=== PATIENT | female | born 1965 | race Two or more races ===

== ENCOUNTER 2024-07-21 19:49 | Inpatient (IN) | payer OTHER, SELFPAY ==
--- NOTE | ~2024-07-21 | CT_ITS ---
CLINICAL HISTORY: persistent headache CT head without contrast Comparison: None Findings: No intra-axial mass, midline shift, hydrocephalus, or acute hemorrhage. No significant atrophy-like change or white matter disease. There is no sinus or mastoid fluid. The orbits are unremarkable. No skull fracture. IMPRESSION: 1. No acute intracranial findings. This document has been electronically signed by: Ruddy Park MD on 07/23/2024 12:24:24
--- NOTE | ~2024-07-21 | US_ITS ---
CLINICAL HISTORY: TANIA Exam: Ultrasound of the kidneys. Comparison: None. Findings: Right kidney measures 13.2 x 6.2 x 5.5 cm in size. Left kidney measures 13.9 x 7.1 x 5.6 cm in size. Diffuse increased echotexture of both kidneys with indistinctness of the corticomedullary junction. No mass or hydronephrosis identified. No renal calculi. Impression: Increased cortical echotexture both kidneys most characteristic of medical renal disease. This document has been electronically signed by: Juan Baptiste MD on 07/25/2024 07:34:08
[2024-07-21 19:53] VITALS: BP 155/79; PULSE 81; RESP 18; TEMP 37; O2SAT 98; BMI 31.6
--- NOTE | 2024-07-21 19:53 | ED.GENADULT ---
HPI - General Adult General Chief complaint: Recheck/Abnormal Lab/Rx Stated complaint: abnormal labs Time Seen by Provider: 07/21/24 23:11 Source: patient Mode of arrival: ambulatory Limitations: no limitations History of Present Illness ED Provider: HPI narrative: Patient's history of diabetes, hypertension, gastric bypass surgery comes here as PCP checked his blood yesterday and creatinine was 1.77. Patient creatinine was 0.75 on 05/30 for last few days patient has not been drinking enough fluids in last few days also noticed joints swelling especially hands pain in MCP joints Related Data Allergies Allergy/AdvReac Type Severity Reaction Status Date / Time latex Allergy Unknown Verified 07/21/24 19:55 Review of Systems Review of Systems: Yes all other systems are reviewed and are negative ON LICENSE OF [facility] Past Medical History Medical History (Updated 07/22/24 @ 07:15 by Jaden Wing MD) Post hysterectomy menopause Endometrial cancer Anxiety HTN (hypertension) Surgical History H/O inguinal hernia repair H/O abdominoplasty H/O gastric sleeve Social History Social History Smoked in Last 30 Days: No Use of substances other than those prescribed or required for medical reasons: No Advance Directives: No Advance Directives Information Provided: No Do you have a plan to hurt others: No Plan Patient : No Physical Exam ED Vital Signs: Vital Signs - 24 hr 07/21/24 19:53 07/21/24 22:48 07/22/24 02:25 Temperature 98.6 F 97.4 F 97.8 F Pulse Rate 81 71 76 Respiratory Rate 18 20 16 Blood Pressure 155/79 H 152/86 H 144/79 H Pulse Oximetry 98 99 97 Oxygen Delivery Method Room Air Room Air Room Air 07/22/24 05:17 Temperature Pulse Rate 78 Respiratory Rate 18 Blood Pressure 147/76 H Pulse Oximetry 97 Oxygen Delivery Method Room Air BMI result Body Mass Index 31.6 Appearance: Alert. Oriented X3. No acute distress. Eyes: PERRLA, No Nystagmus ENT: Pharynx normal. Oral Mucosa moist facial puffiness++ Neck: Normal inspection. Neck supple. CVS: Normal heart rate and rhythm. Pulses normal. Respiratory: No respiratory distress. Equal air entry bilateral, no wheezing/rales/rhonchi Abdomen: Soft and nontender. Bowel sounds are present, no mass palpable, no CVA tenderness Skin: Skin warm and dry. Normal skin color. Normal skin turgor. Extremities: No lower extremity edema. No calf tenderness swelling of the interphalangeal joint both hands Neuro: Oriented X 3. No motor deficit. No sensory deficit.No cerebellar signs , cranial nerves II-XII intact Course Course Course Narrative: This is a Rapid Medical Exam performed in triage by Alyssa Velazquez PA-C. Full HPI, ROS and PE to be performed by primary ED provider. 58 yo F presenting to the ED c/o diffuse body swelling x Wednesday. Admits to recent viral infection. Saw PCP & was told to come to the ED due to abnormal liver and kidney labs. (outpatient labs done yesterday). denies SOB PE: +diffuse joint swelling, LE swelling, talking in complete sentences Plan: EKG, labs, UA Medications Administered Discontinued Medications Generic Name Dose Route Start Last Admin Trade Name Tyrone PRN Reason Stop Dose Admin Acetaminophen 650 mg 07/22/24 03:57 07/22/24 04:00 Acetaminophen 325 Mg Tablet PO 07/22/24 03:58 650 mg ONCE ONE Administration Sodium Chloride 1,000 mls @ 999 mls/hr 07/21/24 23:39 07/22/24 02:15 Ns IV 07/22/24 00:39 Infused .Q1H1M ONE Infusion Sodium Chloride 1,000 mls @ 999 mls/hr 07/22/24 03:25 07/22/24 04:41 Ns IV 07/22/24 04:25 Infused .Q1H1M ONE Infusion Medical Decision Making Medical Decision Making [facility] Narrative: Patient with decreased oral intake status post gastric bypass surgery for last few days noticed to have elevated creatinine from her baseline of 0.75 in 05/30 now it is 1.99 patient received 1 L of IV fluids will repeat another L of IV fluid and recheck kidney function Repeat labs still showing creatinine of 1.62 after 2 L of IV fluids patient's urinated once will admit patient for continued IV hydration and follow up for the acute renal failure Differential Diagnosis Differential Diagnoses: The differential diagnosis associated with the presentation includes Lab Data [facility] Lab Attestation statement: I reviewed the patient's lab results. 07/21/24 20:10 07/22/24 05:15 Labs: Lab Results 07/21/24 07/22/24 07/22/24 Range/Units 20:10 00:13 01:53 WBC 6.4 (4.8-10.8) X10*3/uL RBC 3.96 L (4.20-5.50) X10*6/uL Hgb 11.1 L (12.0-16.0) g/dl Hct 33.8 L (37.0-47.0) % MCV 85.4 (80.0-98.0) fL MCH 28.0 (27.0-33.0) pg MCHC 32.8 (31.0-35.0) g/dl RDW 14.8 (11.0-16.0) % Plt Count 293 (160-400) X10*3/uL MPV 9.9 (9.4-12.3) fL Immature Gran % (Auto) 0.6 H (0.0-0.4) % Neut % (Auto) 68.4 (45-73) % Lymph % (Auto) 20.2 (20-40) % [place] % (Auto) 5.9 (2-11) % Eos % (Auto) 4.3 H (0-4) % Baso % (Auto) 0.6 (0-2) % Lymph # (Auto) 1.3 (1.2-4.9) X10*3/uL [place] # (Auto) 0.4 (0.1-1.2) X10*3/uL Eos # (Auto) 0.3 (0.0-0.4) X10*3/uL Baso # (Auto) 0.0 (0.0-0.2) X10*3/uL Abs Immat Gran (auto) 0.04 H (0.00-0.03) X10*3/uL Absolute Neuts (auto) 4.4 (2.0-8.3) x10*3/uL Absolute Nucleated RBC 0.000 (0.0-0.012) X10*3/uL Nucleated RBC % (auto) 0.0 (0.0-0.2) /100WBC ESR 23 H (0-20) MM/HR PT 9.8 L (10.9-12.4) SEC INR 0.9 (0.9-1.1) Sodium 138 (135-145) mmol/L Potassium 4.9 (3.3-5.1) mmol/L Chloride 106 (96-108) mmol/L Carbon Dioxide 23 (22-29) mmol/L Anion Gap 14 (12-20) BUN 33 H (9-16) mg/dL Creatinine 1.99 H (0.5-1.4) mg/dL Estim Creat Clear Calc 37.0 Estimated GFR 26 Random Glucose 163 H (60-115) mg/dL Calcium 8.5 (8.4-10.2) mg/dL Magnesium 3.1 H (1.6-2.6) mg/dL Total Bilirubin 0.3 (0.0-1.0) mg/dL Direct Bilirubin 0.1 (0.0-0.5) mg/dL AST 40 H (5-31) U/L ALT 43 H (0-31) U/L Alkaline Phosphatase 89 (39-117) U/L Total Creatine Kinase 121 (26-140) U/L C-Reactive Protein 0.54 H (< or = 0.50) mg/dL B-Natriuretic Peptide 66 (<100) pg/mL Total Protein 6.1 L (6.5-8.0) g/dL Albumin 3.3 L (3.5-5.0) g/dL Lipase 22 (8-78) U/L Urine Color Yellow Urine Appearance Clear Urine pH 7.5 (5.0-9.0) Ur Specific [place] 1.010 (1.005-1.025) Urine Protein 300 (3+) H (Neg-Trace) mg/dL Urine Glucose (UA) Negative (Negative) mg/dL Urine Ketones Negative (Negative) mg/dL Urine Blood Negative (Negative) Urine Nitrite Negative (Negative) Ur Leukocyte Esterase Negative (Negative) Urine RBC 0-2 (0-2) /HPF Urine WBC 0-5 (0-5) /HPF Ur Squamous Epith Cells 0-2 (0-2) /HPF Urine Bacteria None Seen (None Seen) Hyaline Casts 0-2 (0-2) /LPF Rheumatoid Factor < 13.0 (<15.0) IU/mL Influenza Type A (PCR) NEGATIVE (Negative) Influenza Type B (PCR) NEGATIVE (Negative) RSV RNA Qual (PCR) NEGATIVE (Negative) SARS-CoV-2 RNA (RT-PCR) NEGATIVE (Negative) 07/22/24 Range/Units 05:15 WBC (4.8-10.8) X10*3/uL RBC (4.20-5.50) X10*6/uL Hgb (12.0-16.0) g/dl Hct (37.0-47.0) % MCV (80.0-98.0) fL MCH (27.0-33.0) pg MCHC (31.0-35.0) g/dl RDW (11.0-16.0) % Plt Count (160-400) X10*3/uL MPV (9.4-12.3) fL Immature Gran % (Auto) (0.0-0.4) % Neut % (Auto) (45-73) % Lymph % (Auto) (20-40) % [place] % (Auto) (2-11) % Eos % (Auto) (0-4) % Baso % (Auto) (0-2) % Lymph # (Auto) (1.2-4.9) X10*3/uL [place] # (Auto) (0.1-1.2) X10*3/uL Eos # (Auto) (0.0-0.4) X10*3/uL Baso # (Auto) (0.0-0.2) X10*3/uL Abs Immat Gran (auto) (0.00-0.03) X10*3/uL Absolute Neuts (auto) (2.0-8.3) x10*3/uL Absolute Nucleated RBC (0.0-0.012) X10*3/uL Nucleated RBC % (auto) (0.0-0.2) /100WBC ESR (0-20) MM/HR PT (10.9-12.4) SEC INR (0.9-1.1) Sodium 141 (135-145) mmol/L Potassium 4.6 (3.3-5.1) mmol/L Chloride 112 H (96-108) mmol/L Carbon Dioxide 24 (22-29) mmol/L Anion Gap 10 L (12-20) BUN 28 H (9-16) mg/dL Creatinine 1.62 H (0.5-1.4) mg/dL Estim Creat Clear Calc 45.4 Estimated GFR 33 Random Glucose 103 (60-115) mg/dL Calcium 8.1 L (8.4-10.2) mg/dL Magnesium (1.6-2.6) mg/dL Total Bilirubin (0.0-1.0) mg/dL Direct Bilirubin (0.0-0.5) mg/dL AST (5-31) U/L ALT (0-31) U/L Alkaline Phosphatase (39-117) U/L Total Creatine Kinase (26-140) U/L C-Reactive Protein (< or = 0.50) mg/dL B-Natriuretic Peptide (<100) pg/mL Total Protein (6.5-8.0) g/dL Albumin (3.5-5.0) g/dL Lipase (8-78) U/L Urine Color Urine Appearance Urine pH (5.0-9.0) Ur Specific [place] (1.005-1.025) Urine Protein (Neg-Trace) mg/dL Urine Glucose (UA) (Negative) mg/dL Urine Ketones (Negative) mg/dL Urine Blood (Negative) Urine Nitrite (Negative) Ur Leukocyte Esterase (Negative) Urine RBC (0-2) /HPF Urine WBC (0-5) /HPF Ur Squamous Epith Cells (0-2) /HPF Urine Bacteria (None Seen) Hyaline Casts (0-2) /LPF Rheumatoid Factor (<15.0) IU/mL Influenza Type A (PCR) (Negative) Influenza Type B (PCR) (Negative) RSV RNA Qual (PCR) (Negative) SARS-CoV-2 RNA (RT-PCR) (Negative) Discharge Plan Discharge Clinical Impression: TANIA (acute kidney injury), S/P gastric sleeve procedure, HTN (hypertension) Patient Disposition: Admitted As Inpatient
[2024-07-21 20:16] LABS: MANUAL DIFF FLAG NO
[2024-07-21 20:17] LABS: Basophils Percent Auto 0.6 % (0-2); Eosinophils Absolute Auto 0.3 X10*3/uL (0.0-0.4); Eosinophils Percent Auto 4.3 % (0-4); Hematocrit 33.8 % (37.0-47.0); Hemoglobin 11.1 g/dl (12.0-16.0); Imm Gran Abs Auto 0.04 X10*3/uL (0.00-0.03); Imm Gran Pct Auto 0.6 % (0.0-0.4); Lymphocytes Absolute Auto 1.3 X10*3/uL (1.2-4.9); Lymphocytes Percent Auto 20.2 % (20-40); Mean Corpuscular HGB Conc 32.8 g/dl (31.0-35.0); Mean Corpuscular Volume 85.4 fL (80.0-98.0); Mean Platelet Volume 9.9 fL (9.4-12.3); Monocytes Absolute Auto 0.4 X10*3/uL (0.1-1.2); Monocytes Percent Auto 5.9 % (2-11); Neutrophils Absolute Auto 4.4 x10*3/uL (2.0-8.3); Neutrophils Percent Auto 68.4 % (45-73); Platelet Count 293 X10*3/uL (160-400); Red Blood Count 3.96 X10*6/uL (4.20-5.50); Red Cell Distribution Width 14.8 % (11.0-16.0); White Blood Count 6.4 X10*3/uL (4.8-10.8)
[2024-07-21 20:25] LABS: INTERNATIONAL NORM RATIO 0.9 (0.9-1.1); Prothrombin Time 9.8 SEC (10.9-12.4)
[2024-07-21 20:31] LABS: Alanine Aminotransferase 43 U/L (0-31); Albumin Level 3.3 g/dL (3.5-5.0); Alkaline Phosphatase 89 U/L (39-117); Anion Gap 14 (12-20); Aspartate Amino Transferase 40 U/L (5-31); Bilirubin Direct 0.1 mg/dL (0.0-0.5); Bilirubin Total 0.3 mg/dL (0.0-1.0); Blood Urea Nitrogen 33 mg/dL (9-16); Calcium 8.5 mg/dL (8.4-10.2); Carbon Dioxide 23 mmol/L (22-29); Chloride 106 mmol/L (96-108); Estimated Glomerular Filt Rate 26; Glucose Random 163 mg/dL (60-115); Lipase 22 U/L (8-78); Magnesium 3.1 mg/dL (1.6-2.6); Potassium 4.9 mmol/L (3.3-5.1); Sodium 138 mmol/L (135-145); Total Protein 6.1 g/dL (6.5-8.0)
[2024-07-21 20:36] LABS: B Type Natriuretic Peptide 66 pg/mL (<100)
[2024-07-21 20:53] LABS: Influenza A PCR NEGATIVE (Negative); Influenza B PCR NEGATIVE (Negative); Resp Syncy Virus RNA Qual PCR NEGATIVE (Negative); SARS COV2 PCR INHOUSE NEGATIVE (Negative)
--- OUTSIDE RECORDS SUMMARY | 2024-07-21 22:04 | XMS_ITS | Encounter Summary ---
Author Organization [facility] Address [address] [place] [address] Care Team Providers Care Central Station Operator Name Role Phone Lilian Lanier Primary Care Provider [phone] Reason for Visit * Reason Comments Generalized Body Aches General body body pain swelling hand and feet x 4 days Encounter Details Date Type Department Care Team (Late st Contact Info) Description 07/20/2024 2:00 PM EDT Office Visit Internal Medicine - [address] [phone] Darrel Santiago, PADMINI [address] [place] [id number] Diarrhea, unspecified type (Primary Dx); Abnormal urine; Arthralgia, unspecified joint Social History Tobacco Use Types Packs/Day Years Used Date Smoking Tobacco: Former Cigarettes Smokeless Tobacco: Never Alcohol Use Standard Drinks/Week Comments Never 0 (1 standard drink = 0.6 oz pur e alcohol) Comments No Sex and Gender Information Value Date Recorded Sex Assigned at Not on file Legal Sex Female 12:36 PM EST Gender Identity Not on file Sexual Orientation Not on file documented as of this encounter Last Filed Vital Signs Vital Sign Reading Time Taken Comments Blood Pressure 121/76 07/20/2024 1:55 PM EDT aut o Pulse 76 07/20/2024 1:55 PM EDT Temperature - - Respiratory Rate - - Oxygen Saturation - - Inhaled Oxygen Concentration - - Weight 94.5 kg (208 lb 4.8 oz) 07/20/2024 1:55 P M EDT Height 172.7 cm (5' 8 ) 07/20/2024 1:55 PM EDT Body Mass Index 31.67 07/20/2024 1:55 PM EDT documented in this encounter Ordered Prescriptions Prescription Sig Dispense Quantity Refills Last Filled Start Date End Date diclofenac (VOLTAREN) 75 mg EC tabletIndications:A rthralgia, unspecified joint Take 1 tablet (75 mg total) by mouth 2 (two) times a day if needed (pain). Do not crush, chew, or split. Short term 30 tablet 07/20/2024 documented in this encounter Progress Notes * Darrel Santiago NP - 07/20/2024 2:00 PM EDT CHIEF COMPLAINT: Generalized Body Aches (General body body pain swelling hand and feet x 4 days ) had concerns including Generalized Body Aches (General body body pain swelling hand and feet x 4 days ). IDENTIFIER: Tres Ta is a 58 y.o. old female HPI: Tres Ta is a 58 y.o. old female presents to the office for evaluation of Generalized BodyAches (General body body pain swelling hand and feet x 4 days ) had concerns including Generalized Body Aches (General body body pain swelling hand and feet x 4 days ). Complains of nonbloody diarrhea which started Wednesday and then resolved but patient experienced several joint pain and swelling initially on posterior neck and then on bilateral hands more severe on the right side and knee and ankle, has noticed some foamy like material in urine otherwise no urinary symptoms, never had similar symptoms before, she presented to an urgent care and advised to take Motrin and other pain reliever which she has not. She is told that she had a viral infection ROS: See HPI PAST MEDICAL HISTORY: Patient Active Problem List Diagnosis Date Noted DM (diabetes mellitus) ([facility] V24, [facility] V28) 02/26/2023 Obesity (BMI 30.0-34.9) 02/24/2023 Anxiety 08/19/2021 Depression 08/19/2021 HTN (hypertension) 08/19/2021 Iron deficiency anemia 08/19/2021 Lung nodule 08/19/2021 ACTIVE MEDICATIONS: Outpatient Medications Marked as Taking for the 07/20/24 encounter (Office Visit) with Darrel Santiago NP Medication Sig Dispense Refill albuterol sulfate (ProAir RespiClick) 90 mcg/actuation aerosol powdr breath activated Inhale into the lungs. blood sugar diagnostic (FreeStyle Lite Strips) test strip E 11.9 . use to check blood sugar daily 100 each 12 blood-glucose meter kit 1 each if needed (use to check blood sugar daily). E 11.9 . use to check blood sugar daily 1 each 0 BUPROPION HCL ORAL Take by mouth. cholecalciferol (VITAMIN D-3) 50 mcg (2,000 unit) capsule Take 1 capsule (2,000 Units total) by mouth 1 (one) time each day. ferrous sulfate 325 mg (65 mg elemental iron) tablet Take 1 Tablet by mouth daily. Take by mouth daily. freestyle (FreeStyle Lancets) 28 gauge lancets E 11.9 . use to check blood sugar daily 100 each 12 gabapentin (NEURONTIN) 100 mg capsule Take 1 capsule (100 mg total) by mouth at bedtime. 90 each 1 losartan (COZAAR) 100 mg tablet Take 1 tablet (100 mg total) by mouth 1 (one) time each day. 90 each 1 metFORMIN (GLUCOPHAGE) 500 mg tablet Take 1 tablet (500 mg total) by mouth 2 (two) times a day withmeals. 180 each 1 tirzepatide (Mounjaro) 7.5 mg/0.5 mL injection Inject 0.5 mL (7.5 mg total) under the skin every 7 (seven) days. 2 mL 2 ALLERGIES: @ALL@ PHYSICAL EXAM: Visit Vitals BP 121/76 Comment: auto Pulse 76 Ht 1.727 m (68 ) Wt 94.5 kg (208 lb 4.8 oz) BMI 31.67 kg/m?? OB Status Hysterectomy Smoking Status Former BSA 2.08 m?? APPEARANCE: Alert and in no acute distress HEART: RRR with normal S1 and S2, no murmurs, no gallops, no JVD appreciated LUNG: clear to auscultation EXTREMITIES: Extremities warm and well perfused without clubbing, cyanosis, or edema LABS: @LASTDATALABS@ IMPRESSION: 1. Diarrhea, unspecified type 2. Abnormal urine 3. Arthralgia, unspecified joint PLAN: I evaluated this patient today for her complaint of arthralgia which started at around the same time that she had nonbloody diarrhea 2 days ago, diarrhea has completely improved but she still has joint pain, on physical exam there is slight puffiness generally on right hand also some pain and tenderness on both ankle and knees, there is possibility of reactive arthritis secondary to gastroenteritis possibly a viral although bacterial is more common, given improving GI symptoms no further workupfor this, I reviewed several treatment options, she is interested in trying diclofenac among other NSAIDs because she tried before and this was more effective on her pain, sent prescription to be taken continuous for 5 days then as needed for another 5 days then stop, Side effects and benefits and interactions of prescribed drugs and signs and symptoms warranting immediate discontinuation and seeking medical attention discussed; Patient expressed understanding. Labs as follows. Continue to follow with her PCP Orders Placed This Encounter Procedures Comprehensive metabolic panel Urinalysis with reflex microscopic and culture ADDITIONAL ORDERS: None Today's documentation was made using voice recognition software.This note may contain grammatical errors secondary to this software. Darrel Santiago NP on 07/20/2024 at 2:31 PM EDT documented in this encounter Plan of Treatment Upcoming Encounters Date Type Department Care Team (Late st Contact Info) Description 08/18/2024 4:00 PM EDT Office Visit Internal Medicine - [address] [phone] Jennifer Pittman NP [address] [place] [address] 11/28/2024 4:15 PM EDT Office Visit Bariatric Surgery - [place] [address] [phone] Sherron Holden MD [address] [address] documented as of this encounter Results * (ABNORMAL) Comprehensive metabolic panel (07/20/2024 2:44 PM EDT) [facility] Sodium 138 133 - 145 mmol/L LAB CHEMISTRY METHOD 07/21/2024 10:14 AM EDT [facility] Potassium 5.5 3.5 - 5.5 mmol/L LAB CHEMISTRY METHOD 07/21/2024 10:14 AM [facility] Chloride 106 96 - 110 mmol/L LAB CHEMISTRY METHOD 07/21/2024 10:14 AM [facility] CO2 27 21 - 32 mmol/L LAB CHEMISTRY METHOD 07/21/2024 10:14 AM [facility] Anion Gap 5 3 - 11 LAB CHEMISTRY METHOD 07/21/2024 10:14 AM [facility] Glucose 98 70 - 100 mg/dL LAB CHEMISTRY METHOD 07/21/2024 10:14 AM [facility] BUN 27(H) 5 - 25 mg/dL LAB CHEMISTRY METHOD 07/21/2024 10:14 AM [facility] Creatinine 1.77(H) 0.50 - 1.10 mg/dL LAB CHEMISTRY METHOD 07/21/2024 10:14 AM [facility] Comment:Results verified by repeat testing eGFR 33(L) >=60 mL/min/1. 73m2 LAB CHEMISTRY METHOD 07/21/2024 10:14 AM [facility] Comment:Calculation based on the Chronic Kidney Disease Epidemiology Collaboration (CKD-EPI) equation refit without adjustment for race. BUN/Creatinine Ratio 15.3 LAB CHEMISTRY METHOD 07/21/2024 10:14 AM [facility] Calcium 8.6 8.5 - 10.5 mg/dL LAB CHEMISTRY METHOD 07/21/2024 10:14 AM [facility] AST (SGOT) 43(H) 10 - 42 unit/L LAB CHEMISTRY METHOD 07/21/2024 10:14 AM [facility] Comment:Results verified by repeat testing ALT (SGPT) 62(H) 10 - 60 unit/L LAB CHEMISTRY METHOD 07/21/2024 10:14 AM [facility] Comment:Results verified by repeat testing Alkaline Phosphatase 96 42 - 121 unit/L LAB CHEMISTRY METHOD 07/21/2024 10:14 AM EDT [facility] Total Protein 6.5 6.0 - 8.0 g/dL LAB CHEMISTRY METHOD 07/21/2024 10:14 AM EDT [facility] Albumin 3.5 3.2 - 5.0 g/dL LAB CHEMISTRY METHOD 07/21/2024 10:14 AM EDT [facility] Total Bilirubin 0.5 0.0 - 1.4 mg/dL LAB CHEMISTRY METHOD 07/21/2024 10:14 AM EDT [facility] Blood Venous blood specimen / Unknown Venipuncture / Unknown 07/20/2024 2:44 PM EDT 07/20/2024 2:44 PM EDT us Darrel Santiago [employer]ARY [employer] OPERATOR LAB BLOOD ORDERABLES Final Res ult [facility] [address] [place] [address], documented in this encounter Visit Diagnoses Diagnosis Diarrhea, unspecified type- Primary Abnormal urine Other nonspecific finding on examination of urine Arthralgia, unspecified joint documented in this encounter Care Teams Central Station Operator Relationship Specialty Start Date End Date Lilian Lanier DO [address] [place] [address] PCP - General Internal Medicine 03/17/24 documented as of this encounter
--- OUTSIDE RECORDS SUMMARY | 2024-07-21 22:04 | XMS_ITS | Encounter Summary ---
Author Organization [facility] Address [address] [place] [address] Care Team Providers Care Mannequin Refinisher Name Role Phone Lilian Lanier DO Primary Care Provider [phone] Reason for Visit * Reason Onset Date Comments Foot Swelling 07/20/2024 Body Swelling 07/20/2024 Encounter Details Date Type Department Care Team (Late st Contact Info) Description 07/20/2024 Telephone Internal Medicine - [facility] [address] [place] [address] Lilian Lanier DO [address] [place] [address] Foot Swelling; Body Swelling Social History Tobacco Use Types Packs/Day Years [...] on file documented as of this encounter Progress Notes * Dona Paige RN - 07/20/2024 10:28 AM EDT Spoke to pt-reports of going to an external u.c. yest for multiple concerns (tiredness/loose stools and muscle aches) ;no testing was done;was advised she has a viral condn and prescribed pain reliever. She states she also has bilat hand(right is worse) and left ankle pain with swelling x few days. 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 Advised to try warm or cool compress applcn . Appt made-will wear a mask ( will bring d/c paper fr u.c. visit) ?bld test or xray * Kiana Felipe - 07/20/2024 9:43 AM EDT Patient call requires triage: Symptoms patient is presenting: Patient called stating she is experincing pain in her shoulders, right hand and knee. Also stated she can not close her arm. She is having a hard time walking. Patientdid go to urgent care yesterday to [facility] ([place]) gave her medication but has not been working for her. How long has patient had these symptoms?: Wednesday07/17/24 For ALL patients calling to schedule any appointment (routine, sick visit, follow up, consult, etc.) in the outpatient setting please ask the following questions: ?Do you have fever of higher than 101, sore throat with difficulty swallowing or severe shortness of breath? no If YES to any of these above symptoms, send a message to triage and do not book. Red dot. If no, an audio or video visit should be booked. ?Have you had close contact with someone with Coronavirus in the last 14 days? no ?Have you traveled abroad? no ?Have you traveled recently to another state outside of [place], [place], [place], [place], [place], [place], [place]? no o If yes, did you quarantine for 14 days or have a negative covid test? no If yes to any of the above, patient is not to be scheduled in office until after 14 day quarantine or negative covid test. If pain or injury related was it due to an accident at work or from a motor vehicle accident? If yes, date of accident/Injury: No If yes, gather 3rd [employer] insurance information [employer] Party Information: not applicable documented in this encounter Plan of Treatment Upcoming Encounters Date Type Department Care Team (Late st Contact Info) Description 08/18/2024 4:00 PM EDT [facility] [address] [place] [phone] Jennifer Pittman, PADMINI [address] [place] [address] 11/28/2024 4:15 PM EDT Office Visit Bariatric Surgery - [place] [address] [phone] Sherron Holden MD [address] [address] documented as of this encounter Visit Diagnoses Not on filedocumented in this encounter Care Teams Mannequin Refinisher Relationship Specialty Start Date End Date Lilian Lanier DO [address] [place] [address] PCP - General Internal Medicine 03/17/24 documented as of this encounter
--- OUTSIDE RECORDS SUMMARY | 2024-07-21 22:04 | XMS_ITS | Clinical Summary ---
Author Organization [facility] Address [address] [place] [address] Phone Care Team Providers Care Front End Loader Driver Name Role Phone Yannick Lilian Primary Care Provider [phone] Allergies Active Allergy Reactions Criticality Noted Date Comments Adhesive Rash 01/20/2022 Latex Rash 01/20/2022 Medications BUPROPION HCL ORAL Take by mouth. Active albuterol sulfate (ProAir RespiClick) 90 mcg/actuation aerosol powdr breath activated Inhale into the lungs. Active ferrous sulfate 325 mg (65 mg elemental iron) tablet Take 1 Tablet by mouth daily. Take by mouth daily. 3 Active cholecalciferol (VITAMIN D-3) 50 mcg (2,000 unit) capsule Take 1 capsule (2,000 Units total) by mouth 1 (one) time each day. 3 Active losartan (COZAAR) 100 mg tabletIndications :Primary hypertension Take 1 tablet (100 mg total) by mouth 1 (one) time each day. 90 each 5 11/22/19 25 Active metFORMIN (GLUCOPHAGE) 500 mg tabletIndications :Type 2 diabetes mellitus without complication, without long-term current use of insulin (CMS/HCC V24, CMS/HCC V28) Take 1 tablet (500 mg total) by mouth 2 (two) times a day with meals. 180 each 5 11/22/19 25 Active gabapentin (NEURONTIN) 100 mg capsuleIndication s:Other diabetic neurological complication associated with type 2 diabetes mellitus (CMS/HCC V24, CMS/HCC V28) Take 1 capsule (100 mg total) by mouth at bedtime. 90 each 1 5 11/22/19 25 Active freestyle (FreeStyle Lancets) 28 gauge lancetsIndication s:Iron deficiency anemia, unspecified iron deficiency anemia type E 11.9 . use to check blood sugar daily 100 each 12 5 Active blood-glucose meter kitIndications:Ir on deficiency anemia, unspecified iron deficiency anemia type 1 each if needed (use to check blood sugar daily). E 11.9 . use to check blood sugar daily 1 each 5 05/26/19 26 Active blood sugar diagnostic (FreeStyle Lite Strips) test strip E 11.9 . use to check blood sugar daily 100 each 12 5 Active tirzepatide (Mounjaro) 7.5 mg/0.5 mL injectionIndicati ons:Class 1 obesity due to excess calories with serious comorbidity and body mass index (BMI) of 30.0 to 30.9 in adult Inject 0.5 mL (7.5 mg total) under the skin every 7 (seven) days. 2 mL 2 5 08/29/19 25 Active diclofenac (VOLTAREN) 75 mg EC tabletIndications :Arthralgia, unspecified joint Take 1 tablet (75 mg total) by mouth 2 (two) times a day if needed (pain). Do not crush, chew, or split. Short term 30 tablet 5 Active Active Problems Problem Noted Date Diagnosed Date DM (diabetes mellitus) ([facility] V24, [facility] V28 ) 02/26/2023 Obesity (BMI 30.0-34.9) 02/24/2023 Anxiety 08/19/2021 Depression 08/19/2021 HTN (hypertension) 08/19/2021 Iron deficiency anemia 08/19/2021 Lung nodule 08/19/2021 Encounters Date Type Department Care Team Description 07/20/2024 2:00 PM EDT Office Visit Internal Medicine - [address] [phone] Darrel Santiago NP Diarrhea, unspecified type (Primary Dx); Abnormal urine; Arthralgia, unspecified joint 07/20/2024 Telephone Internal Medicine - [address] [phone] Lilian Lanier, Foot Swelling; Body Swelling 05/30/2024 3:45 PM EDT Office Visit Bariatric Surgery - [place] [address] [place] [address] Sherron Holden MD Class 1 obesity due to excess calories with serious comorbidity and body mass index (BMI) of 30.0 to 30.9 in adult (Primary Dx) 05/25/2024 8:30 AM EDT [facility] [address] [phone] Jennifer Pittman, PADMINI Primary hypertension (Primary Dx); Type 2 diabetes mellitus without complication, without long-term current use of insulin ([facility] V24, [facility] V28); Iron deficiency anemia, unspecified iron deficiency anemia type; Class 1 obesity with serious comorbidity and body mass index (BMI) of 31.0 to 31.9 in adult, unspecified obesity type; Screening for endocrine, nutritional, metabolic and immunity disorder; Encounter for screening for HIV; Screening for cholesterol level; Other diabetic neurological complication associated with type 2 diabetes mellitus ([facility] V24, [facility] V28) from Last 3 Months Immunizations Name Administration Dates Next Due Moderna SARS-CoV-2 COVID-19, mRNA, LNP-S, preservative free 12/28/2020,05/23/2020,04/22/2020 Pneumococcal conjugate 20 va lent (Prevnar 20, PCV 20) 2mo and older 10/27/2023 Tdap Tetanus diptheria acell ular pertussis (Boostrix; Adacel) 7yo and older 10/27/2023 Surgical History Surgery Date Site/Laterality Comments GASTRIC BYPASS 2010 PROCEDURE: TX GASTRIC RSTCV W/BYP W/SM INT RCNSTJ LIMIT ABSRPJ; COMMENT: in [place] PARTIAL HYSTERECTOMY PROCEDURE: TX SUPRACERVICAL ABDL HYSTER W/WO RMVL TUBE OVARY KNEE ARTHROSCOPY W/ DEBRIDEMENT Right PROCEDURE: TX ARTHRS KNEE DEBRIDEMENT/SHAVING ARTCLR CRTLG HERNIA REPAIR PROCEDURE: TX REPAIR FIRST ABDOMINAL WALL HERNIA; COMMENT: supraumbilical mesh hernia repair OTHER SURGICAL HISTORY PROCEDURE: TX RPR RECRT INCAL/VNT HERNIA REDUCIBLE BLADDER SURGERY 03/02/2022 PROCEDURE: HISTORICAL BLADDER SURGERY; COMMENT: Placement of retropubic mid-urethral sling, Cystourethroscopy. BOWEL RESECTION 02/06/2022 PROCEDURE: HISTORICAL BOWEL RESECTION Medical History Medical History Date Comments Anxiety disorder DX:Anxiety diso rder Depression DX:Depression Urinary incontinence DX:Urinary incontinence Iron deficiency anemia DX:Iron d eficiency anemia Family History Medical History Relation Name Comments Breast cancer Aunt Dementia Father Diabetes Father Hypertension Father Lung cancer Father Stroke Father Alzheimer's disease Mother Diabetes Mother Hypertension Mother Breast cancer Sister 1 1/2 paternal Breast cancer Sister 2 1/2 paternal Relation Name Status Comments Aunt Father Maternal Grandfather Maternal Grandmother Mother Paternal Grandfather Paternal Grandmother Sister 1 1/2 paternal Sister 2 1 paternal Alive Sister 3 1/2 paternal Alive Social History Tobacco Use Types Packs/Day Years Used Date Smoking Tobacco: Former Cigarettes Smokeless Tobacco: Never Tobacco Cessation:Counseling Given: Not Answered Alcohol Use Standard Drinks/Week Comments Never 0 (1 standard drink = 0.6 oz pur e alcohol) Comments No Sex and Gender Information Value Date Recorded Sex Assigned at Not on file Legal Sex Female 12:36 PM EST Gender Identity Not on file Sexual Orientation Not on file Obstetrics History Last Filed Vital Signs Vital Sign Reading Time Taken Comments Blood Pressure 121/76 07/20/2024 1:55 PM EDT aut o Pulse 76 07/20/2024 1:55 PM EDT Temperature 36.6 ??C (97.8 ??F) 05/30/2024 3:55 PM ED T Respiratory Rate - - Oxygen Saturation - - Inhaled Oxygen Concentration - - Weight 94.5 kg (208 lb 4.8 oz) 07/20/2024 1:55 P M EDT Height 172.7 cm (5' 8 ) 07/20/2024 1:55 PM EDT Body Mass Index 31.67 07/20/2024 1:55 PM EDT Plan of Treatment Upcoming Encounters Date Type Department Care Team (Late st Contact Info) Description 08/18/2024 4:00 PM EDT Office Visit Internal Medicine - [address] [phone] Jennifer Pittman NP [address] [place] [address], [place] [address] 11/28/2024 4:15 PM EDT Office Visit Bariatric Surgery - [place] [address] [place] [phone] Sherron Holden MD [address] [facility] [address] [place] [address] Health Maintenance Due Date Last Done Comments Breast Cancer Screening 1965 Diabetes: Annual Retina Eye Exam 12/10/1975 Hepatitis B Vaccines (1 of 3 - 19+ 3-dose series) 1984 Cervical Cancer Screening: P ap Smear 1986 Hepatitis C Screening 02/15/2022 Social Influencers of Health Screening 02/15/2022 COVID-19 Vaccine ( - 2023-2 5 season) 2023 12/28/2020, 05/23/2020, 04/22/2020 Diabetes: Blood Sugar Contro l Test (HGBA1C) 04/01/2024 07/20/2024, 09/30/2023, 09/30/2023 Zoster Vaccines (2 of 2) 04/04/2024 02/08/2024 Depression Screening 06/30/2024 07/01/2023 Diabetes: Annual Urine Albumin-Creatinine Ratio (uACR) 09/29/2024 09/30/2023 Diabetes: Annual Foot Exam 10/26/2024 10/27/2023 Diabetes: Annual GFR (Glomerular Filtration Rate) 07/20/2025 07/20/2024, 05/25/2024, 02/25/2023 Hypertension/CHF/CAD Annual BMP Blood Test 07/20/2025 07/20/2024, 05/25/2024, 02/25/2023 Cholesterol Screening (Lipid Panel) 05/25/2029 05/25/2024, 10/23/2022 DTaP,Tdap,and Td Vaccines (2 - Td or Tdap) 10/26/2033 10/27/2023 Colorectal Cancer Screening: Colonoscopy 11/15/2033 11/16/2023 Pneumococcal Vaccine: 50+ Years Completed 10/27/2023 Pneumococcal Vaccine: Pediatrics (0 to 5 Years) and At-Risk Patients (6 to 64 Years) Completed 10/27/2023 Influenza Vaccine Completed 02/08/2024 HIV Screening Completed 05/25/2024, 10/23/2022 HIB Vaccines Aged Out No longer eligi ble based on patient's age to complete this topic HPV Vaccines Aged Out No longer eligi ble based on patient's age to complete this topic Hepatitis A Vaccines Aged Out No long er eligible based on patient's age to complete this topic IPV Vaccines Aged Out No longer eligi ble based on patient's age to complete this topic MMR Vaccines Aged Out No longer eligi ble based on patient's age to complete this topic Meningococcal ACWY Vaccine Aged Out N o longer eligible based on patient's age to complete this topic Meningococcal B Vaccine Aged Out No l onger eligible based on patient's age to complete this topic RSV Immunization Patients Under 20 months Aged Out No longer eligible b ased on patient's age to complete this topic Varicella Vaccines Aged Out No longer eligible based on patient's age to complete this topic Procedures Procedure Name Priority Date/Time Associated Diagnosis Comments URINALYSIS WITH REFLEX MICROSCOPIC AND CULTURE Routine 07/20/2024 2:44 PM EDT Abnormal urine COMPREHENSIVE METABOLIC PANEL Routine 07/20/2024 2:44 PM EDT Diarrhea, unspecified type HEMOGLOBIN A1C Routine 07/20/2024 2:44 PM EDT Type 2 diabetes mellitus without complication, without long-term current use of insulin ([facility] V24, [facility] V28) [place]T URINE CULTURE TUBE Routine 07/21/19 2:37 PM EDT Abnormal urine URINALYSIS WITH REFLEX MICROSCOPIC AND CULTURE Routine 07/20/2024 2:37 PM EDT Abnormal urine INTERFERON GAMMA INTERPRETATION Routine 05/25/2024 9:42 AM EDT Screening for endocrine, nutritional, metabolic and immunity disorder INTERFERON GAMMA ANTIGEN 2 Routine 05/25/2024 9:42 AM EDT Screening for endocrine, nutritional, metabolic and immunity disorder INTERFERON GAMMA ANTIGEN 1 Routine 05/25/2024 9:42 AM EDT Screening for endocrine, nutritional, metabolic and immunity disorder INTERFERON GAMMA MITOGEN Routine 05/25/2024 9:42 AM EDT Screening for endocrine, nutritional, metabolic and immunity disorder INTERFERON GAMMA NIL Routine 05/25/2024 9:42 AM EDT Screening for endocrine, nutritional, metabolic and immunity disorder CBC WITH AUTO DIFFERENTIAL Routine 05/25/2024 9:42 AM EDT Iron deficiency anemia, unspecified iron deficiency anemia type COMPREHENSIVE METABOLIC PANEL Routine 05/25/2024 9:42 AM EDT Type 2 diabetes mellitus without complication, without long-term current use of insulin ([facility] V24, [facility] V28) LIPID PANEL WITH REFLEX TO DIRECT LDL Routine 05/25/2024 9:42 AM EDT Screening for cholesterol level INTERFERON GAMMA FOR TB, QUALITATIVE Routine 05/25/2024 9:42 AM EDT Screening for endocrine, nutritional, metabolic and immunity disorder HIV 1, 2 ANTIBODY, P24 ANTIGEN WITH REFLEX TO DIFFERENTIATION Routine 05/25/2024 9:42 AM EDT Encounter for screening for HIV CBC AND DIFFERENTIAL Routine 05/25/2024 9:42 AM EDT Iron deficiency anemia, unspecified iron deficiency anemia type IRON AND TIBC Routine 05/25/2024 9:42 AM EDT Iron deficiency anemia, unspecified iron deficiency anemia type FERRITIN Routine 05/25/2024 9:42 AM EDT Iron deficiency anemia, unspecified iron deficiency anemia type HM COLONOSCOPY Routine 11/16/2023 DIABETES FOOT EXAM Routine 10/27/2023 URINE ALBUMIN CREATININE RATIO Routine 09/30/2023 HM DEPRESSION SCREENING Routine 07/01/2023 from Last 3 Months or Most Recently Relevant to Health Maintenance Results * (ABNORMAL) Urinalysis with reflex microscopic and culture (07/20/2024 2:44 PM EDT) Specific [place] Urine 1.023 1.003 - 1.030 LAB URINALYSIS - AUTOMATED METHOD 07/21/2024 12:53 PM [facility] pH, Urine 5.5 5.0 - 8.0 pH LAB URINALYSIS - AUTOMATED METHOD 07/21/2024 12:53 PM [facility] Leukocytes, Urine Trace(A) Negative LAB URINALYSIS - AUTOMATED METHOD 07/21/2024 12:53 PM [facility] Nitrite, Urine Negative Negative LAB URINALYSIS - AUTOMATED METHOD 07/21/2024 12:53 PM [facility] Protein, Urine 300(A) <=Trace mg/dL LAB URINALYSIS - AUTOMATED METHOD 07/21/2024 12:53 PM [facility] Glucose, Urine Negative Negative mg/dL LAB URINALYSIS - AUTOMATED METHOD 07/21/2024 12:53 PM [facility] Ketones, Urine Trace(A) Negative mg/dL LAB URINALYSIS - AUTOMATED METHOD 07/21/2024 12:53 PM [facility] Urobilinogen , Urine 1.0 0.2 - 1.0 mg/dL LAB URINALYSIS - AUTOMATED METHOD 07/21/2024 12:53 PM [facility] Bilirubin, Urine Negative Negative LAB URINALYSIS - AUTOMATED METHOD 07/21/2024 12:53 PM [facility] Blood, Urine Negative Negative LAB URINALYSIS - AUTOMATED METHOD 07/21/2024 12:53 PM [facility] RBC, Urine 2.0 0 - 4 /HPF LAB URINALYSIS - AUTOMATED METHOD 07/21/2024 12:53 PM EDT [facility] WBC, Urine 7.2(H) 0 - 4 /HPF LAB URINALYSIS - AUTOMATED METHOD 07/21/2024 12:53 PM EDT [facility] Squamous Epithelial, Urine >100(H) 0 - 60 /LPF LAB URINALYSIS - AUTOMATED METHOD 07/21/2024 12:53 PM EDT [facility] Bacteria, Urine Negative Negative /HPF LAB URINALYSIS - AUTOMATED METHOD 07/21/2024 12:53 PM EDT [facility] Hyaline Casts, Urine 25.0(H) 0 - 3 /LPF LAB URINALYSIS - AUTOMATED METHOD 07/21/2024 12:53 PM EDT [facility] Other Casts, Urine Rare fine granular casts /LPF LAB URINALYSIS - AUTOMATED METHOD 07/21/2024 12:53 PM EDT [facility] Yeast, Urine Present(A) None /HPF LAB URINALYSIS - AUTOMATED METHOD 07/21/2024 12:53 PM EDT [facility] Urine Urine specimen obtained by clean catch procedure / Unknown Non-blood Collection / Unknown 07/20/2024 2:44 PM EDT 07/20/2024 2:44 PM EDT us Darrel Santiago UNIVERSITY TEACHER LAB URINE ORDERABLES Final Res ult [facility] [address] [place] [address], * (ABNORMAL) Hemoglobin A1c (07/20/2024 2:44 PM EDT) Hemoglobin A1C 6.8(H) <6.5 % LAB CHEMISTRY METHOD 07/21/2024 12:20 PM EDT [facility] Mean Bld Glu Estim. 148 mg/dL LAB CHEMISTRY METHOD 07/21/2024 12:20 PM [facility] Blood Venous blood specimen / Unknown Venipuncture / Unknown 07/20/2024 2:44 PM EDT 07/20/2024 2:44 PM EDT us Jennifer Pittman NP LAB BLOOD ORDERABLES Final Resul t [facility] [address] [place] [address], * (ABNORMAL) Comprehensive metabolic panel (07/20/2024 2:44 PM EDT) Only the most recent of2 resultswithin the time period is included. Sodium 138 133 - 145 mmol/L LAB CHEMISTRY METHOD 07/21/2024 10:14 AM [facility] Potassium 5.5 3.5 - 5.5 mmol/L LAB CHEMISTRY METHOD 07/21/2024 10:14 AM [facility] Chloride 106 96 - 110 mmol/L LAB CHEMISTRY METHOD 07/21/2024 10:14 AM [facility] CO2 27 21 - 32 mmol/L LAB CHEMISTRY METHOD 07/21/2024 10:14 AM [facility] Anion Gap 5 3 - 11 LAB CHEMISTRY METHOD 07/21/2024 10:14 AM [facility] Glucose 98 70 - 100 mg/dL LAB CHEMISTRY METHOD 07/21/2024 10:14 AM [facility] BUN 27(H) 5 - 25 mg/dL LAB CHEMISTRY METHOD 07/21/2024 10:14 AM [facility] Creatinine 1.77(H) 0.50 - 1.10 mg/dL LAB CHEMISTRY METHOD 07/21/2024 10:14 AM [facility] Comment:Results verified by repeat testing eGFR 33(L) >=60 mL/min/1. 73m2 LAB CHEMISTRY METHOD 07/21/2024 10:14 AM [facility] Comment:Calculation based on the Chronic Kidney Disease Epidemiology Collaboration (CKD-EPI) equation refit without adjustment for race. BUN/Creatinine Ratio 15.3 LAB CHEMISTRY METHOD 07/21/2024 10:14 AM [facility] Calcium 8.6 8.5 - 10.5 mg/dL LAB CHEMISTRY METHOD 07/21/2024 10:14 AM [facility] AST (SGOT) 43(H) 10 - 42 unit/L LAB CHEMISTRY METHOD 07/21/2024 10:14 AM [facility] Comment:Results verified by repeat testing ALT (SGPT) 62(H) 10 - 60 unit/L LAB CHEMISTRY METHOD 07/21/2024 10:14 AM [facility] Comment:Results verified by repeat testing Alkaline Phosphatase 96 42 - 121 unit/L LAB CHEMISTRY METHOD 07/21/2024 10:14 AM [facility] Total Protein 6.5 6.0 - 8.0 g/dL LAB CHEMISTRY METHOD 07/21/2024 10:14 AM [facility] Albumin 3.5 3.2 - 5.0 g/dL LAB CHEMISTRY METHOD 07/21/2024 10:14 AM [facility] Total Bilirubin 0.5 0.0 - 1.4 mg/dL LAB CHEMISTRY METHOD 07/21/2024 10:14 AM [facility] Blood Venous blood specimen / Unknown Venipuncture / Unknown 07/20/2024 2:44 PM EDT 07/20/2024 2:44 PM EDT us Darrel Santiago NP LAB BLOOD ORDERABLES Final Res ult [facility] [address] [place] [address], * Lovett urine culture tube (07/20/2024 2:37 PM EDT) [facility] Extra Tube Hold for add-ons. 07/21/2024 8:01 AM EDT [facility] Comment:Auto resulted. Urine Urine specimen obtained by clean catch procedure / Unknown Non-blood Collection / Unknown 07/20/2024 2:37 PM EDT 07/20/2024 2:37 PM EDT Darrel Santiago UNIVERSITY TEACHER LAB URINE ORDERABLES Final Res ult [facility] [address] [place] [address], * HIV 1,2 antibody, p24 antigen with reflex to differentiation (05/25/2024 9:42 AM EDT) [facility] HIV Combo AB/AG Negative Negative LAB CHEMISTRY METHOD 05/25/2024 3:54 PM EDT [facility] Blood Venous blood specimen / Unknown Venipuncture / Unknown 05/25/2024 9:42 AM EDT 05/25/2024 9:42 AM EDT Narrative [facility] - 05/25/2024 3:54 PM EDT This assay is a 4th generation assay allowing for earlier detection of HIV infection by detecting the presence of the HIV-1 p24 antigen as well as the traditional antibodies to HIV type 1 (including group O) and type 2. ??Use of a 4th generation assay is the current CDC recommendation for HIV screening. Jennifer Pitmtan UNIVERSITY TEACHER LAB BLOOD ORDERABLES Final Resul t Performing Organization Address City/[facility]/ZIP Co de Phone Number [facility] [address] [place] [address], [place] [phone] * Interferon gamma interpretation (05/25/2024 9:42 AM EDT) [facility] Quantiferon Plus Interpretation Negative Negative LAB CHEMISTRY METHOD 05/26/2024 9:10 AM EDT [facility] Blood Venous blood specimen / Unknown Venipuncture / Unknown 05/25/2024 9:42 AM EDT 05/25/2024 9:42 AM EDT us Jennifer Pittman NP LAB BLOOD ORDERABLES Final Resul t Performing Organization Address City/[facility] Co de Phone Number [facility] [address] [place] [address], [place] [phone] * Interferon gamma antigen 2 (05/25/2024 9:42 AM EDT) Blood Venous blood specimen / Unknown Venipuncture / Unknown 05/25/2024 9:42 AM EDT 05/25/2024 9:42 AM EDT us Jennifer Pittman NP LAB BLOOD ORDERABLES Final Resul t Performing Organization Address [facility] Co de Phone Number [facility] [address] [place] [address], [place] [phone] * Inteferon gamma antigen 1 (05/25/2024 9:42 AM EDT) Blood Venous blood specimen / Unknown Venipuncture / Unknown 05/25/2024 9:42 AM EDT 05/25/2024 9:42 AM EDT us Jennifer Pittman NP LAB BLOOD ORDERABLES Final Resul t Performing Organization Address City/[facility] Co de Phone Number [facility] [address] [place] [address], [place] [phone] * Interferon gamma mitogen (05/25/2024 9:42 AM EDT) Blood Venous blood specimen / Unknown Venipuncture / Unknown 05/25/2024 9:42 AM EDT 05/25/2024 9:42 AM EDT us Jennifer Pittman NP LAB BLOOD ORDERABLES Final Resul t Performing Organization Address City/[facility] Co de Phone Number [facility] [address] [place] [address], [place] [phone] * Interferon gamma NIL (05/25/2024 9:42 AM EDT) Blood Venous blood specimen / Unknown Venipuncture / Unknown 05/25/2024 9:42 AM EDT 05/25/2024 9:42 AM EDT Jennifer Pittman NP LAB BLOOD ORDERABLES Final Resul t [facility] [address] [place] [address], [place] [phone] * (ABNORMAL) Lipid panel with reflex to direct LDL (05/25/2024 9:42 AM EDT) Cholesterol 174 0 - 200 mg/dL LAB CHEMISTRY METHOD 05/25/2024 3:08 PM EDT [facility] Triglycerides 195(H) 0 - 150 mg/dL LAB CHEMISTRY METHOD 05/25/2024 3:08 PM EDT [facility] HDL 50 >=40 mg/dL LAB CHEMISTRY METHOD 05/25/2024 3:08 PM EDT [facility] LDL Calculated 85 0 - 100 mg/dL LAB CHEMISTRY METHOD 05/25/2024 3:08 PM EDT [facility] VLDL Cholesterol Dilshad 39 mg/dL LAB CHEMISTRY METHOD 05/25/2024 3:08 PM EDT [facility] Non HDL Chol. (LDL+VLDL) 124 <145 mg/dL LAB CHEMISTRY METHOD 05/25/2024 3:08 PM EDT [facility] Chol/HDL Ratio 3.5 0.0 - 4.4 LAB CHEMISTRY METHOD 05/25/2024 3:08 PM T [facility] Blood Venous blood specimen / Unknown Venipuncture / Unknown 05/25/2024 9:42 AM EDT 05/25/2024 9:42 AM EDT us Jennifer Pittman NP LAB BLOOD ORDERABLES Final Resul t [facility] [address] [place] [address], * (ABNORMAL) CBC auto differential (05/25/2024 9:42 AM EDT) WBC 7.7 4.8 - 10.8 K/mcL LAB HEMETOLOGY METHOD 05/25/2024 1:16 PM EDT [facility] RBC 4.50 3.80 - 4.80 M/mcL LAB HEMETOLOGY METHOD 05/25/2024 1:16 PM EDT [facility] Hemoglobin 12.8 11.5 - 16.0 g/dL LAB HEMETOLOGY METHOD 05/25/2024 1:16 PM EDT [facility] Hematocrit 40.4 35.0 - 47.0 % LAB HEMETOLOGY METHOD 05/25/2024 1:16 PM EDT [facility] MCV 89.2 79.0 - 98.0 FL LAB HEMETOLOGY METHOD 05/25/2024 1:16 PM EDT [facility] MCH 28.3 27.0 - 32.0 pcg LAB HEMETOLOGY METHOD 05/25/2024 1:16 PM EDT [facility] MCHC 31.7(L) 32.0 - 37.0 g/dL LAB HEMETOLOGY METHOD 05/25/2024 1:16 PM EDT [facility] RDW 14.5 11.0 - 15.0 % LAB HEMETOLOGY METHOD 05/25/2024 1:16 PM EDT [facility] Platelets 299 130 - 400 K/mcL LAB HEMETOLOGY METHOD 05/25/2024 1:16 PM EDT [facility] MPV 10.9 7.0 - 11.0 FL LAB HEMETOLOGY METHOD 05/25/2024 1:16 PM EDT [facility] NRBC 0.0 <1.0 % LAB HEMETOLOGY METHOD 05/25/2024 1:16 PM EDT [facility] NRBC Absolute 0.00 <0.10 K/mcL LAB HEMETOLOGY METHOD 05/25/2024 1:16 PM EDT [facility] Neutrophils Relative 69.0 % LAB HEMETOLOGY METHOD 05/25/2024 1:16 PM EDT [facility] Lymphocytes Relative 20.9 % LAB HEMETOLOGY METHOD 05/25/2024 1:16 PM EDT [facility] Monocytes Relative 5.3 % LAB HEMETOLOGY [facility]24 [facility] Eosin[facility] Relative 3.6 % LAB HEMETOLOGY METHOD 05/25/2024 1:[facility] Basophils Relative 0.8 % LAB HEMETOLOGY METHOD 05/25/2024 1:16 PM [facility] Immature Granulocytes Relative 0.4 % LAB HEMETOLOGY METHOD 05/25/2024 1:[facility] Neutrophils Absolute 5.31 1.50 - 7.00 K/mcL LAB HEMETOLOGY METHOD 05/25/2024 1:[facility] Lymphocytes Absolute 1.61 1.00 - 5.00 K/mcL LAB HEMETOLOGY METHOD 05/25/2024 1:16 PM EDT [facility] Monocytes Absolute 0.41 0.20 - 1.00 K/mcL LAB HEMETOLOGY METHOD 05/25/2024 1:16 PM EDT [facility] Eosinophils Absolute 0.28 0.00 - 0.50 K/mcL LAB HEMETOLOGY METHOD 05/25/2024 1:16 PM EDT [facility] Basophils Absolute 0.06 0.00 - 0.20 K/mcL LAB HEMETOLOGY METHOD 05/25/2024 1:16 PM EDT [facility] Immature Granulocytes Absolute 0.03 0.00 - 0.03 K/mcL LAB HEMETOLOGY METHOD 05/25/2024 1:16 PM EDT [facility] Blood Venous blood specimen / Unknown Venipuncture / Unknown 05/25/2024 9:42 AM EDT 05/25/2024 9:42 AM EDT Jennifer Pittman UNIVERSITY TEACHER LAB BLOOD ORDERABLES Final Resul t Performing Organization Address City/[facility]/ZIP Co de Phone Number [facility] [address] [place] [address], [place] [phone] * Iron and TIBC (05/25/2024 9:42 AM EDT) Iron 65 40 - 150 mcg/dL LAB CHEMISTRY METHOD 05/25/2024 3:07 PM EDT [facility] TIBC 440 250 - 450 mcg/dL LAB CHEMISTRY METHOD 05/25/2024 3:07 PM EDT [facility] Iron Saturation 15 15 - 50 % LAB CHEMISTRY METHOD 05/25/2024 3:07 PM EDT [facility] Blood Venous blood specimen / Unknown Venipuncture / Unknown 05/25/2024 9:42 AM EDT 05/25/2024 9:42 AM EDT us Jennifer Pittman NP LAB BLOOD ORDERABLES Final Resul t [facility] [address] [place] [address], [place] [phone] * Ferritin (05/25/2024 9:42 AM EDT) Ferritin 8 8 - 252 ng/mL LAB CHEMISTRY METHOD 05/25/2024 3:11 PM EDT [facility] Blood Venous blood specimen / Unknown Venipuncture / Unknown 05/25/2024 9:42 AM EDT 05/25/2024 9:42 AM EDT Jennifer Pittman UNIVERSITY TEACHER LAB BLOOD ORDERABLES Final Resul t [facility] [address] [place] [address], [place] [phone] * Colonoscopy (11/16/2023) Pathologist [facility]ly [facility], [facility]1983 Colonoscopy no interpretation , abstracted Anatomical Region Laterality Modality Other Historical Provider MD HEALTH MAINTENANCE Final Result * Diabetes Foot Exam (10/27/2023) [facility] Diabetes: Annual Foot Exam abstracted Historical Provider MD HEALTH MAINTENANCE Final Result * Urine Albumin Creatinine Ratio (09/30/2023) Pathologist [facility], [facility]1983 Urine Albumin Creatinine Ratio abstracted Historical Provider MD HEALTH MAINTENANCE Final Result * Depression Screening (07/01/2023) Pathologist [facility], [facility] Depression Screening abstracted Historical Provider MD HEALTH MAINTENANCE Final Result from Last 3 Months or Most Recently Relevant to Health Maintenance Insurance [facility] [place] [id number] Care Teams 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
[2024-07-21 22:48] VITALS: BP 152/86; PULSE 71; RESP 20; TEMP 36.3; O2SAT 99
[2024-07-22] MEDS: 0.9 % Sodium Chloride 1,000 ML 999 ML IV ×2 (00:15→03:27)
[2024-07-22 00:19] LABS: C Reactive Protein 0.54 mg/dL (< or = 0.50)
[2024-07-22 00:36] LABS: Rheumatoid Factor < 13.0 IU/mL (<15.0)
[2024-07-22 00:56] LABS: Erythrocyte Sedimentation Rate 23 MM/HR (0-20)
[2024-07-22 02:00] LABS: Appearance Urine Clear; Color Urine Yellow; Glucose Urine UA Negative (Negative); Leukocyte Esterase Urine Negative (Negative); Nitrite Urine Negative (Negative); PH 7.5 (5.0-9.0); UMIC TRIGGER UACC YES; Urine Blood Negative (Negative); Urine Ketones Negative (Negative); Urine Protein 300 (3+) mg/dL (Neg-Trace)
[2024-07-22 02:05] LABS: Bacteria Urine None Seen (None Seen); Hyaline Casts Urine 0-2 /LPF (0-2); RBC Urine 0-2 /HPF (0-2); Squamous Epithelial Cell Urine 0-2 /HPF (0-2); WBC Urine 0-5 /HPF (0-5)
[2024-07-22 02:25] VITALS: BP 144/79; PULSE 76; RESP 16; TEMP 36.6; O2SAT 97
--- NOTE | 2024-07-22 02:29 | MHC.EDTECH ---
This pct assumed care of Patient at 0125 ,vitals taken ,Patient resting quietly in bed .
[2024-07-22] MEDS: Acetaminophen 325 MG TABLET 650 MG PO ×2 (04:00→11:47)
[2024-07-22 05:17] VITALS: BP 147/76; PULSE 78; RESP 18; O2SAT 97
[2024-07-22 05:33] LABS: Anion Gap 10 (12-20); Blood Urea Nitrogen 28 mg/dL (9-16); Calcium 8.1 mg/dL (8.4-10.2); Carbon Dioxide 24 mmol/L (22-29); Chloride 112 mmol/L (96-108); Creatinine Clr Calc Pharmacy 45.4; Estimated Glomerular Filt Rate 33; Glucose Random 103 mg/dL (60-115); Potassium 4.6 mmol/L (3.3-5.1); Sodium 141 mmol/L (135-145)
--- NOTE | 2024-07-22 05:57 | PM.IMHP ---
History of Present Illness Date of Service: 07/22/24 Attending physician on admission: Sumanth Rankin Chief Complaint: TANIA Patient is a 58-year-old female with PMH obesity, HTN, anxiety, hysterectomy, cholecytectomy. gastric sleeve bypass 13 years ago and recent abdominal revision 3 years ago, endometrial cancer resolved with hysterectomy, was seen by her PCP due to swelling in her hands and feet and labs were drawn. Patient returned home, labs resulted with abnormal renal function noting baseline creatinine is 0.9. Patient was told to go to local ED. Oral intake of fluids has been low since procedure. Pt reports diarrhea that started this past Wednesday. Pt was feeling nauseous but no vomiting. Pt thought she had an illness but went to Urgent Care on Wednesday, as she was not feeling any better and not eating or drinking anything substantial. Pt was given an antiemetic and sent home. Pt then saw her PCP for increased swelling in Hands and feet. The swelling in her hands was to the point that she could not close her hands. Pt had labs drawn and as above, once resulted, came to [facility] ED. UA noted for +3 protein only. Pt has responded to IVF with creatinine trending down. Holding losartan for HX of HTN. CECILIA is pending. Nephrology consulted. Pt received 2 L of fluids and now renal function is improving but still abnormal. Pt will continue with hourly hydration. Clear diet also ordered. Review of Systems Review of Systems: Patient denies any chest pain, headache, visual changes, shortness of breath at rest or with exertion. Patient is reporting increased swelling in her hands but the swelling of the feet have imrpoved. Patient is producing urine. Pt reports mild HOOPER relieved with nausea. Pt states N/V and diarrhea are all resolved. pt denies abdominal pain. Yes all other systems are reviewed and are negative [facility] Medical History (Updated 07/22/24 @ 06:32 by LOUIE Melton) Post hysterectomy menopause Endometrial cancer Anxiety HTN (hypertension) Cognitive capacity: Alert and orientated X3 Functional capacity: independent ambulation Patient : No Surgical History H/O inguinal hernia repair H/O abdominoplasty H/O gastric sleeve Social History Smoked in Last 30 Days: No Use of substances other than those prescribed or required for medical reasons: No Advance Directives: No Advance Directives Information Provided: No Do you have a plan to hurt others: No Plan Patient : No Ebola Risk: Travel/Contact With Anyone From Affected Area/s: No Has Patient Experienced Ebola Symptoms: No Meds Allergies Allergy/AdvReac Type Severity Reaction Status Date / Time latex Allergy Unknown Verified 07/21/24 19:55 Physical Exam Vital Signs and Narrative: Vital Signs: Last Vital Signs Temp 97.8 F 07/22/24 02:25 Pulse 78 07/22/24 05:17 Resp 18 07/22/24 05:17 BP 147/76 H 07/22/24 05:17 Pulse Ox 97 07/22/24 05:17 O2 Del Method Room Air 07/22/24 05:17 BMI result Body Mass Index 31.6 Alert and orientated X3, able to give good history. Neuro: CN II-X11 intact, no deficits, visual acuity intact EYES: PERRLA, EOM intact ENT: hearing intact, no issues with swallowing, uvula midline, lips moist, nares patent no epistaxis Cardiac: S1 S2 RRR, no murmur, no JVD, mild edema in Lower ext Pulmonary: lungs clear to auscultation B Abdominal: BS active in all 4 quadrants, no guarding, tenderness, rebounding, no distension MSK: strength 5/5 upper and lower extremities : no CVA tenderness no bladder distension Extremities: mild edema in lower extremities, PT and DP pulses palpable +2, B hands are swollen pulses palpable Psych: mood stable, judgement and insight good Skin: intact Results Labs 07/21/24 20:10 07/22/24 05:15 Labs: Laboratory Results - last 24 hr 07/21/24 07/22/24 07/22/24 20:10 00:13 01:53 MCV 85.4 MCH 28.0 MCHC 32.8 RDW 14.8 Plt Count 293 MPV 9.9 Immature Gran % (Auto) 0.6 H Neut % (Auto) 68.4 Lymph % (Auto) 20.2 [place] % (Auto) 5.9 Eos % (Auto) 4.3 H Baso % (Auto) 0.6 Lymph # (Auto) 1.3 [place] # (Auto) 0.4 Eos # (Auto) 0.3 Baso # (Auto) 0.0 Abs Immat Gran (auto) 0.04 H Absolute Neuts (auto) 4.4 Absolute Nucleated RBC 0.000 Nucleated RBC % (auto) 0.0 ESR 23 H PT 9.8 L INR 0.9 Anion Gap 14 Estim Creat Clear Calc 37.0 Estimated GFR 26 Random Glucose 163 H Calcium 8.5 Magnesium 3.1 H Total Bilirubin 0.3 Direct Bilirubin 0.1 AST 40 H ALT 43 H Alkaline Phosphatase 89 Total Creatine Kinase 121 C-Reactive Protein 0.54 H B-Natriuretic Peptide 66 Total Protein 6.1 L Albumin 3.3 L Lipase 22 Urine Color Yellow Urine Appearance Clear Urine pH 7.5 Ur Specific [place] 1.010 Urine Protein 300 (3+) H Urine Glucose (UA) Negative Urine Ketones Negative Urine Blood Negative Urine Nitrite Negative Ur Leukocyte Esterase Negative Urine RBC 0-2 Urine WBC 0-5 Ur Squamous Epith Cells 0-2 Urine Bacteria None Seen Hyaline Casts 0-2 Rheumatoid Factor < 13.0 Influenza Type A (PCR) NEGATIVE Influenza Type B (PCR) NEGATIVE RSV RNA Qual (PCR) NEGATIVE SARS-CoV-2 RNA (RT-PCR) NEGATIVE 07/22/24 05:15 MCV MCH MCHC RDW Plt Count MPV Immature Gran % (Auto) Neut % (Auto) Lymph % (Auto) [place] % (Auto) Eos % (Auto) Baso % (Auto) Lymph # (Auto) [place] # (Auto) Eos # (Auto) Baso # (Auto) Abs Immat Gran (auto) Absolute Neuts (auto) Absolute Nucleated RBC Nucleated RBC % (auto) ESR PT INR Anion Gap 10 L Estim Creat Clear Calc 45.4 Estimated GFR 33 Random Glucose 103 Calcium 8.1 L Magnesium Total Bilirubin Direct Bilirubin AST ALT Alkaline Phosphatase Total Creatine Kinase C-Reactive Protein B-Natriuretic Peptide Total Protein Albumin Lipase Urine Color Urine Appearance Urine pH Ur Specific [place] Urine Protein Urine Glucose (UA) Urine Ketones Urine Blood Urine Nitrite Ur Leukocyte Esterase Urine RBC Urine WBC Ur Squamous Epith Cells Urine Bacteria Hyaline Casts Rheumatoid Factor Influenza Type A (PCR) Influenza Type B (PCR) RSV RNA Qual (PCR) SARS-CoV-2 RNA (RT-PCR) ECG Prior ECG tracings: not available for review Assessment and Plan (1) TANIA (acute kidney injury): Status: Acute Plan Patient is a 58-year-old female with PMH obesity, HTN, anxiety, presents to the emergency room after being told by her PCP that her labs were abnormal. Patient diagnosed with TANIA secodnary to recent GI viral illness (suspected). CECILIA kimbrough in ED with elevated CRP borderling. LFT's slightly elevated as well. TANIA -suspeced secondary to recent GI viral illness (suspected) -Nephrology consulted -IVF 2L, hourly rate now on board, renal fx is improving -UA +3 protein -further work up per renal to include urine and lab studies, Renal US -Holding losartan for known HTN -Avoid nephrotoxic medications -Avoid Hypotension -electrolytes are stable, no metabolic acidosis Suspected GI viral illness -N/V, diarhea resolved -Pt responding well to IVF -Clear diet ordered , advance as tolerated B hand swelling -likely inflammatory response -CECILIA ordered by ED provider, results pending -avoiding NSAIDs due to TANIA -holding off on steroids at this time -may need specialty follow up with theater manager as an outpatient -Pt denies hx of auto-immune disorders Status post gastric sleeve/ abdominalplasty (13 years and 3 years prior) -No indication for imaging, abdominal exam negative for acute findings Hypertension -holding losartan -monitor closely DVT prophylaxis; heparin SC MED REC pending Full Code Status Quality Stroke Does the patient have a stroke diagnosis?: No Reason for No Anti-thrombotic by Day Two: N/A - Med Ordered VTE Prior VTE?: No VTE Risk Level:: Surgical - high VTE Device Contraindication: N/A - Device Ordered VTE Drug Contraindication: N/A - Med Ordered
[2024-07-22] MEDS: 0.9 % Sodium Chloride Flush 3 ML SYRINGE IVFLUSH (07:20)
[2024-07-22] MEDS: Heparin Sodium,Porcine 5,000 UNIT/ML VIAL 5000 UNIT SUBCUT ×3 (07:20→22:06)
[2024-07-22] MEDS: 0.9 % Sodium Chloride 1,000 ML 100 ML IVCONT (07:22)
--- NOTE | 2024-07-22 09:01 | PHA.MEDREC ---
Addendum entered by Esequiel Allen RP 07/22/24 16:24: Reviewed by [facility] Original Note: Pharmacy Consult ? Medication Reconciliation Pharmacy has completed the medication reconciliation. Spoke to pt to confirm meds. Pt reports no longer taking Zofran and does not take atomoxetine (~last taken a month ago) because it causes them to become drowsy.
[2024-07-22 10:46] VITALS: BP 149/77; PULSE 77; RESP 16; O2SAT 98
[2024-07-22] MEDS: Butalb/Acetamin/Caff 50/325/40 TABLET 1 TAB PO ×2 (11:47→18:30)
--- NOTE | 2024-07-22 15:05 | PM.EVENT ---
Event Note Date of Service: 07/22/24 Event Note: Seen and examined this morning Follow-up for TANIA Diarrhea improving, tolerating p.o. Reporting headache, hand swelling This is a 58-year-old female with PMH obesity, HTN, anxiety, who presents to the emergency room after being told by her PCP that her labs were abnormal found to have TANIA TANIA Continue IV fluid Hold losartan Nephrology consult Follow BMP Suspected GI viral illness Improving, advance diet Bilateral hand swelling -CECILIA ordered by ED provider, results pending -avoiding NSAIDs due to TANIA -holding off on steroids at this time -may need specialty follow up with sports administrator as an outpatient Hypertension -holding losartan -monitor closely Mood Continue Wellbutrin DVT prophylaxis; heparin SC Full Code Status Time Spent With Patient Time: Total time managing care of this patient today ____ minutes.
[2024-07-22] MEDS: Lactated Ringers 1,000 ML 100 ML IVCONT (15:23)
[2024-07-22 17:42] VITALS: BMI 31.6
[2024-07-22 17:53] VITALS: BP 166/88; PULSE 74; RESP 16; TEMP 36.2; O2SAT 100
[2024-07-22 19:36] VITALS: BP 152/80; PULSE 70; RESP 18; TEMP 36.7; O2SAT 98
[2024-07-22] MEDS: Gabapentin 100 MG CAPSULE PO (20:26)
[2024-07-22 23:38] VITALS: BP 141/81; PULSE 68; RESP 16; TEMP 36; O2SAT 95
[2024-07-23] MEDS: Lactated Ringers 1,000 ML 100 ML IVCONT ×2 (00:53→11:54)
[2024-07-23 03:16] VITALS: BP 129/81; PULSE 77; RESP 16; TEMP 36; O2SAT 96
[2024-07-23] MEDS: Heparin Sodium,Porcine 5,000 UNIT/ML VIAL 5000 UNIT SUBCUT ×3 (06:08→23:13)
[2024-07-23 07:34] VITALS: BP 171/89; PULSE 76; RESP 16; TEMP 36.3; O2SAT 97
[2024-07-23 07:43] LABS: Alanine Aminotransferase 32 U/L (0-31); Albumin Level 2.8 g/dL (3.5-5.0); Alkaline Phosphatase 81 U/L (39-117); Anion Gap 11 (12-20); Aspartate Amino Transferase 39 U/L (5-31); Bilirubin Total 0.3 mg/dL (0.0-1.0); Blood Urea Nitrogen 28 mg/dL (9-16); Calcium 8.2 mg/dL (8.4-10.2); Carbon Dioxide 24 mmol/L (22-29); Chloride 109 mmol/L (96-108); Creatinine Clr Calc Pharmacy 48.7; Estimated Glomerular Filt Rate 35; Glucose Random 105 mg/dL (60-115); Potassium 4.5 mmol/L (3.3-5.1); Sodium 139 mmol/L (135-145); Total Protein 5.4 g/dL (6.5-8.0)
[2024-07-23] MEDS: Butalb/Acetamin/Caff 50/325/40 TABLET 1 TAB PO ×2 (07:52→19:43)
[2024-07-23] MEDS: buPROPion HCl XL 150 MG TAB.ER.24H PO (07:52)
[2024-07-23 12:00] VITALS: BP 160/84; PULSE 67; RESP 18; TEMP 37; O2SAT 99
--- NOTE | 2024-07-23 14:48 | P.PNIM_ITS ---
Subjective Subjective Date of Service: 07/23/24 Interval History: seen and examined this morning follow up for TANIA persistent headache and hand swelling Review of Systems Review of Systems: Yes all other systems are reviewed and are negative Constitutional Constitutional: Denies chills and Denies fever(s) Cardiovascular Cardiovascular: Denies chest pain and Denies palpitations Endocrine Endocrine: Denies palpitations Physical Exam 2 Vital Signs: Vital Signs: Last Vital Signs Temp 98.6 F 07/23/24 12:00 Pulse 67 07/23/24 12:00 Resp 18 07/23/24 12:00 BP 160/84 H 07/23/24 12:00 Pulse Ox 99 07/23/24 12:00 O2 Del Method Room Air 07/23/24 12:00 BMI result Body Mass Index 31.6 Const: General: cooperative, comfortable, no acute distress, alert and awake Nutritional Appearance: overweight Orientation/consciousness: patient oriented x3 Resp: Effort & Inspection: normal respiratory effort, able to speak in complete sentences, no respiratory distress and no use of accessory muscles Cardio: Rate: regular rate GI: Inspection: No distended Palpation (GI): Soft to palpation Neuro: General: patient oriented x3, moves all extremities and CN's II-XI intact bilaterally Extrem: Other: b/l hand swelling, no erythema, non-tender Objective Data Active Medications Acetaminophen (Acetaminophen 325 Mg Tablet) 650 mg PO Q6H PRN PRN Reason: Pain, Mild 1-3,fever,headache Last Admin: 07/22/24 11:47 Dose: 650 mg Documented By: JOE Acetaminophen/Butalbital/Caffeine (Butalb/Acetamin/Caff 50/325/40 Tablet) 1 tab PO Q4H PRN PRN Reason: Headache Last Admin: 07/23/24 07:52 Dose: 1 tab Documented By: JANNIE Bupropion HCl (Bupropion Hcl Xl 150 Mg Tab.Er.24h) 150 mg PO DAILY [facility] Last Admin: 07/23/24 07:52 Dose: 150 mg Documented By: JANNIE Calcium Carbonate (Calcium Carbonate 750 Mg Tab.Chew) 750 mg PO Q4H PRN PRN Reason: Heartburn Gabapentin (Gabapentin 100 Mg Capsule) 100 mg PO BEDTIME [facility] Last Admin: 07/22/24 20:26 Dose: 100 mg Documented By: JOSE ENRIQUE Heparin Sodium (Porcine) (Heparin Sodium,Porcine 5,000 Unit/Ml Vial) 5,000 unit SUBCUT Q8H [facility] Last Admin: 07/23/24 06:08 Dose: 5,000 unit Documented By: JOSE ENRIQUE Lactated Ringer's (Lr) 1,000 mls @ 100 mls/hr IVCONT .Q10H [facility] Last Admin: 07/23/24 11:54 Dose: 100 mls/hr Documented By: JANNIE Magnesium Hydroxide (Milk Of Magnesia 30 Ml Oral.Susp) 30 ml PO DAILY PRN PRN Reason: Constipation Melatonin (Melatonin 3 Mg Tablet) 6 mg PO BEDTIME PRN PRN Reason: Insomnia Ondansetron HCl (Ondansetron Hcl 4 Mg/2 Ml Vial) 4 mg IVPUSH Q8H PRN PRN Reason: Nausea and Vomiting Sodium Chloride (0.9 % Sodium Chloride Flush 3 Ml Syringe) 3 ml IVFLUSH QSHIFT [facility] Last Admin: 07/23/24 09:29 Dose: Not Given Documented By: JANNIE Non-Admin Reason: IV Running Labs 07/21/24 20:10 07/23/24 06:24 Labs: Laboratory Results - last 24 hr 07/23/24 06:24 Hold Purple Top SEE NOTE Anion Gap 11 L Estim Creat Clear Calc 48.7 Estimated GFR 35 Random Glucose 105 Calcium 8.2 L Total Bilirubin 0.3 AST 39 H ALT 32 H Alkaline Phosphatase 81 Total Protein 5.4 L Albumin 2.8 L Assessment and Plan (1) TANIA (acute kidney injury): Status: Acute Plan This is a 58-year-old female with PMH obesity, HTN, anxiety, who presents to the emergency room after being told by her PCP that her labs were abnormal found to have TANIA TANIA creatinine starting to trend down Hold losartan Nephrology consult Follow BMP Suspected GI viral illness Improving, advance diet Bilateral hand swelling CECILIA ordered by ED provider, results pending mild elevation in CRP, ESR nonspecific avoid NSAIDs due to TANIA no specific inducation for steroids at this time stop IVF, keep extremities elevated when able may need follow up with certified dialysis technician as an outpatient Hypertension losartan on hold for TANIA start norvasc Mood Continue Wellbutrin headache brain ct negative prn fioricet, tylenol mild transaminitis ?fatty liver dz outpatient follow up DVT prophylaxis; heparin SC Full Code Status Quality Stroke Does the patient have a stroke diagnosis?: No Reason for No Anti-thrombotic by Day Two: N/A - Med Ordered VTE Prior VTE?: No VTE Risk Level:: Surgical - high VTE Device Contraindication: N/A - Device Ordered VTE Drug Contraindication: N/A - Med Ordered
[2024-07-23 15:33] VITALS: BP 160/82
[2024-07-23] MEDS: amLODIPine Besylate 5 MG TABLET PO (15:33)
[2024-07-23] MEDS: 0.9 % Sodium Chloride Flush 3 ML SYRINGE IVFLUSH ×2 (15:34→20:50)
[2024-07-23 15:44] VITALS: BP 160/82; PULSE 79; RESP 16; TEMP 37.3; O2SAT 99
--- NOTE | 2024-07-23 16:38 | MHC.CM.PN ---
PT REPORTS SHE LIVES WITH HER ADULT DAUGHTER AND IS INDEPENDENT WITH CARE SHE USES NO DME AND HAS NO SERVICES SHE DECLINES TO COMPLETE A HCP PCP AT [facility], SHE DOES NOT KNOW THE NAME DCP: HOME NO SERVICES VIA PRIVATE TRANSPORT
[2024-07-23 19:42] VITALS: BP 140/80; PULSE 78; RESP 18; TEMP 36.7; O2SAT 98
[2024-07-23] MEDS: Gabapentin 100 MG CAPSULE PO (20:45)
[2024-07-23] MEDS: Melatonin 3 MG TABLET 6 MG PO (20:48)
[2024-07-24] VITALS (7 sets, daily range): BP systolic 135–167; BP diastolic 75–87; PULSE 70–77; RESP 14–16; TEMP 36.1–36.7; O2SAT 95–100
[2024-07-24] MEDS: Heparin Sodium,Porcine 5,000 UNIT/ML VIAL 5000 UNIT SUBCUT ×3 (06:11→22:13)
[2024-07-24] MEDS: 0.9 % Sodium Chloride Flush 3 ML SYRINGE IVFLUSH ×3 (08:38→20:37)
[2024-07-24] MEDS: amLODIPine Besylate 5 MG TABLET PO (08:39)
[2024-07-24] MEDS: buPROPion HCl XL 150 MG TAB.ER.24H PO (08:39)
[2024-07-24] MEDS: Butalb/Acetamin/Caff 50/325/40 TABLET 1 TAB PO (08:39)
--- NOTE | 2024-07-24 08:56 | PM.DS ---
DS: Providers Provider Date of Service: 07/25/24 Date of admission: 07/22/24 05:54 Date of discharge: 07/25/24 Primary care physician: Unknown Physician Consults: 07/22/24 05:57 Consult to Nephrology Routine Consulting Provider: [facility] Reason for consultation: TANIA secondary to gastric sleeve Has provider been notified: No DS: Diagnosis Discharge Diagnosis (1) TANIA (acute kidney injury): Status: Acute DS: Summary Hospital Course Hospital Course: Chief Complaint: TANIA Patient is a 58-year-old female with PMH obesity, HTN, anxiety, hysterectomy, cholecytectomy. gastric sleeve bypass 13 years ago and recent abdominal revision 3 years ago, endometrial cancer resolved with hysterectomy, was seen by her PCP due to swelling in her hands and feet and labs were drawn. Patient returned home, labs resulted with abnormal renal function noting baseline creatinine is 0.9. Patient was told to go to local ED. Oral intake of fluids has been low since procedure. Pt reports diarrhea that started this past Wednesday. Pt was feeling nauseous but no vomiting. Pt thought she had an illness but went to Urgent Care on Wednesday, as she was not feeling any better and not eating or drinking anything substantial. Pt was given an antiemetic and sent home. Pt then saw her PCP for increased swelling in Hands and feet. The swelling in her hands was to the point that she could not close her hands. Pt had labs drawn and as above, once resulted, came to [facility]. UA noted for +3 protein only. Pt has responded to IVF with creatinine trending down. Holding losartan for HX of HTN. CECILIA is pending. Nephrology consulted. Pt received 2 L of fluids and now renal function is improving but still abnormal. Pt will continue with hourly hydration. Clear diet also ordered. hospital course: This is a 58-year-old female with PMH obesity, HTN, anxiety, who presents to the emergency room after being told by her PCP that her labs were abnormal found to have TANIA , She had seen her PCP for swelling hand and outpatient labs showed elevated Creatinine above her baseline of reported < 1 but no report. Initial creatine was 1.99 and has been trending down to 1.62 and 1.51 with No oligouria. She's beem follow by Nephrology with further testing pending. She has been treated with IVF and holding Losartan and added Norvasc for blood pressure, also stopping metformin for diabetes and adding low dose glipizide GI viral illness, reoslved Bilateral hand swelling CECILIA ordered by ED provider, results pending mild elevation in CRP, ESR nonspecific avoid NSAIDs due to TANIA no specific inducation for steroids at this time stop IVF, keep extremities elevated when able may need follow up with hydroelectric plant electrical engineer as an outpatient Hypertension losartan on hold d/t TANIA and started Norvasc Mood Continue Wellbutrin headache brain ct negative prn fioricet, tylenol mild transaminitis ?fatty liver dz outpatient follow up Time Attestation Discharge Coordination Time (in mins): 40 Quality: Safe Use of Opioids Does Pt have an Active Cancer Diagnosis on the Problem List?: No Quality: Stroke Does the patient have a stroke diagnosis?: No Physical Exam Vital Signs: Vital Signs: Last Vital Signs Temp 97.7 F 07/24/24 07:49 Pulse 73 07/24/24 07:49 Resp 16 07/24/24 07:49 BP 142/83 H 07/24/24 08:39 Pulse Ox 95 07/24/24 07:49 O2 Del Method Room Air 07/24/24 07:49 BMI result Body Mass Index 31.6 Discharge Plan Discharge Anticipated Discharge Date/Time: 07/25/24 10:18 Patient Disposition: Home, Self-Care Discharge Diagnosis: TANIA Referrals: Physician,Unknown J [Primary Care Provider] - 1 Week Discharge Medications: No Action metformin 500 mg tablet 500 mg PO BIDWM diclofenac sodium 75 mg tablet,delayed release (DR/EC) 75 mg PO BID gabapentin [Neurontin] 100 mg capsule 100 mg PO BEDTIME losartan 100 mg tablet 100 mg PO DAILY bupropion HCl 150 mg tablet extended release 24 hr 150 mg PO DAILY Mounjaro 7.5 mg/0.5 mL pen injector 7.5 mg subcut WE@0900 cholecalciferol (vitamin D3) [Vitamin D3] 50 mcg (2,000 unit) Tablet 50 mcg PO DAILY Diet: Advance to usual diet Activity on Discharge: As tolerated Stand Alone Forms: Patient Portal Discharge page Print Language: Tamazight Care Plan Goals: recovery from renal failure Health Concerns: renal failure Plan of Treatment: follow up with your doctor in a week Assessment: see above
--- NOTE | 2024-07-24 09:20 | PM.CNNEP ---
History of Present Illness Reason for Consult Consult date: 07/24/24 Chief Complaint Chief complaint: abnormal labs History of Present Illness Narrative: 58 y/o female with a medical history of HTN, anxiety, obseity presented 07/21 from PCP office for abnormal routine labs- creatinine of 1.99 Nephrology consulted for TANIA patient reports normal renal function (no previous labs available) creatinine 1.99 on presentation, has been tremding down to 1.51 on 07/23; 07/24 1.73 UA +protein, no blood losartan has been held, was taking 100mg daily she states she is not good about hydrating, does not enjoy water then had diarrhea has been on amlodipine 5mg daily in hospital reports she takes aleve on occasion at home she reports she is feeling well, no specific complaints/concerns. Review of Systems Constitutional: Reports no additional constitutional complaints Cardiovascular: Denies chest pain, Denies leg edema and Denies dyspnea Respiratory: Reports cough and Denies dyspnea Gastrointestinal: Denies abdominal pain, Reports diarrhea, Denies nausea and Denies vomiting Genitourinary: Denies hematuria, Denies difficulty voiding, Denies dysuria and Denies flank pain Musculoskeletal: Reports arthralgias (arthritis in hand) Skin/Breast: Denies rash Denies tremor(s) [facility] Past Medical History Medical History (Updated 07/24/24 @ 12:26 by Jewell Frey DNP, [facility]-) Post hysterectomy menopause Endometrial cancer Anxiety HTN (hypertension) Surgical History Surgical History H/O inguinal hernia repair H/O abdominoplasty H/O gastric sleeve Social History Social History Household Members: Children Housing: Other Housing Other:: [facility] Do you presently have visiting nurse or other home services: No Patient Tobacco Use Status: Never used Tobacco service: No Travel History Ebola Risk: Travel/Contact With Anyone From Affected Area/s: No Has Patient Experienced Ebola Symptoms: No Meds Allergies Allergy/AdvReac Type Severity Reaction Status Date / Time latex Allergy Unknown Verified 07/21/24 19:55 Active Medications: Current Medications Acetaminophen (Acetaminophen 325 Mg Tablet) 650 mg PO Q6H PRN PRN Reason: Pain, Mild 1-3,fever,headache Last Admin: 07/22/24 11:47 Dose: 650 mg Acetaminophen/Butalbital/Caffeine (Butalb/Acetamin/Caff 50/325/40 Tablet) 1 tab PO Q4H PRN PRN Reason: Headache Last Admin: 07/24/24 08:39 Dose: 1 tab Amlodipine Besylate (Amlodipine Besylate 5 Mg Tablet) 5 mg PO DAILY [facility]; Protocol Last Admin: 07/24/24 08:39 Dose: 5 mg Bupropion HCl (Bupropion Hcl Xl 150 Mg Tab.Er.24h) 150 mg PO DAILY [facility] Last Admin: 07/24/24 08:39 Dose: 150 mg Calcium Carbonate (Calcium Carbonate 750 Mg Tab.Chew) 750 mg PO Q4H PRN PRN Reason: Heartburn Gabapentin (Gabapentin 100 Mg Capsule) 100 mg PO BEDTIME [facility] Last Admin: 07/23/24 20:45 Dose: 100 mg Heparin Sodium (Porcine) (Heparin Sodium,Porcine 5,000 Unit/Ml Vial) 5,000 unit SUBCUT Q8H [facility] Last Admin: 07/24/24 06:11 Dose: 5,000 unit Magnesium Hydroxide (Milk Of Magnesia 30 Ml Oral.Susp) 30 ml PO DAILY PRN PRN Reason: Constipation Melatonin (Melatonin 3 Mg Tablet) 6 mg PO BEDTIME PRN PRN Reason: Insomnia Last Admin: 07/23/24 20:48 Dose: 6 mg Ondansetron HCl (Ondansetron Hcl 4 Mg/2 Ml Vial) 4 mg IVPUSH Q8H PRN PRN Reason: Nausea and Vomiting Sodium Chloride (0.9 % Sodium Chloride Flush 3 Ml Syringe) 3 ml IVFLUSH QSHIFT [facility] Last Admin: 07/24/24 08:38 Dose: 3 ml Home Medications ?Medication ?Instructions ?Recorded ?Confirmed ?Last Taken ?Type bupropion HCl 150 mg 24 hr tablet, 150 mg PO DAILY 07/22/24 07/22/24 07/21/24 09:00 History extended release cholecalciferol (vitamin D3) 50 50 mcg PO DAILY 07/22/24 07/22/24 07/21/24 09:00 History mcg (2,000 unit) tablet (Vitamin D3) diclofenac sodium 75 mg 75 mg PO BID 07/22/24 07/22/24 07/21/24 09:00 History tablet,delayed release gabapentin 100 mg capsule 100 mg PO BEDTIME 07/22/24 07/22/24 Unknown History (Neurontin) losartan 100 mg tablet 100 mg PO DAILY 07/22/24 07/22/24 07/21/24 09:00 History metformin 500 mg tablet 500 mg PO BIDWM 07/22/24 07/22/24 07/21/24 09:00 History tirzepatide 7.5 mg/0.5 mL 7.5 mg subcut WE@0900 07/22/24 07/22/24 07/19/24 History subcutaneous pen injector (Mounjaro) Physical Exam Vital Signs: Last Vital Signs Temp 97.8 F 07/24/24 11:42 Pulse 70 07/24/24 11:42 Resp 16 07/24/24 11:42 BP 135/81 07/24/24 11:42 Pulse Ox 97 07/24/24 11:42 O2 Del Method Room Air 07/24/24 11:42 BMI result Body Mass Index 31.6 Const General: no acute distress, alert and awake Resp Effort & Inspection: normal respiratory effort and able to speak in complete sentences Auscultation: clear to auscultation bilaterally Cardio Rate: regular rate Rhythm: regular rhythm Heart sounds: S1 normal heart sound present and S2 normal heart sound present GI Palpation (GI): Soft to palpation and nontender General: Yes no CVA tenderness Back/Spine/Pelvis Back: no CVA tenderness Skin Rashes: no rashes Extrem General: Yes edema (bilateral hand edema; no LE edema) Results Lab Results 07/21/24 20:10 07/24/24 09:05 Lab results: Chemistry 07/21/24 07/22/24 07/23/24 20:10 05:15 06:24 Sodium 138 141 139 Potassium 4.9 4.6 4.5 Carbon Dioxide 23 24 24 BUN 33 H 28 H 28 H Creatinine 1.99 H 1.62 H 1.51 H Calcium 8.5 8.1 L 8.2 L 07/24/24 09:05 Sodium 138 Potassium 4.7 Carbon Dioxide 25 BUN 27 H Creatinine 1.73 H Calcium 8.3 L Hematology 07/21/24 20:10 WBC 6.4 Hgb 11.1 L Plt Count 293 Urinalysis 07/22/24 01:53 Urine Color Yellow Urine Appearance Clear Urine pH 7.5 Ur Specific [place] 1.010 Urine Protein 300 (3+) H Urine Glucose (UA) Negative Urine Ketones Negative Urine Blood Negative Urine Nitrite Negative Ur Leukocyte Esterase Negative Urine RBC 0-2 Urine WBC 0-5 Ur Squamous Epith Cells 0-2 Hyaline Casts 0-2 Assessment and Plan (1) HTN (hypertension): Qualifiers: Hypertension type: primary hypertension Qualified Code(s): I10 - Essential (primary) hypertension Status: Acute (2) TANIA (acute kidney injury): Status: Acute Plan TANIA likely secondary to tubular injury from hypovolemia in setting of ARB use improving will check get urine protein/creatinine ratio given proteinuria on UA cannot rule out GN given proteinuria, will check SPEP, UPEP and free light chains given presences of anemia and proteinuria will check renal ultrasound to rule out obstruction- should confirm this before discharge recommend continuing to hold losartan until creatinine normalizes- will follow up as outpatient avoid nephrotoxins, discussed with patient to avoid NSAIDs, especially while taking losartan encouraged oral hydration and low salt diet, weight loss Will arrange for outpatient nephrology follow up Discussed with Dr Ott. Procedures Date of Service Date of Service: 07/24/24
[2024-07-24 09:24] LABS: Anion Gap 10 (12-20); Blood Urea Nitrogen 27 mg/dL (9-16); Calcium 8.3 mg/dL (8.4-10.2); Carbon Dioxide 25 mmol/L (22-29); Chloride 108 mmol/L (96-108); Creatinine Clr Calc Pharmacy 42.5; Estimated Glomerular Filt Rate 30; Glucose Random 114 mg/dL (60-115); Potassium 4.7 mmol/L (3.3-5.1); Sodium 138 mmol/L (135-145)
[2024-07-24] MEDS: Acetaminophen 325 MG TABLET 650 MG PO (15:54)
--- NOTE | 2024-07-24 16:16 | MHC.CM.PN ---
per rounds pt could be ready for dc today dc plan is for home
[2024-07-24 16:32] LABS: Creatinine Urine 86.03 mg/dL; Protein/Creatinine Ratio, Ur 1.64 (<0.2); Total Protein Urine Random 141 mg/dL (<12)
--- NOTE | 2024-07-24 18:51 | HO.PM.IMPN ---
Subjective Subjective Date of Service: 07/24/24 Interval History: renal function is stable, has HOOPER but better than yest Physical Exam Vital Signs: Vital Signs: Last Vital Signs Temp 97.0 F 07/24/24 16:08 Pulse 74 07/24/24 16:08 Resp 16 07/24/24 16:08 BP 140/87 H 07/24/24 16:08 Pulse Ox 100 07/24/24 16:08 O2 Del Method Room Air 07/24/24 16:08 BMI result Body Mass Index 31.6 Const: Other: General: AO X 3, no acute distress Resp: CTA bilateral CVS: S1,S2,RRR GI: +BS, NT, no distention Skin: No rash Neuro: motor grossly intact Psych: appropriate affect Objective Data Active Medications Acetaminophen (Acetaminophen 325 Mg Tablet) 650 mg PO Q6H PRN PRN Reason: Pain, Mild 1-3,fever,headache Last Admin: 07/24/24 15:54 Dose: 650 mg Documented By: CABRERA Acetaminophen/Butalbital/Caffeine (Butalb/Acetamin/Caff 50/325/40 Tablet) 1 tab PO Q4H PRN PRN Reason: Headache Last Admin: 07/24/24 08:39 Dose: 1 tab Documented By: CABRERA Amlodipine Besylate (Amlodipine Besylate 5 Mg Tablet) 5 mg PO DAILY [facility]; Protocol Last Admin: 07/24/24 08:39 Dose: 5 mg Documented By: CABRERA Bupropion HCl (Bupropion Hcl Xl 150 Mg Tab.Er.24h) 150 mg PO DAILY [facility] Last Admin: 07/24/24 08:39 Dose: 150 mg Documented By: CABRERA Calcium Carbonate (Calcium Carbonate 750 Mg Tab.Chew) 750 mg PO Q4H PRN PRN Reason: Heartburn Gabapentin (Gabapentin 100 Mg Capsule) 100 mg PO BEDTIME [facility] Last Admin: 07/23/24 20:45 Dose: 100 mg Documented By: JEAN CARLOS Heparin Sodium (Porcine) (Heparin Sodium,Porcine 5,000 Unit/Ml Vial) 5,000 unit SUBCUT Q8H [facility] Last Admin: 07/24/24 15:54 Dose: 5,000 unit Documented By: CABRERA Magnesium Hydroxide (Milk Of Magnesia 30 Ml Oral.Susp) 30 ml PO DAILY PRN PRN Reason: Constipation Melatonin (Melatonin 3 Mg Tablet) 6 mg PO BEDTIME PRN PRN Reason: Insomnia Last Admin: 07/23/24 20:48 Dose: 6 mg Documented By: JEAN CARLOS Ondansetron HCl (Ondansetron Hcl 4 Mg/2 Ml Vial) 4 mg IVPUSH Q8H PRN PRN Reason: Nausea and Vomiting Sodium Chloride (0.9 % Sodium Chloride Flush 3 Ml Syringe) 3 ml IVFLUSH QSHIFT [facility] Last Admin: 07/24/24 15:55 Dose: 3 ml Documented By: CABRERA Labs 07/21/24 20:10 07/24/24 09:05 Labs: Laboratory Results - last 24 hr 07/24/24 07/24/24 07/24/24 09:05 12:28 14:36 Anion Gap 10 L Estim Creat Clear Calc 42.5 Estimated GFR 30 Random Glucose 114 Calcium 8.3 L Total Protein (PEP) Cancelled Albumin (PEP) Cancelled Sysqk-5-Quajffvnf Cancelled Foyhu-6-Jxqijxpwa Cancelled Zlpf-9-Vblgrcii Cancelled Zwuc-2-Pvmxlpgv Cancelled Gamma Globulins Cancelled Abnorm Protein Band 1 Cancelled Abnorm Protein Band 2 Cancelled Abnorm Protein Band 3 Cancelled PEP Interpretation Cancelled U Random Total Protein 141 H Urine Creatinine 86.03 Protein/Creatinin Ratio 1.64 H [place]/Lambda Ratio Cancelled [place] Light Chain Anal Cancelled Lambda Light Chain Anal Cancelled Assessment and Plan (1) TANIA (acute kidney injury): Status: Acute Plan This is a 58-year-old female with PMH obesity, HTN, anxiety, who presents to the emergency room after being told by her PCP that her labs were abnormal found to have TANIA TANIA, etiology not clear creatinine trending phillip Hold losartan Nephrology consult Follow BMP US of kidneyes today Suspected GI viral illness Improving, advance diet Bilateral hand swelling CECILIA ordered by ED provider, results pending mild elevation in CRP, ESR nonspecific avoid NSAIDs due to TANIA no specific inducation for steroids at this time stop IVF, keep extremities elevated when able may need follow up with 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
[2024-07-24] MEDS: Gabapentin 100 MG CAPSULE PO (20:37)
[2024-07-24] MEDS: Melatonin 3 MG TABLET 6 MG PO (20:39)
[2024-07-25] VITALS: BP 155/83; PULSE 72; RESP 18; TEMP 36.8; O2SAT 98
[2024-07-25 03:45] VITALS: BP 171/82; PULSE 76; RESP 18; TEMP 36.9; O2SAT 97
[2024-07-25] MEDS: Heparin Sodium,Porcine 5,000 UNIT/ML VIAL 5000 UNIT SUBCUT (05:53)
[2024-07-25 06:03] LABS: Anion Gap 11 (12-20); Blood Urea Nitrogen 28 mg/dL (9-16); Calcium 8.4 mg/dL (8.4-10.2); Carbon Dioxide 25 mmol/L (22-29); Chloride 108 mmol/L (96-108); Creatinine Clr Calc Pharmacy 47.8; Estimated Glomerular Filt Rate 35; Glucose Random 110 mg/dL (60-115); Potassium 4.6 mmol/L (3.3-5.1); Sodium 139 mmol/L (135-145)
[2024-07-25] MEDS: amLODIPine Besylate 5 MG TABLET PO (07:07)
[2024-07-25] MEDS: Butalb/Acetamin/Caff 50/325/40 TABLET 1 TAB PO (07:07)
[2024-07-25] MEDS: buPROPion HCl XL 150 MG TAB.ER.24H PO (07:07)
[2024-07-25] MEDS: 0.9 % Sodium Chloride Flush 3 ML SYRINGE IVFLUSH (07:08)
[2024-07-25 08:00] VITALS: BP 149/73; PULSE 68; RESP 16; TEMP 36.8; O2SAT 97
--- NOTE | 2024-07-25 10:15 | PM.PNNEP ---
Subjective Subjective Date of Service: 07/25/24 Interval history: Here for TANIA patient reports normal renal function (no previous labs available) creatinine 1.99 on presentation, has been trending down to 1.51 on 07/23; 07/24 1.73, 07/25 1.54 UA +protein, no blood losartan has been held, was taking 100mg daily she states she is not good about hydrating, does not enjoy water then had diarrhea reports she takes aleve on occasion at home she reports she is feeling well, no specific complaints/concerns. Physical Exam Vital Signs: Vital Signs: Last Vital Signs Temp 98.3 F 07/25/24 08:00 Pulse 68 07/25/24 08:00 Resp 16 07/25/24 08:00 BP 149/73 H 07/25/24 08:00 Pulse Ox 97 07/25/24 08:00 O2 Del Method Room Air 07/25/24 08:00 BMI result Body Mass Index 31.6 Objective Data Labs 07/21/24 20:10 07/25/24 05:15 Labs: Laboratory Results - last 24 hr 07/24/24 07/24/24 07/25/24 12:28 14:36 05:15 Hold Purple Top SEE NOTE Sodium 139 Potassium 4.6 Chloride 108 Carbon Dioxide 25 Anion Gap 11 L BUN 28 H Creatinine 1.54 H Estim Creat Clear Calc 47.8 Estimated GFR 35 Random Glucose 110 Estimat Average Glucose Hemoglobin A1c % Calcium 8.4 Total Protein (PEP) Cancelled Albumin (PEP) Cancelled Kkotw-8-Xdrlputhb Cancelled Qumfp-3-Dafdsufvl Cancelled Bmgw-7-Wynfrboq Cancelled Mrab-3-Buallplp Cancelled Gamma Globulins Cancelled Abnorm Protein Band 1 Cancelled Abnorm Protein Band 2 Cancelled Abnorm Protein Band 3 Cancelled PEP Interpretation Cancelled U Random Total Protein 141 H Urine Creatinine 86.03 Protein/Creatinin Ratio 1.64 H [place]/Lambda Ratio Cancelled [place] Light Chain Anal Cancelled Lambda Light Chain Anal Cancelled 07/25/24 09:55 Hold Purple Top Sodium Potassium Chloride Carbon Dioxide Anion Gap BUN Creatinine Estim Creat Clear Calc Estimated GFR Random Glucose Estimat Average Glucose 134 Hemoglobin A1c % 6.3 H Calcium Total Protein (PEP) Albumin (PEP) Zftmc-2-Epdlpikwv Xofpu-6-Kclxgvbah Jbnf-8-Zkiltwqn Pmra-6-Krbsuaic Gamma Globulins Abnorm Protein Band 1 Abnorm Protein Band 2 Abnorm Protein Band 3 PEP Interpretation U Random Total Protein Urine Creatinine Protein/Creatinin Ratio [place]/Lambda Ratio [place] Light Chain Anal Lambda Light Chain Anal Procedures Date of Service Date of Service: 07/25/24 Assessment & Plan Assessment and plan (1) HTN (hypertension): Status: Acute (2) TANIA (acute kidney injury): Status: Acute Plan TANIA likely secondary to tubular injury from hypovolemia in setting of ARB use some improvement, though seems to have stabilized. No obstruction on renal ultrasound. renal ultrasound as well as elevated urine protein/creatinine suggest may have some underlying chronic renal disease cannot rule out GN given proteinuria and anemia- CECILIA, SPEP, UPEP and free light chains pending recommend continuing to hold losartan until creatinine normalizes- will follow up as outpatient avoid nephrotoxins, discussed with patient to avoid NSAIDs, especially while taking losartan encouraged oral hydration and low salt diet, weight loss Will arrange for outpatient nephrology follow up Discussed with Dr Ott. Time Spent With Patient Time: Total time managing care of this patient today ____ minutes. Progress Note: Quality Stroke Does the patient have a stroke diagnosis?: No Reason for No Anti-thrombotic by Day Two: N/A - Med Ordered
[2024-07-25 10:28] LABS: Estimated Average Glucose 134 mg/dL; Hemoglobin A1C 137.9227 umol/L; Hemoglobin A1c % 6.3 % (<6.0); Total Hemoglobin (HGBA1C) 3052.9801 umol/L
--- NOTE | 2024-07-25 11:43 | MHC.CM.PN ---
pt dcd home self care
[2024-07-25 11:51] VITALS: BP 142/70; PULSE 70; RESP 18; TEMP 36.9; O2SAT 97
[2024-07-25 11:59] LABS: Appearance Urine Clear; Color Urine Yellow; Glucose Urine UA Negative (Negative); Leukocyte Esterase Urine Negative (Negative); Nitrite Urine Negative (Negative); Specific Gravity - Urine 1.015 (1.005-1.025); UMIC TRIGGER UACC YES; Urine Blood Negative (Negative); Urine Ketones Negative (Negative); Urine Protein 100 (2+) mg/dL (Neg-Trace)
[2024-07-25 12:02] LABS: Bacteria Urine None Seen (None Seen); Hyaline Casts Urine 0-2 /LPF (0-2); RBC Urine 0-2 /HPF (0-2); Squamous Epithelial Cell Urine 0-2 /HPF (0-2); WBC Urine 0-5 /HPF (0-5)
[2024-07-26 13:13] LABS: Anti Nuclear Antibody Pattern Nuclear, Nucleolar; Anti Nuclear Antibody Screen POSITIVE (NEGATIVE)
[2024-07-26 21:48] LABS: Prot Elec - Albumin 2.7 g/dL (3.8-4.8); Prot Elec - Alpha1 0.3 g/dL (0.2-0.3); Prot Elec - Alpha2 0.7 g/dL (0.5-0.9); Prot Elec - Beta 1 0.4 g/dL (0.4-0.6); Prot Elec - Beta 2 0.3 g/dL (0.2-0.5); Prot Elec - Gamma 0.9 g/dL (0.8-1.7); Prot Elec - Total Protein 5.2 g/dL (6.1-8.1)
[2024-07-31 16:24] LABS: Kappa, Serum 252 mg/dL (176-443); Lambda, Serum 140 mg/dL (91-240)
== END 2024-07-25 11:56 | disposition home or self-care (01) | DRG 469 ==
LOC: HO.ED 23:11 → HO.EDOVER 07-22 06:39 → HO.S3 07-22 16:24
PROVIDERS: Nurse Practitioner Family; Physician Assistant; Admitting Provider Student in an Organized Health Care Education/Training Program; Emergency Provider Internal Medicine; Visit Provider Internal Medicine
DX: N17.9 Acute kidney failure, unspecified (principal); K76.0 Fatty (change of) liver, not elsewhere classified; A08.4 Viral intestinal infection, unspecified; E86.1 Hypovolemia; F41.9 Anxiety disorder, unspecified; M79.89 Other specified soft tissue disorders; I10 Essential (primary) hypertension; R51.9 Headache, unspecified; Z20.822 Contact with and (suspected) exposure to COVID-19; Z98.84 Bariatric surgery status; Z79.899 Other long term (current) drug therapy
CPT/HCPCS: 0241U; 36415; 70450; 76775; 80048; 80053; 80076; 81001; 81003; 82550; 82570; 83036; 83690; 83735; 83880; 83883; 84156; 84165; 84166; 85025; 85610; 85652; 86038; 86039; 86140; 86431; 99221; 99285; J1644; J7120

== ENCOUNTER 2024-07-22 05:54 | Outpatient (BNV) | payer OTHER, SELFPAY | END 2024-07-24 13:13 | PROVIDERS: Admitting Provider Student in an Organized Health Care Education/Training Program; Emergency Provider Internal Medicine; Visit Provider Radiology Diagnostic Radiology | DX: N17.9 Acute kidney failure, unspecified (principal) | CPT/HCPCS: 76775 ==

== ENCOUNTER 2024-07-22 05:54 | Outpatient (BNV) | payer OTHER, SELFPAY | END 2024-07-23 11:14 | PROVIDERS: Admitting Provider Student in an Organized Health Care Education/Training Program; Emergency Provider Internal Medicine; Visit Provider Radiology Vascular & Interventional Radiology | DX: G44.52 New daily persistent headache (NDPH) (principal) | CPT/HCPCS: 70450 ==

== ENCOUNTER → 2024-07-22 05:54 | Outpatient (BNV) | payer OTHER, SELFPAY | PROVIDERS: Admitting Provider Student in an Organized Health Care Education/Training Program; Emergency Provider Internal Medicine; Visit Provider Nurse Practitioner Family | DX: I10 Essential (primary) hypertension (principal); N17.9 Acute kidney failure, unspecified | CPT/HCPCS: 99222; 99232 ==

== ENCOUNTER → 2024-07-22 05:54 | Outpatient (BNV) | payer OTHER, SELFPAY | PROVIDERS: Admitting Provider Student in an Organized Health Care Education/Training Program; Emergency Provider Internal Medicine; Visit Provider Nurse Practitioner Family | DX: N17.9 Acute kidney failure, unspecified (principal) | CPT/HCPCS: 99223; 99232; 99239; 99499 ==

== ENCOUNTER 2024-08-04 09:26 | Outpatient (AMB) | payer OTHER, SELFPAY ==
--- NOTE | 2024-08-04 09:07 | HO.NEPHOV ---
Vital Signs 08/04/24 09:34 Height 5 ft 8 in Weight 207 lb 6 oz BMI 31.5 BP 144/90 H Blood Pressure Location Rt brachial Position Sitting Intake Visit Reasons: HFU Pipeman Required: No Accompanied by: Self / Same As Patient Allergies latex Allergy (Verified 08/04/24 09:33) Unknown Medication List - Last Reconciled 08/04/24 by Jewell Frey, DNP, [employer] amlodipine 5 mg See Protocol PO DAILY bupropion HCl XL 150 mg PO DAILY cholecalciferol (vitamin D3) (Vitamin D3) 50 mcg PO DAILY gabapentin (Neurontin) 100 mg PO BEDTIME glipizide 2.5 mg PO BID tirzepatide (Mounjaro) 7.5 mg subcut WE@0900 HPI Comments Details: Tres is a 58 y/o female with a medical history of HTN (diagnosed 6 months ago), diabetes (controlled, diagnosed 1 year ago), obesity, anxiety, s/p gastric sleeve. she is here for a hospital follow up visit 07/24-07/25. she presented to [facility] on 07/24 from PCP's office for abnormal labs showing TANIA, creatinine was 1.99 on presentation (pervious baseline unknown). she was on losartan but reports was not taking this for about a month before her hospitalization. She reported diarrhea and poor PO intake days leading up to admission. Most recent creatinine 1.54 on 07/25. urine protein/creatinine ratio is 1.64. UPEP was collected but unfortunately not run, serum protein electrophoresis revealed isolated decreased albumin. She also had a positive CECILIA screen with elevated titer, Nucleolar A patter. smoking: former, reports was not heavy- quit 4 years ago alcohol: none marjiuana or other drugs: none family hx: pt reports no family history of renal disease, autoimmune disease. *of note, patient reports her was HIV positive and from this a few years ago. She states she has had HIV testing in the past and been negative, though is not sure she has had Hepatitis testing. medications: NSAIDs - occasional for neck pain Providers: PCP: Zoe Sen- clinic Specialists: None [facility] Imagin07/25/24 renal US: Impression: Increased cortical echotexture both kidneys most characteristic of medical renal disease. diet, salt: avoid sugars: Works to avoid sugar, A1c is 6.3 NSIADs/OTC medications: aleve- she will stop. She also takes turmeric shortness of breath: dyspnea with exertion, no orthopnea Edema: swelling urinary sx: none rash: none gabapentin helps with cramping in her feet joint pain: right upper and lower back pain, left ankle pain, wrists and some fingers. [facility] Medical History (Updated 08/04/24 @ 12:28 by Jewell Frey, DNP, [employer]) Post hysterectomy menopause Endometrial cancer Anxiety HTN (hypertension) Surgical History S/P gastric sleeve procedure H/O inguinal hernia repair H/O abdominoplasty H/O gastric sleeve Social History Household Members: Children Housing: Other [facility] Do you presently have visiting nurse or other home services: No Patient Tobacco Use Status: Never used Tobacco service: No Review of Systems Const Reports fatigue and Reports lethargy ENT Denies dizziness, Reports neck pain, Denies sinus pain and Denies sore throat Card Denies chest pain, Denies pedal edema, Denies claudication, Reports leg edema, Denies dyspnea, Reports dyspnea on exertion and Denies orthopnea Resp Denies cough, Denies dyspnea and Reports dyspnea on exertion GI Denies abdominal pain, Denies constipation, Denies diarrhea, Denies nausea and Denies vomiting Denies hematuria, Denies difficulty voiding, Denies dysuria and Denies flank pain Musc Reports back pain, Reports arthralgias, Reports joint swelling, Reports muscle cramps (in feet- reports gabapentin relieves cramping), Reports neck pain, Denies numbness and Denies tingling Skin/Breast Denies rash Neuro Denies dizziness, Denies numbness and Denies tingling Endo Reports fatigue Physical Exam Vital Signs: Last Vital Signs BP 144/90 H 08/04/24 09:34 BMI result Body Mass Index 31.5 Const General: no acute distress, alert and awake Orientation/consciousness: patient oriented x3 Neck Neck: Yes no JVD Thyroid: Thyroid normal Resp Effort & Inspection: normal respiratory effort and able to speak in complete sentences Auscultation: clear to auscultation bilaterally Cardio Jugular venous distension: no JVD Rate: regular rate Rhythm: regular rhythm Heart sounds: S1 normal heart sound present and S2 normal heart sound present GI Palpation (GI): Soft to palpation and nontender General: Yes no CVA tenderness Back/Spine/Pelvis Back: no CVA tenderness Skin Lesions: no lesions Rashes: no rashes Neuro General: patient oriented x3 Gait exam (Neuro): Normal gait present Extrem General: Yes edema (upper (bilateral, trace) and lower extremity edema bilateral, +1, pitting ) Results Reviewed Nephrology Results: Hgb 11.1 g/dl (12.0-16.0) L 07/21/24 WBC 6.4 X10*3/uL (4.8-10.8) 07/21/24 Plt Count 293 X10*3/uL (160-400) 07/21/24 Sodium 139 mmol/L (135-145) 07/25/24 Potassium 4.6 mmol/L (3.3-5.1) 07/25/24 Chloride 108 mmol/L (96-108) 07/25/24 Carbon Dioxide 25 mmol/L (22-29) 07/25/24 BUN 28 mg/dL (9-16) H 07/25/24 Creatinine 1.54 mg/dL (0.5-1.4) H 07/25/24 Calcium 8.4 mg/dL (8.4-10.2) 07/25/24 Urine Protein 100 (2+) mg/dL (Neg-Trace) H 07/25/24 Urine Creatinine 86.03 mg/dL 07/24/24 Protein/Creatinin Ratio TNP 07/24/24 Renal US 07/25/24 Assessment & Plan Assessment & Plan (1) CKD (chronic kidney disease) stage 3, GFR 30-59 ml/min: Code(s): N18.30 - Chronic kidney disease, stage 3 unspecified Category: Medical Qualifiers: Chronic kidney disease stage 3 subtype: unspecified whether 3a or 3b Qualified Code(s): N18.30 - Chronic kidney disease, stage 3 unspecified (2) Positive CECILIA (antinuclear antibody): Code(s): R76.8 - Other specified abnormal immunological findings in serum Category: Medical (3) Swelling of lower extremity: Code(s): M79.89 - Other specified soft tissue disorders Category: Medical (4) Positive CECILIA (antinuclear antibody): Code(s): R76.8 - Other specified abnormal immunological findings in serum Category: Medical (5) Proteinuria: Code(s): R80.9 - Proteinuria, unspecified Category: Medical Qualifiers: Proteinuria type: unspecified Qualified Code(s): R80.9 - Proteinuria, unspecified Plan TANIA vs progression of underlying renal disease cannot rule out GN - patient has over 1.5gm protein in her urine- will re-check urine prot/creat ratio to assess if significant proteinuria is persisting secondary FSGS is on differential as she a history of significant obesity and significant proteinuria, evidence of chronic renal disease on US [place] and lambda light chains unremarkable- plasma cell disorder less likely SLE also on differential given positive CECILIA, will get anti-DS ab will also check HIV, Hepatitis given patient reports her was HIV positive patient will likely need a renal biospy, will check INR blood pressure is poorly controlled, will increase amlodipine to 10mg daily; will consider re-starting her losartan if renal function remains stable or improved. f/u in 2 weeks- labs next week Orders: Orders Complement C3 1 Week M79.89 - Other specified soft tissue disorders, N18.30 - Chronic kidney disease, stage 3 unspecified, R76.8 - Other specified abnormal immunological findings in serum Complete Blood Count Auto Diff 1 Week D64.9 - Anemia, unspecified, M79.89 - Other specified soft tissue disorders, N17.9 - Acute kidney failure, unspecified, N18.30 - Chronic kidney disease, stage 3 unspecified, R76.8 - Other specified abnormal immunological findings in serum Ferritin 1 Week D64.9 - Anemia, unspecified, N18.30 - Chronic kidney disease, stage 3 unspecified Transferrin 1 Week D64.9 - Anemia, unspecified, N17.9 - Acute kidney failure, unspecified, N18.30 - Chronic kidney disease, stage 3 unspecified, R76.8 - Other specified abnormal immunological findings in serum Hepatitis B Surface Antibody 1 Week N17.9 - Acute kidney failure, unspecified, N18.30 - Chronic kidney disease, stage 3 unspecified, R76.8 - Other specified abnormal immunological findings in serum Hepatitis B Surface Antigen 1 Week N17.9 - Acute kidney failure, unspecified, N18.30 - Chronic kidney disease, stage 3 unspecified, R76.8 - Other specified abnormal immunological findings in serum Hepatitis B Core Antibody 1 Week N17.9 - Acute kidney failure, unspecified, N18.30 - Chronic kidney disease, stage 3 unspecified, R76.8 - Other specified abnormal immunological findings in serum Protein Creatinine Ratio, Ur 1 Week N18.30 - Chronic kidney disease, stage 3 unspecified, R80.9 - Proteinuria, unspecified Prothrombin Time INR 1 Week M79.89 - Other specified soft tissue disorders, N18.30 - Chronic kidney disease, stage 3 unspecified, R76.8 - Other specified abnormal immunological findings in serum, R80.9 - Proteinuria, unspecified Partial Thromboplastin Time 1 Week M79.89 - Other specified soft tissue disorders, N18.30 - Chronic kidney disease, stage 3 unspecified, R76.8 - Other specified abnormal immunological findings in serum, R80.9 - Proteinuria, unspecified Complement C4 1 Week M79.89 - Other specified soft tissue disorders, N17.9 - Acute kidney failure, unspecified, N18.30 - Chronic kidney disease, stage 3 unspecified, R76.8 - Other specified abnormal immunological findings in serum Basic Metabolic Panel 1 Week N18.30 - Chronic kidney disease, stage 3 unspecified UA CC w/rflx Micro + Cult 1 Week N17.9 - Acute kidney failure, unspecified, N18.30 - Chronic kidney disease, stage 3 unspecified, R76.8 - Other specified abnormal immunological findings in serum ANCA Vasculitides 1 Week N18.30 - Chronic kidney disease, stage 3 unspecified, R76.8 - Other specified abnormal immunological findings in serum Anti DNA DS Antibody 1 Week M79.89 - Other specified soft tissue disorders, N18.30 - Chronic kidney disease, stage 3 unspecified, R76.8 - Other specified abnormal immunological findings in serum TSH reflex Free T4 1 Week M79.89 - Other specified soft tissue disorders IRON PROFILE 1 Week D64.9 - Anemia, unspecified, N17.9 - Acute kidney failure, unspecified, N18.30 - Chronic kidney disease, stage 3 unspecified Hepatitis C Antibody Reflex 1 Week N17.9 - Acute kidney failure, unspecified, N18.30 - Chronic kidney disease, stage 3 unspecified, R76.8 - Other specified abnormal immunological findings in serum HIV-1 Gen Rflx RNA Qn PCR 1 Week N17.9 - Acute kidney failure, unspecified, N18.30 - Chronic kidney disease, stage 3 unspecified, Z20.6 - Contact with and (suspected) exposure to human immunodeficiency virus [HIV] Medications: Changed From amlodipine 5 mg See Protocol PO DAILY 90 tabs 0RF To amlodipine 10 mg See Protocol PO DAILY 90 tabs 0RF Coding Level of Care Code Est Pt Level 4 (34838) Diagnoses Stage 3 chronic kidney disease, unspecified whether stage 3a or 3b CKD N18.30 Chronic kidney disease stage 3 subtype: unspecified whether 3a or 3b Positive CECILIA (antinuclear antibody) R76.8 Swelling of lower extremity M79.89 Proteinuria, unspecified type R80.9 Proteinuria type: unspecified Time Spent (min) 35
[2024-08-04 09:34] VITALS: BP 144/90; BMI 31.5
--- OUTSIDE RECORDS SUMMARY | 2024-08-04 09:45 | XMS_ITS | Clinical Summary ---
Author Organization [facility] Address [address] [place] [address] Phone Care Team Providers Care Mechanic Assistant Name Role Phone Yannick Lilian Primary Care Provider [phone] Allergies Active Allergy Reactions Criticality Noted Date [...] Noted Date Diagnosed Date DM (diabetes mellitus) ([facility] V24, [facility] V28 ) 02/26/2023 Obesity (BMI 30.0-34.9) 02/24/2023 Anxiety 08/19/2021 Depression 08/19/2021 HTN (hypertension) 08/19/2021 Iron deficiency anemia 08/19/2021 Lung nodule 08/19/2021 Encounters Date Type Department Care Team Description 07/20/2024 2:00 PM EDT Office Visit Internal Medicine - [address] [phone] Darrel Santiago NP Diarrhea, unspecified type (Primary Dx); Abnormal urine; Arthralgia, unspecified joint 07/20/2024 Telephone Internal Medicine - [address] [phone] Lilian Lanier, Foot Swelling; Body Swelling 05/30/2024 3:45 PM EDT Office Visit Bariatric Surgery - [place] [address] [place] [address] Sherron Holden MD Class 1 obesity due to excess calories with serious comorbidity and body mass index (BMI) of 30.0 to 30.9 in adult (Primary Dx) 05/25/2024 8:30 AM EDT [facility] Visit [facility] [address] [place] [phone] Jennifer Pittman, PADMINI Primary hypertension (Primary Dx); Type 2 diabetes mellitus without complication, without long-term current use of insulin ([facility] V24, [facility] V28); Iron deficiency anemia, unspecified iron deficiency anemia type; Class 1 obesity with serious comorbidity and body mass index (BMI) of 31.0 to 31.9 in adult, unspecified obesity type; Screening for endocrine, nutritional, metabolic and immunity disorder; Encounter for screening for HIV; Screening for cholesterol level; Other diabetic neurological complication associated with type 2 diabetes mellitus ([facility] V24, [facility] V28) from Last 3 Months Immunizations Name Administration Dates Next Due Moderna SARS-CoV-2 COVID-19, mRNA, LNP-S, preservative free 12/28/2020,05/23/2020,04/22/2020 Pneumococcal conjugate 20 va lent (Prevnar 20, PCV 20) 2mo and older 10/27/2023 Tdap Tetanus diptheria acell ular pertussis (Boostrix; Adacel) 7yo and older 10/27/2023 Surgical History Surgery Date Site/Laterality Comments GASTRIC BYPASS 2010 PROCEDURE: [place] GASTRIC RSTCV W/BYP W/SM INT RCNSTJ LIMIT ABSRPJ; COMMENT: in [place] PARTIAL HYSTERECTOMY PROCEDURE: [place] SUPRACERVICAL ABDL HYSTER W/WO RMVL TUBE OVARY KNEE ARTHROSCOPY W/ DEBRIDEMENT Right PROCEDURE: [place] ARTHRS KNEE DEBRIDEMENT/SHAVING ARTCLR CRTLG HERNIA REPAIR PROCEDURE: [place] REPAIR FIRST ABDOMINAL WALL HERNIA; COMMENT: supraumbilical mesh hernia repair OTHER SURGICAL HISTORY PROCEDURE: [place] RPR RECRT INCAL/VNT HERNIA REDUCIBLE BLADDER SURGERY [...] PM EDT Office Visit Internal Medicine - [address] [phone] Jennifer Pittamn NP [address] [place] [address], [place] [address] 11/28/2024 4:15 PM EDT Office Visit Bariatric Surgery - [place] [address] [place] [phone] Sherron Holden MD [address] [place] [address] Health Maintenance Due Date Last Done Comments Breast Cancer Screening 1965 Diabetes: Annual Retina Eye Exam 12/10/1975 Hepatitis B Vaccines (1 of 3 - 19+ 3-dose series) 1984 Cervical Cancer Screening: P ap Smear 1986 Hepatitis C Screening 02/15/2022 Social Influencers of Health Screening 02/15/2022 COVID-19 Vaccine ( - 2023-2 5 season) 2023 12/28/2020, 05/23/2020, 04/22/2020 Zoster Vaccines (2 of 2) 04/04/2024 02/08/2024 Depression Screening 06/30/2024 07/01/2023 Diabetes: Annual Urine Albumin-Creatinine Ratio (uACR) 09/29/2024 09/30/2023 Diabetes: Annual Foot Exam 10/26/2024 10/27/2023 Diabetes: Blood Sugar Contro l Test (HGBA1C) 01/20/2025 07/20/2024, 09/30/2023, 09/30/2023 Diabetes: Annual GFR (Glomerular Filtration Rate) 07/20/2025 [...] complication, without long-term current use of insulin ([facility] V24, [facility] V28) CULTURE URINE Routine 07/20/2024 2:44 PM EDT Abnormal urine LOVETT URINE CULTURE TUBE Routine 07/21/19 2:37 [...] complication, without long-term current use of insulin ([facility] V24, [facility] V28) LIPID PANEL WITH REFLEX TO DIRECT [...] 10/27/2023 URINE ALBUMIN CREATININE RATIO Routine 09/30/2023 DEPRESSION SCREENING Routine 07/01/2023 from Last 3 Months or Most Recently Relevant to Health Maintenance Results * (ABNORMAL) Urinalysis with reflex microscopic and culture (07/20/2024 2:44 PM EDT) Pathologist [facility] Specific [place] Urine 1.023 1.003 - 1.030 LAB URINALYSIS - AUTOMATED METHOD 07/21/2024 12:53 PM [facility] pH, Urine 5.5 5.0 - 8.0 pH LAB URINALYSIS - AUTOMATED METHOD 07/21/2024 12:53 PM [facility] Leukocytes, Urine Trace(A) Negative LAB URINALYSIS - AUTOMATED METHOD 07/21/2024 12:53 PM [facility] Nitrite, Urine Negative Negative LAB URINALYSIS - AUTOMATED METHOD 07/21/2024 12:53 PM [facility] Protein, Urine 300(A) <=Trace mg/dL LAB URINALYSIS - AUTOMATED METHOD 07/21/2024 12:53 PM [facility] Glucose, Urine Negative Negative mg/dL LAB URINALYSIS - AUTOMATED METHOD 07/21/2024 12:53 PM [facility] Ketones, Urine Trace(A) Negative mg/dL LAB URINALYSIS - AUTOMATED METHOD 07/21/2024 12:53 PM [facility] Urobilinogen , Urine 1.0 0.2 - 1.0 mg/dL LAB URINALYSIS - AUTOMATED METHOD 07/21/2024 12:53 PM [facility] Bilirubin, Urine Negative Negative LAB URINALYSIS - AUTOMATED METHOD 07/21/2024 12:53 PM [facility] Blood, Urine Negative Negative LAB URINALYSIS - AUTOMATED METHOD [facility] RBC, Urine 2.0 0 - 4 /HPF LAB URINALYSIS - AUTOMATED METHOD 07/21/2024 12:53 [facility] WBC, Urine 7.2(H) 0 - 4 /HPF LAB URINALYSIS - AUTOMATED METHOD 07/21/2024 12:53 PM [facility] Squamous Epithelial, Urine >100(H) 0 - 60 /LPF LAB URINALYSIS - AUTOMATED METHOD 07/21/2024 12:53 PM [facility] Bacteria, Urine Negative Negative /HPF LAB URINALYSIS - AUTOMATED METHOD 07/21/2024 12:53 PM [facility] Hyaline Casts, Urine 25.0(H) 0 - 3 /LPF LAB URINALYSIS - AUTOMATED METHOD 07/21/2024 12:53 PM [facility] Other Casts, Urine Rare fine granular casts /LPF LAB URINALYSIS - AUTOMATED METHOD 07/21/2024 12:53 PM [facility] Yeast, Urine Present(A) None /HPF LAB URINALYSIS - AUTOMATED METHOD 07/21/2024 12:53 PM [facility] Urine Urine specimen obtained by clean catch procedure / Unknown Non-blood Collection / Unknown 07/20/2024 2:44 PM EDT 07/20/2024 2:44 PM EDT us Darrel Santiago [employer] LAB URINE ORDERABLES Final Res ult [facility] [address] [place] [address], * Culture urine (07/20/2024 2:44 PM EDT) Culture, Urine No growth 07/22/2024 12:19 PM EDT [facility] Urine Urine specimen obtained by clean catch procedure / Unknown Non-blood Collection / Unknown 07/20/2024 2:44 PM EDT 07/21/2024 12:53 PM EDT Darrel Santiago NP LAB MICROBIOLOGY - GENERAL ORD ERABLES Final Result Performing Organization Address [facility]/ZIP Co de Phone Number [facility] [address] [place] [address], [place] [phone] * (ABNORMAL) Hemoglobin A1c (07/20/2024 2:44 PM EDT) Hemoglobin A1C 6.8(H) <6.5 % LAB CHEMISTRY METHOD 07/21/2024 12:20 PM EDT [facility] Mean Bld Glu Estim. 148 mg/dL LAB CHEMISTRY METHOD 07/21/2024 12:20 PM EDT [facility] Blood Venous blood specimen / Unknown Venipuncture / Unknown 07/20/2024 2:44 PM EDT 07/20/2024 2:44 PM EDT Jennifer Pittman NP LAB BLOOD ORDERABLES Final Resul t Performing Organization Address [facility] Co de Phone Number [facility] [address] [place] [address], [place] [phone] * (ABNORMAL) Comprehensive metabolic panel (07/20/2024 2:44 PM EDT) Only the most recent of2 resultswithin the time period is included. Sodium 138 133 - 145 mmol/L LAB CHEMISTRY METHOD 07/21/2024 10:14 AM EDT [facility] Potassium 5.5 3.5 - 5.5 mmol/L LAB CHEMISTRY METHOD 07/21/2024 10:14 AM EDT [facility] Chloride 106 96 - 110 mmol/L LAB CHEMISTRY METHOD 07/21/2024 10:14 AM EDT [facility] CO2 27 21 - 32 mmol/L LAB CHEMISTRY METHOD 07/21/2024 10:14 AM [facility] Anion Gap 5 3 - 11 LAB CHEMISTRY METHOD 07/21/2024 10:14 AM [facility] Glucose 98 70 - 100 mg/dL LAB CHEMISTRY METHOD 07/21/2024 10:14 AM [facility] BUN 27(H) 5 - 25 mg/dL LAB CHEMISTRY METHOD 07/21/2024 10:14 AM [facility] Creatinine 1.77(H) 0.50 - 1.10 mg/dL LAB CHEMISTRY METHOD 07/21/2024 10:14 AM [facility] Comment:Results verified by repeat testing eGFR 33(L) >=60 mL/min/1. 73m2 LAB CHEMISTRY METHOD 07/21/2024 10:14 AM [facility] Comment:Calculation based on the Chronic Kidney Disease Epidemiology Collaboration (CKD-EPI) equation refit without adjustment for race. BUN/Creatinine Ratio 15.3 LAB CHEMISTRY METHOD 07/21/2024 10:14 AM [facility] Calcium 8.6 8.5 - 10.5 mg/dL LAB CHEMISTRY METHOD 07/21/2024 10:14 AM [facility] AST (SGOT) 43(H) 10 - 42 unit/L LAB CHEMISTRY METHOD 07/21/2024 10:14 AM [facility] Comment:Results verified by repeat testing ALT (SGPT) 62(H) 10 - 60 unit/L LAB CHEMISTRY METHOD 07/21/2024 10:14 AM [facility] Comment:Results verified by repeat testing Alkaline Phosphatase 96 42 - 121 unit/L LAB CHEMISTRY METHOD 07/21/2024 10:14 AM [facility] Total Protein 6.5 6.0 - 8.0 g/dL LAB CHEMISTRY METHOD 07/21/2024 10:14 AM [facility] Albumin 3.5 3.2 - 5.0 g/dL LAB CHEMISTRY METHOD 07/21/2024 10:14 AM EDT [facility] Total Bilirubin 0.5 0.0 - 1.4 mg/dL LAB CHEMISTRY METHOD 07/21/2024 10:14 AM EDT [facility] Blood Venous blood specimen / Unknown Venipuncture / Unknown 07/20/2024 2:44 PM EDT 07/20/2024 2:44 PM EDT Darrel Santiago LAB BLOOD ORDERABLES Final Res ult Performing Organization Address City/[facility]/ZIP Co de Phone Number [facility] [address] [place] [address], [place] [phone] * Lovett urine culture tube (07/20/2024 2:37 PM EDT) Pathologist [facility] Extra Tube Hold for add-ons. 07/21/2024 8:01 AM EDT [facility] Comment:Auto resulted. Urine Urine specimen obtained by clean catch procedure / Unknown Non-blood Collection / Unknown 07/20/2024 2:37 PM EDT 07/20/2024 2:37 PM EDT Darrel Santiago [employer] LAB URINE ORDERABLES Final Res ult Performing Organization Address City/[facility]/ZIP Co de Phone Number [facility] [address] [place] [address], [place] [phone] * HIV 1,2 antibody, p24 antigen with reflex to differentiation (05/25/2024 9:42 AM EDT) HIV Combo AB/AG Negative Negative LAB CHEMISTRY METHOD 05/25/2024 3:54 PM EDT [facility] Blood Venous blood specimen / Unknown Venipuncture / Unknown 05/25/2024 9:42 AM EDT 05/25/2024 9:42 AM EDT Narrative [facility] - 05/25/2024 3:54 PM EDT This assay is a 4th generation assay allowing for earlier detection of HIV infection by detecting the presence of the HIV-1 p24 antigen as well as the traditional antibodies to HIV type 1 (including group O) and type 2. ??Use of a 4th generation assay is the current CDC recommendation for HIV screening. us Jennifer Pittman NP LAB BLOOD ORDERABLES Final Resul t Performing Organization Address City/[facility] Co de Phone Number [facility] [address] [place] [address], [place] [phone] * Interferon gamma interpretation (05/25/2024 9:42 AM EDT) [facility] Signature Quantiferon Plus Interpretation Negative Negative LAB CHEMISTRY METHOD 05/26/2024 9:10 AM EDT [facility] Blood Venous blood specimen / Unknown Venipuncture / Unknown 05/25/2024 9:42 AM EDT 05/25/2024 9:42 AM EDT us Jennifer Pittman NP LAB BLOOD ORDERABLES Final Resul t Performing Organization Address [facility] Co de Phone Number [facility] [address] [place] [address], [place] [phone] * Interferon gamma antigen 2 (05/25/2024 9:42 AM EDT) Blood Venous blood specimen / Unknown Venipuncture / Unknown 05/25/2024 9:42 AM EDT 05/25/2024 9:42 AM EDT us Jennifer Pittman NP LAB BLOOD ORDERABLES Final Resul t Performing Organization Address [facility] Co de Phone Number [facility] [address] [place] [address], [place] [phone] * Inteferon gamma antigen 1 (05/25/2024 9:42 AM EDT) Blood Venous blood specimen / Unknown Venipuncture / Unknown 05/25/2024 9:42 AM EDT 05/25/2024 9:42 AM EDT us eJnnifer Pittman NP LAB BLOOD ORDERABLES Final Resul t Performing Organization Address City/[facility] Co de Phone Number [facility] [address] [place] [address], [place] [phone] * Interferon gamma mitogen (05/25/2024 9:42 AM EDT) Blood Venous blood specimen / Unknown Venipuncture / Unknown 05/25/2024 9:42 AM EDT 05/25/2024 9:42 AM EDT us Jennifer Pittman [employer] LAB BLOOD ORDERABLES Final Resul t Performing Organization Address [facility] Co de Phone Number [facility] [address] [place] [address], [place] [phone] * Interferon gamma NIL (05/25/2024 9:42 AM EDT) Blood Venous blood specimen / Unknown Venipuncture / Unknown 05/25/2024 9:42 AM EDT 05/25/2024 9:42 AM EDT us Jennifer Pittman NP LAB BLOOD ORDERABLES Final Resul t Performing Organization Address [facility] de Phone Number [facility] [address] [place] [address], [place] [phone] * (ABNORMAL) Lipid panel with reflex to direct LDL (05/25/2024 9:42 AM EDT) [facility] Signature Cholesterol 174 0 - 200 mg/dL LAB CHEMISTRY METHOD 05/25/2024 3:08 PM EDT [facility] Triglycerides 195(H) 0 - 150 mg/dL LAB CHEMISTRY METHOD 05/25/2024 3:08 PM EDT [facility] HDL 50 >=40 mg/dL LAB CHEMISTRY METHOD 05/25/2024 3:08 PM EDT [facility] LDL Calculated 85 0 - 100 mg/dL LAB CHEMISTRY METHOD 05/25/2024 3:08 PM EDT [facility] VLDL Cholesterol Dilshad 39 mg/dL LAB CHEMISTRY METHOD 05/25/2024 3:08 PM EDT [facility] Non HDL Chol. (LDL+VLDL) 124 <145 mg/dL LAB CHEMISTRY METHOD 05/25/2024 3:08 PM EDT [facility] Chol/HDL Ratio 3.5 0.0 - 4.4 LAB CHEMISTRY METHOD 05/25/2024 3:08 PM EDT [facility] Blood Venous blood specimen / Unknown Venipuncture / Unknown 05/25/2024 9:42 AM EDT 05/25/2024 9:42 AM EDT us Jennifer Pittman NP LAB BLOOD ORDERABLES Final Resul t [facility] [address] [place] [address], [place] [phone] * (ABNORMAL) CBC auto differential (05/25/2024 9:42 AM EDT) WBC 7.7 4.8 - 10.8 K/mcL LAB HEMETOLOGY METHOD 05/25/2024 1:16 PM EDT [facility] RBC 4.50 3.80 - 4.80 M/mcL LAB HEMETOLOGY METHOD 05/25/2024 1:16 PM EDT [facility] Hemoglobin 12.8 11.5 - 16.0 g/dL LAB HEMETOLOGY METHOD 05/25/2024 1:16 PM EDT [facility] Hematocrit 40.4 35.0 - 47.0 % LAB HEMETOLOGY METHOD 05/25/2024 1:16 PM EDT [facility] MCV 89.2 79.0 - 98.0 FL LAB HEMETOLOGY METHOD 05/25/2024 1:16 PM EDT [facility] MCH 28.3 27.0 - 32.0 pcg LAB HEMETOLOGY METHOD 05/25/2024 1:16 PM EDT [facility] MCHC 31.7(L) 32.0 - 37.0 g/dL LAB HEMETOLOGY METHOD 05/25/2024 1:16 PM EDT [facility] RDW 14.5 11.0 - 15.0 % LAB HEMETOLOGY METHOD 05/25/2024 1:16 PM EDT [facility] Platelets 299 130 - 400 K/mcL LAB HEMETOLOGY METHOD 05/25/2024 1:16 PM EDT [facility] MPV 10.9 7.0 - 11.0 FL LAB HEMETOLOGY METHOD 05/25/2024 1:16 PM EDT [facility] NRBC 0.0 <1.0 % LAB HEMETOLOGY METHOD 05/25/2024 1:16 PM EDT [facility] NRBC Absolute 0.00 <0.10 K/mcL LAB [facility]EMETOLOGY [facility] Neutrophils Relative 69.0 % LAB HEMETOLOGY METHOD 05/25/2024 1:16 PM [facility] Lymphocytes Relative 20.9 % LAB HEMETOLOGY METHOD 05/25/2024 1:16 PM EDT [facility] Monocytes Relative 5.3 % LAB HEMETOLOGY METHOD 05/25/2024 1:16 PM EDT [facility] Eosinophils Relative 3.6 % LAB HEMETOLOGY METHOD 05/25/2024 1:16 PM EDT [facility] Basophils Relative 0.8 % LAB HEMETOLOGY METHOD 05/25/2024 1:16 PM EDT [facility] Immature Granulocytes Relative 0.4 % LAB HEMETOLOGY METHOD 05/25/2024 1:16 PM EDT [facility] Neutrophils Absolute 5.31 1.50 - 7.00 K/mcL LAB HEMETOLOGY METHOD 05/25/2024 1:16 PM EDT [facility] Lymphocytes Absolute 1.61 1.00 - 5.00 K/mcL LAB HEMETOLOGY METHOD 05/25/2024 1:16 PM EDT [facility] Monocytes Absolute 0.41 0.20 - 1.00 K/mcL LAB HEMETOLOGY METHOD 05/25/2024 1:16 PM EDT [facility] Eosinophils Absolute 0.28 0.00 - 0.50 K/mcL LAB HEMETOLOGY METHOD 05/25/2024 1:16 PM EDT [facility] Basophils Absolute 0.06 0.00 - 0.20 K/mcL LAB HEMETOLOGY METHOD 05/25/2024 1:16 PM EDT [facility] Immature Granulocytes Absolute 0.03 0.00 - 0.03 K/mcL LAB HEMETOLOGY METHOD 05/25/2024 1:16 PM EDT [facility] Blood Venous blood specimen / Unknown Venipuncture / Unknown 05/25/2024 9:42 AM EDT 05/25/2024 9:42 AM EDT us Jennifer Pittman NP LAB BLOOD ORDERABLES Final Resul t [facility] [address] [place] [address], * Iron and TIBC (05/25/2024 9:42 AM EDT) Iron 65 40 - 150 mcg/dL LAB CHEMISTRY METHOD 05/25/2024 3:07 PM EDT [facility] TIBC 440 250 - 450 mcg/dL LAB CHEMISTRY METHOD 05/25/2024 3:07 PM EDT [facility] Iron Saturation 15 15 - 50 % LAB CHEMISTRY METHOD 05/25/2024 3:07 PM EDT [facility] Blood Venous blood specimen / Unknown Venipuncture / Unknown 05/25/2024 9:42 AM EDT 05/25/2024 9:42 AM EDT Jennifer Pittman NP LAB BLOOD ORDERABLES Final Resul t Performing Organization Address City/[facility]/ZIP Co de Phone Number [facility] [address] [place] [address], [place] [phone] * Ferritin (05/25/2024 9:42 AM EDT) [facility] Ferritin 8 8 - 252 ng/mL LAB CHEMISTRY METHOD 05/25/2024 3:11 PM EDT [facility] Blood Venous blood specimen / Unknown Venipuncture / Unknown 05/25/2024 9:42 AM EDT 05/25/2024 9:42 AM EDT Jennifer Pittman NP LAB BLOOD ORDERABLES Final Resul t Performing Organization Address City/[facility]/ZIP Co de Phone Number [facility] [address] [place] [address], [place] [phone] * Colonoscopy (11/16/2023) [facility] Colonoscopy no interpretation , abstracted Anatomical Region Laterality Modality Other Historical Provider HEALTH MAINTENANCE Final Result * Diabetes Foot Exam (10/27/2023) [facility] Diabetes: Annual Foot Exam abstracted Historical Provider HEALTH MAINTENANCE Final Result * Urine Albumin Creatinine Ratio (09/30/2023) [facility] Urine Albumin Creatinine Ratio abstracted Historical Provider HEALTH MAINTENANCE Final Result * Depression Screening (07/01/2023) [facility] Depression Screening abstracted Historical Provider HEALTH MAINTENANCE Final Result from Last 3 Months or Most Recently Relevant to Health Maintenance Insurance [id number] Care Teams Mechanic Assistant Relationship Specialty Start Date End Date Lilian Lanier DO [address] [facility] [place] [address] PCP - General Internal Medicine 03/17/24
== END 2024-08-04 10:01 | disposition home or self-care (01) ==
LOC: HO.HKA 09:27
PROVIDERS: PCP Nurse Practitioner; Visit Provider Nurse Practitioner Family
DX: N18.30 Chronic kidney disease, stage 3 unspecified (principal); R76.8 Other specified abnormal immunological findings in serum; M79.89 Other specified soft tissue disorders; R80.9 Proteinuria, unspecified
CPT/HCPCS: 99214

== ENCOUNTER → 2024-08-04 09:26 | Outpatient (BNVA) | payer OTHER, SELFPAY | PROVIDERS: PCP Nurse Practitioner; Visit Provider Nurse Practitioner Family | DX: N18.30 Chronic kidney disease, stage 3 unspecified (principal); R76.8 Other specified abnormal immunological findings in serum; M79.89 Other specified soft tissue disorders; R80.9 Proteinuria, unspecified; N17.9 Acute kidney failure, unspecified; Z20.6 Contact with and (suspected) exposure to human immunodeficiency virus [HIV] | CPT/HCPCS: 99212 ==

== ENCOUNTER 2024-08-11 07:15 | Outpatient (REF) | payer OTHER, SELFPAY ==
[2024-08-11 10:59] LABS: MANUAL DIFF FLAG NO
[2024-08-11 11:59] LABS: Appearance Urine Clear; Color Urine Yellow; Glucose Urine UA Negative (Negative); Leukocyte Esterase Urine Negative (Negative); Nitrite Urine Negative (Negative); PH 7.5 (5.0-9.0); Specific Gravity - Urine 1.015 (1.005-1.025); UMIC TRIGGER UACC YES; Urine Blood Negative (Negative); Urine Ketones Negative (Negative); Urine Protein 30 (1+) mg/dL (Neg-Trace)
[2024-08-11 12:01] LABS: Bacteria Urine None Seen (None Seen); RBC Urine 0-2 /HPF (0-2); Squamous Epithelial Cell Urine 0-2 /HPF (0-2); WBC Urine 0-5 /HPF (0-5)
[2024-08-11 12:06] LABS: Basophils Absolute Auto 0.1 X10*3/uL (0.0-0.2); Basophils Percent Auto 1.1 % (0-2); Eosinophils Absolute Auto 0.3 X10*3/uL (0.0-0.4); Hematocrit 36.6 % (37.0-47.0); Hemoglobin 11.6 g/dl (12.0-16.0); INTERNATIONAL NORM RATIO 0.9 (0.9-1.1); Imm Gran Abs Auto 0.02 X10*3/uL (0.00-0.03); Imm Gran Pct Auto 0.3 % (0.0-0.4); Lymphocytes Absolute Auto 1.6 X10*3/uL (1.2-4.9); Lymphocytes Percent Auto 21.2 % (20-40); Mean Corpuscular HGB Conc 31.7 g/dl (31.0-35.0); Mean Corpuscular Hemoglobin 27.8 pg (27.0-33.0); Mean Corpuscular Volume 87.6 fL (80.0-98.0); Mean Platelet Volume 10.1 fL (9.4-12.3); Monocytes Absolute Auto 0.5 X10*3/uL (0.1-1.2); Monocytes Percent Auto 7.1 % (2-11); Neutrophils Percent Auto 66.3 % (45-73); Platelet Count 290 X10*3/uL (160-400); Prothrombin Time 9.9 SEC (10.9-12.4); Red Blood Count 4.18 X10*6/uL (4.20-5.50); Red Cell Distribution Width 14.7 % (11.0-16.0); White Blood Count 7.5 X10*3/uL (4.8-10.8)
[2024-08-11 12:17] LABS: Creatinine Urine 84.57 mg/dL; Protein/Creatinine Ratio, Ur 0.44 (<0.2); Total Protein Urine Random 37 mg/dL (<12)
[2024-08-11 12:22] LABS: Anion Gap 11 (12-20); Blood Urea Nitrogen 25 mg/dL (9-16); Calcium 9.1 mg/dL (8.4-10.2); Carbon Dioxide 28 mmol/L (22-29); Chloride 105 mmol/L (96-108); Estimated Glomerular Filt Rate 39; Glucose Random 116 mg/dL (60-115); Iron 85 mcg/dL (30-160); Percent Iron Saturation 25 % (15-50); Potassium 4.3 mmol/L (3.3-5.1); Sodium 140 mmol/L (135-145); Total Iron Binding Capacity 343 mcg/dL (228-428); Unsaturated Iron Binding 258 ug/dL
[2024-08-11 12:30] LABS: HBS Num1 0.04 mIU/mL (0-7.99); HBc Num1 0.14 S/CO (0.00-0.79); HBsAGNum1 0.36 S/CO (0.00-0.99); Hepatitis B Core Antibody Nonreactive (Nonreactive); Hepatitis B Surface Antigen Negative (Negative); ~Hepatitis B Surface Antibody NONREACTIVE (Nonreactive); ~Hepatitis C Antibody Nonreactive (Nonreactive)
[2024-08-11 12:51] LABS: Ferritin 23 ng/mL (10-250); TSH reflex Free T4 2.59 uIU/mL (0.32-4.0)
[2024-08-14 12:08] LABS: Complement C3 131 mg/dL (83-193)
[2024-08-14 20:24] LABS: Transferrin 312 mg/dL (188-341)
[2024-08-16 08:14] LABS: HIV RNA PCR Qn Copies Not Detected Copies/mL; HIV RNA PCR Qn Log Copies Not Detected Log cps/mL
[2024-08-17 08:43] LABS: Anti DNA DS Antibody 2 IU/mL; Myeloperoxidase Antibody <1.0 AI; Proteinase 3 PR3 Antibodies <1.0 AI
== END 2024-08-11 07:16 | disposition home or self-care (01) ==
LOC: HO.10HDL 07:15
PROVIDERS: Visit Provider Nurse Practitioner Family
DX: D64.9 Anemia, unspecified (principal); N18.30 Chronic kidney disease, stage 3 unspecified; N17.9 Acute kidney failure, unspecified; R76.8 Other specified abnormal immunological findings in serum; M79.89 Other specified soft tissue disorders; Z20.6 Contact with and (suspected) exposure to human immunodeficiency virus [HIV]; R80.9 Proteinuria, unspecified; N18.31 Chronic kidney disease, stage 3a
CPT/HCPCS: 36415; 80048; 81001; 81003; 82570; 82728; 83540; 84156; 84443; 84466; 85025; 85610; 85730; 86021; 86160; 86225; 86704; 86706; 86803; 87340; 87536; 87900

== ENCOUNTER 2024-08-18 09:18 | Outpatient (AMB) | payer OTHER, SELFPAY ==
--- NOTE | 2024-08-18 09:21 | HO.NEPHOV ---
Vital Signs 08/18/24 09:35 Height 5 ft 8 in Weight 208 lb 4 oz BMI 31.7 BP 150/90 H Blood Pressure Location Rt brachial Position Sitting Intake Visit Reasons: 2 weeks fu Complaint Evaluation Supervisor Required: No Accompanied by: Self / Same As Patient Allergies latex Allergy (Verified 08/18/24 09:35) Unknown HPI Comments Details: Tres is a 58 y/o female with a medical history of HTN (diagnosed 6 months ago), diabetes (controlled, diagnosed 1 year ago), obesity, anxiety, s/p gastric sleeve. Here for 2 week follow up. Patient did not have any known renal disease until hospitalization in July 2024, was initially thought to be TANIA from diarrhea/vomiting from GLP1, though patient had not had any labs done in some time. former smoker, no alcohol, no other drugs. Reports no family history of renal disease. Creatinine 1.99 07/21/24 1.62 07/22/24 1.51 07/23/24 1.73 07/24/24 1.54 07/25/24 1.40 08/11/24 urine protein/creatinine was 1.64 on 07/24, 08/11 was 0.44. No blood or other cells in UA. she had a positive CECILIA screen and elvated titer, Nucleolar A pattern. DS DNA was negative on 08/11 ANCA testing unremarkable complements within normal limits SPEP without monoclonal proteins serum light chains unremarkable HIV, Hep B, C testing negative. medications: NSAIDs - occasional for neck pain Providers: PCP: Zoe Sen- clinic Specialists: Dr Holden GI Imagin07/25/24 renal US: Impression: Increased cortical echotexture both kidneys most characteristic of medical renal disease. diet, salt: avoid sugars: Works to avoid sugar, A1c is 6.3 NSIADs/OTC medications: aleve- she will stop. She also takes turmeric shortness of breath: dyspnea with exertion, no orthopnea Edema: no current swelling, states by end of the day on her feet she gets ankle swelling urinary sx: no new symptoms- reports chronic frequency for many years. rash: none joint pain: reports right shoulder pain, left ankle pain, and bilateral knee pain- back pain has resolved from last visit. Reports takes gabapentin for cramping in her feet and helps. Denies numbness/tingling. [facility] Medical History (Updated 08/18/24 @ 14:39 by Jewell Frey, DNP, [employer]) HTN (hypertension) Post hysterectomy menopause Endometrial cancer Anxiety Surgical History S/P gastric sleeve procedure H/O inguinal hernia repair H/O abdominoplasty H/O gastric sleeve Social History Household Members: Children Housing: Other Housing Other:: [facility] Do you presently have visiting nurse or other home services: No Patient Tobacco Use Status: Never used Tobacco service: No Review of Systems Const Reports no additional complaints, Denies fatigue and Denies headache(s) ENT Denies dizziness, Denies headache(s), Denies sinus pain and Denies sore throat Card Denies chest pain, Denies lightheadedness and Denies dyspnea Resp Denies dyspnea GI Denies abdominal pain, Denies constipation, Denies diarrhea, Denies nausea and Denies vomiting Details: reports chronic urinary frequency Denies hematuria, Denies difficulty voiding, Denies dysuria and Denies flank pain Musc Reports as per HPI, Reports arthralgias and Denies joint swelling Skin/Breast Denies rash Neuro Denies dizziness and Denies headache(s) Endo Denies fatigue Physical Exam Vital Signs: Last Vital Signs BP 150/90 H 08/18/24 09:35 BMI result Body Mass Index 31.7 Const General: no acute distress, alert and awake Neck Neck: Yes no JVD Resp Effort & Inspection: able to speak in complete sentences Auscultation: clear to auscultation bilaterally Cardio Jugular venous distension: no JVD Rate: regular rate Rhythm: regular rhythm Heart sounds: S1 normal heart sound present and S2 normal heart sound present GI Palpation (GI): Soft to palpation and nontender General: Yes no CVA tenderness Back/Spine/Pelvis Back: no CVA tenderness Skin Rashes: no rashes Extrem General: Yes normal to inspection, No edema and No pedal edema Results Reviewed Nephrology Results: Hgb 11.6 g/dl (12.0-16.0) L 08/11/24 WBC 7.5 X10*3/uL (4.8-10.8) 08/11/24 Plt Count 290 X10*3/uL (160-400) 08/11/24 Sodium 140 mmol/L (135-145) 08/11/24 Potassium 4.3 mmol/L (3.3-5.1) 08/11/24 Chloride 105 mmol/L (96-108) 08/11/24 Carbon Dioxide 28 mmol/L (22-29) 08/11/24 BUN 25 mg/dL (9-16) H 08/11/24 Creatinine 1.40 mg/dL (0.5-1.4) 08/11/24 Calcium 9.1 mg/dL (8.4-10.2) 08/11/24 Urine Protein 30 (1+) mg/dL (Neg-Trace) H 08/11/24 Urine Creatinine 84.57 mg/dL 08/11/24 Protein/Creatinin Ratio 0.44 (<0.2) H 08/11/24 Renal US 07/25/24 Assessment & Plan Assessment & Plan (1) CKD (chronic kidney disease) stage 3, GFR 30-59 ml/min: Code(s): N18.30 - Chronic kidney disease, stage 3 unspecified Category: Medical Qualifiers: Chronic kidney disease stage 3 subtype: unspecified whether 3a or 3b Qualified Code(s): N18.30 - Chronic kidney disease, stage 3 unspecified (2) Positive CECILIA (antinuclear antibody): Code(s): R76.8 - Other specified abnormal immunological findings in serum Category: Medical (3) Swelling of lower extremity: Code(s): M79.89 - Other specified soft tissue disorders Category: Medical (4) Positive CECILIA (antinuclear antibody): Code(s): R76.8 - Other specified abnormal immunological findings in serum Category: Medical (5) Proteinuria: Code(s): R80.9 - Proteinuria, unspecified Category: Medical Qualifiers: Proteinuria type: unspecified Qualified Code(s): R80.9 - Proteinuria, unspecified (6) HTN (hypertension): Code(s): I10 - Essential (primary) hypertension Category: Medical Qualifiers: Hypertension type: primary hypertension Qualified Code(s): I10 - Essential (primary) hypertension Plan TANIA on CKD creatinine improving, patient had over 1.5gm protein in her urine and re-check 2 weeks later urine prot/creatinine is 0.44. May have proteinuria from obesity. secondary FSGS is on differential as she a history of significant obesity and significant proteinuria and evidence of chronic renal disease on US, though less likely given significant reduction in urine protein levels over 2 week prior [place] and lambda light chains unremarkable- plasma cell disorder less likely SLE also on differential given positive CECILIA, anti-DS ab negative so does not have active flare was HIV positive (passed few years ago)- HIV and Hepatitis C negative given improvement in creatinine and proteinuria, will hold off on renal biopsy for now advised patient she should see a senior talent management consultant given her joint pain and abnormal labs- she states she is getting this set up through her PCP. if her renal function stabilizes and has established baseline creatinine with continued proteinuria, will consider starting ACEi/ARB for proteinuria blood pressure is poorly controlled,- pt reports she did not take her blood pressure medication today and asks that we hold off on additional medication additions given this. Advised she needs to check her blood pressures at home, and if SBP>130/80, she should call office. Patient agrees. She will follow up in 4 weeks, labs prior. Orders: Orders Basic Metabolic Panel 1 Month N17.9 - Acute kidney failure, unspecified, N18.30 - Chronic kidney disease, stage 3 unspecified, R80.9 - Proteinuria, unspecified Protein Creatinine Ratio, Ur 1 Month N18.30 - Chronic kidney disease, stage 3 unspecified, R80.9 - Proteinuria, unspecified Coding Level of Care Code Est Pt Level 4 (66816) Diagnoses Stage 3 chronic kidney disease, unspecified whether stage 3a or 3b CKD N18.30 Chronic kidney disease stage 3 subtype: unspecified whether 3a or 3b Positive CECILIA (antinuclear antibody) R76.8 Swelling of lower extremity M79.89 Proteinuria, unspecified type R80.9 Proteinuria type: unspecified Primary hypertension I10 Hypertension type: primary hypertension
[2024-08-18 09:35] VITALS: BP 150/90; BMI 31.7
--- OUTSIDE RECORDS SUMMARY | 2024-08-18 09:40 | XMS_ITS | Clinical Summary ---
Author Organization 175 [facility] Address [address] [place] [address] Phone Care Team Providers Care Preschool Teacher'S Assistant Name Role Phone Yannick Lilian Primary Care Provider [phone] Allergies Active Allergy Reactions Criticality Noted Date [...] Noted Date Diagnosed Date DM (diabetes mellitus) ([facility] V24, [facility] V28 ) 02/26/2023 Obesity (BMI 30.0-34.9) 02/24/2023 Anxiety 08/19/2021 Depression 08/19/2021 HTN (hypertension) 08/19/2021 Iron deficiency anemia 08/19/2021 Lung nodule 08/19/2021 Encounters Date Type Department Care Team Description 07/20/2024 2:00 PM EDT Office Visit Internal Medicine - [address] [phone] Darrel Santiago NP Diarrhea, unspecified type (Primary Dx); Abnormal urine; Arthralgia, unspecified joint 07/20/2024 Telephone Internal Medicine - [address] [phone] Lilian Lanier, Foot Swelling; Body Swelling 05/30/2024 3:45 PM EDT Office Visit Bariatric Surgery - [place] [address] [place] [address] Sherron Holden MD Class 1 obesity due to excess calories with serious comorbidity and body mass index (BMI) of 30.0 to 30.9 in adult (Primary Dx) 05/25/2024 8:30 AM EDT Office Visit [facility] [address] [place] [phone] Jennifer Pittman, PADMINI Primary hypertension (Primary Dx); Type 2 diabetes mellitus without complication, without long-term current use of insulin ([facility] V24, [facility] V28); Iron deficiency anemia, unspecified iron deficiency anemia type; Class 1 obesity with serious comorbidity and body mass index (BMI) of 31.0 to 31.9 in adult, unspecified obesity type; Screening for endocrine, nutritional, metabolic and immunity disorder; Encounter for screening for HIV; Screening for cholesterol level; Other diabetic neurological complication associated with type 2 diabetes mellitus ([facility] V24, [facility] V28) from Last 3 Months Immunizations Name Administration Dates Next Due Moderna SARS-CoV-2 COVID-19, mRNA, LNP-S, preservative free 12/28/2020,05/23/2020,04/22/2020 Pneumococcal conjugate 20 va lent (Prevnar 20, PCV 20) 2mo and older 10/27/2023 Tdap Tetanus diptheria acell ular pertussis (Boostrix; Adacel) 7yo and older 10/27/2023 Surgical History Surgery Date Site/Laterality Comments GASTRIC BYPASS 2010 PROCEDURE: RI GASTRIC RSTCV W/BYP W/SM INT RCNSTJ LIMIT ABSRPJ; COMMENT: in [place] PARTIAL HYSTERECTOMY PROCEDURE: RI SUPRACERVICAL ABDL HYSTER W/WO RMVL TUBE OVARY KNEE ARTHROSCOPY W/ DEBRIDEMENT Right PROCEDURE: RI ARTHRS KNEE DEBRIDEMENT/SHAVING ARTCLR CRTLG HERNIA REPAIR PROCEDURE: RI REPAIR FIRST ABDOMINAL WALL HERNIA; COMMENT: supraumbilical mesh hernia repair OTHER SURGICAL HISTORY PROCEDURE: RI RPR RECRT INCAL/VNT HERNIA REDUCIBLE BLADDER SURGERY [...] PM EDT Office Visit Internal Medicine - [address] [phone] Jennifer Pittman NP [address] [place] [address], [place] [address] 11/28/2024 4:15 PM EDT Office Visit Bariatric Surgery - [place] [address] [place] [phone] Sherron Holden MD [address] [place] [address] Health Maintenance Due Date Last Done Comments [...] complication, without long-term current use of insulin ([facility] V24, [facility] V28) CULTURE URINE Routine 07/20/2024 2:44 PM [...] complication, without long-term current use of insulin ([facility] V24, [facility] V28) LIPID PANEL WITH REFLEX TO DIRECT [...] and culture (07/20/2024 2:44 PM EDT) Pathologist [facility] [place] Urine 1.023 1.003 - 1.030 LAB URINALYSIS - AUTOMATED METHOD 07/21/2024 12:53 PM [facility] pH, Urine 5.5 5.0 - 8.0 pH LAB URINALYSIS - AUTOMATED METHOD 07/21/2024 12:53 PM [facility] Leukocytes, Urine Trace(A) Negative LAB URINALYSIS - AUTOMATED METHOD 07/21/2024 12:53 PM [facility] Nitrite, Urine Negative Negative LAB URINALYSIS - AUTOMATED METHOD 07/21/2024 12:53 PM [facility] Protein, Urine 300(A) <=Trace mg/dL LAB URINALYSIS - AUTOMATED METHOD 07/21/2024 12:53 PM [facility] Glucose, Urine Negative Negative mg/dL LAB URINALYSIS - AUTOMATED METHOD 07/21/2024 12:53 PM [facility] Ketones, Urine Trace(A) Negative mg/dL LAB URINALYSIS - AUTOMATED METHOD 07/21/2024 12:53 PM [facility] Urobilinogen , Urine 1.0 0.2 - 1.0 mg/dL LAB URINALYSIS - AUTOMATED METHOD 07/21/2024 12:53 PM [facility] Bilirubin, Urine Negative Negative LAB URINALYSIS - AUTOMATED METHOD 07/21/2024 12:53 PM [facility] Blood, Urine Negative Negative LAB URINALYSIS - AUTOMATED METHOD [facility]24 [facility] RBC, Urine 2.0 0 - 4 /HPF LAB URINALYSIS - AUTOMATED METHOD 07/21/2024 12:[facility] WBC, Urine 7.2(H) 0 - 4 /HPF LAB URINALYSIS - AUTOMATED METHOD 07/21/2024 12:53 PM [facility] Squamous Epithelial, Urine >100(H) 0 - 60 /LPF LAB URINALYSIS - AUTOMATED METHOD 07/21/2024 12:53 PM [facility] Bacteria, Urine Negative Negative /HPF LAB URINALYSIS - AUTOMATED METHOD 07/21/2024 12:53 PM [facility] Hyaline Casts, Urine 25.0(H) 0 - 3 /LPF LAB URINALYSIS - AUTOMATED METHOD 07/21/2024 12:53 PM [facility] Other Casts, Urine Rare fine granular casts /LPF LAB URINALYSIS - AUTOMATED METHOD 07/21/2024 12:53 PM [facility] Yeast, Urine Present(A) None /HPF LAB URINALYSIS - AUTOMATED METHOD 07/21/2024 12:53 PM [facility] Urine Urine specimen obtained by clean catch procedure / Unknown Non-blood Collection / Unknown 07/20/2024 2:44 PM EDT 07/20/2024 2:44 PM EDT us Darrel Santiago [employer] LAB URINE ORDERABLES Final Res ult [facility] [address] [place] [address], * Culture urine (07/20/2024 2:44 PM EDT) Culture, Urine No growth 07/22/2024 12:19 PM EDT [facility] Urine Urine specimen obtained by clean catch procedure / Unknown Non-blood Collection / Unknown 07/20/2024 2:44 PM EDT 07/21/2024 12:53 PM EDT Darrel Santiago NP LAB MICROBIOLOGY - GENERAL ORD ERABLES Final Result Performing Organization Address [facility]/ZIP Co de Phone Number [facility] [address] [place] [address], [place] [phone] * (ABNORMAL) Hemoglobin A1c (07/20/2024 2:44 PM EDT) Hemoglobin A1C 6.8(H) <6.5 % LAB CHEMISTRY METHOD 07/21/2024 12:20 PM EDT [facility] Mean Bld Glu Estim. 148 mg/dL LAB CHEMISTRY METHOD 07/21/2024 12:20 PM EDT [facility] Blood Venous blood specimen / Unknown Venipuncture / Unknown 07/20/2024 2:44 PM EDT 07/20/2024 2:44 PM EDT Jennifer Pittman NP LAB BLOOD ORDERABLES Final Resul t Performing Organization Address [facility] Co de Phone Number [facility] [address] [place] [address], [place] [phone] * (ABNORMAL) Comprehensive metabolic panel (07/20/2024 2:44 PM EDT) Only the most recent of2 resultswithin the time period is included. Sodium 138 133 - 145 mmol/L LAB CHEMISTRY METHOD 07/21/2024 10:14 AM EDT [facility] Potassium 5.5 3.5 - 5.5 mmol/L LAB CHEMISTRY METHOD 07/21/2024 10:14 AM EDT [facility] Chloride 106 96 - 110 mmol/L LAB CHEMISTRY METHOD 07/21/2024 10:14 AM EDT [facility] CO2 27 21 - 32 mmol/L LAB CHEMISTRY METHOD 07/21/2024 10:14 AM [facility] Anion Gap 5 3 - 11 LAB CHEMISTRY METHOD 07/21/2024 10:14 AM [facility] Glucose 98 70 - 100 mg/dL LAB CHEMISTRY METHOD 07/21/2024 10:14 AM [facility] BUN 27(H) 5 - 25 mg/dL LAB CHEMISTRY METHOD 07/21/2024 10:14 AM [facility] Creatinine 1.77(H) 0.50 - 1.10 mg/dL LAB CHEMISTRY METHOD 07/21/2024 10:14 AM [facility] Comment:Results verified by repeat testing eGFR 33(L) >=60 mL/min/1. 73m2 LAB CHEMISTRY METHOD 07/21/2024 10:14 AM [facility] Comment:Calculation based on the Chronic Kidney Disease Epidemiology Collaboration (CKD-EPI) equation refit without adjustment for race. BUN/Creatinine Ratio 15.3 LAB CHEMISTRY METHOD 07/21/2024 10:14 AM [facility] Calcium 8.6 8.5 - 10.5 mg/dL LAB CHEMISTRY METHOD 07/21/2024 10:14 AM [facility] AST (SGOT) 43(H) 10 - 42 unit/L LAB CHEMISTRY METHOD 07/21/2024 10:14 AM [facility] Comment:Results verified by repeat testing ALT (SGPT) 62(H) 10 - 60 unit/L LAB CHEMISTRY METHOD 07/21/2024 10:14 AM [facility] Comment:Results verified by repeat testing Alkaline Phosphatase 96 42 - 121 unit/L LAB CHEMISTRY METHOD 07/21/2024 10:14 AM [facility] Total Protein 6.5 6.0 - 8.0 g/dL LAB CHEMISTRY METHOD 07/21/2024 10:14 AM [facility] Albumin 3.5 3.2 - 5.0 g/dL LAB CHEMISTRY METHOD 07/21/2024 10:14 AM EDT [facility] Total Bilirubin 0.5 0.0 - 1.4 mg/dL LAB CHEMISTRY METHOD 07/21/2024 10:14 AM EDT [facility] Blood Venous blood specimen / Unknown Venipuncture / Unknown 07/20/2024 2:44 PM EDT 07/20/2024 2:44 PM EDT Darrel Santiago LAB BLOOD ORDERABLES Final Res ult Performing Organization Address City/[facility]/ZIP Co de Phone Number [facility] [address] [place] [address], [place] [phone] * Lovett urine culture tube (07/20/2024 2:37 PM EDT) Pathologist [facility] Extra Tube Hold for add-ons. 07/21/2024 8:01 AM EDT [facility] Comment:Auto resulted. Urine Urine specimen obtained by clean catch procedure / Unknown Non-blood Collection / Unknown 07/20/2024 2:37 PM EDT 07/20/2024 2:37 PM EDT Darrel Santiago [employer] LAB URINE ORDERABLES Final Res ult Performing Organization Address City/[facility]/ZIP Co de Phone Number [facility] [address] [place] [address], [place] [phone] * HIV 1,2 antibody, p24 antigen with reflex to differentiation (05/25/2024 9:42 AM EDT) HIV Combo AB/AG Negative Negative LAB CHEMISTRY METHOD 05/25/2024 3:54 PM EDT [facility] Blood Venous blood specimen / Unknown Venipuncture / Unknown 05/25/2024 9:42 AM EDT 05/25/2024 9:42 AM EDT Narrative [facility] - 05/25/2024 3:54 PM [...] ORDERABLES Final Resul t Performing Organization Address City/[facility] Co de Phone Number [facility] [address] [place] [address], [place] [phone] * Interferon gamma interpretation (05/25/2024 9:42 AM EDT) [facility] Signature Quantiferon Plus Interpretation Negative Negative LAB CHEMISTRY METHOD 05/26/2024 9:10 AM EDT [facility] Blood Venous blood specimen / Unknown Venipuncture / Unknown 05/25/2024 9:42 AM EDT 05/25/2024 9:42 AM EDT us Jennifer Pittman NP LAB BLOOD ORDERABLES Final Resul t Performing Organization Address [facility] Co de Phone Number [facility] [address] [place] [address], [place] [phone] * Interferon gamma antigen 2 (05/25/2024 9:42 AM EDT) Blood Venous blood specimen / Unknown Venipuncture / Unknown 05/25/2024 9:42 AM EDT 05/25/2024 9:42 AM EDT us Jennifer Pittman NP LAB BLOOD ORDERABLES Final Resul t Performing Organization Address [facility] Co de Phone Number [facility] [address] [place] [address], [place] [phone] * Inteferon gamma antigen 1 (05/25/2024 9:42 AM EDT) Blood Venous blood specimen / Unknown Venipuncture / Unknown 05/25/2024 9:42 AM EDT 05/25/2024 9:42 AM EDT us Jennifer Pittman NP LAB BLOOD ORDERABLES Final Resul t Performing Organization Address City/[facility] Co de Phone Number [facility] [address] [place] [address], [place] [phone] * Interferon gamma mitogen (05/25/2024 9:42 AM EDT) Blood Venous blood specimen / Unknown Venipuncture / Unknown 05/25/2024 9:42 AM EDT 05/25/2024 9:42 AM EDT us Jennifer Pittman [employer] LAB BLOOD ORDERABLES Final Resul t Performing Organization Address [facility] Co de Phone Number [facility] [address] [place] [address], [place] [phone] * Interferon gamma NIL (05/25/2024 9:42 AM EDT) Blood Venous blood specimen / Unknown Venipuncture / Unknown 05/25/2024 9:42 AM EDT 05/25/2024 9:42 AM EDT us Jennifer Pittman NP LAB BLOOD ORDERABLES Final Resul t Performing Organization Address [facility] de Phone Number [facility] [address] [place] [address], [place] [phone] * (ABNORMAL) Lipid panel with reflex to direct LDL (05/25/2024 9:42 AM EDT) [facility] Signature Cholesterol 174 0 - 200 mg/dL LAB CHEMISTRY METHOD 05/25/2024 3:08 PM EDT [facility] Triglycerides 195(H) 0 - 150 mg/dL LAB CHEMISTRY METHOD 05/25/2024 3:08 PM EDT [facility] HDL 50 >=40 mg/dL LAB CHEMISTRY METHOD 05/25/2024 3:08 PM EDT [facility] LDL Calculated 85 0 - 100 mg/dL LAB CHEMISTRY METHOD 05/25/2024 3:08 PM EDT [facility] VLDL Cholesterol Dilshad 39 mg/dL LAB CHEMISTRY METHOD 05/25/2024 3:08 PM EDT [facility] Non HDL Chol. (LDL+VLDL) 124 <145 mg/dL LAB CHEMISTRY METHOD 05/25/2024 3:08 PM EDT [facility] Chol/HDL Ratio 3.5 0.0 - 4.4 LAB CHEMISTRY METHOD 05/25/2024 3:08 PM EDT [facility] Blood Venous blood specimen / Unknown Venipuncture / Unknown 05/25/2024 9:42 AM EDT 05/25/2024 9:42 AM EDT us Jennifer Pittman NP LAB BLOOD ORDERABLES Final Resul t [facility] [address] [place] [address], [place] [phone] * (ABNORMAL) CBC auto differential (05/25/2024 9:42 AM EDT) WBC 7.7 4.8 - 10.8 K/mcL LAB HEMETOLOGY METHOD 05/25/2024 1:16 PM EDT [facility] RBC 4.50 3.80 - 4.80 M/mcL LAB HEMETOLOGY METHOD 05/25/2024 1:16 PM EDT [facility] Hemoglobin 12.8 11.5 - 16.0 g/dL LAB HEMETOLOGY METHOD 05/25/2024 1:16 PM EDT [facility] Hematocrit 40.4 35.0 - 47.0 % LAB HEMETOLOGY METHOD 05/25/2024 1:16 PM EDT [facility] MCV 89.2 79.0 - 98.0 FL LAB HEMETOLOGY METHOD 05/25/2024 1:16 PM EDT [facility] MCH 28.3 27.0 - 32.0 pcg LAB HEMETOLOGY METHOD 05/25/2024 1:16 PM EDT [facility] MCHC 31.7(L) 32.0 - 37.0 g/dL LAB HEMETOLOGY METHOD 05/25/2024 1:16 PM EDT [facility] RDW 14.5 11.0 - 15.0 % LAB HEMETOLOGY METHOD 05/25/2024 1:16 PM EDT [facility] Platelets 299 130 - 400 K/mcL LAB HEMETOLOGY METHOD 05/25/2024 1:16 PM EDT [facility] MPV 10.9 7.0 - 11.0 FL LAB HEMETOLOGY METHOD 05/25/2024 1:16 PM EDT [facility] NRBC 0.0 <1.0 % LAB HEMETOLOGY METHOD 05/25/2024 1:16 PM EDT [facility] NRBC Absolute 0.00 <0.10 K/mcL LAB HEMETOLOGY METHOD 05/25/2024 1:[facility] Neutrophils Relative 69.0 % LAB HEMETOLOGY METHOD 05/25/2024 1:16 PM [facility] Lymphocytes Relative 20.9 % LAB HEMETOLOGY METHOD 05/25/2024 1:16 PM EDT [facility] Monocytes Relative 5.3 % LAB HEMETOLOGY METHOD 05/25/2024 1:16 PM EDT [facility] Eosinophils Relative 3.6 % LAB HEMETOLOGY METHOD 05/25/2024 1:16 PM EDT [facility] Basophils Relative 0.8 % LAB HEMETOLOGY METHOD 05/25/2024 1:16 PM EDT [facility] Immature Granulocytes Relative 0.4 % LAB HEMETOLOGY METHOD 05/25/2024 1:16 PM EDT [facility] Neutrophils Absolute 5.31 1.50 - 7.00 K/mcL LAB HEMETOLOGY METHOD 05/25/2024 1:16 PM EDT [facility] Lymphocytes Absolute 1.61 1.00 - 5.00 K/mcL LAB HEMETOLOGY METHOD 05/25/2024 1:16 PM EDT [facility] Monocytes Absolute 0.41 0.20 - 1.00 K/mcL LAB HEMETOLOGY METHOD 05/25/2024 1:16 PM EDT [facility] Eosinophils Absolute 0.28 0.00 - 0.50 K/mcL LAB HEMETOLOGY METHOD 05/25/2024 1:16 PM EDT [facility] Basophils Absolute 0.06 0.00 - 0.20 K/mcL LAB HEMETOLOGY METHOD 05/25/2024 1:16 PM EDT [facility] Immature Granulocytes Absolute 0.03 0.00 - 0.03 K/mcL LAB HEMETOLOGY METHOD 05/25/2024 1:16 PM EDT [facility] Blood Venous blood specimen / Unknown Venipuncture / Unknown 05/25/2024 9:42 AM EDT 05/25/2024 9:42 AM EDT us Jennifer Pittman NP LAB BLOOD ORDERABLES Final Resul t [facility] [address] [place] [address], * Iron and TIBC (05/25/2024 9:42 AM EDT) Iron 65 40 - 150 mcg/dL LAB CHEMISTRY METHOD 05/25/2024 3:07 PM EDT [facility] TIBC 440 250 - 450 mcg/dL LAB CHEMISTRY METHOD 05/25/2024 3:07 PM EDT [facility] Iron Saturation 15 15 - 50 % LAB CHEMISTRY METHOD 05/25/2024 3:07 PM EDT [facility] Blood Venous blood specimen / Unknown Venipuncture / Unknown 05/25/2024 9:42 AM EDT 05/25/2024 9:42 AM EDT Jennifer Pittman NP LAB BLOOD ORDERABLES Final Resul t Performing Organization Address City/[facility]/ZIP Co de Phone Number [facility] [address] [place] [address], [place] [phone] * Ferritin (05/25/2024 9:42 AM EDT) [facility] Ferritin 8 8 - 252 ng/mL LAB CHEMISTRY METHOD 05/25/2024 3:11 PM EDT [facility] Blood Venous blood specimen / Unknown Venipuncture / Unknown 05/25/2024 9:42 AM EDT 05/25/2024 9:42 AM EDT Jennifer Pittman NP LAB BLOOD ORDERABLES Final Resul t Performing Organization Address City/[facility]/ZIP Co de Phone Number [facility] [address] [place] [address], [place] [phone] * Colonoscopy (11/16/2023) [facility] Colonoscopy no interpretation , abstracted Anatomical Region Laterality Modality Other Historical Provider HEALTH MAINTENANCE Final Result * Diabetes Foot Exam (10/27/2023) [facility] Diabetes: Annual Foot Exam abstracted Historical Provider HEALTH MAINTENANCE Final Result * Urine Albumin Creatinine Ratio (09/30/2023) [facility] Urine Albumin Creatinine Ratio abstracted Historical Provider HEALTH MAINTENANCE Final Result * Depression Screening (07/01/2023) [facility] Depression Screening abstracted Historical Provider HEALTH MAINTENANCE Final Result from Last 3 Months or Most Recently Relevant to Health Maintenance Insurance [facility] [employer] Care Teams Preschool Teacher'S Assistant Relationship Specialty Start Date End Date Lilian Lanier DO [address] [facility] [place] [address] PCP - General Internal Medicine 03/17/24
== END 2024-08-18 09:53 | disposition home or self-care (01) ==
LOC: HO.HKA 09:18
PROVIDERS: PCP Nurse Practitioner; Visit Provider Nurse Practitioner Family
DX: N18.30 Chronic kidney disease, stage 3 unspecified (principal); R76.8 Other specified abnormal immunological findings in serum; M79.89 Other specified soft tissue disorders; R80.9 Proteinuria, unspecified; I10 Essential (primary) hypertension
CPT/HCPCS: 99214

== ENCOUNTER → 2024-08-18 09:18 | Outpatient (BNVA) | payer OTHER, SELFPAY | PROVIDERS: PCP Nurse Practitioner; Visit Provider Nurse Practitioner Family | DX: I10 Essential (primary) hypertension (principal); N18.30 Chronic kidney disease, stage 3 unspecified; M79.89 Other specified soft tissue disorders; R80.9 Proteinuria, unspecified; E11.9 Type 2 diabetes mellitus without complications; E66.09 Other obesity due to excess calories; R06.09 Other forms of dyspnea | CPT/HCPCS: 99212 ==

== ENCOUNTER 2024-09-18 07:28 | Outpatient (REF) | payer OTHER, SELFPAY ==
[2024-09-18 09:43] LABS: Appearance Urine Clear; Glucose Urine UA Negative (Negative); PH 6.0 (5.0-9.0); Specific Gravity - Urine 1.020 (1.005-1.025); UMIC TRIGGER UACC YES
[2024-09-18 09:51] LABS: Epith (RTE) Cast Present; UACC Culture Trigger YES
[2024-09-18 09:54] LABS: Anion Gap 10 (12-20); Blood Urea Nitrogen 21 mg/dL (9-16); Calcium 8.8 mg/dL (8.4-10.2); Carbon Dioxide 29 mmol/L (22-29); Chloride 107 mmol/L (96-108); Estimated Glomerular Filt Rate 29; Potassium 4.9 mmol/L (3.3-5.1); Sodium 141 mmol/L (135-145)
[2024-09-18 11:42] LABS: Protein/Creatinine Ratio, Ur 5.83 (<0.2); Total Protein Urine Random 790 mg/dL (<12)
== END 2024-09-18 07:29 | disposition home or self-care (01) ==
LOC: HO.10HDL 07:28
PROVIDERS: Visit Provider Nurse Practitioner Family
DX: N17.9 Acute kidney failure, unspecified (principal); N18.30 Chronic kidney disease, stage 3 unspecified; R80.9 Proteinuria, unspecified
CPT/HCPCS: 36415; 80048; 81001; 82570; 84156; 87086

== ENCOUNTER 2024-09-22 13:59 | Outpatient (AMB) | payer OTHER, SELFPAY ==
--- NOTE | 2024-09-22 12:37 | HO.NEPHOV ---
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 Here for 2 week follow up. Patient did not have any known renal disease until hospitalization in July 2024, was initially thought to be TANIA from diarrhea/vomiting from GLP1, though patient had not had any labs done in some time. former smoker, no alcohol, no other drugs. Reports no family history of renal disease. Creatinine 1.99 07/21/24 1.62 07/22/24 1.51 07/23/24 1.73 07/24/24 1.54 07/25/24 1.40 08/11/24 1.79 09/18/24 urine protein/creatinine was 1.64 on 07/24, 08/11 was 0.44. No blood or other cells in UA. *urine protein/creatinine ratio 5.83 on 09/18/24. she had a positive CECILIA screen and elvated titer, Nucleolar A pattern. DS DNA was negative on 08/11 ANCA testing unremarkable complements within normal limits SPEP without monoclonal proteins serum light chains unremarkable HIV, Hep B, C testing negative. medications: NSAIDs - occasional for neck pain Providers: PCP: Zoe Canofield- clinic Specialists: Dr Holden GI Imagin07/25/24 renal US: Impression: Increased cortical echotexture both kidneys most characteristic of medical renal disease. diet, salt: avoid sugars: Works to avoid sugar, A1c is 6.3 NSIADs/OTC medications: aleve- she has stopped. She also takes turmeric. shortness of breath: dyspnea with exertion (chronic), no orthopnea Edema: intermittent. today has BLE swelling, reports started two days ago- recently started amlodipine. urinary sx: no new symptoms- reports chronic frequency for many years. rash: none joint pain: Has struggled with polyarthralgia in the recent passed, denies any current joint/back pain. [facility] Medical History (Updated 09/22/24 @ 13:01 by Jewell Frey, DNP, ELIGIBILITY TECHNICIAN-) HTN (hypertension) Post hysterectomy menopause Endometrial cancer Anxiety Surgical History S/P gastric sleeve procedure H/O inguinal hernia repair H/O abdominoplasty H/O gastric sleeve Social History Household Members: Children Housing: Other [facility] Do you presently have visiting nurse or other home services: No Patient Tobacco Use Status: Never used Tobacco service: No Review of Systems Const Reports no additional complaints, Denies fatigue and Denies headache(s) ENT Denies dizziness, Denies headache(s), Denies sinus pain and Denies sore throat Card Denies chest pain, Denies lightheadedness and Denies dyspnea Resp Denies dyspnea GI Denies abdominal pain, Denies constipation, Denies diarrhea, Denies nausea and Denies vomiting Details: reports chronic urinary frequency Denies hematuria, Denies difficulty voiding, Denies dysuria and Denies flank pain Musc Reports as per HPI, Reports arthralgias and Denies joint swelling Skin/Breast Denies rash Neuro Denies dizziness and Denies headache(s) Endo Denies fatigue Physical Exam Const General: no acute distress, alert and awake Neck Neck: Yes no JVD Resp Effort & Inspection: able to speak in complete sentences Auscultation: clear to auscultation bilaterally Cardio Jugular venous distension: no JVD Rate: regular rate Rhythm: regular rhythm Heart sounds: S1 normal heart sound present and S2 normal heart sound present GI Palpation (GI): Soft to palpation and nontender General: Yes no CVA tenderness Back/Spine/Pelvis Back: no CVA tenderness Skin Rashes: no rashes Extrem General: Yes edema (lower extremity edema +1) Results Reviewed Nephrology Results: Hgb, (12.0-16.0) 11.6 g/dl L 08/11/24 WBC, (4.8-10.8) 7.5 X10*3/uL 08/11/24 Plt Count, (160-400) 290 X10*3/uL 08/11/24 Sodium, (135-145) 141 mmol/L 09/18/24 Potassium, (3.3-5.1) 4.9 mmol/L 09/18/24 Chloride, (96-108) 107 mmol/L 09/18/24 Carbon Dioxide, (22-29) 29 mmol/L 09/18/24 BUN, (9-16) 21 mg/dL H 09/18/24 Creatinine, (0.5-1.4) 1.79 mg/dL H 09/18/24 Calcium, (8.4-10.2) 8.8 mg/dL 09/18/24 Urine Protein, (Neg-Trace) >=1000 (4+) mg/dL H 09/18/24 Urine Creatinine 135.55 mg/dL 09/18/24 Protein/Creatinin Ratio, (<0.2) 5.83 H 09/18/24 Renal US 07/25/24 Assessment & Plan Assessment & Plan (1) CKD (chronic kidney disease) stage 3, GFR 30-59 ml/min: Code(s): N18.30 - Chronic kidney disease, stage 3 unspecified Category: Medical Qualifiers: Chronic kidney disease stage 3 subtype: unspecified whether 3a or 3b Qualified Code(s): N18.30 - Chronic kidney disease, stage 3 unspecified (2) Positive CECILIA (antinuclear antibody): Code(s): R76.8 - Other specified abnormal immunological findings in serum Category: Medical (3) Swelling of lower extremity: Code(s): M79.89 - Other specified soft tissue disorders Category: Medical (4) Positive CECILIA (antinuclear antibody): Code(s): R76.8 - Other specified abnormal immunological findings in serum Category: Medical (5) Proteinuria: Code(s): R80.9 - Proteinuria, unspecified Category: Medical Qualifiers: Proteinuria type: unspecified Qualified Code(s): R80.9 - Proteinuria, unspecified (6) HTN (hypertension): Code(s): I10 - Essential (primary) hypertension Category: Medical Qualifiers: Hypertension type: primary hypertension Qualified Code(s): I10 - Essential (primary) hypertension Plan TANIA on CKD creatinine has worsened, patient now has over 5 grams of protein in her urine. Given acute change, will get urgent renal biopsy- PT/INR and CBC today. Will hold off on starting ACEi/ARB due to TANIA, will consider once creatinine stabilizes. SLE also on differential given positive CECILIA, anti-DS ab negative so does not have active flare secondary FSGS is on differential as she a history of significant obesity and significant proteinuria and evidence of chronic renal disease on US [place] and lambda light chains unremarkable- plasma cell disorder less likely was HIV positive (passed few years ago)- HIV and Hepatitis C negative advised patient she should see a dowel setting machine operator given her joint pain and abnormal labs- she states she has an appointment toward the end of October. if her renal function stabilizes and has established baseline creatinine with continued proteinuria, will consider starting ACEi/ARB for proteinuria blood pressure is poorly controlled,- pt reports she took her amlodipine today, only taking intermittently. She will stop amlodipine given LE swelling, start carvedilol 6.25mg BID- advised needs to take consistently, not skip pills, she agrees. She will follow up in 1 week for BP. Orders: Orders Prothrombin Time INR Today N17.9 - Acute kidney failure, unspecified, R80.9 - Proteinuria, unspecified Partial Thromboplastin Time Today N17.9 - Acute kidney failure, unspecified, R80.9 - Proteinuria, unspecified Complete Blood Count Auto Diff Today N17.9 - Acute kidney failure, unspecified, R80.9 - Proteinuria, unspecified CT biopsy renal RT Today N17.9 - Acute kidney failure, unspecified, R80.9 - Proteinuria, unspecified Medications: New carvedilol must administer with a meal/food 6.25 mg PO BID 60 tabs 2RF Discontinued amlodipine Discontinued Reason: Duplicate 10 mg See Protocol PO DAILY 90 tabs 0RF Coding Level of Care Code Est Pt Level 3 (50002) Diagnoses Stage 3 chronic kidney disease, unspecified whether stage 3a or 3b CKD N18.30 Chronic kidney disease stage 3 subtype: unspecified whether 3a or 3b Positive CECILIA (antinuclear antibody) R76.8 Swelling of lower extremity M79.89 Proteinuria, unspecified type R80.9 Proteinuria type: unspecified Primary hypertension I10 Hypertension type: primary hypertension
[2024-09-22 14:06] VITALS: BP 158/90; PULSE 78; O2SAT 99; BMI 32.7
== END 2024-09-22 14:24 | disposition home or self-care (01) ==
LOC: HO.HKA 14:00
PROVIDERS: PCP Nurse Practitioner; Visit Provider Nurse Practitioner Family
DX: N18.30 Chronic kidney disease, stage 3 unspecified (principal); R76.8 Other specified abnormal immunological findings in serum; M79.89 Other specified soft tissue disorders; R80.9 Proteinuria, unspecified; I10 Essential (primary) hypertension
CPT/HCPCS: 99213

== ENCOUNTER 2024-09-22 13:59 | Outpatient (REF) | payer OTHER, SELFPAY ==
--- OUTSIDE RECORDS SUMMARY | 2024-09-22 14:31 | XMS_ITS | Patient Health Record ---
Author Organization [facility] Address [address] [place] [address] Care Team Providers Care District Branch Manager Name Role Phone Arnaldo LorenzoTrent Unavailable Unavailabl e Reason For Referral No Information Medications Medication SIG (Take, Route, Frequency, Duration) Notes Start Date End Date Status Iron 325 (65 Fe) MG Iron (ferrous sulfate) Dispense: 60 TAB - take 1 tablet (325 mg) by oral route 2 times per day Refill: 3 Oral Use as directed 02/15/2019 Active PX Acid Mohs Surgeon/General Dermatologist Max St 150 MG raNITIdine HCl Dispense: 30 TABs - take 1 tablet (150 mg) by oral route once daily at bedtime Refill: 2 Oral Use as directed *Reorder from [facility]cler for eRx and Interaction Alerts* 10/27/2018 Active Naproxen 500 MG naproxen Dispense: 2 tab(s) - 1 tablet by Oral route 2 times per day with food x 1 dose Refill: 0 Oral Use as directed 11/24/2018 Active Omeprazole 20 MG omeprazole Dispense: 30 cap(s) - 1 capsule by Oral route 1 time per day Refill: 2 Oral Use as directed 10/27/2018 Active Cyanocobalamin 1000 MCG/ML cyanocobalamin (vitamin B-12) Dispense: 6 vial(s) - 1 Milliliter by Intramuscular route 1 weekly Refill: 2 Injection Use as directed 01/07/2018 Active metFORMIN HCl 500 MG metFORMIN Dispense: 30 tablet(s) - take 1 tablet by Oral route 1 time per day with meal Refill: 2 Oral Use as directed 01/07/2018 Active Vitamin D3 1.25 MG (99831 UT) cholecalciferol (vitamin D3) Dispense: 5 TABs - 1 Tablet by Orally route every week Refill: 3 Oral Use as directed 02/15/2019 Active Problems Problem Type SNOMED Code ICD Code Onset Dates Problem Status W/U Status Risk Notes Problem Morbid obesity (094109614) Morbid obesity (278.01) 2013 Active confirmed Type: Diagnosis; Confidentiality Level: 1; Problem Viral infection (95525698) Viral infection, unspecified (B34.9) 2015 Active confirmed Type: Diagnosis; Confidentiality Level: 1; Problem Iron deficiency anemia (32530953) Iron deficiency anemia, unspecified (D50.9) 2017 Active confirmed Type: Diagnosis; Confidentiality Level: 1; Problem Vitamin B12 deficiency anemia due to dietary causes (504823580) Other dietary vitamin B12 deficiency anemia (D51.3) 2017 Active confirmed Type: Diagnosis; Confidentiality Level: 1; Problem Dietary folate deficiency anemia (63618541) Dietary folate deficiency anemia (D52.0) 2018 Active confirmed Type: Diagnosis; Confidentiality Level: 1; Problem Hyperglycemia due to type 2 diabetes mellitus (942891497828952) Type 2 diabetes mellitus with hyperglycemia (E11.65) 2017 Active confirmed Type: Diagnosis; Confidentiality Level: 1; Problem Vitamin D deficiency (54657733) Vitamin D deficiency, unspecified (E55.9) 2017 Active confirmed Type: Diagnosis; Confidentiality Level: 1; Problem Partial loss of teeth due to caries, class II (K08.432) 2018 Active confirmed Type: Diagnosis; Confidentiality Level: 1; Problem Gastro-esophageal reflux disease without esophagitis (746382669) Gastro-esophag eal reflux disease without esophagitis (K21.9) 2018 Active confirmed Type: Diagnosis; Confidentiality Level: 1; Problem Post-surgical malabsorption (disorder) (871827225) Postsurgical malabsorption, not elsewhere classified (K91.2) 2017 Active confirmed Type: Diagnosis; Confidentiality Level: 1; Problem Pain of right shoulder region (finding) (8726772393) Pain in right shoulder (M25.511) 2018 Active confirmed Type: Diagnosis; Confidentiality Level: 1; Problem Impaired fasting glucose (273537866) Impaired fasting glucose (R73.01) 2017 Active confirmed Type: Diagnosis; Confidentiality Level: 1; Problem Abnormal findings on microbiological examination of urine (145189068) Unspecified abnormal findings in urine (R82.90) 2017 Active confirmed Type: Diagnosis; Confidentiality Level: 1; Problem Endocrine finding (953540283) Abnormal results of other endocrine function studies (R94.7) 2018 Active confirmed Type: Diagnosis; Confidentiality Level: 1; Problem Adult health examination (104357692) Encounter for general adult medical examination without abnormal findings (Z00.00) 2017 Active confirmed Type: Diagnosis; Confidentiality Level: 1; Problem Annual wellness visit (639812076198539) Encounter for other general examination (Z00.8) 2016 Active confirmed Type: Diagnosis; Confidentiality Level: 1; Problem Screening for malignant neoplasm of colon (990437867) Encounter for screening for malignant neoplasm of colon (Z12.11) 2017 Active confirmed Type: Diagnosis; Confidentiality Level: 1; Problem Screening for malignant neoplasm of breast (140537152) Encounter for screening mammogram for malignant neoplasm of breast (Z12.31) 2017 Active confirmed Type: Diagnosis; Confidentiality Level: 1; Problem Screening for malignant neoplasm of cervix (748829735) Encounter for screening for malignant neoplasm of cervix (Z12.4) 2017 Active confirmed Type: Diagnosis; Confidentiality Level: 1; Problem Diabetes mellitus screening (298369818) Encounter for screening for diabetes mellitus (Z13.1) 2017 Active confirmed Type: Diagnosis; Confidentiality Level: 1; Problem Lipid screening (308734536) Encounter for screening for lipoid disorders (Z13.220) 2017 Active confirmed Type: Diagnosis; Confidentiality Level: 1; Problem Endocrine/metabol ic screening (236067976) Encounter for screening for other suspected endocrine disorder (Z13.29) 2017 Active confirmed Type: Diagnosis; Confidentiality Level: 1; Problem History of bariatric surgical procedure (451588987) Bariatric surgery status (Z98.84) 2017 Active confirmed Type: Diagnosis; Confidentiality Level: 1; Plan Of Treatment No Information Insurance Providers Payer Name Payer Address Payer Phone Subscriber Number Group Number Insured Name Patient Relationship to Insured Coverage Start Date Coverage End Date [employer] Card [address] [place] [address] [id number] Tres Wu Self - patient is the insured 7
--- OUTSIDE RECORDS SUMMARY | 2024-09-22 14:32 | XMS_ITS | Clinical Summary ---
Author Organization [facility] Address [address] [place] [address] Phone Care Team Providers Care Bagman/Woman Name Role Phone Yannick Lilian Primary Care Provider [phone] Allergies Active Allergy Reactions Criticality Noted Date Comments Adhesive Rash 01/20/2022 Latex Rash 01/20/2022 Medications BUPROPION HCL ORAL Take by mouth. Active albuterol sulfate (ProAir RespiClick) 90 mcg/actuation aerosol powdr breath activated Inhale into the lungs. Active cholecalciferol (VITAMIN D-3) 50 mcg (2,000 unit) capsule Take 1 capsule (2,000 Units total) by mouth 1 (one) time each day. 10/24/19 23 Active gabapentin (NEURONTIN) 100 mg capsuleIndicatio ns:Other diabetic neurological complication associated with type 2 diabetes mellitus ([facility] V24, CMS/HCC V28) Take 1 capsule (100 mg total) by mouth at bedtime. 90 each 1 05/26/19 25 025 Active freestyle (FreeStyle Lancets) 28 gauge lancetsIndicatio ns:Iron deficiency anemia, unspecified iron deficiency anemia type E 11.9 . use to check blood sugar daily 100 each 12 05/26/19 25 Active blood-glucose meter kitIndications:I vangie deficiency anemia, unspecified iron deficiency anemia type 1 each if needed (use to check blood sugar daily). E 11.9 . use to check blood sugar daily 1 each 05/26/19 25 026 Active blood sugar diagnostic (FreeStyle Lite Strips) test strip E 11.9 . use to check blood sugar daily 100 each 12 05/26/19 25 Active glipiZIDE 2.5 mg tablet Take 2.5 mg by mouth 2 (two) times a day. 07/27/19 25 Active amLODIPine (NORVASC) 5 mg tablet Take 1 tablet (5 mg total) by mouth 1 (one) time each day. 07/26/19 25 Active atomoxetine (STRATTERA) 18 mg capsule Take 1 capsule (18 mg total) by mouth 1 (one) time each day. 08/01/19 25 Active tirzepatide (Mounjaro) 10 mg/0.5 mL injectionIndicat ions:Class 1 obesity due to excess calories with serious comorbidity and body mass index (BMI) of 30.0 to 30.9 in adult Inject 0.5 mL (10 mg total) under the skin every 7 (seven) days. 2 mL 09/13/19 25 025 Active tirzepatide (Mounjaro) 7.5 mg/0.5 mL injectionIndicat ions:Class 1 obesity due to excess calories with serious comorbidity and body mass index (BMI) of 30.0 to 30.9 in adult Inject 0.5 mL (7.5 mg total) under the skin every 7 (seven) days. 2 mL 2 05/31/19 25 025 Discontinued Active Problems Problem Noted Date Diagnosed Date DM (diabetes mellitus) ([facility] V24, CMS/[facility] V28 ) 02/26/2023 Obesity (BMI 30.0-34.9) 02/24/2023 Anxiety 08/19/2021 Depression 08/19/2021 HTN (hypertension) 08/19/2021 Iron deficiency anemia 08/19/2021 Lung nodule 08/19/2021 Encounters Date Type Department Care Team Description 09/10/2024 Telephone Bariatric Surgery - [place] [facility] [address] [place] [address] Sherron Holden MD Med Refill 08/18/2024 4:00 PM EDT Office Visit Internal Medicine - [address] [phone] Jennifer Pittman NP Adult general medical examination (Primary Dx); Acute renal failure, unspecified acute renal failure type ([facility] V24); Primary hypertension; Type 2 diabetes mellitus without complication, without long-term current use of insulin ([facility] V24, [facility] V28); Iron deficiency anemia, unspecified iron deficiency anemia type; Class 1 obesity with serious comorbidity and body mass index (BMI) of 31.0 to 31.9 in adult, unspecified obesity type; Myalgia; Encounter for screening mammogram for malignant neoplasm of breast; Encounter for hepatitis C screening test for low risk patient 07/20/2024 2:00 PM EDT Office Visit Internal Medicine - [address] [phone] Darrel Santiago NP Diarrhea, unspecified type (Primary Dx); Abnormal urine; Arthralgia, unspecified joint 07/20/2024 Telephone Internal Medicine - [address] [phone] Lilian Lanier DO Foot Swelling; Body Swelling from Last 3 Months Immunizations Name Administration Dates Next Due Moderna SARS-CoV-2 COVID-19, mRNA, LNP-S, preservative free 12/28/2020,05/23/2020,04/22/2020 Pneumococcal conjugate 20 va lent (Prevnar 20, PCV 20) 2mo and older 10/27/2023 Tdap Tetanus diptheria acell ular pertussis (Boostrix; Adacel) 7yo and older 10/27/2023 Surgical History Surgery Date Site/Laterality Comments GASTRIC BYPASS 2010 PROCEDURE: ND GASTRIC RSTCV W/BYP W/SM INT RCNSTJ LIMIT ABSRPJ; COMMENT: in [place] PARTIAL HYSTERECTOMY PROCEDURE: ND SUPRACERVICAL ABDL HYSTER W/WO RMVL TUBE OVARY KNEE ARTHROSCOPY W/ DEBRIDEMENT Right PROCEDURE: ND ARTHRS KNEE DEBRIDEMENT/SHAVING ARTCLR CRTLG HERNIA REPAIR PROCEDURE: ND REPAIR FIRST ABDOMINAL WALL HERNIA; COMMENT: supraumbilical mesh hernia repair OTHER SURGICAL HISTORY PROCEDURE: ND RPR RECRT INCAL/VNT HERNIA REDUCIBLE BLADDER SURGERY [...] Grandmother Sister 1 1/2 paternal Sister 2 1/2 paternal Alive Sister 3 1/2 paternal Alive [...] Sign Reading Time Taken Comments Blood Pressure 146/88 08/18/2024 3:55 PM EDT Pulse 85 08/18/2024 3:55 PM EDT Temperature 36.6 C (97.8 F) 05/30/2024 3:55 PM EDT Respiratory Rate - - Oxygen Saturation - - Inhaled Oxygen Concentration - - Weight 95.2 kg (209 lb 12.8 oz) 08/18/2024 3:55 PM EDT Height 172.7 cm (5' 8 ) 08/18/2024 3:55 PM EDT Body Mass Index 31.9 08/18/2024 3:55 PM EDT Plan of Treatment Upcoming Encounters Date Type Department Care Team (Late st Contact Info) Description 11/28/2024 4:15 PM EDT Office Visit Bariatric Surgery - [place] [address] [phone] Sherron Holden MD 175 [facility] [address] [place] [address] Health Maintenance Due Date Last Done Comments Breast Cancer Screening 1965 Hepatitis B Vaccines (1 of 3 - 19+ 3-dose series) 1984 Cervical Cancer Screening: Pap Smear 1986 COVID-19 Vaccine (4 - 2023-2 5 season) 2023 12/28/2020, 05/23/2020, 04/22/2020 Zoster Vaccines (2 of 2) 04/04/2024 02/08/2024 Diabetes: Annual Urine Albumin-Creatinine Ratio (uACR) 09/29/2024 09/30/2023 Influenza Vaccine (#1) 2024 02/08/2024 Diabetes: Blood Sugar Contro l Test (HGBA1C) 01/20/2025 07/20/2024, 09/30/2023, 09/30/2023 Diabetes: Annual GFR (Glomerular Filtration Rate) 07/20/2025 07/20/2024, 05/25/2024, 02/25/2023 Hypertension/CHF/CAD Annual BMP Blood Test 07/20/2025 07/20/2024, 05/25/2024, 02/25/2023 Depression Screening 08/18/2025 08/18/2024, 07/01/2023 Diabetes: Annual Foot Exam 08/18/202508/18, 10/27/2023 Diabetes: Annual Retina Eye Exam 08/18/2025 08/18/2024 Social Influencers of Health Screening 08/20/2025 08/20/2024 Cholesterol Screening (Lipid Panel) 05/25/2029 05/25/2024, 10/23/2022 DTaP,Tdap,and Td Vaccines (2 - Td or Tdap) 10/26/2033 10/27/2023 Colorectal Cancer Screening: Colonoscopy 11/15/2033 11/16/2023 Pneumococcal Vaccine: 50+ Years Completed 10/27/2023 HIV Screening Completed 05/25/2024, 10/23/2022 HIB Vaccines Aged Out No longer eligi ble based on patient's age to complete this topic HPV Vaccines Aged Out No longer eligi ble based on patient's age to complete this topic Hepatitis A Vaccines Aged Out No long er eligible based on patient's age to complete this topic Hepatitis C Screening Discontinued IPV Vaccines Aged Out No longer eligi [...] 20 months Aged Out No longer eligible based on patient's age to complete this topic Varicella Vaccines Aged Out No longer eligible based on patient's age to complete this topic Procedures Procedure Name Priority Date/Time Associated Diagnosis Comments POC GLUCOSE Routine 08/18/2024 4:19 PM EDT Type 2 diabetes mellitus without complication, without long-term current use of insulin ([facility] V24, [facility] V28) URINALYSIS WITH REFLEX MICROSCOPIC AND CULTURE Routine 07/20/2024 2:44 PM EDT Abnormal urine COMPREHENSIVE METABOLIC PANEL Routine 07/20/2024 2:44 PM EDT Diarrhea, unspecified type HEMOGLOBIN A1C Routine 07/20/2024 2:44 PM EDT Type 2 diabetes mellitus without complication, without long-term current use of insulin ([facility] V24, [facility] V28) CULTURE URINE Routine 07/20/2024 2:44 PM EDT Abnormal urine LOVETT URINE CULTURE TUBE Routine 07/21/19 2:37 PM EDT Abnormal urine URINALYSIS WITH REFLEX MICROSCOPIC AND CULTURE Routine 07/20/2024 2:37 PM EDT Abnormal urine HIV 1, 2 ANTIBODY, P24 ANTIGEN WITH REFLEX TO DIFFERENTIATION Routine 05/25/2024 9:42 AM EDT Encounter for screening for HIV LIPID PANEL WITH REFLEX TO DIRECT LDL Routine 05/25/2024 9:42 AM EDT Screening for cholesterol level HM COLONOSCOPY Routine 11/16/2023 DIABETES FOOT EXAM Routine 10/27/2023 URINE ALBUMIN CREATININE RATIO Routine 09/30/2023 DEPRESSION SCREENING Routine 07/01/2023 from Last 3 Months or Most Recently Relevant to Health Maintenance Results * (ABNORMAL) POC glucose manually resulted (08/18/2024 4:19 PM EDT) [facility] Glucose POC 59(A) 70 - 100 mg/dL Blood Capillary blood specimen / Unknown 08/18/2024 4:19 PM EDT Jennifer Pittman NP POINT OF CARE TEST ENTER/EDIT OR DERABLES Final Result * (ABNORMAL) Urinalysis with reflex microscopic and culture (07/20/2024 2:44 PM EDT) [facility] Specific [place] Urine 1.023 1.003 - 1.030 LAB URINALYSIS - AUTOMATED METHOD 07/21/2024 12:53 PM [facility] pH, Urine 5.5 5.0 - 8.0 pH LAB URINALYSIS - AUTOMATED METHOD 07/21/2024 12:53 PM [facility] Leukocytes, Urine Trace(A) Negative LAB URINALYSIS - AUTOMATED METHOD 07/21/2024 12:53 PM [facility] Nitrite, Urine Negative Negative LAB URINALYSIS - AUTOMATED METHOD 07/21/2024 12:53 PM [facility] Protein, Urine 300(A) <=Trace mg/dL LAB URINALYSIS - AUTOMATED METHOD 07/21/2024 12:53 PM [facility] Glucose, Urine Negative Negative mg/dL LAB URINALYSIS - AUTOMATED METHOD 07/21/2024 12:53 PM [facility] Ketones, Urine Trace(A) Negative mg/dL LAB URINALYSIS - AUTOMATED METHOD 07/21/2024 12:53 PM [facility] Urobilinogen , Urine 1.0 0.2 - 1.0 mg/dL LAB URINALYSIS - AUTOMATED METHOD 07/21/2024 12:53 PM [facility] Bilirubin, Urine Negative Negative LAB URINALYSIS - AUTOMATED METHOD 07/21/2024 12:53 PM EDT [facility] Blood, Urine Negative Negative LAB URINALYSIS - AUTOMATED METHOD 07/21/2024 12:53 PM [facility] RBC, Urine 2.0 0 - 4 /HPF LAB URINALYSIS - AUTOMATED METHOD 07[facility]21[facility]24 12:[facility] WBC, Urine 7.2(H) 0 - 4 /HPF LAB URINALYSIS - AUTOMATED METHOD 07/21/2024 12:53 PM [facility] Squamous Epithelial, Urine >100(H) 0 - 60 /LPF LAB URINALYSIS - AUTOMATED METHOD 07/21/2024 12:53 PM [facility] Bacteria, Urine Negative Negative /HPF LAB URINALYSIS - AUTOMATED METHOD 07/21/2024 12:53 PM [facility] Hyaline Casts, Urine 25.0(H) 0 - 3 /LPF LAB URINALYSIS - AUTOMATED METHOD 07/21/2024 12:53 PM [facility] Other Casts, Urine Rare fine granular casts /LPF LAB URINALYSIS - AUTOMATED METHOD 07/21/2024 12:53 PM [facility] Yeast, Urine Present(A) None /HPF LAB URINALYSIS - AUTOMATED METHOD 07/21/2024 12:53 PM T [facility] Urine Urine specimen obtained by clean catch procedure / Unknown Non-blood Collection / Unknown 07/20/2024 2:44 PM EDT 07/20/2024 2:44 PM EDT us Darrel Santiago NP LAB URINE ORDERABLES Final Res ult [facility] [address] [place] [address], [place] [phone] * Culture urine (07/20/2024 2:44 PM EDT) Pathologist [facility] Culture, Urine No growth 07/22/2024 12:19 PM EDT [facility] Urine Urine specimen obtained by clean catch procedure / Unknown Non-blood Collection / Unknown 07/20/2024 2:44 PM EDT 07/21/2024 12:53 PM EDT Darrel Santiago HYDROGEOLOGY PROFESSOR LAB MICROBIOLOGY - GENERAL ORD ERABLES Final Result Performing Organization Address City/[facility]/ZIP Co de Phone Number [facility] [address] [place] [address], * (ABNORMAL) Hemoglobin A1c (07/20/2024 2:44 PM EDT) [facility] Hemoglobin A1C 6.8(H) <6.5 % LAB CHEMISTRY METHOD 07/21/2024 12:20 PM EDT [facility] Mean Bld Glu Estim. 148 mg/dL LAB CHEMISTRY METHOD 07/21/2024 12:20 PM EDT [facility] Blood Venous blood specimen / Unknown Venipuncture / Unknown 07/20/2024 2:44 PM EDT 07/20/2024 2:44 PM EDT Jennifer Pittman HYDROGEOLOGY PROFESSOR LAB BLOOD ORDERABLES Final Resul t [facility] [address] [place] [address], [place] [phone] * (ABNORMAL) Comprehensive metabolic panel (07/20/2024 2:44 PM EDT) [facility] Sodium 138 133 - 145 mmol/L LAB CHEMISTRY METHOD 07/21/2024 10:14 AM EDT [facility] Potassium 5.5 3.5 - 5.5 mmol/L LAB CHEMISTRY METHOD 07/21/2024 10:14 AM [facility] Chloride 106 96 - 110 mmol/L LAB CHEMISTRY METHOD 07/21/2024 10:14 AM [facility] CO2 27 21 - 32 mmol/L LAB CHEMISTRY METHOD 07/21/2024 10:14 AM [facility] Anion Gap 5 3 - 11 LAB CHEMISTRY METHOD 07/21/2024 10:14 AM [facility] Glucose 98 70 - 100 mg/dL LAB CHEMISTRY METHOD 07/21/2024 10:14 AM [facility] BUN 27(H) 5 - 25 mg/dL LAB CHEMISTRY METHOD 07/21/2024 10:14 AM [facility] Creatinine 1.77(H) 0.50 - 1.10 mg/dL LAB CHEMISTRY METHOD 07/21/2024 10:14 AM [facility] Comment:Results verified by repeat testing eGFR 33(L) >=60 mL/min/1. 73m2 LAB CHEMISTRY METHOD 07/21/2024 10:14 AM [facility] Comment:Calculation based on the Chronic Kidney Disease Epidemiology Collaboration (CKD-EPI) equation refit without adjustment for race. BUN/Creatinine Ratio 15.3 LAB CHEMISTRY METHOD 07/21/2024 10:14 AM [facility] Calcium 8.6 8.5 - 10.5 mg/dL LAB CHEMISTRY METHOD 07/21/2024 10:14 AM [facility] AST (SGOT) 43(H) 10 - 42 unit/L LAB CHEMISTRY METHOD 07/21/2024 10:14 AM [facility] Comment:Results verified by repeat testing ALT (SGPT) 62(H) 10 - 60 unit/L LAB CHEMISTRY METHOD 07/21/2024 10:14 AM [facility] Comment:Results verified by repeat testing Alkaline Phosphatase 96 42 - 121 unit/L LAB CHEMISTRY METHOD 07/21/2024 10:14 AM EDT [facility] Total Protein 6.5 6.0 - 8.0 g/dL LAB CHEMISTRY METHOD 07/21/2024 10:14 AM EDT [facility] Albumin 3.5 3.2 - 5.0 g/dL LAB CHEMISTRY METHOD 07/21/2024 10:14 AM EDT [facility] Total Bilirubin 0.5 0.0 - 1.4 mg/dL LAB CHEMISTRY METHOD 07/21/2024 10:14 AM EDT [facility] Blood Venous blood specimen / Unknown Venipuncture / Unknown 07/20/2024 2:44 PM EDT 07/20/2024 2:44 PM EDT Darrel Santiago NP LAB BLOOD ORDERABLES Final Res ult Performing Organization Address City/[facility]/ZIP Co de Phone Number [facility] [address] [place] [address], [place] [phone] * [place] urine culture tube (07/20/2024 2:37 PM EDT) Extra Tube Hold for add-ons. 07/21/2024 8:01 AM EDT [facility] Comment:Auto resulted. Urine Urine specimen obtained by clean catch procedure / Unknown Non-blood Collection / Unknown 07/20/2024 2:37 PM EDT 07/20/2024 2:37 PM EDT us Darrel Santiago HYDROGEOLOGY PROFESSOR LAB URINE ORDERABLES Final Res ult [facility] [address] [place] [address], [place] [phone] * HIV 1,2 antibody, p24 antigen with reflex to differentiation (05/25/2024 9:42 AM EDT) HIV Combo AB/AG Negative Negative LAB CHEMISTRY METHOD 05/25/2024 3:54 PM EDT [facility] Blood Venous blood specimen / Unknown Venipuncture / Unknown 05/25/2024 9:42 AM EDT 05/25/2024 9:42 AM EDT Narrative [facility] - 05/25/2024 3:54 PM EDT This assay is a 4th generation assay allowing for earlier detection of HIV infection by detecting the presence of the HIV-1 p24 antigen as well as the traditional antibodies to HIV type 1 (including group O) and type 2. Use of a 4th generation assay is the current CDC recommendation for HIV screening. us Jennifer Pittman NP LAB BLOOD ORDERABLES Final Resul t [facility] [address] [place] [address], [place] [phone] * (ABNORMAL) Lipid panel with reflex to direct LDL (05/25/2024 9:42 AM EDT) Cholesterol 174 0 - 200 mg/dL LAB CHEMISTRY METHOD 05/25/2024 3:08 PM [facility] Triglycerides 195(H) 0 - 150 mg/dL LAB CHEMISTRY METHOD 05/25/2024 3:08 PM [facility] HDL 50 >=40 mg/dL LAB CHEMISTRY METHOD 05/25/2024 3:08 PM [facility] LDL Calculated 85 0 - 100 mg/dL LAB CHEMISTRY METHOD 05/25/2024 3:08 PM T [facility] VLDL Cholesterol Dilshad 39 mg/dL LAB CHEMISTRY METHOD 05/25/2024 3:08 PM EDT [facility] Non HDL Chol. (LDL+VLDL) 124 <145 mg/dL LAB CHEMISTRY METHOD 05/25/2024 3:08 PM T [facility] Chol/HDL Ratio 3.5 0.0 - 4.4 LAB CHEMISTRY METHOD 05/25/2024 3:08 PM EDT [facility] Blood Venous blood specimen / Unknown Venipuncture / Unknown 05/25/2024 9:42 AM EDT 05/25/2024 9:42 AM EDT Jennifer Pittman HYDROGEOLOGY PROFESSOR LAB BLOOD ORDERABLES Final Resul t [facility] [address] [place] [address], [place] [phone] * Colonoscopy (11/16/2023) [facility] Colonoscopy no interpretation , abstracted Anatomical Region Laterality Modality Other Historical Provider MD HEALTH MAINTENANCE Final Result * Diabetes Foot Exam (10/27/2023) [facility] Diabetes: Annual Foot Exam abstracted Historical Provider MD HEALTH MAINTENANCE Final Result * Urine Albumin Creatinine Ratio (09/30/2023) [facility] Urine Albumin Creatinine Ratio abstracted Historical Provider MD HEALTH MAINTENANCE Final Result * Depression Screening (07/01/2023) [facility] Depression Screening abstracted Historical Provider MD HEALTH MAINTENANCE Final Result from Last 3 Months or Most Recently Relevant to Health Maintenance Insurance [facility] [employer] Care Teams Bagman/Woman Relationship Specialty Start Date End Date Lilian Lanier DO [address] [place] [id number] PCP - General Internal Medicine 03/17/24
[2024-09-22 14:53] LABS: MANUAL DIFF FLAG NO
[2024-09-22 15:20] LABS: Hematocrit 33.3 % (37.0-47.0); Hemoglobin 11.2 g/dl (12.0-16.0); Imm Gran Abs Auto 0.03 X10*3/uL (0.00-0.03); Imm Gran Pct Auto 0.3 % (0.0-0.4); Lymphocytes Absolute Auto 2.1 X10*3/uL (1.2-4.9); Mean Corpuscular HGB Conc 33.6 g/dl (31.0-35.0); Mean Corpuscular Hemoglobin 28.4 pg (27.0-33.0); Mean Corpuscular Volume 84.5 fL (80.0-98.0); NRBC Abs Auto 0.000 X10*3/uL (0.0-0.012); NRBC Pct Auto 0.0 /100WBC (0.0-0.2); Platelet Count 290 X10*3/uL (160-400); Red Blood Count 3.94 X10*6/uL (4.20-5.50); White Blood Count 8.7 X10*3/uL (4.8-10.8)
[2024-09-22 15:29] LABS: INTERNATIONAL NORM RATIO 0.8 (0.9-1.1); Prothrombin Time 9.6 SEC (10.9-12.4)
[2024-09-22 15:32] LABS: Partial Thromboplastin Time 32.8 SEC (26.0-36.8)
[2024-09-22 15:37] LABS: Appearance Urine Clear; Glucose Urine UA Negative (Negative); PH 7.0 (5.0-9.0); Specific Gravity - Urine 1.015 (1.005-1.025); UMIC TRIGGER UACC YES
== END 2024-09-22 14:00 | disposition home or self-care (01) ==
LOC: HO.LAB 13:59
PROVIDERS: PCP Nurse Practitioner; Visit Provider Nurse Practitioner Family
DX: N17.9 Acute kidney failure, unspecified (principal); R80.9 Proteinuria, unspecified
CPT/HCPCS: 36415; 81001; 85025; 85610; 85730; 99212

== ENCOUNTER 2024-09-29 14:58 | Outpatient (AMB) | payer OTHER, SELFPAY ==
--- NOTE | 2024-09-29 14:00 | HO.NEPHOV ---
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 Accompanied by: Self / Same As Patient Allergies latex Allergy (Verified 09/29/24 15:02) Unknown Medication List - Last Reconciled 09/29/24 by Jewell Frey, DNP, WELL TREATMENT OFFSIDER- bupropion HCl XL 150 mg PO DAILY carvedilol 12.5 mg (2 x 6.25 mg) PO BID cholecalciferol (vitamin D3) (Vitamin D3) 50 mcg PO DAILY furosemide (Lasix) 20 mg PO DAILY 7 days gabapentin (Neurontin) 100 mg PO BEDTIME glipizide 2.5 mg PO BID losartan 25 mg PO DAILY tirzepatide (Mounjaro) 7.5 mg subcut WE@0900 HPI Comments Details: Tres is a 58 y/o female with a medical history of HTN (diagnosed 6 months ago), diabetes (controlled, diagnosed 1 year ago), obesity, anxiety, s/p gastric sleeve. former smoker, no alcohol, no other drugs. Reports no family history of renal disease. Here for 1 week follow up following hypertension at last week's visit. She swelling with her amlodipine so switched to carvedilol. Creatinine 1.99 07/21/24 1.62 07/22/24 1.51 07/23/24 1.73 07/24/24 1.54 07/25/24 1.40 08/11/24 1.79 09/18/24 urine protein/creatinine was 1.64 on 07/24, 08/11 was 0.44. No blood or other cells in UA. *urine protein/creatinine ratio 5.83 on 09/18/24. she had a positive CECILIA screen and elvated titer, Nucleolar A pattern. DS DNA was negative on 08/11 ANCA testing unremarkable complements within normal limits SPEP without monoclonal proteins serum light chains unremarkable HIV, Hep B, C testing negative. medications: NSAIDs - occasional for neck pain Providers: PCP: Zoe Canofield- clinic Specialists: Dr Holden GI Imagin07/25/24 renal US: Impression: Increased cortical echotexture both kidneys most characteristic of medical renal disease. diet, salt: avoid sugars: Works to avoid sugar, A1c is 6.3 NSIADs/OTC medications: used to take aleve- she has stopped. She also takes turmeric. shortness of breath: dyspnea with exertion (chronic), no orthopnea Edema: intermittent. today has BLE swelling, reports started prior to last appt. Amlodipine discontinued, did not improve much, only slightly. urinary sx: no new symptoms- reports chronic frequency for many years. rash: none joint pain: Has struggled with polyarthralgia in the recent passed, denies any current joint/back pain. [facility] Medical History (Updated 09/22/24 @ 13:01 by Jewell Frey, DNP, WELL TREATMENT OFFSIDER-BC) HTN (hypertension) Post hysterectomy menopause Endometrial cancer Anxiety Surgical History S/P gastric sleeve procedure H/O inguinal hernia repair H/O abdominoplasty H/O gastric sleeve Social History Household Members: Children Housing: Other Housing Other:: [facility] Do you presently have visiting nurse or other home services: No Patient Tobacco Use Status: Never used Tobacco service: No Results Reviewed Nephrology Results: Hgb, (12.0-16.0) 11.2 g/dl L 09/22/24 WBC, (4.8-10.8) 8.7 X10*3/uL 09/22/24 Plt Count, (160-400) 290 X10*3/uL 09/22/24 Sodium, (135-145) 141 mmol/L 09/18/24 Potassium, (3.3-5.1) 4.9 mmol/L 09/18/24 Chloride, (96-108) 107 mmol/L 09/18/24 Carbon Dioxide, (22-29) 29 mmol/L 09/18/24 BUN, (9-16) 21 mg/dL H 09/18/24 Creatinine, (0.5-1.4) 1.79 mg/dL H 09/18/24 Calcium, (8.4-10.2) 8.8 mg/dL 09/18/24 Urine Protein, (Neg-Trace) 300 (3+) mg/dL H 09/22/24 Urine Creatinine 135.55 mg/dL 09/18/24 Protein/Creatinin Ratio, (<0.2) 5.83 H 09/18/24 Renal US 07/25/24 Assessment & Plan Assessment & Plan (1) CKD (chronic kidney disease) stage 3, GFR 30-59 ml/min: Code(s): N18.30 - Chronic kidney disease, stage 3 unspecified Category: Medical Qualifiers: Chronic kidney disease stage 3 subtype: unspecified whether 3a or 3b Qualified Code(s): N18.30 - Chronic kidney disease, stage 3 unspecified (2) Positive CECILIA (antinuclear antibody): Code(s): R76.8 - Other specified abnormal immunological findings in serum Category: Medical (3) Swelling of lower extremity: Code(s): M79.89 - Other specified soft tissue disorders Category: Medical (4) Positive CECILIA (antinuclear antibody): Code(s): R76.8 - Other specified abnormal immunological findings in serum Category: Medical (5) Proteinuria: Code(s): R80.9 - Proteinuria, unspecified Category: Medical Qualifiers: Proteinuria type: unspecified Qualified Code(s): R80.9 - Proteinuria, unspecified (6) HTN (hypertension): Code(s): I10 - Essential (primary) hypertension Category: Medical Qualifiers: Hypertension type: primary hypertension Qualified Code(s): I10 - Essential (primary) hypertension (7) TANIA (acute kidney injury): Code(s): N17.9 - Acute kidney failure, unspecified Category: Medical Plan TANIA on CKD creatinine has worsened, patient now has over 5 grams of protein in her urine. Urgent renal biopsy d/t acute change- scheduled for October 12, will try to move up though do need to better control blood pressure-- patient has not started carvedilol ordered last week due to insurance coverage issues though she says now she is able to pick this up. Given elevated proteinuria and continued swelling despite d/c amlodipine, pt likely has nephrotic syndrome, will start losartan 25mg daily; will accept small bump of 30% in creatinine- will re-check BMP next week. Patient to also take small dose of 20mg lasix daily for 7 days for to swelling memrbanous, minimal change, amyloidosis, diabetic nephritis, on differential- will check anti-ADRIANNA panel and other labs as listed below. SLE also on differential given positive CECILIA, anti-DS ab negative so did not have active flare at that time secondary FSGS is on differential as she a history of significant obesity and significant proteinuria and evidence of chronic renal disease on US [place] and lambda light chains unremarkable- plasma cell disorder less likely was HIV positive (passed few years ago)- HIV and Hepatitis C negative advised patient she should see a behavioral technician given her joint pain and abnormal labs- she states she has an appointment toward the end of October. Discussed importance of taking her medication now as prescribed- blood pressure is too high which has many consequences, also needs BP controlled for biopsy. Pt states she will start taking as prescribed. Discussed low sodium, healthy diet, keep sugars controlled, exercise, weight loss. follow up in 1 week, labs as below prior to appt. Orders: Orders Immunofixation, Random Urine 1 Week I10 - Essential (primary) hypertension, M79.89 - Other specified soft tissue disorders, N17.9 - Acute kidney failure, unspecified, N18.30 - Chronic kidney disease, stage 3 unspecified, R76.8 - Other specified abnormal immunological findings in serum, R80.9 - Proteinuria, unspecified Protein Creatinine Ratio, Ur 1 Week R80.9 - Proteinuria, unspecified Immunofixation Pnl, Serum 1 Week I10 - Essential (primary) hypertension, M79.89 - Other specified soft tissue disorders, N17.9 - Acute kidney failure, unspecified, N18.30 - Chronic kidney disease, stage 3 unspecified, R76.8 - Other specified abnormal immunological findings in serum, R80.9 - Proteinuria, unspecified Comprehensive Met. Panel 1 Week I10 - Essential (primary) hypertension, M79.89 - Other specified soft tissue disorders, N17.9 - Acute kidney failure, unspecified, N18.30 - Chronic kidney disease, stage 3 unspecified, R76.8 - Other specified abnormal immunological findings in serum, R80.9 - Proteinuria, unspecified Lipid Panel 1 Week I10 - Essential (primary) hypertension, M79.89 - Other specified soft tissue disorders, N17.9 - Acute kidney failure, unspecified, N18.30 - Chronic kidney disease, stage 3 unspecified, R76.8 - Other specified abnormal immunological findings in serum, R80.9 - Proteinuria, unspecified Phospholipase A2 Receptor Pnl 1 Week M79.89 - Other specified soft tissue disorders, N18.30 - Chronic kidney disease, stage 3 unspecified, R76.8 - Other specified abnormal immunological findings in serum, R80.9 - Proteinuria, unspecified Medications: New furosemide (Lasix) 20 mg PO DAILY 7 tabs 0RF 7 days I10 - Essential (primary) hypertension, M79.89 - Other specified soft tissue disorders losartan 25 mg PO DAILY 30 tabs 2RF I10 - Essential (primary) hypertension Refilled carvedilol 12.5 mg (2 x 6.25 mg) PO BID 180 tabs 2RF carvedilol 12.5 mg (2 x 6.25 mg) PO BID 360 tabs 2RF Coding Level of Care Code Est Pt Level 4 (12409) Diagnoses Stage 3 chronic kidney disease, unspecified whether stage 3a or 3b CKD N18.30 Chronic kidney disease stage 3 subtype: unspecified whether 3a or 3b Positive CECLIIA (antinuclear antibody) R76.8 Swelling of lower extremity M79.89 Proteinuria, unspecified type R80.9 Proteinuria type: unspecified Primary hypertension I10 Hypertension type: primary hypertension TANIA (acute kidney injury) N17.9 Time Spent (min) 30
--- OUTSIDE RECORDS SUMMARY | 2024-09-29 15:01 | XMS_ITS | Patient Health Record ---
Author Organization [facility] Address [address] [place] [address] Care Team Providers Care Program Advocate Name Role Phone Arnaldo LorenzoTrent Unavailable Unavailabl e Reason For Referral No Information Medications Medication SIG (Take, Route, Frequency, Duration) Notes Start Date End Date Status Iron 325 (65 Fe) MG Iron (ferrous sulfate) Dispense: 60 TAB - take 1 tablet (325 mg) by oral route 2 times per day Refill: 3 Oral Use as directed 02/15/2019 Active PX Acid Pinking Machine Operator Max St 150 MG raNITIdine HCl Dispense: 30 TABs - take 1 tablet (150 mg) by oral route once daily at bedtime Refill: 2 Oral Use as directed *Reorder from [employer] for eRx and Interaction Alerts* 10/27/2018 Active [...] directed 01/07/2018 Active Vitamin D3 1.25 MG (71684 UT) cholecalciferol (vitamin D3) Dispense: 5 TABs - 1 Tablet by Orally route every week Refill: 3 Oral Use as directed 02/15/2019 Active Problems Problem Type SNOMED Code ICD Code Onset Dates Problem Status W/U Status Risk Notes Problem Morbid obesity (391109259) Morbid obesity (278.01) 2013 Active confirmed Type: Diagnosis; Confidentiality Level: 1; Problem Viral infection (98944298) Viral infection, unspecified (B34.9) 2015 Active confirmed Type: Diagnosis; Confidentiality Level: 1; Problem Iron deficiency anemia (62243954) Iron deficiency anemia, unspecified (D50.9) 2017 Active confirmed Type: Diagnosis; Confidentiality Level: 1; Problem Vitamin B12 deficiency anemia due to dietary causes (343303583) Other dietary vitamin B12 deficiency anemia (D51.3) 2017 Active confirmed Type: Diagnosis; Confidentiality Level: 1; Problem Dietary folate deficiency anemia (53467333) Dietary folate deficiency anemia (D52.0) 2018 Active confirmed Type: Diagnosis; Confidentiality Level: 1; Problem Hyperglycemia due to type 2 diabetes mellitus (100087223868550) Type 2 diabetes mellitus with hyperglycemia (E11.65) 2017 Active confirmed Type: Diagnosis; Confidentiality Level: 1; Problem Vitamin D deficiency (85839936) Vitamin D deficiency, unspecified (E55.9) 2017 Active confirmed Type: Diagnosis; Confidentiality Level: 1; Problem Partial loss of teeth due to caries, class II (K08.432) 2018 Active confirmed Type: Diagnosis; Confidentiality Level: 1; Problem Gastro-esophageal reflux disease without esophagitis (107592461) Gastro-esophag eal reflux disease without esophagitis (K21.9) 2018 Active confirmed Type: Diagnosis; Confidentiality Level: 1; Problem Post-surgical malabsorption (disorder) (579451352) Postsurgical malabsorption, not elsewhere classified (K91.2) 2017 Active confirmed Type: Diagnosis; Confidentiality Level: 1; Problem Pain of right shoulder region (finding) (8440809034) Pain in right shoulder (M25.511) 2018 Active confirmed Type: Diagnosis; Confidentiality Level: 1; Problem Impaired fasting glucose (680995967) Impaired fasting glucose (R73.01) 2017 Active confirmed Type: Diagnosis; Confidentiality Level: 1; Problem Abnormal findings on microbiological examination of urine (861765121) Unspecified abnormal findings in urine (R82.90) 2017 Active confirmed Type: Diagnosis; Confidentiality Level: 1; Problem Endocrine finding (548562259) Abnormal results of other endocrine function studies (R94.7) 2018 Active confirmed Type: Diagnosis; Confidentiality Level: 1; Problem Adult health examination (988492858) Encounter for general adult medical examination without abnormal findings (Z00.00) 2017 Active confirmed Type: Diagnosis; Confidentiality Level: 1; Problem Annual wellness visit (094024575692759) Encounter for other general examination (Z00.8) 2016 Active confirmed Type: Diagnosis; Confidentiality Level: 1; Problem Screening for malignant neoplasm of colon (957817148) Encounter for screening for malignant neoplasm of colon (Z12.11) 2017 Active confirmed Type: Diagnosis; Confidentiality Level: 1; Problem Screening for malignant neoplasm of breast (616767217) Encounter for screening mammogram for malignant neoplasm of breast (Z12.31) 2017 Active confirmed Type: Diagnosis; Confidentiality Level: 1; Problem Screening for malignant neoplasm of cervix (603773934) Encounter for screening for malignant neoplasm of cervix (Z12.4) 2017 Active confirmed Type: Diagnosis; Confidentiality Level: 1; Problem Diabetes mellitus screening (330666601) Encounter for screening for diabetes mellitus (Z13.1) 2017 Active confirmed Type: Diagnosis; Confidentiality Level: 1; Problem Lipid screening (830465827) Encounter for screening for lipoid disorders (Z13.220) 2017 Active confirmed Type: Diagnosis; Confidentiality Level: 1; Problem Endocrine/metabol ic screening (176784583) Encounter for screening for other suspected endocrine disorder (Z13.29) 2017 Active confirmed Type: Diagnosis; Confidentiality Level: 1; Problem History of bariatric surgical procedure (782060594) Bariatric surgery status (Z98.84) 2017 Active confirmed Type: Diagnosis; Confidentiality Level: 1; Plan Of Treatment No Information Insurance Providers Payer Name Payer Address Payer Phone Subscriber Number Group Number Insured Name Patient Relationship to Insured Coverage Start Date Coverage End Date [employer] [address] [place] [address] [id number] Tres Wu Self - patient is the insured 7
--- OUTSIDE RECORDS SUMMARY | 2024-09-29 15:02 | XMS_ITS | Clinical Summary ---
Author Organization 175 [facility] Address [address] [place] [address] Phone Care Team Providers Care Visual Merchandising Associate Name Role Phone Yannick Lilian Primary Care Provider [phone] Allergies Active Allergy Reactions Criticality Noted Date [...] complication associated with type 2 diabetes mellitus ([facility] V24, CMS/HCC V28) Take 1 [...] Noted Date Diagnosed Date DM (diabetes mellitus) ([facility] V24, CMS/[facility] V28 ) 02/26/2023 Obesity (BMI 30.0-34.9) 02/24/2023 Anxiety 08/19/2021 Depression 08/19/2021 HTN (hypertension) 08/19/2021 Iron deficiency anemia 08/19/2021 Lung nodule 08/19/2021 Encounters Date Type Department Care Team Description 09/10/2024 Telephone Bariatric Surgery - [place] [address] [facility] [address] [place] [address] Sherron Holden MD Med Refill 08/18/2024 4:00 PM EDT Office Visit Internal Medicine - [address] [phone] Jennifer Pittman NP Adult general medical examination (Primary Dx); Acute renal failure, unspecified acute renal failure type ([facility] V24); Primary hypertension; Type 2 diabetes mellitus without complication, without long-term current use of insulin ([facility] V24, [facility] V28); Iron deficiency anemia, unspecified iron deficiency anemia type; Class 1 obesity with serious comorbidity and body mass index (BMI) of 31.0 to 31.9 in adult, unspecified obesity type; Myalgia; Encounter for screening mammogram for malignant neoplasm of breast; Encounter for hepatitis C screening test for low risk patient 07/20/2024 2:00 PM EDT Office Visit Internal Medicine - [address] [phone] Darrel Santiago NP Diarrhea, unspecified type (Primary Dx); Abnormal urine; Arthralgia, unspecified joint 07/20/2024 Telephone Internal Medicine - [address] [phone] Lilian Lanier DO Foot Swelling; Body Swelling from Last 3 Months Immunizations Name Administration Dates Next Due Moderna SARS-CoV-2 COVID-19, mRNA, LNP-S, preservative free 12/28/2020,05/23/2020,04/22/2020 Pneumococcal conjugate 20 va lent (Prevnar 20, PCV 20) 2mo and older 10/27/2023 Tdap Tetanus diptheria acell ular pertussis (Boostrix; Adacel) 7yo and older 10/27/2023 Surgical History Surgery Date Site/Laterality Comments GASTRIC BYPASS 2010 PROCEDURE: [place] GASTRIC RSTCV W/BYP W/SM INT RCNSTJ LIMIT ABSRPJ; COMMENT: in [place] PARTIAL HYSTERECTOMY PROCEDURE: [place] SUPRACERVICAL ABDL HYSTER W/WO RMVL TUBE OVARY KNEE ARTHROSCOPY W/ DEBRIDEMENT Right PROCEDURE: [place] ARTHRS KNEE DEBRIDEMENT/SHAVING ARTCLR CRTLG HERNIA REPAIR PROCEDURE: [place] REPAIR FIRST ABDOMINAL WALL HERNIA; COMMENT: supraumbilical mesh hernia repair OTHER SURGICAL HISTORY PROCEDURE: [place] RPR RECRT INCAL/VNT HERNIA REDUCIBLE BLADDER SURGERY [...] PM EDT Office Visit Bariatric Surgery - [place] [address] [phone] Sherron Holden MD 175 [facility] [address] [place] [address] Health Maintenance Due Date Last Done Comments Breast Cancer Screening 1965 Hepatitis B Vaccines (1 of 3 - 19+ 3-dose series) 1984 Cervical Cancer Screening: Pap Smear 1986 COVID-19 Vaccine (4 - 2023-2 5 season) 2023 12/28/2020, 05/23/2020, 04/22/2020 Depression Screening 03/08/2024 07/01/2023 Zoster Vaccines (2 of 2) 04/04/2024 02/08/2024 Diabetes: Annual Urine Albumin-Creatinine Ratio (uACR) 09/29/2024 09/30/2023 Influenza Vaccine (#1) 2024 02/08/2024 Diabetes: Blood Sugar Contro l Test (HGBA1C) 01/20/2025 07/20/2024, 09/30/2023, 09/30/2023 Diabetes: Annual GFR (Glomerular Filtration Rate) 07/20/2025 07/20/2024, 05/25/2024, 02/25/2023 Hypertension/CHF/CAD Annual BMP Blood Test 07/20/2025 07/20/2024, 05/25/2024, 02/25/2023 Diabetes: Annual Foot Exam 08/18/202508/18, 10/27/2023 Diabetes: [...] complication, without long-term current use of insulin ([facility] V24, [facility] V28) URINALYSIS WITH REFLEX MICROSCOPIC AND CULTURE Routine 07/20/2024 2:44 PM EDT Abnormal urine COMPREHENSIVE METABOLIC PANEL Routine 07/20/2024 2:44 PM EDT Diarrhea, unspecified type HEMOGLOBIN A1C Routine 07/20/2024 2:44 PM EDT Type 2 diabetes mellitus without complication, without long-term current use of insulin ([facility] V24, [facility] V28) CULTURE URINE Routine 07/20/2024 [...] glucose manually resulted (08/18/2024 4:19 PM EDT) [facility] Glucose POC 59(A) 70 - 100 mg/dL Blood Capillary blood specimen / Unknown 08/18/2024 4:19 PM EDT Jennifer Pittman NP POINT OF CARE TEST ENTER/EDIT OR DERABLES Final Result * (ABNORMAL) Urinalysis with reflex microscopic and culture (07/20/2024 2:44 PM EDT) [facility] Specific [place] Urine 1.023 1.003 - 1.030 LAB URINALYSIS - AUTOMATED METHOD 07/21/2024 12:53 PM [facility] pH, Urine 5.5 5.0 - 8.0 pH LAB URINALYSIS - AUTOMATED METHOD 07/21/2024 12:53 PM [facility] Leukocytes, Urine Trace(A) Negative LAB URINALYSIS - AUTOMATED METHOD 07/21/2024 12:53 PM [facility] Nitrite, Urine Negative Negative LAB URINALYSIS - AUTOMATED METHOD 07/21/2024 12:53 PM [facility] Protein, Urine 300(A) <=Trace mg/dL LAB URINALYSIS - AUTOMATED METHOD 07/21/2024 12:53 PM [facility] Glucose, Urine Negative Negative mg/dL LAB URINALYSIS - AUTOMATED METHOD 07/21/2024 12:53 PM [facility] Ketones, Urine Trace(A) Negative mg/dL LAB URINALYSIS - AUTOMATED METHOD 07/21/2024 12:53 PM [facility] Urobilinogen , Urine 1.0 0.2 - 1.0 mg/dL LAB URINALYSIS - AUTOMATED METHOD 07/21/2024 12:53 PM EDT [facility] Bilirubin, Urine Negative Negative LAB URINALYSIS - AUTOMATED METHOD 07/21/2024 12:53 PM EDT [facility] Blood, Urine Negative Negative LAB URINALYSIS - AUTOMATED METHOD 07/21/2024 12:53 PM [facility] RBC, Urine 2.0 0 - 4 /HPF LAB URINALYSIS - AUTOMATED METHOD 07/21/2024 12:53 PM EDT [facility] WBC, Urine 7.2(H) 0 - 4 /HPF LAB URINALYSIS - AUTOMATED METHOD 07/21/2024 12:53 PM [facility] Squamous Epithelial, Urine >100(H) 0 - 60 /LPF LAB URINALYSIS - AUTOMATED METHOD 07/21/2024 12:53 PM [facility] Bacteria, Urine Negative Negative /HPF LAB URINALYSIS - AUTOMATED METHOD 07/21/2024 12:53 PM [facility] Hyaline Casts, Urine 25.0(H) 0 - 3 /LPF LAB URINALYSIS - AUTOMATED METHOD 07/21/2024 12:53 PM [facility] Other Casts, Urine Rare fine granular casts /LPF LAB URINALYSIS - AUTOMATED METHOD 07/21/2024 12:53 PM [facility] Yeast, Urine Present(A) None /HPF LAB URINALYSIS - AUTOMATED METHOD 07/21/2024 12:53 PM T [facility] Urine Urine specimen obtained by clean catch procedure / Unknown Non-blood Collection / Unknown 07/20/2024 2:44 PM EDT 07/20/2024 2:44 PM EDT us Darrel Santiago NP LAB URINE ORDERABLES Final Res ult [facility] [address] [place] [address], * Culture urine (07/20/2024 2:44 PM EDT) [facility] Culture, Urine No growth 07/22/2024 12:19 PM EDT [facility] Urine Urine specimen obtained by clean catch procedure / Unknown Non-blood Collection / Unknown 07/20/2024 2:44 PM EDT 07/21/2024 12:53 PM EDT Darrel Santiago CUSTOMER SERVICE TRAINER LAB MICROBIOLOGY - GENERAL ORD ERABLES Final Result Performing Organization Address [facility]/ZIP Co de Phone Number [facility] [address] [place] [address], [place] [phone] * (ABNORMAL) Hemoglobin A1c (07/20/2024 2:44 PM EDT) [facility] Hemoglobin A1C 6.8(H) <6.5 % LAB CHEMISTRY METHOD 07/21/2024 12:20 PM EDT [facility] Mean Bld Glu Estim. 148 mg/dL LAB CHEMISTRY METHOD 07/21/2024 12:20 PM EDT [facility] Blood Venous blood specimen / Unknown Venipuncture / Unknown 07/20/2024 2:44 PM EDT 07/20/2024 2:44 PM EDT Jennifer Pittman CUSTOMER SERVICE TRAINER LAB BLOOD ORDERABLES Final Resul t Performing Organization Address [facility]/ZIP Co de Phone Number [facility] [address] [place] [address], [place] [phone] * (ABNORMAL) Comprehensive metabolic panel (07/20/2024 2:44 PM EDT) [facility] Sodium 138 133 - 145 mmol/L LAB CHEMISTRY METHOD 07/21/2024 10:14 AM EDT [facility] Potassium 5.5 3.5 - 5.5 mmol/L LAB CHEMISTRY METHOD 07/21/2024 10:14 AM [facility] Chloride 106 96 - 110 mmol/L LAB CHEMISTRY METHOD 07/21/2024 10:14 AM [facility] CO2 27 21 - 32 mmol/L LAB CHEMISTRY METHOD 07/21/2024 10:14 AM [facility] Anion Gap 5 3 - 11 LAB CHEMISTRY METHOD 07/21/2024 10:14 AM [facility] Glucose 98 70 - 100 mg/dL LAB CHEMISTRY METHOD 07/21/2024 10:14 AM [facility] BUN 27(H) 5 - 25 mg/dL LAB CHEMISTRY METHOD 07/21/2024 10:14 AM [facility] Creatinine 1.77(H) 0.50 - 1.10 mg/dL LAB CHEMISTRY METHOD 07/21/2024 10:14 AM [facility] Comment:Results verified by repeat testing eGFR 33(L) >=60 mL/min/1. 73m2 LAB CHEMISTRY METHOD 07/21/2024 10:14 AM [facility] Comment:Calculation based on the Chronic Kidney Disease Epidemiology Collaboration (CKD-EPI) equation refit without adjustment for race. BUN/Creatinine Ratio 15.3 LAB CHEMISTRY METHOD 07/21/2024 10:14 AM [facility] Calcium 8.6 8.5 - 10.5 mg/dL LAB CHEMISTRY METHOD 07/21/2024 10:14 AM [facility] AST (SGOT) 43(H) 10 - 42 unit/L LAB CHEMISTRY METHOD 07/21/2024 10:14 AM [facility] Comment:Results verified by repeat testing ALT (SGPT) 62(H) 10 - 60 unit/L LAB CHEMISTRY METHOD 07/21/2024 10:14 AM [facility] Comment:Results verified by repeat testing Alkaline Phosphatase 96 42 - 121 unit/L LAB CHEMISTRY METHOD 07/21/2024 10:14 AM [facility] Total Protein 6.5 6.0 - 8.0 g/dL LAB CHEMISTRY METHOD 07/21/2024 10:14 AM EDT [facility] Albumin 3.5 3.2 - 5.0 g/dL LAB CHEMISTRY METHOD 07/21/2024 10:14 AM EDT [facility] Total Bilirubin 0.5 0.0 - 1.4 mg/dL LAB CHEMISTRY METHOD 07/21/2024 10:14 AM EDT [facility] Blood Venous blood specimen / Unknown Venipuncture / Unknown 07/20/2024 2:44 PM EDT 07/20/2024 2:44 PM EDT Darrel Santiago NP LAB BLOOD ORDERABLES Final Res ult Performing Organization Address [facility]/ZIP Co de Phone Number [facility] [address] [place] [address], [place] [phone] * [place] urine culture tube (07/20/2024 2:37 PM EDT) Extra Tube Hold for add-ons. 07/21/2024 8:01 AM EDT [facility] Comment:Auto resulted. Urine Urine specimen obtained by clean catch procedure / Unknown Non-blood Collection / Unknown 07/20/2024 2:37 PM EDT 07/20/2024 2:37 PM EDT us Darrel Santiago NP LAB URINE ORDERABLES Final Res ult [facility] [address] [place] [address], [place] [phone] * HIV 1,2 antibody, p24 antigen with reflex to differentiation (05/25/2024 9:42 AM EDT) HIV Combo AB/AG Negative Negative LAB CHEMISTRY METHOD 05/25/2024 3:54 PM EDT [facility] Blood Venous blood specimen / Unknown Venipuncture / Unknown 05/25/2024 9:42 AM EDT 05/25/2024 9:42 AM EDT Narrative [facility] - 05/25/2024 3:54 PM EDT [...] NP LAB BLOOD ORDERABLES Final Resul t [facility] [address] [place] [address], [place] [phone] * (ABNORMAL) Lipid panel with reflex to direct LDL (05/25/2024 9:42 AM EDT) Cholesterol 174 0 - 200 mg/dL LAB CHEMISTRY METHOD 05/25/2024 3:08 PM EDT [facility] Triglycerides 195(H) 0 - 150 mg/dL LAB CHEMISTRY METHOD 05/25/2024 3:08 PM T [facility] HDL 50 >=40 mg/dL LAB CHEMISTRY METHOD [facility] LDL Calculated 85 0 - 100 mg/dL LAB CHEMISTRY METHOD 05/25/2024 3:08 PM T [facility] VLDL Cholesterol Dilshad 39 mg/dL LAB CHEMISTRY METHOD 05/25/2024 3:08 PM EDT [facility] Non HDL Chol. (LDL+VLDL) 124 <145 mg/dL LAB CHEMISTRY METHOD 05/25/2024 3:08 PM EDT [facility] Chol/HDL Ratio 3.5 0.0 - 4.4 LAB CHEMISTRY METHOD 05/25/2024 3:08 PM EDT [facility] Blood Venous blood specimen / Unknown Venipuncture / Unknown 05/25/2024 9:42 AM EDT 05/25/2024 9:42 AM EDT Jennifer Pittman CUSTOMER SERVICE TRAINER LAB BLOOD ORDERABLES Final Resul t [facility] ([facility]) [facility] [address] [place] [address], [place] [phone] * Colonoscopy (11/16/2023) Pathologist [facility] Colonoscopy no interpretation , abstracted Anatomical Region Laterality Modality Other Historical Provider MD HEALTH MAINTENANCE Final Result * Diabetes Foot Exam (10/27/2023) [facility] Diabetes: Annual Foot Exam abstracted Historical Provider MD HEALTH MAINTENANCE Final Result * Urine Albumin Creatinine Ratio (09/30/2023) Pathologist [facility] Urine Albumin Creatinine Ratio abstracted Historical Provider MD HEALTH MAINTENANCE Final Result * Depression Screening (07/01/2023) Pathologist [facility] Depression Screening abstracted Historical Provider MD HEALTH MAINTENANCE Final Result from Last 3 Months or Most Recently Relevant to Health Maintenance Insurance [facility] [place] [address] Care Teams Visual Merchandising Associate Relationship Specialty Start Date End Date Lilian Lanier DO [address] [place] [address] PCP - General Internal Medicine 03/17/24
[2024-09-29 15:03] VITALS: BP 180/92; BMI 32.8
== END 2024-09-29 15:21 | disposition home or self-care (01) ==
LOC: HO.HKA 14:59
PROVIDERS: PCP Nurse Practitioner; Visit Provider Nurse Practitioner Family
DX: N18.30 Chronic kidney disease, stage 3 unspecified (principal); R76.8 Other specified abnormal immunological findings in serum; M79.89 Other specified soft tissue disorders; R80.9 Proteinuria, unspecified; I10 Essential (primary) hypertension; N17.9 Acute kidney failure, unspecified
CPT/HCPCS: 99214

== ENCOUNTER → 2024-09-29 14:58 | Outpatient (BNVA) | payer OTHER, SELFPAY | PROVIDERS: PCP Nurse Practitioner; Visit Provider Nurse Practitioner Family | DX: I10 Essential (primary) hypertension (principal); N18.30 Chronic kidney disease, stage 3 unspecified; N17.9 Acute kidney failure, unspecified; R76.8 Other specified abnormal immunological findings in serum; R79.89 Other specified abnormal findings of blood chemistry; R80.9 Proteinuria, unspecified | CPT/HCPCS: 99212 ==

== ENCOUNTER 2024-10-04 07:08 | Outpatient (REF) | payer OTHER, SELFPAY ==
[2024-10-04 08:03] LABS: Appearance Urine Clear; Glucose Urine UA Negative (Negative); PH 5.5 (5.0-9.0); Specific Gravity - Urine 1.015 (1.005-1.025); UMIC TRIGGER UACC YES
[2024-10-04 08:16] LABS: Alanine Aminotransferase 17 U/L (0-31); Albumin Level 3.1 g/dL (3.5-5.0); Alkaline Phosphatase 86 U/L (39-117); Anion Gap 11 (12-20); Aspartate Amino Transferase 23 U/L (5-31); Blood Urea Nitrogen 36 mg/dL (9-16); Calcium 8.4 mg/dL (8.4-10.2); Carbon Dioxide 26 mmol/L (22-29); Chloride 108 mmol/L (96-108); Cholesterol 183 mg/dL (<200); Estimated Glomerular Filt Rate 15; HDL Cholesterol 44 mg/dL (>40); Potassium 4.4 mmol/L (3.3-5.1); Sodium 141 mmol/L (135-145); Total Protein 5.8 g/dL (6.5-8.0); Triglycerides 180 mg/dL (<150)
[2024-10-04 08:57] LABS: Protein/Creatinine Ratio, Ur 5.61 (<0.2); Total Protein Urine Random 566 mg/dL (<12)
[2024-10-10 19:53] LABS: Phospholipase A2 IgG ELISA <4 RU/mL; Phospholipase A2 IgG IFA NEGATIVE (NEGATIVE)
== END 2024-10-04 07:09 | disposition home or self-care (01) ==
LOC: HO.LAB 07:08
PROVIDERS: Visit Provider Nurse Practitioner Family
DX: Z01.84 Encounter for antibody response examination (principal); R76.8 Other specified abnormal immunological findings in serum; M79.89 Other specified soft tissue disorders; R80.9 Proteinuria, unspecified; I12.9 Hypertensive chronic kidney disease with stage 1 through stage 4 chronic kidney disease, or unspecified chronic kidney disease; N17.9 Acute kidney failure, unspecified; N18.30 Chronic kidney disease, stage 3 unspecified
CPT/HCPCS: 80053; 80061; 81001; 82570; 82784; 83520; 84156; 86255; 86334; 86335

== ENCOUNTER 2024-10-04 16:41 | Inpatient (IN) | payer OTHER, SELFPAY ==
--- NOTE | ~2024-10-04 | CT_ITS ---
CLINICAL HISTORY: headache CT head without contrast Indication: Comparison: CT/SR - CT HEAD/BRAIN WO IV CON - 07/23/24 11:14 EDT Findings: Brain is normal in volume and morphology for age. No lobar predominant pattern of atrophy. Ventricles are concordant in size. Midbrain, licha, medulla, and cerebellum are normal. There is no focal loss of donaldson-white differentiation in a large arterial distribution. Mild microvascular changes. No subarachnoid hemorrhage is present. No subdural or epidural hematoma. Suprasellar and basal cisterns are clear. There is no midline shift. The sella demonstrates partial empty sella appearance. Vascular calcifications are noted in the internal carotid arteries. Orbits are normal. No acute calvarial fracture or diastasis. Mastoid air cells are normally aerated. Frontal sinuses are hypoplastic. Remaining paranasal sinuses are clear. No acute fracture. IMPRESSION: 1. No acute intracranial hemorrhage. 2. No loss of donaldson-white differentiation in a large vascular distribution. Mild microvascular changes. This document has been electronically signed by: Yovanny Centeno III, MD PHD on 10/06/2024 22:25:34
--- NOTE | ~2024-10-04 | CT_ITS ---
PROCEDURE: CT GUIDED BIOPSY, KIDNEY CLINICAL INFORMATION: Proteinuria and hematuria. COMPARISON: None available. TECHNIQUE: Following explaining CT fluoroscopy guided renal biopsy procedure, benefits and risk, a written consent was obtained. An was placed prone on fluoroscopy table and preliminary CT imaging was obtained through the kidneys. An optimal axial slice was selected and then markers were placed along the right posterior abdomen. Repeat imaging was performed and an optimal marker was selected was marked on the skin. Marked site was cleaned and draped in usual sterile manner with 2% chlorhexidine solution. 1% lidocaine was injected at puncture site. Through a small skin incision a 20-gauge long guiding needle was advanced from the skin into the lower pole right renal cortex. Coaxially a biopsy gun was administered and a 3 pass core biopsy of lower pole kidney was obtained. Post biopsy Gelfoam was injected through the guide needle to achieve hemostasis. Repeat CT imaging was obtained post biopsy. The guide needle was removed and complete hemostasis achieved at puncture site. Simple sterile dressing applied at puncture site. IV conscious sedation was administered during the exam and patient monitored by our nurse and IR physician for [address] examination was performed using dose optimization techniques as appropriate, variously including the following: *Automated exposure control *Adjustment of mA and/or kV according to patient size (this includes techniques or standardized protocols for targeted exams where dose is matched to indication/reason for exam; i.e. extremities or head) *Use of iterative reconstruction technique. FINDINGS: On preliminary CT imaging both kidneys are normal size, cortical thickness and position. No radiopaque calculi or hydronephrosis seen. The gallbladder has been surgically removed. CT fluoroscopy guided right kidney lower pole core biopsy performed x 3. Repeat CT imaging post biopsy revealed no evidence of perinephric hemorrhage CT/CT biopsy renal RT IMPRESSION: Successful CT fluoroscopy guided right kidney lower pole core biopsy performed without immediate complications. DLP: 351 mGy/cm. Sedation time: approximately 20 minutes. Electronically signed by: Rocky Infante MD 10/06/2024 11:17 AM EDT
--- NOTE | ~2024-10-04 | CT_ITS ---
CLINICAL HISTORY: TANIA etiology?? CT abdomen and pelvis without contrast Comparison: None provided Findings: Small hiatal hernia. Atelectasis. Trace bilateral effusions. Mild cardiomegaly. Hepatomegaly. No urolithiasis. Evidence of prior gastric bypass. There is mild distention of the enteric enteric anastomosis. No bowel obstruction. Postsurgical midline abdominal wall changes with anchor clips. Central mesenteric fat stranding with prominent lymph nodes, suggestive of mesenteric panniculitis. Scattered colonic diverticulosis without diverticulitis or colitis. Normal appendix. Osteopenia. Postcholecystectomy. IMPRESSION: 1. Possible mesenteric panniculitis. 2. Additional findings as described. This document has been electronically signed by: Pérez Mccloud MD on 10/04/2024 21:41:54
[2024-10-04 17:34] VITALS: BP 209/99; PULSE 76; RESP 16; TEMP 36.2; O2SAT 95; BMI 28.1
--- NOTE | 2024-10-04 17:35 | ED.GENADULT ---
HPI - General Adult General Chief complaint: Recheck/Abnormal Lab/Rx Stated complaint: dr sent pt over here Time Seen by Provider: 10/04/24 19:05 Source: patient Mode of arrival: ambulatory Limitations: no limitations History of Present Illness ED Provider: HPI narrative: Patient's history of gastric bypass surgery status post reconstruction 3 years ago been nauseated and according to patient has been drinking fluids sent by Nephrology for worsening of the kidney function patient's creatinine was 1.79 on 09/18 now has increased to 3.19 Related Data Home Medications ?Medication ?Instructions ?Recorded ?Confirmed bupropion HCl 150 mg 24 hr tablet, 150 mg PO DAILY 07/22/24 09/29/24 extended release cholecalciferol (vitamin D3) 50 50 mcg PO DAILY 07/22/24 09/29/24 mcg (2,000 unit) tablet (Vitamin D3) gabapentin 100 mg capsule 100 mg PO BEDTIME 07/22/24 09/29/24 (Neurontin) tirzepatide 7.5 mg/0.5 mL 7.5 mg subcut WE@0900 07/22/24 09/29/24 subcutaneous pen injector (Mounjaro) Previous Rx's ?Medication ?Instructions ?Recorded glipizide 2.5 mg tablet 2.5 mg PO BID #180 tabs 07/25/24 carvedilol 6.25 mg tablet 12.5 mg (2 x 6.25 mg) PO BID #360 09/29/24 tabs furosemide 20 mg tablet (Lasix) 20 mg PO DAILY 7 days #7 tabs 09/29/24 losartan 25 mg tablet 25 mg PO DAILY #30 tabs 09/29/24 Allergies Allergy/AdvReac Type Severity Reaction Status Date / Time latex Allergy Unknown Verified 10/04/24 17:37 Review of Systems Review of Systems: Yes all other systems are reviewed and are negative [facility] Past Medical History Medical History CKD (chronic kidney disease) stage 3, GFR 30-59 ml/min HTN (hypertension) Post hysterectomy menopause Endometrial cancer Anxiety Surgical History S/P gastric sleeve procedure H/O inguinal hernia repair H/O abdominoplasty H/O gastric sleeve Social History Social History Household Members: Children Housing: Other Housing Other:: [facility] Do you presently have visiting nurse or other home services: No Alcohol intake: former Patient Tobacco Use Status: Never used Tobacco Smoked in Last 30 Days: No Use of substances other than those prescribed or required for medical reasons: No Advance Directives: No Advance Directives Information Provided: No service: No Physical Exam ED Vital Signs: Vital Signs - 24 hr 10/04/24 17:34 10/04/24 19:00 10/04/24 19:51 Temperature 97.2 F 97.8 F 98.4 F Pulse Rate 76 67 75 Respiratory Rate 16 13 18 Blood Pressure 209/99 H 181/86 H 185/79 H Pulse Oximetry 95 98 99 Oxygen Delivery Method Room Air Room Air Room Air 10/04/24 22:24 Temperature 98.4 F Pulse Rate 74 Respiratory Rate 13 Blood Pressure 144/75 H Pulse Oximetry 96 Oxygen Delivery Method Room Air BMI result Body Mass Index 28.1 Appearance: Alert. Oriented X3. No acute distress. Eyes: PERRLA, No Nystagmus ENT: Pharynx normal. Oral Mucosa moist Neck: Normal inspection. Neck supple. CVS: Normal heart rate and rhythm. Pulses normal. Respiratory: No respiratory distress. Equal air entry bilateral, no wheezing/rales/rhonchi Abdomen: Soft and nontender. Bowel sounds are present, no mass palpable, no CVA tenderness Skin: Skin warm and dry. Normal skin color. Normal skin turgor. Extremities: No lower extremity edema. No calf tenderness Neuro: Oriented X 3. No motor deficit. No sensory deficit.No cerebellar signs , cranial nerves II-XII intact Course Course Course Narrative: RME, this is a rapid medical exam performed by José Tsai please refer to primary provider for complete H&P- 58 year old female presents for evaluation of elevated kidney labs. She had routine labs this morning that are in the system. Her creatinine was 3.13 and her baseline is around 1.7. Denies any abdominal pain, burning with urination urinary frequency. Plan for labs, urinalysis Medications Administered Generic Name Dose Route Start Last Admin Trade Name Freq PRN Reason Stop Dose Admin Lactated Ringer's 1,000 mls @ 75 mls/hr 10/04/24 23:15 10/05/24 01:10 Lr IVCONT 75 mls/hr .[id number] FROILAN Administration Sodium Chloride 3 ml 10/05/24 00:00 10/05/24 01:12 0.9 % Sodium Chloride Flush 3 Ml Syringe IVFLUSH Not Given QSHIFT FROILAN Discontinued Medications Generic Name Dose Route Start Last Admin Trade Name Freq PRN Reason Stop Dose Admin Sodium Chloride 1,000 mls @ 999 mls/hr 10/04/24 19:09 10/05/24 00:46 Ns IV 10/04/24 20:09 Infused .Q1H1M ONE Infusion Sodium Chloride 1,000 mls @ 999 mls/hr 10/04/24 20:00 10/05/24 00:46 Ns IV 10/04/24 21:00 Infused .Q1H1M ONE Infusion Acetaminophen 1,000 mg in 100 mls @ 400 mls/hr 10/04/24 20:00 10/04/24 20:19 Ofirmev IV 10/04/24 20:14 Infused ONCE ONE Infusion Medical Decision Making Medical Decision Making [facility] Narrative: Patient's TANIA with mild upper abdominal discomfort patient does say that has good p.o. intake will do CT scan to rule out any ureteral obstruction CT scan negative for ureteral obstruction received IV fluids will admit patient medical service Differential Diagnosis Differential Diagnoses: The differential diagnosis associated with the presentation includes TANIA/ureteral obstruction/pelvic mass Admission/Observation Consideration of admission/observation: Escalation of care including admission/observation considered Consult Healthcare Provider Management of the patient was discussed with: Hospitalist Lab Data [facility] Lab Attestation statement: I reviewed the patient's lab results. 10/04/24 18:07 10/04/24 18:07 Labs: Lab Results 10/04/24 10/04/24 Range/Units 18:07 19:03 WBC 8.3 (4.8-10.8) X10*3/uL RBC 3.65 L (4.20-5.50) X10*6/uL Hgb 10.5 L (12.0-16.0) g/dl Hct 32.0 L (37.0-47.0) % MCV 87.7 (80.0-98.0) fL MCH 28.8 (27.0-33.0) pg MCHC 32.8 (31.0-35.0) g/dl RDW 14.2 (11.0-16.0) % Plt Count 292 (160-400) X10*3/uL MPV 10.0 (9.4-12.3) fL Immature Gran % (Auto) 0.4 (0.0-0.4) % Neut % (Auto) 68.3 (45-73) % Lymph % (Auto) 21.4 (20-40) % [place] % (Auto) 5.8 (2-11) % Eos % (Auto) 3.6 (0-4) % Baso % (Auto) 0.5 (0-2) % Lymph # (Auto) 1.8 (1.2-4.9) X10*3/uL [place] # (Auto) 0.5 (0.1-1.2) X10*3/uL Eos # (Auto) 0.3 (0.0-0.4) X10*3/uL Baso # (Auto) 0.0 (0.0-0.2) X10*3/uL Abs Immat Gran (auto) 0.03 (0.00-0.03) X10*3/uL Absolute Neuts (auto) 5.7 (2.0-8.3) x10*3/uL Absolute Nucleated RBC 0.000 (0.0-0.012) X10*3/uL Nucleated RBC % (auto) 0.0 (0.0-0.2) /100WBC Hold Purple Top SEE NOTE Sodium 141 (135-145) mmol/L Potassium 4.3 (3.3-5.1) mmol/L Chloride 108 (96-108) mmol/L Carbon Dioxide 27 (22-29) mmol/L Anion Gap 10 L (12-20) BUN 36 H (9-16) mg/dL Creatinine 3.19 H (0.5-1.4) mg/dL Estim Creat Clear Calc 21.8 Estimated GFR 15 Random Glucose 105 (60-115) mg/dL Calcium 8.4 (8.4-10.2) mg/dL Total Bilirubin 0.2 (0.0-1.0) mg/dL AST 28 (5-31) U/L ALT 20 (0-31) U/L Alkaline Phosphatase 87 (39-117) U/L Total Protein 6.1 L (6.5-8.0) g/dL Albumin 3.3 L (3.5-5.0) g/dL Lipase 11 (8-78) U/L Hold Green Top See Note Urine Color Yellow Urine Appearance Clear Urine pH 6.0 (5.0-9.0) Ur Specific [place] 1.020 (1.005-1.025) Urine Protein >=1000 (4+) H (Neg-Trace) mg/dL Urine Glucose (UA) Negative (Negative) mg/dL Urine Ketones Negative (Negative) mg/dL Urine Blood Negative (Negative) Urine Nitrite Negative (Negative) Ur Leukocyte Esterase Negative (Negative) Urine RBC 0-2 (0-2) /HPF Urine WBC 0-5 (0-5) /HPF Ur Squamous Epith Cells 3-5 (0-2) /HPF Urine Bacteria None Seen (None Seen) Hyaline Casts >20 (0-2) /LPF Radiology Impression Discussion of test interpretation with radiology: I have reviewed the radiologist's reading. Discharge Plan Discharge Clinical Impression: TANIA (acute kidney injury) CKD (chronic kidney disease) stage 3, GFR 30-59 ml/min Qualifiers: Chronic kidney disease stage 3 subtype: unspecified whether 3a or 3b Qualified Code(s): N18.30 - Chronic kidney disease, stage 3 unspecified Patient Disposition: Admitted As Inpatient
[2024-10-04 18:13] LABS: MANUAL DIFF FLAG NO
[2024-10-04 18:17] LABS: Hematocrit 32.0 % (37.0-47.0); Hemoglobin 10.5 g/dl (12.0-16.0); Imm Gran Abs Auto 0.03 X10*3/uL (0.00-0.03); Imm Gran Pct Auto 0.4 % (0.0-0.4); Lymphocytes Absolute Auto 1.8 X10*3/uL (1.2-4.9); Mean Corpuscular HGB Conc 32.8 g/dl (31.0-35.0); Mean Corpuscular Hemoglobin 28.8 pg (27.0-33.0); Mean Corpuscular Volume 87.7 fL (80.0-98.0); NRBC Abs Auto 0.000 X10*3/uL (0.0-0.012); NRBC Pct Auto 0.0 /100WBC (0.0-0.2); Platelet Count 292 X10*3/uL (160-400); Red Blood Count 3.65 X10*6/uL (4.20-5.50); White Blood Count 8.3 X10*3/uL (4.8-10.8)
[2024-10-04 18:32] LABS: Alanine Aminotransferase 20 U/L (0-31); Albumin Level 3.3 g/dL (3.5-5.0); Alkaline Phosphatase 87 U/L (39-117); Anion Gap 10 (12-20); Aspartate Amino Transferase 28 U/L (5-31); Blood Urea Nitrogen 36 mg/dL (9-16); Calcium 8.4 mg/dL (8.4-10.2); Carbon Dioxide 27 mmol/L (22-29); Chloride 108 mmol/L (96-108); Creatinine Clr Calc Pharmacy 21.8; Estimated Glomerular Filt Rate 15; Lipase 11 U/L (8-78); Potassium 4.3 mmol/L (3.3-5.1); Sodium 141 mmol/L (135-145); Total Protein 6.1 g/dL (6.5-8.0)
[2024-10-04 19:00] VITALS: BP 181/86; PULSE 67; RESP 13; TEMP 36.6; O2SAT 98
[2024-10-04 19:09] LABS: Appearance Urine Clear; Glucose Urine UA Negative (Negative); PH 6.0 (5.0-9.0); Specific Gravity - Urine 1.020 (1.005-1.025); UMIC TRIGGER UACC YES
[2024-10-04 19:51] VITALS: BP 185/79; PULSE 75; RESP 18; TEMP 36.9; O2SAT 99
[2024-10-04 22:24] VITALS: BP 144/75; PULSE 74; RESP 13; TEMP 36.9; O2SAT 96
--- NOTE | 2024-10-04 23:06 | PM.IMHP ---
History of Present Illness Date of Service: 10/04/24 Attending physician on admission: Placido Valencia Chief Complaint: Abnormal labs pt is a 58 y/o female with a medical history of HTN (diagnosed 6 months ago), diabetes (controlled, diagnosed 1 year ago), obesity, anxiety, s/p gastric sleeve, who presented to the ED by her PCP due to worsening kidney function. She reports fatigue for the past few days with headache. no recent NSAID use. currently comfortable and no complaints. Review of Systems Constitutional: Constitutional: Denies chills, Reports fatigue, Denies fever(s) and Reports headache(s) Eyes: Eyes: Denies change in vision ENT: Reports headache(s), Denies nasal congestion and Denies sore throat Cardiovascular: Cardiovascular: Denies chest pain, Denies rapid heart rate, Denies leg edema, Denies lightheadedness and Denies dyspnea Respiratory: Respiratory: Denies chest congestion, Denies cough, Denies dyspnea and Denies wheezing Gastrointestinal: Gastrointestinal: Denies abdominal pain, Denies hematochezia, Denies coffee ground emesis, Reports nausea, Reports vomiting and Denies hematemesis Genitourinary: Genitourinary: Denies difficulty voiding and Denies urinary urgency Musculoskeletal: Musculoskeletal: Reports back pain and Reports myalgias Integumentary/Breasts: Skin/Breast: Denies rash Neurologic: Denies confusion and Reports headache(s) Psychiatric: Psychiatric: Denies confusion Endocrine: Endocrine: Reports fatigue Hematologic/Lymphatic: Hematologic/Lymphatic: Denies easy bleeding and Denies easy bruising Allergic/Immunologic: Allergic/Immunologic: Denies wheezing [facility] Medical History CKD (chronic kidney disease) stage 3, GFR 30-59 ml/min HTN (hypertension) Post hysterectomy menopause Endometrial cancer Anxiety Functional capacity: independent ambulation Surgical History S/P gastric sleeve procedure H/O inguinal hernia repair H/O abdominoplasty H/O gastric sleeve Social History Household Members: Children Housing: Other Housing Other:: [facility] Do you presently have visiting nurse or other home services: No Alcohol intake: former Patient Tobacco Use Status: Never used Tobacco Smoked in Last 30 Days: No Use of substances other than those prescribed or required for medical reasons: No Advance Directives: No Advance Directives Information Provided: No service: No Narrative: Previous smoker, no alcohol or drug use Meds Allergies Allergy/AdvReac Type Severity Reaction Status Date / Time latex Allergy Unknown Verified 10/04/24 17:37 Active Medications: Current Medications Acetaminophen (Acetaminophen 325 Mg Tablet) 975 mg PO Q6H PRN PRN Reason: Pain, Mild 1-3,fever,headache Calcium Carbonate (Calcium Carbonate 750 Mg Tab.Chew) 750 mg PO Q4H PRN PRN Reason: Heartburn Heparin Sodium (Porcine) (Heparin Sodium,Porcine 5,000 Unit/Ml Vial) 5,000 unit SUBCUT Q8H [facility] Lactated Ringer's (Lr) 1,000 mls @ 75 mls/hr IVCONT .[id number] [facility] Magnesium Hydroxide (Milk Of Magnesia 30 Ml Oral.Susp) 30 ml PO DAILY PRN PRN Reason: Constipation Melatonin (Melatonin 3 Mg Tablet) 6 mg PO BEDTIME PRN PRN Reason: Insomnia Ondansetron HCl (Ondansetron Hcl 4 Mg/2 Ml Vial) 4 mg IVPUSH Q8H PRN PRN Reason: Nausea and Vomiting Sodium Chloride (0.9 % Sodium Chloride Flush 3 Ml Syringe) 3 ml IVFLUSH QSHIFT [facility] Home Medications ?Medication ?Instructions ?Recorded ?Confirmed ?Last Taken ?Type bupropion HCl 150 mg 24 hr tablet, 150 mg PO DAILY 07/22/24 09/29/24 07/21/24 09:00 History extended release cholecalciferol (vitamin D3) 50 50 mcg PO DAILY 07/22/24 09/29/24 07/21/24 09:00 History mcg (2,000 unit) tablet (Vitamin D3) gabapentin 100 mg capsule 100 mg PO BEDTIME 07/22/24 09/29/24 Unknown History (Neurontin) tirzepatide 7.5 mg/0.5 mL 7.5 mg subcut WE@0900 07/22/24 09/29/24 07/19/24 History subcutaneous pen injector (Jayleen) Physical Exam Vital Signs and Narrative: Vital Signs: Last Vital Signs Temp 98.4 F 10/04/24 22:24 Pulse 74 10/04/24 22:24 Resp 13 10/04/24 22:24 BP 144/75 H 10/04/24 22:24 Pulse Ox 96 10/04/24 22:24 O2 Del Method Room Air 10/04/24 22:24 BMI result Body Mass Index 28.1 General: AOx3, no acute distress Resp: CTA bilaterally CVS: S1, S2, RRR GI: +BS, NT, no distention Skin: Warm, dry Neuro: Cranial nerves II-XII grossly intact bilaterally. Motor grossly intact bilaterally Extremities: No edema Psych: Appropriate affect Const: General: No confusion Orientation/consciousness: No confusion Neuro: General: No confusion Results Labs 10/04/24 18:07 10/04/24 18:07 Labs: Laboratory Results - last 24 hr 10/04/24 10/04/24 18:07 19:03 MCV 87.7 MCH 28.8 MCHC 32.8 RDW 14.2 Plt Count 292 MPV 10.0 Immature Gran % (Auto) 0.4 Neut % (Auto) 68.3 Lymph % (Auto) 21.4 [place] % (Auto) 5.8 Eos % (Auto) 3.6 Baso % (Auto) 0.5 Lymph # (Auto) 1.8 [place] # (Auto) 0.5 Eos # (Auto) 0.3 Baso # (Auto) 0.0 Abs Immat Gran (auto) 0.03 Absolute Neuts (auto) 5.7 Absolute Nucleated RBC 0.000 Nucleated RBC % (auto) 0.0 Hold Purple Top SEE NOTE Anion Gap 10 L Estim Creat Clear Calc 21.8 Estimated GFR 15 Random Glucose 105 Calcium 8.4 Total Bilirubin 0.2 AST 28 ALT 20 Alkaline Phosphatase 87 Total Protein 6.1 L Albumin 3.3 L Lipase 11 Hold Green Top See Note Urine Color Yellow Urine Appearance Clear Urine pH 6.0 Ur Specific [place] 1.020 Urine Protein >=1000 (4+) H Urine Glucose (UA) Negative Urine Ketones Negative Urine Blood Negative Urine Nitrite Negative Ur Leukocyte Esterase Negative Urine RBC 0-2 Urine WBC 0-5 Ur Squamous Epith Cells 3-5 Urine Bacteria None Seen Hyaline Casts >20 Assessment and Plan (1) Acute kidney injury superimposed on CKD: Status: Acute (2) Chronic anemia: Status: Acute Plan pt is a 58 y/o female with a medical history of HTN (diagnosed 6 months ago), diabetes (controlled, diagnosed 1 year ago), obesity, anxiety, s/p gastric sleeve, who presented to the ED by her PCP due to worsening kidney function. TANIA on CKD - recent nausea and vomiting - creatinine 3.19 - UA negative - abdominopelvic CT with possible mesenteric panniculitis - given 2 L IV fluids in ED - continue LR 80 mL/HR - nephrology consult - monitor BMP Chronic normocytic anemia - hemoglobin 10.5 - no need for blood transfusion at this time - monitor CBC Hypertension - continue home meds Type 2 diabetes - diabetic diet - sliding scale insulin Anxiety - continue home meds Med rec pending Full code VTE prophylaxis: Heparin Patient with TANIA on CKD, requiring admission for at least 2 midnights stay for IV fluids and Nephrology consultation. Quality Stroke Does the patient have a stroke diagnosis?: No VTE Prior VTE?: No VTE Risk Level:: Medical - moderate - high VTE Device Contraindication: Treatment Not Indicated VTE Drug Contraindication: N/A - Med Ordered
[2024-10-05 00:24] VITALS: BP 147/70; PULSE 69; RESP 14; TEMP 37; O2SAT 98
[2024-10-05] MEDS: Lactated Ringers 1,000 ML 75 ML IVCONT ×2 (01:10→14:11)
[2024-10-05 05:27] LABS: Hematocrit 29.9 % (37.0-47.0); Hemoglobin 10.0 g/dl (12.0-16.0); Mean Corpuscular HGB Conc 33.4 g/dl (31.0-35.0); Mean Corpuscular Hemoglobin 28.6 pg (27.0-33.0); Mean Corpuscular Volume 85.4 fL (80.0-98.0); NRBC Abs Auto 0.000 X10*3/uL (0.0-0.012); NRBC Pct Auto 0.0 /100WBC (0.0-0.2); Platelet Count 255 X10*3/uL (160-400); Red Blood Count 3.50 X10*6/uL (4.20-5.50); White Blood Count 9.4 X10*3/uL (4.8-10.8)
[2024-10-05 05:41] LABS: Anion Gap 12 (12-20); Blood Urea Nitrogen 31 mg/dL (9-16); Calcium 7.9 mg/dL (8.4-10.2); Carbon Dioxide 24 mmol/L (22-29); Chloride 111 mmol/L (96-108); Creatinine Clr Calc Pharmacy 23.6; Estimated Glomerular Filt Rate 16; Potassium 4.0 mmol/L (3.3-5.1); Sodium 143 mmol/L (135-145)
[2024-10-05 05:48] VITALS: BP 161/97; PULSE 69; RESP 15; TEMP 36.6; O2SAT 98
[2024-10-05 07:11] LABS: Glucose, Whole Blood 111 mg/dL (60-115)
--- NOTE | 2024-10-05 07:46 | P.PNIM_ITS ---
Subjective Subjective Date of Service: 10/05/24 Interval History: f/u on TANIA Cr improving and she feels better Physical Exam 2 Vital Signs: Vital Signs: Last Vital Signs Temp 98 F 10/05/24 05:48 Pulse 69 10/05/24 05:48 Resp 15 10/05/24 05:48 BP 161/97 H 10/05/24 05:48 Pulse Ox 98 10/05/24 05:48 O2 Del Method Room Air 10/05/24 05:48 BMI result Body Mass Index 28.1 General: AO X 3, no acute distress Resp: CTA bilateral CVS: S1,S2,RRR GI: +BS, NT, no distention Skin: No rash Neuro: motor grossly intact Psych: appropriate affect Objective Data Active Medications Acetaminophen (Acetaminophen 325 Mg Tablet) 975 mg PO Q6H PRN PRN Reason: Pain, Mild 1-3,fever,headache Last Admin: 10/05/24 02:55 Dose: 975 mg Documented By: CYNDY Calcium Carbonate (Calcium Carbonate 750 Mg Tab.Chew) 750 mg PO Q4H PRN PRN Reason: Heartburn Dextrose (Dextrose 50 % 25 Gm/50 Ml Syringe) 25 gm IVPUSH Q15M PRN; Protocol PRN Reason: per Hypoglycemia Standing Ord. Glucose (Glucose Gel 15 Gm Gel..Gram.) 15 gm PO Q15M PRN; Protocol PRN Reason: per Hypoglycemia Standing Ord. Heparin Sodium (Porcine) (Heparin Sodium,Porcine 5,000 Unit/Ml Vial) 5,000 unit SUBCUT Q8H [facility] Lactated Ringer's (Lr) 1,000 mls @ 75 mls/hr IVCONT .[id number] [facility] Last Admin: 10/05/24 01:10 Dose: 75 mls/hr Documented By: JOSUE Insulin Human Lispro (Insulin Lispro 100 Unit/Ml 3 Ml Vial) 0 unit SUBCUT QIDACHS [facility]; Protocol Magnesium Hydroxide (Milk Of Magnesia 30 Ml Oral.Susp) 30 ml PO DAILY PRN PRN Reason: Constipation Melatonin (Melatonin 3 Mg Tablet) 6 mg PO BEDTIME PRN PRN Reason: Insomnia Ondansetron HCl (Ondansetron Hcl 4 Mg/2 Ml Vial) 4 mg IVPUSH Q8H PRN PRN Reason: Nausea and Vomiting Sodium Chloride (0.9 % Sodium Chloride Flush 3 Ml Syringe) 3 ml IVFLUSH QSHIFT [facility] Last Admin: 10/05/24 01:12 Dose: Not Given Documented By: JOSUE Non-Admin Reason: IV Running Labs 10/05/24 05:06 10/05/24 05:06 Labs: Laboratory Results - last 24 hr 10/04/24 10/04/24 10/05/24 18:07 19:03 05:06 MCV 87.7 85.4 MCH 28.8 28.6 MCHC 32.8 33.4 RDW 14.2 14.2 Plt Count 292 255 MPV 10.0 9.8 Immature Gran % (Auto) 0.4 Neut % (Auto) 68.3 Lymph % (Auto) 21.4 [place] % (Auto) 5.8 Eos % (Auto) 3.6 Baso % (Auto) 0.5 Lymph # (Auto) 1.8 [place] # (Auto) 0.5 Eos # (Auto) 0.3 Baso # (Auto) 0.0 Abs Immat Gran (auto) 0.03 Absolute Neuts (auto) 5.7 Absolute Nucleated RBC 0.000 0.000 Nucleated RBC % (auto) 0.0 0.0 Hold Purple Top SEE NOTE Anion Gap 10 L 12 Estim Creat Clear Calc 21.8 23.6 Estimated GFR 15 16 POC Glucose Random Glucose 105 94 Calcium 8.4 7.9 L Total Bilirubin 0.2 AST 28 ALT 20 Alkaline Phosphatase 87 Total Protein 6.1 L Albumin 3.3 L Lipase 11 Hold Green Top See Note Urine Color Yellow Urine Appearance Clear Urine pH 6.0 Ur Specific [place] 1.020 Urine Protein >=1000 (4+) H Urine Glucose (UA) Negative Urine Ketones Negative Urine Blood Negative Urine Nitrite Negative Ur Leukocyte Esterase Negative Urine RBC 0-2 Urine WBC 0-5 Ur Squamous Epith Cells 3-5 Urine Bacteria None Seen Hyaline Casts >20 10/05/24 07:08 MCV MCH MCHC RDW Plt Count MPV Immature Gran % (Auto) Neut % (Auto) Lymph % (Auto) [place] % (Auto) Eos % (Auto) Baso % (Auto) Lymph # (Auto) [place] # (Auto) Eos # (Auto) Baso # (Auto) Abs Immat Gran (auto) Absolute Neuts (auto) Absolute Nucleated RBC Nucleated RBC % (auto) Hold Purple Top Anion Gap Estim Creat Clear Calc Estimated GFR POC Glucose 111 Random Glucose Calcium Total Bilirubin AST ALT Alkaline Phosphatase Total Protein Albumin Lipase Hold Green Top Urine Color Urine Appearance Urine pH Ur Specific [place] Urine Protein Urine Glucose (UA) Urine Ketones Urine Blood Urine Nitrite Ur Leukocyte Esterase Urine RBC Urine WBC Ur Squamous Epith Cells Urine Bacteria Hyaline Casts Assessment and Plan (1) TANIA (acute kidney injury): Status: Acute Plan pt is a 58 y/o female with a medical history of HTN (diagnosed 6 months ago), diabetes (controlled, diagnosed 1 year ago), obesity, anxiety, s/p gastric sleeve, who presented to the ED by her PCP due to worsening kidney function. TANIA on CKD, likely from dehydation in light of recent n/v improving with IVF, continue Nephrology consult follow bmp Chronic normocytic anemia hemoglobin 10.5 no need for blood transfusion at this time monitor CBC Hypertension resume meds after med rec, but hold KACI or ARB Type 2 diabetes diabetic diet sliding scale insulin Anxiety continue home meds Med rec pending Full code VTE prophylaxis: Heparin Patient with TANIA on CKD, requiring admission for at least 2 midnights stay for IV fluids and Nephrology consultation. Quality Stroke Does the patient have a stroke diagnosis?: No VTE Prior VTE?: No VTE Risk Level:: Medical - moderate - high VTE Device Contraindication: Treatment Not Indicated VTE Drug Contraindication: N/A - Med Ordered
--- NOTE | 2024-10-05 08:42 | MHC.CM.PN ---
PT REPORTS SHE LIVES WITH HER DAUGHTER AND IS INDEPENDENT WITH CARE SHE HAS NO DME AND NO SERVICES DECLINES A HCP PCP: ANGELA HOLLAND DCP: HOME VIA PRIVATE TRANSPORT
--- NOTE | 2024-10-05 09:17 | PHA.MEDREC ---
Addendum entered by Mary Anders RPh 10/05/24 09:23: reviewed by [facility]. Original Note: Pharmacy Consult ? Medication Reconciliation Pharmacy has completed the medication reconciliation. Spoke to patient to confirm med list. Patient states she is no longer taking Amlodipine 5 mg, Vitamin D3 50 mcg, Fruosemide 20 mg, Glipazide 2.5 mg, and Metformin 500 mg. Patient confirmed Mounjaro 10 mg every Wednesday, last dose 09/30/24.
[2024-10-05 09:24] VITALS: BMI 28.1
[2024-10-05 09:59] VITALS: BP 156/76; PULSE 69; RESP 16; TEMP 36.6; O2SAT 98
--- NOTE | 2024-10-05 10:20 | PM.CNNEP ---
History of Present Illness Reason for Consult Consult date: 10/05/24 Chief Complaint Chief complaint: TANIA History of Present Illness Narrative: 58 y/o female with a medical history of HTN, type 2 diabetes (controlled, dx 1 year ago), anxiety, obesity, s/p gastric sleeve surgery, former smoker. Presented originally to [facility] in July of this year for abnormal labs from PCP office, had TANIA with creatinine 1.99 (baseline unknown, pt states those were first labs in many years). urine protein/creatinine at that time was 1.5. She was also complaining of joint pain in her hands, ankles and bilateral hand swelling. positive CECILIA screen with elevated titers, nucleolar A pattern- she has since made an appt to see rheumatology for workup but appt is not until mid October. serum protein electrophoresis at that time shwoed isolated decreased albumin, otherwise unremarkable. Renal US in July showed increased cortical echotexture in both kidneys, characteristic of medical renal disease. On outpatient follow up renal function stabilized and urine protein/creatinine decreased to 0.44. At that time, anti-DS antibody was negative, complements were normal. Patient then returned for outpatient follow up this month, and though creatinine remained fairly stable, her urine protein creatinine ratio jumped to 5.8 grams and she had significant lower extremity swelling. Urgent biopsy was ordered but unable to be scheduled until October 13. One week follow up blood work patient's creatinine bumped from 1.79 to 3.13, and she was feeling unwell, so advised for inpatient workup. She has received IVF overnight and creatinine has come down a bit to 2.94. She is eating and drinking well. She says she was having nausea but no vomiting, some chest pain but not currently. States some mild shortness of breath. Lower extremity swelling has improved, she took only two doses of 20mg PO lasix and then stopped. Has been drinking lots of fluids, also receiving LR at 75. Review of Systems Constitutional: Reports fatigue Cardiovascular: Reports chest pain (reports no current chest pain, did have when she arrived, intermittent. ), Reports leg edema, Denies lightheadedness and Reports dyspnea Respiratory: Reports cough and Reports dyspnea Gastrointestinal: Denies abdominal pain, Denies constipation, Denies diarrhea, Reports nausea and Denies vomiting Genitourinary: Reports no additional female genitourinary complaints Musculoskeletal: Denies arthralgias (no current joint pain but does have polyarthalgia intermittently) and Denies joint swelling Skin/Breast: Denies rash Denies tremor(s) Endocrine: Reports fatigue PMFSH Past Medical History Medical History CKD (chronic kidney disease) stage 3, GFR 30-59 ml/min HTN (hypertension) Post hysterectomy menopause Endometrial cancer Anxiety Surgical History Surgical History S/P gastric sleeve procedure H/O inguinal hernia repair H/O abdominoplasty H/O gastric sleeve Social History Social History Household Members: Children Housing: House Housing Other:: [facility] Do you presently have visiting nurse or other home services: No Alcohol intake: former Patient Tobacco Use Status: Never used Tobacco Smoked in Last 30 Days: No Use of substances other than those prescribed or required for medical reasons: No Have you been hit, kicked, punched, or otherwise hurt by someone within the past year? If so, by whom?: No Do you feel safe in your current relationship?: No Is there a partner from a previous relationship who is making you feel unsafe now?: No Are you made to feel afraid or neglected: No Advance Directives: No Advance Directives Information Provided: No Do you have a plan to hurt others: No Plan Recently lost weight without trying: No How much weight loss: Not applicable Eating poorly because of decreased appetite: No Nutrition screen score: 0 Nutrition Risks: No Nutritional Risk Patient : No : No Poor oral hygiene: No service: No Meds Allergies Allergy/AdvReac Type Severity Reaction Status Date / Time latex Allergy Unknown Verified 10/04/24 17:37 Active Medications: Current Medications Acetaminophen (Acetaminophen 325 Mg Tablet) 975 mg PO Q6H PRN PRN Reason: Pain, Mild 1-3,fever,headache Last Admin: 10/05/24 02:55 Dose: 975 mg Bupropion HCl (Bupropion Hcl Xl 150 Mg Tab.Er.24h) 150 mg PO DAILY [facility] Last Admin: 10/05/24 10:34 Dose: 150 mg Calcium Carbonate (Calcium Carbonate 750 Mg Tab.Chew) 750 mg PO Q4H PRN PRN Reason: Heartburn Carvedilol (Carvedilol 12.5 Mg Tablet) 12.5 mg PO BID [facility]; Protocol Last Admin: 10/05/24 10:34 Dose: 12.5 mg Dextrose (Dextrose 50 % 25 Gm/50 Ml Syringe) 25 gm IVPUSH Q15M PRN; Protocol PRN Reason: per Hypoglycemia Standing Ord. Glucose (Glucose Gel 15 Gm Gel..Gram.) 15 gm PO Q15M PRN; Protocol PRN Reason: per Hypoglycemia Standing Ord. Heparin Sodium (Porcine) (Heparin Sodium,Porcine 5,000 Unit/Ml Vial) 5,000 unit SUBCUT Q8H [facility] Last Admin: 10/05/24 10:34 Dose: 5,000 unit Lactated Ringer's (Lr) 1,000 mls @ 75 mls/hr IVCONT .[id number] [facility] Last Admin: 10/05/24 01:10 Dose: 75 mls/hr Insulin Human Lispro (Insulin Lispro 100 Unit/Ml 3 Ml Vial) 0 unit SUBCUT QIDACHS [facility]; Protocol Last Admin: 10/05/24 11:25 Dose: Not Given Magnesium Hydroxide (Milk Of Magnesia 30 Ml Oral.Susp) 30 ml PO DAILY PRN PRN Reason: Constipation Melatonin (Melatonin 3 Mg Tablet) 6 mg PO BEDTIME PRN PRN Reason: Insomnia Ondansetron HCl (Ondansetron Hcl 4 Mg/2 Ml Vial) 4 mg IVPUSH Q8H PRN PRN Reason: Nausea and Vomiting Sodium Chloride (0.9 % Sodium Chloride Flush 3 Ml Syringe) [facility] Last Admin: 10/05/24 08:48 Dose: Not Given Home Medications ?Medication ?Instructions ?Recorded ?Confirmed ?Last Taken ?Type bupropion HCl 150 mg 24 hr tablet, 150 mg PO DAILY 07/22/24 10/05/24 10/04/24 History extended release gabapentin 100 mg capsule 100 mg PO BEDTIME PRN Pain 07/22/24 10/05/24 Unknown History (Neurontin) tirzepatide 10 mg/0.5 mL 10 mg subcut SA 10/05/24 10/05/24 09/30/24 History subcutaneous pen injector (Jayleen) Physical Exam Vital Signs: Last Vital Signs Temp 97.9 F 10/05/24 09:59 Pulse 69 10/05/24 09:59 Resp 16 10/05/24 09:59 BP 156/76 H 10/05/24 09:59 Pulse Ox 98 10/05/24 09:59 O2 Del Method Room Air 10/05/24 09:59 BMI result Body Mass Index 28.1 Const General: no acute distress, alert and awake Resp Effort & Inspection: normal respiratory effort and able to speak in complete sentences Auscultation: clear to auscultation bilaterally Cardio Rate: regular rate Rhythm: regular rhythm Heart sounds: S1 normal heart sound present and S2 normal heart sound present GI Palpation (GI): Soft to palpation and nontender General: Yes no CVA tenderness Back/Spine/Pelvis Back: no CVA tenderness Skin Rashes: no rashes Extrem General: Yes edema (trace LE edema, improved from last week in office. ) Results Lab Results 10/05/24 05:06 10/05/24 05:06 Lab results: Chemistry 10/04/24 10/05/24 18:07 05:06 Sodium 141 143 Potassium 4.3 4.0 Carbon Dioxide 27 24 BUN 36 H 31 H Creatinine 3.19 H 2.94 H Calcium 8.4 7.9 L Hematology 10/04/24 10/05/24 18:07 05:06 WBC 8.3 9.4 Hgb 10.5 L 10.0 L Plt Count 292 255 Urinalysis 10/04/24 19:03 Urine Color Yellow Urine Appearance Clear Urine pH 6.0 Ur Specific [place] 1.020 Urine Protein >=1000 (4+) H Urine Glucose (UA) Negative Urine Ketones Negative Urine Blood Negative Urine Nitrite Negative Ur Leukocyte Esterase Negative Urine RBC 0-2 Urine WBC 0-5 Ur Squamous Epith Cells 3-5 Hyaline Casts >20 Assessment and Plan (1) Acute kidney injury superimposed on CKD: Status: Acute (2) Nephrotic range proteinuria: Status: Acute Plan TANIA on CKD- New May have had some component of tubular injury due to hypovolemia while on ARB and diuretic -- However, given sudden onset of nephrotic-range proteinuria, along with other systemic symptoms, likely has systemic process with acute flare that requires emergent workup- massive proteinuria with worsening renal function, need biopsy now as inpatient. Need to know emergently if patient will need immunosuppression to prevent kidney failure. Blood pressures are suboptimal- added carvedilol 25mg BID, will continue to monitor. differentials include secondary FSGS, amyloidosis, lupus nephritis (though anti-DS DNA and complements were negative, this was during a time when patient did not have significant proteinuria). May discontinue IVF as patient is hydrating adequately with oral fluids. Encourage adequate nutrition. Recommend daily electrolyte and renal function studies. Recommend regular blood checks, daily weights, close I&O monitoring. Recommend avoiding nephrotoxic agents. Discussed with Dr Ott. Procedures Date of Service Date of Service: 10/05/24
[2024-10-05] MEDS: buPROPion HCl XL 150 MG TAB.ER.24H PO (10:34)
[2024-10-05 11:23] LABS: Glucose, Whole Blood 87 mg/dL (60-115)
[2024-10-05 15:51] VITALS: BP 168/88; PULSE 63; RESP 16; TEMP 36.5; O2SAT 98
[2024-10-05 16:23] LABS: Glucose, Whole Blood 76 mg/dL (60-115)
[2024-10-05 19:52] VITALS: BP 160/96; PULSE 69; RESP 14; TEMP 36.6; O2SAT 95
[2024-10-05 20:36] LABS: Glucose, Whole Blood 113 mg/dL (60-115)
[2024-10-06] VITALS (17 sets, daily range): BP systolic 140–187; BP diastolic 76–98; PULSE 70–88; RESP 16–20; TEMP 36.1–37; O2SAT 95–100
[2024-10-06] MEDS: Lactated Ringers 1,000 ML 75 ML IVCONT ×2 (03:10→19:04)
[2024-10-06 07:34] LABS: Hematocrit 31.1 % (37.0-47.0); Hemoglobin 10.3 g/dl (12.0-16.0); Mean Corpuscular HGB Conc 33.1 g/dl (31.0-35.0); Mean Corpuscular Hemoglobin 28.4 pg (27.0-33.0); Mean Corpuscular Volume 85.7 fL (80.0-98.0); NRBC Abs Auto 0.000 X10*3/uL (0.0-0.012); NRBC Pct Auto 0.0 /100WBC (0.0-0.2); Platelet Count 243 X10*3/uL (160-400); Red Blood Count 3.63 X10*6/uL (4.20-5.50); White Blood Count 7.3 X10*3/uL (4.8-10.8)
[2024-10-06 07:42] LABS: Anion Gap 10 (12-20); Blood Urea Nitrogen 31 mg/dL (9-16); Calcium 8.1 mg/dL (8.4-10.2); Carbon Dioxide 25 mmol/L (22-29); Chloride 111 mmol/L (96-108); Creatinine Clr Calc Pharmacy 24.6; Estimated Glomerular Filt Rate 17; Potassium 4.2 mmol/L (3.3-5.1); Sodium 142 mmol/L (135-145)
[2024-10-06] MEDS: buPROPion HCl XL 150 MG TAB.ER.24H PO (07:56)
[2024-10-06 08:04] LABS: Glucose, Whole Blood 96 mg/dL (60-115)
--- NOTE | 2024-10-06 10:12 | P.PNIM_ITS ---
Subjective Subjective Date of Service: 10/06/24 Interval History: f/u on TANIA Cr is slightly better For Bx today Physical Exam 2 Vital Signs: Vital Signs: Last Vital Signs Temp 97.7 F 10/06/24 08:00 Pulse 70 10/06/24 08:00 Resp 17 10/06/24 08:00 BP 178/90 H 10/06/24 09:09 Pulse Ox 95 10/06/24 08:00 O2 Del Method Room Air 10/06/24 08:00 BMI result Body Mass Index 28.1 General: AO X 3, no acute distress Resp: CTA bilateral CVS: S1,S2,RRR GI: +BS, NT, no distention Skin: No rash Neuro: motor grossly intact Psych: appropriate affect Objective Data Active Medications Acetaminophen (Acetaminophen 325 Mg Tablet) 975 mg PO Q6H PRN PRN Reason: Pain, Mild 1-3,fever,headache Last Admin: 10/06/24 03:09 Dose: 975 mg Documented By: JAVED Bupropion HCl (Bupropion Hcl Xl 150 Mg Tab.Er.24h) 150 mg PO DAILY [facility] Last Admin: 10/06/24 07:56 Dose: 150 mg Documented By: SHARLA Calcium Carbonate (Calcium Carbonate 750 Mg Tab.Chew) 750 mg PO Q4H PRN PRN Reason: Heartburn Carvedilol (Carvedilol 25 Mg Tablet) 25 mg PO BID [facility]; Protocol Last Admin: 10/06/24 07:57 Dose: 25 mg Documented By: SHARLA Dextrose (Dextrose 50 % 25 Gm/50 Ml Syringe) 25 gm IVPUSH Q15M PRN; Protocol PRN Reason: per Hypoglycemia Standing Ord. Glucose (Glucose Gel 15 Gm Gel..Gram.) 15 gm PO Q15M PRN; Protocol PRN Reason: per Hypoglycemia Standing Ord. Heparin Sodium (Porcine) (Heparin Sodium,Porcine 5,000 Unit/Ml Vial) 5,000 unit SUBCUT Q8H [facility] Last Admin: 10/06/24 08:59 Dose: Not Given Documented By: SHARLA Non-Admin Reason: pre op biopsy Hydralazine HCl (Hydralazine Hcl 50 Mg Tablet) 50 mg PO QID [facility]; Protocol Last Admin: 10/06/24 09:09 Dose: 50 mg Documented By: ADRI Lactated Ringer's (Lr) 1,000 mls @ 75 mls/hr IVCONT .[id number] [facility] Last Admin: 10/06/24 03:10 Dose: 75 mls/hr Documented By: JAVED Insulin Human Lispro (Insulin Lispro 100 Unit/Ml 3 Ml Vial) 0 unit SUBCUT QIDACHS [facility]; Protocol Last Admin: 10/06/24 07:58 Dose: Not Given Documented By: SHARLA Non-Admin Reason: No Insulin Coverage Magnesium Hydroxide (Milk Of Magnesia 30 Ml Oral.Susp) 30 ml PO DAILY PRN PRN Reason: Constipation Melatonin (Melatonin 3 Mg Tablet) 6 mg PO BEDTIME PRN PRN Reason: Insomnia Ondansetron HCl (Ondansetron Hcl 4 Mg/2 Ml Vial) 4 mg IVPUSH Q8H PRN PRN Reason: Nausea and Vomiting Last Admin: 10/05/24 19:21 Dose: 4 mg Documented By: JAVED Sodium Chloride (0.9 % Sodium Chloride Flush 3 Ml Syringe) 3 ml IVFLUSH QSHIFT [facility] Last Admin: 10/06/24 07:59 Dose: Not Given Documented By: SHARLA Non-Admin Reason: IV Running Labs 10/06/24 05:51 10/06/24 05:51 Labs: Laboratory Results - last 24 hr 10/05/24 10/05/24 10/05/24 11:14 16:19 20:33 MCV MCH MCHC RDW Plt Count MPV Absolute Nucleated RBC Nucleated RBC % (auto) Anion Gap Estim Creat Clear Calc Estimated GFR POC Glucose 87 76 113 Random Glucose Calcium 10/06/24 10/06/24 05:51 07:53 MCV 85.7 MCH 28.4 MCHC 33.1 RDW 14.1 Plt Count 243 MPV 10.7 Absolute Nucleated RBC 0.000 Nucleated RBC % (auto) 0.0 Anion Gap 10 L Estim Creat Clear Calc 24.6 Estimated GFR 17 POC Glucose 96 Random Glucose 97 Calcium 8.1 L Assessment and Plan (1) TANIA (acute kidney injury): Status: Acute Plan pt is a 58 y/o female with a medical history of HTN (diagnosed 6 months ago), diabetes (controlled, diagnosed 1 year ago), obesity, anxiety, s/p gastric sleeve, who presented to the ED by her PCP due to worsening kidney function. TANIA on CKD, likely from dehydation in light of recent n/v but also concern of system process given proteinuria improving with IVF, continue Nephrology consult follow bmp For Biopsy today Chronic normocytic anemia hemoglobin 10.5 no need for blood transfusion at this time monitor CBC Hypertension resume meds after med rec, but hold KACI or ARB Type 2 diabetes diabetic diet sliding scale insulin Anxiety continue home meds Med rec pending Full code VTE prophylaxis: Heparin Patient with TANIA on CKD, requiring admission for at least 2 midnights stay for IV fluids and Nephrology consultation. Quality Stroke Does the patient have a stroke diagnosis?: No VTE Prior VTE?: No VTE Risk Level:: Medical - moderate - high VTE Device Contraindication: Treatment Not Indicated VTE Drug Contraindication: N/A - Med Ordered
--- NOTE | 2024-10-06 11:32 | P.PNNP_ITS ---
Subjective Subjective Date of Service: 10/06/24 Interval history: Pt here for TANIA with sudden onset nephrotic-range proteinuria, nausea, malaise. Physical Exam 2 Vital Signs: Vital Signs: Last Vital Signs Temp 97.2 F 10/06/24 11:05 Pulse 75 10/06/24 11:20 Resp 17 10/06/24 11:20 BP 154/85 H 10/06/24 11:20 Pulse Ox 96 10/06/24 11:20 O2 Del Method Room Air 10/06/24 11:20 O2 Flow Rate 2 10/06/24 10:55 BMI result Body Mass Index 28.1 Const: General: no acute distress, alert and awake Resp: Effort & Inspection: normal respiratory effort and able to speak in complete sentences Auscultation: clear to auscultation bilaterally Cardio: Rate: regular rate Rhythm: regular rhythm Heart sounds: S1 normal heart sound present and S2 normal heart sound present GI: Palpation (GI): Soft to palpation and nontender : General: Yes no CVA tenderness Back/Spine/Pelvis: Back: no CVA tenderness Skin: Rashes: no rashes Extrem: General: Yes edema (trace LE edema, improved from last week in office. ) Objective Data Labs 10/06/24 05:51 10/06/24 05:51 Labs: Laboratory Results - last 24 hr 10/05/24 10/05/24 10/06/24 16:19 20:33 05:51 WBC 7.3 RBC 3.63 L Hgb 10.3 L Hct 31.1 L MCV 85.7 MCH 28.4 MCHC 33.1 RDW 14.1 Plt Count 243 MPV 10.7 Absolute Nucleated RBC 0.000 Nucleated RBC % (auto) 0.0 Sodium 142 Potassium 4.2 Chloride 111 H Carbon Dioxide 25 Anion Gap 10 L BUN 31 H Creatinine 2.83 H Estim Creat Clear Calc 24.6 Estimated GFR 17 POC Glucose 76 113 Random Glucose 97 Calcium 8.1 L 10/06/24 07:53 WBC RBC Hgb Hct MCV MCH MCHC RDW Plt Count MPV Absolute Nucleated RBC Nucleated RBC % (auto) Sodium Potassium Chloride Carbon Dioxide Anion Gap BUN Creatinine Estim Creat Clear Calc Estimated GFR POC Glucose 96 Random Glucose Calcium Procedures Date of Service Date of Service: 10/06/24 Assessment & Plan Assessment and plan (1) HTN (hypertension): Status: Acute (2) TANIA (acute kidney injury): Status: Acute Plan TANIA on CKD with sudden-onset nephrotic-range proteinuria May have had some component of tubular injury due to hypovolemia while on ARB and diuretic -- However, given sudden onset of nephrotic-range proteinuria, along with other systemic symptoms, likely has systemic process with acute flare that requires emergent workup- massive proteinuria with worsening renal function, need biopsy now as inpatient- planned for today. Blood pressures are suboptimal- increase carvedilol from 12.5mg BID to 25mg BID, and added hydralazine 50mg QID. COntinue to hold ARB given TANIA. differentials include secondary FSGS, amyloidosis, lupus nephritis (though anti- DS DNA and complements were negative, this was during a time when patient did not have significant proteinuria). Patient encouraged to continue adequate hydration. Recommend daily electrolyte and renal function studies. Recommend regular blood checks, daily weights, close I&O monitoring. Recommend avoiding nephrotoxic agents. Discussed with Dr Ott. Time Spent With Patient Time: Total time managing care of this patient today ____ minutes. Progress Note: Quality Stroke Does the patient have a stroke diagnosis?: No
[2024-10-06 12:54] LABS: Glucose, Whole Blood 138 mg/dL (60-115)
--- NOTE | 2024-10-06 13:53 | MHC.CM.PN ---
per rounds pt to have a kidney biopsy today dc plan remains home
[2024-10-06 16:31] LABS: Glucose, Whole Blood 115 mg/dL (60-115)
[2024-10-06] MEDS: oxyCODONE HCl Immed Release 5 MG TABLET PO ×2 (16:58→21:16)
[2024-10-06 20:24] LABS: Glucose, Whole Blood 113 mg/dL (60-115)
[2024-10-07] VITALS: BP 132/75; PULSE 88; RESP 20; TEMP 37.2; O2SAT 96
[2024-10-07 04:00] VITALS: BP 158/76; PULSE 88; RESP 20; TEMP 37.4; O2SAT 96
[2024-10-07 05:50] LABS: Anion Gap 12 (12-20); Blood Urea Nitrogen 31 mg/dL (9-16); Calcium 8.3 mg/dL (8.4-10.2); Carbon Dioxide 23 mmol/L (22-29); Chloride 110 mmol/L (96-108); Creatinine Clr Calc Pharmacy 22.8; Estimated Glomerular Filt Rate 16; Potassium 4.4 mmol/L (3.3-5.1); Sodium 141 mmol/L (135-145)
[2024-10-07 05:53] LABS: Hematocrit 32.4 % (37.0-47.0); Hemoglobin 10.7 g/dl (12.0-16.0); Mean Corpuscular HGB Conc 33.0 g/dl (31.0-35.0); Mean Corpuscular Hemoglobin 28.5 pg (27.0-33.0); Mean Corpuscular Volume 86.2 fL (80.0-98.0); NRBC Abs Auto 0.000 X10*3/uL (0.0-0.012); NRBC Pct Auto 0.0 /100WBC (0.0-0.2); Platelet Count 281 X10*3/uL (160-400); Red Blood Count 3.76 X10*6/uL (4.20-5.50); White Blood Count 10.1 X10*3/uL (4.8-10.8)
[2024-10-07] MEDS: Lactated Ringers 1,000 ML 75 ML IVCONT (06:33)
[2024-10-07 07:30] LABS: Glucose, Whole Blood 97 mg/dL (60-115)
[2024-10-07 07:55] VITALS: BP 145/69; PULSE 83; RESP 18; TEMP 37; O2SAT 95
[2024-10-07] MEDS: buPROPion HCl XL 150 MG TAB.ER.24H PO (08:36)
--- NOTE | 2024-10-07 09:26 | P.PNIM_ITS ---
Subjective Subjective Date of Service: 10/07/24 Interval History: f/u on TANIA Cr is slightly better Biopsy done yesterday Physical Exam 2 Vital Signs: Vital Signs: Last Vital Signs Temp 98.6 F 10/07/24 07:55 Pulse 83 10/07/24 07:55 Resp 18 10/07/24 07:55 BP 145/69 H 10/07/24 07:55 Pulse Ox 95 10/07/24 07:55 O2 Del Method Room Air 10/07/24 07:55 O2 Flow Rate 2 10/06/24 10:55 BMI result Body Mass Index 28.1 General: AO X 3, no acute distress Resp: CTA bilateral CVS: S1,S2,RRR GI: +BS, NT, no distention Skin: No rash Neuro: motor grossly intact Psych: appropriate affect Objective Data Active Medications Acetaminophen (Acetaminophen 325 Mg Tablet) 975 mg PO Q6H PRN PRN Reason: Pain, Mild 1-3,fever,headache Last Admin: 10/07/24 04:08 Dose: 975 mg Documented By: SASCHA Amoxicillin/Clavulanate Potassium (Amoxicillin/Potassium Clav 875 Mg Tablet) 875 mg PO Q12H [facility] Last Admin: 10/07/24 06:28 Dose: 875 mg Documented By: SASCHA Bupropion HCl (Bupropion Hcl Xl 150 Mg Tab.Er.24h) 150 mg PO DAILY [facility] Last Admin: 10/07/24 08:36 Dose: 150 mg Documented By: MOHAN Calcium Carbonate (Calcium Carbonate 750 Mg Tab.Chew) 750 mg PO Q4H PRN PRN Reason: Heartburn Carvedilol (Carvedilol 25 Mg Tablet) 25 mg PO BID [facility]; Protocol Last Admin: 10/07/24 08:36 Dose: 25 mg Documented By: MOHAN Dextrose (Dextrose 50 % 25 Gm/50 Ml Syringe) 25 gm IVPUSH Q15M PRN; Protocol PRN Reason: per Hypoglycemia Standing Ord. Glucose (Glucose Gel 15 Gm Gel..Gram.) 15 gm PO Q15M PRN; Protocol PRN Reason: per Hypoglycemia Standing Ord. Heparin Sodium (Porcine) (Heparin Sodium,Porcine 5,000 Unit/Ml Vial) 5,000 unit SUBCUT Q8H [facility] Last Admin: 10/07/24 08:36 Dose: 5,000 unit Documented By: MOHAN Hydralazine HCl (Hydralazine Hcl 50 Mg Tablet) 50 mg PO QID [facility]; Protocol Last Admin: 10/07/24 08:36 Dose: 50 mg Documented By: MOHAN Lactated Ringer's (Lr) 1,000 mls @ 75 mls/hr IVCONT .[id number] [facility] Last Admin: 10/07/24 06:33 Dose: 75 mls/hr Documented By: SASCHA Insulin Human Lispro (Insulin Lispro 100 Unit/Ml 3 Ml Vial) 0 unit SUBCUT QIDACHS [facility]; Protocol Last Admin: 10/07/24 07:42 Dose: Not Given Documented By: MOHAN Non-Admin Reason: No Insulin Coverage Magnesium Hydroxide (Milk Of Magnesia 30 Ml Oral.Susp) 30 ml PO DAILY PRN PRN Reason: Constipation Melatonin (Melatonin 3 Mg Tablet) 6 mg PO BEDTIME PRN PRN Reason: Insomnia Ondansetron HCl (Ondansetron Hcl 4 Mg/2 Ml Vial) 4 mg IVPUSH Q8H PRN PRN Reason: Nausea and Vomiting Last Admin: 10/06/24 16:54 Dose: 4 mg Documented By: SHARLA Oxycodone HCl (Oxycodone Hcl Immed Release 5 Mg Tablet) 5 mg PO Q4H PRN PRN Reason: Pain, Severe (Pain Scale 7-10) Last Admin: 10/06/24 21:16 Dose: 5 mg Documented By: SASCHA Sodium Chloride (0.9 % Sodium Chloride Flush 3 Ml Syringe) 3 ml IVFLUSH QSHIFT [facility] Last Admin: 10/07/24 08:39 Dose: Not Given Documented By: MOHAN Non-Admin Reason: IV Running Labs 10/07/24 05:08 10/07/24 05:08 Labs: Laboratory Results - last 24 hr 10/06/24 10/06/24 10/06/24 12:50 16:26 20:20 MCV MCH MCHC RDW Plt Count MPV Absolute Nucleated RBC Nucleated RBC % (auto) Anion Gap Estim Creat Clear Calc Estimated GFR POC Glucose 138 H 115 113 Random Glucose Calcium 10/07/24 10/07/24 05:08 07:23 MCV 86.2 MCH 28.5 MCHC 33.0 RDW 14.6 Plt Count 281 MPV 10.5 Absolute Nucleated RBC 0.000 Nucleated RBC % (auto) 0.0 Anion Gap 12 Estim Creat Clear Calc 22.8 Estimated GFR 16 POC Glucose 97 Random Glucose 114 Calcium 8.3 L Assessment and Plan (1) TANIA (acute kidney injury): Status: Acute Plan pt is a 58 y/o female with a medical history of HTN (diagnosed 6 months ago), diabetes (controlled, diagnosed 1 year ago), obesity, anxiety, s/p gastric sleeve, who presented to the ED by her PCP due to worsening kidney function. TANIA on CKD, likely from dehydation in light of recent n/v but also concern of system process given proteinuria Creatine is slightly up today to 3.05 improving with IVF, continue Nephrology consult follow bmp Biopsy done 10/06 Chronic normocytic anemia hemoglobin 10.5 no need for blood transfusion at this time monitor CBC HTN Coreg and hydralazine Type 2 diabetes diabetic diet sliding scale insulin Anxiety continue home meds Possible dental infection Augmentin Full code VTE prophylaxis: Heparin Patient with TANIA on CKD, requiring admission for at least 2 midnights stay for IV fluids and Nephrology consultation. possible dc later today Quality Stroke Does the patient have a stroke diagnosis?: No VTE Prior VTE?: No VTE Risk Level:: Medical - moderate - high VTE Device Contraindication: Treatment Not Indicated VTE Drug Contraindication: N/A - Med Ordered
--- NOTE | 2024-10-07 09:30 | P.DS_ITS ---
DS: Providers Provider Date of Service: 10/07/24 Date of admission: 10/04/24 22:30 Date of discharge: 10/07/24 Primary care physician: Jennifer Pittman NP Consults: 10/04/24 22:44 Consult to Nephrology Routine Consulting Provider: [facility] Reason for consultation: TANIA on CKD Has provider been notified: No DS: Diagnosis Discharge Diagnosis (1) TANIA (acute kidney injury): Status: Acute DS: Summary Hospital Course Hospital Course: admission hpi Chief Complaint: Abnormal labs pt is a 58 y/o female with a medical history of HTN (diagnosed 6 months ago), diabetes (controlled, diagnosed 1 year ago), obesity, anxiety, s/p gastric sleeve, who presented to the ED by her PCP due to worsening kidney function. She reports fatigue for the past few days with headache. no recent NSAID use. currently comfortable and no complaints. Hospital course: pt is a 58 y/o female with a medical history of HTN (diagnosed 6 months ago), diabetes (controlled, diagnosed 1 year ago), obesity, anxiety, s/p gastric sleeve, who presented to the ED by her PCP due to worsening kidney function and found to have marked proteinuria, she has had recent nausea and vomiting. She was admitted for TANIA on CKD and treated with IVF and because of the signficant proteinur nephrology recommended kidney biopsy which was done 10/06 witout complication. Her Kidney function remains essentially hgih, itial Creatine was 3.13 and presently 3.05 after several days of IVF. She will follow up with Nephrology and go over biopsy result and further treatmen plan/ Chronic normocytic anemia hemoglobin 10.5 no need for blood transfusion at this time monitor CBC HTN Coreg and hydralazine. Losar Type 2 diabetes diabetic diet sliding scale insulin Anxiety continue home meds Possible dental infection Augmentin Time Attestation Discharge Coordination Time (in mins): 45 Quality: Safe Use of Opioids Does Pt have an Active Cancer Diagnosis on the Problem List?: No Quality: Stroke Does the patient have a stroke diagnosis?: No Physical Exam Vital Signs: Vital Signs: Last Vital Signs Temp 98.6 F 10/07/24 07:55 Pulse 83 10/07/24 07:55 Resp 18 10/07/24 07:55 BP 145/69 H 10/07/24 07:55 Pulse Ox 95 10/07/24 07:55 O2 Del Method Room Air 10/07/24 07:55 O2 Flow Rate 2 10/06/24 10:55 BMI result Body Mass Index 28.1 DS: Data Data Completed and Pending Pending studies at discharge: Pending at discharge 10/06/24 10:54 Surgical Path [Surgical] [PTH] Routine Labs on day of discharge: Laboratory Results - last 24 hr 10/06/24 10/06/24 10/06/24 12:50 16:26 20:20 WBC RBC Hgb Hct MCV MCH MCHC RDW Plt Count MPV Absolute Nucleated RBC Nucleated RBC % (auto) Sodium Potassium Chloride Carbon Dioxide Anion Gap BUN Creatinine Estim Creat Clear Calc Estimated GFR POC Glucose 138 H 115 113 Random Glucose Calcium 10/07/24 10/07/24 05:08 07:23 WBC 10.1 RBC 3.76 L Hgb 10.7 L Hct 32.4 L MCV 86.2 MCH 28.5 MCHC 33.0 RDW 14.6 Plt Count 281 MPV 10.5 Absolute Nucleated RBC 0.000 Nucleated RBC % (auto) 0.0 Sodium 141 Potassium 4.4 Chloride 110 H Carbon Dioxide 23 Anion Gap 12 BUN 31 H Creatinine 3.05 H Estim Creat Clear Calc 22.8 Estimated GFR 16 POC Glucose 97 Random Glucose 114 Calcium 8.3 L Discharge Plan Discharge Anticipated Discharge Date/Time: 10/07/24 09:30 Patient Disposition: Home, Self-Care Discharge Diagnosis: TANIA on CKD, Proteinuria Referrals: Jennifer Pittman NP [Primary Care Provider, Medical] - 1 Week Discharge Medications: Continued Mounjaro 10 mg/0.5 mL pen injector 10 mg subcut SA gabapentin [Neurontin] 100 mg capsule 100 mg PO BEDTIME PRN (Reason: Pain) bupropion HCl 150 mg tablet extended release 24 hr 150 mg PO DAILY carvedilol 6.25 mg tablet 12.5 mg PO BID Qty: 360 2RF Discontinued losartan 25 mg tablet 25 mg PO DAILY Qty: 30 2RF Diet: Advance to usual diet Activity on Discharge: As tolerated Stand Alone Forms: Patient Portal Discharge page Print Language: Indian Care Plan Goals: recovery from renal failure Health Concerns: kidney Failure Plan of Treatment: Follow up with nephrology on outpatient basis to review biopsy result and treatment plan stop taking losartan Take Augmentin for dental infection and follow up with your dentis Assessment: See above
[2024-10-07 11:20] LABS: Glucose, Whole Blood 155 mg/dL (60-115)
[2024-10-07 12:35] VITALS: BP 137/71; PULSE 75; RESP 16; TEMP 36.8; O2SAT 94
--- NOTE | 2024-10-07 13:20 | MHC.CM.PN ---
PT WILL DC HOME TODAY WITH NO SERVICES VIA PRIVATE TRANSPORT
[2024-10-07 13:53] VITALS: BP 145/71; PULSE 76; RESP 18; TEMP 36.4; O2SAT 96
== END 2024-10-07 14:04 | disposition home or self-care (01) | DRG 469 ==
LOC: HO.ED 19:05 → HO.EDOVER 23:31 → HO.S3 10-05 07:42
PROVIDERS: Physician Assistant; Radiology Diagnostic Radiology; Admitting Provider Physician Assistant; Emergency Provider Internal Medicine; PCP Nurse Practitioner; Visit Provider Internal Medicine
PROC: 0TB03ZX Excision of Right Kidney, Percutaneous Approach, Diagnostic (ICD-10-PCS; principal; 2024-10-06 10:00)
DX: N17.9 Acute kidney failure, unspecified (principal); D63.1 Anemia in chronic kidney disease; E11.22 Type 2 diabetes mellitus with diabetic chronic kidney disease; E86.0 Dehydration; K04.7 Periapical abscess without sinus; N18.30 Chronic kidney disease, stage 3 unspecified; I12.9 Hypertensive chronic kidney disease with stage 1 through stage 4 chronic kidney disease, or unspecified chronic kidney disease; Z98.84 Bariatric surgery status; F41.9 Anxiety disorder, unspecified; Z79.85 Long-term (current) use of injectable non-insulin antidiabetic drugs; Z79.899 Other long term (current) drug therapy
CPT/HCPCS: 36415; 50200; 70450; 74176; 77012; 80048; 80053; 81001; 82947; 83690; 85025; 85027; 88300; 88305; 88313; 88346; 88348; 88350; 99152; 99285; J0131; J0360; J1644; J2250; J2405; J3010; J7120

== ENCOUNTER → 2024-10-04 20:44 | Outpatient (BNV) | payer OTHER, SELFPAY | PROVIDERS: Emergency Provider Internal Medicine; PCP Nurse Practitioner; Visit Provider Radiology Diagnostic Radiology | DX: R16.0 Hepatomegaly, not elsewhere classified (principal) | CPT/HCPCS: 74176 ==

== ENCOUNTER 2024-10-04 22:30 | Outpatient (BNV) | payer OTHER, SELFPAY | END 2024-10-06 10:02 | PROVIDERS: Admitting Provider Physician Assistant; Emergency Provider Internal Medicine; PCP Nurse Practitioner; Visit Provider Radiology Diagnostic Radiology | DX: R51.9 Headache, unspecified (principal) | CPT/HCPCS: 70450 ==

== ENCOUNTER → 2024-10-04 22:30 | Outpatient (BNV) | payer OTHER, SELFPAY | PROVIDERS: Admitting Provider Physician Assistant; Emergency Provider Internal Medicine; PCP Nurse Practitioner; Visit Provider Nurse Practitioner Family | DX: N17.9 Acute kidney failure, unspecified (principal); N18.9 Chronic kidney disease, unspecified; R80.9 Proteinuria, unspecified | CPT/HCPCS: 99222 ==

== ENCOUNTER → 2024-10-04 22:30 | Outpatient (BNV) | payer OTHER, SELFPAY | PROVIDERS: Admitting Provider Physician Assistant; Emergency Provider Internal Medicine; PCP Nurse Practitioner; Visit Provider Internal Medicine | DX: N17.9 Acute kidney failure, unspecified (principal) | CPT/HCPCS: 99222; 99232 ==

== ENCOUNTER 2024-10-11 16:14 | Outpatient (REF) | payer OTHER, SELFPAY ==
--- OUTSIDE RECORDS SUMMARY | 2024-10-11 16:30 | XMS_ITS | Clinical Summary ---
Author Organization [address] [facility] Address [address] [place] [address] Phone Care Team Providers Care Correctional Officer Sergeant Name Role Phone Yannick Lilian Primary Care Provider [phone] Allergies Active Allergy Reactions Criticality Noted Date [...] complication associated with type 2 diabetes mellitus ([facility] V24, CMS/HCC V28) Take 1 [...] Noted Date Diagnosed Date DM (diabetes mellitus) ([facility] V24, CMS/[facility] V28 ) 02/26/2023 Obesity (BMI 30.0-34.9) 02/24/2023 Anxiety 08/19/2021 Depression 08/19/2021 HTN (hypertension) 08/19/2021 Iron deficiency anemia 08/19/2021 Lung nodule 08/19/2021 Encounters Date Type Department Care Team Description 09/10/2024 Telephone Bariatric Surgery - [place] [address] [facility] [address] [place] [address] Sherron Holden MD Med Refill 08/18/2024 4:00 PM EDT Office Visit Internal Medicine - [address] [phone] Jennifer Pittman NP Adult general medical examination (Primary Dx); Acute renal failure, unspecified acute renal failure type (CMS/[facility] V24); Primary hypertension; Type 2 diabetes mellitus without complication, without long-term current use of insulin ([facility] V24, [facility] V28); Iron deficiency anemia, unspecified iron deficiency anemia type; Class 1 obesity with serious comorbidity and body mass index (BMI) of 31.0 to 31.9 in adult, unspecified obesity type; Myalgia; Encounter for screening mammogram for malignant neoplasm of breast; Encounter for hepatitis C screening test for low risk patient 07/20/2024 2:00 PM EDT Office Visit Internal Medicine - [address] [phone] Darrel Santiago NP Diarrhea, unspecified type (Primary Dx); Abnormal urine; Arthralgia, unspecified joint 07/20/2024 Telephone Internal Medicine - [address] [phone] Lilian Lanier DO Foot Swelling; Body Swelling from Last 3 Months Immunizations Name Administration Dates Next Due Moderna SARS-CoV-2 COVID-19, mRNA, LNP-S, preservative free 12/28/2020,05/23/2020,04/22/2020 Pneumococcal conjugate 20 va lent (Prevnar 20, PCV 20) 2mo and older 10/27/2023 Tdap Tetanus diptheria acell ular pertussis (Boostrix; Adacel) 7yo and older 10/27/2023 Surgical History Surgery Date Site/Laterality Comments GASTRIC BYPASS 2010 PROCEDURE: [place] GASTRIC RSTCV W/BYP W/SM INT RCNSTJ LIMIT ABSRPJ; COMMENT: in [place] PARTIAL HYSTERECTOMY PROCEDURE: WI SUPRACERVICAL ABDL HYSTER W/WO RMVL TUBE OVARY KNEE ARTHROSCOPY W/ DEBRIDEMENT Right PROCEDURE: WI ARTHRS KNEE DEBRIDEMENT/SHAVING ARTCLR CRTLG HERNIA REPAIR PROCEDURE: WI REPAIR FIRST ABDOMINAL WALL HERNIA; COMMENT: supraumbilical mesh hernia repair OTHER SURGICAL HISTORY PROCEDURE: WI RPR RECRT INCAL/VNT HERNIA REDUCIBLE BLADDER SURGERY [...] PM EDT Office Visit Bariatric Surgery - [place] [address] [phone] Sherron Holden MD 175 [facility] [address] [place] [address] Health Maintenance Due Date Last Done Comments [...] complication, without long-term current use of insulin ([facility] V24, [facility] V28) URINALYSIS WITH REFLEX MICROSCOPIC AND CULTURE Routine 07/20/2024 2:44 PM EDT Abnormal urine COMPREHENSIVE METABOLIC PANEL Routine 07/20/2024 2:44 PM EDT Diarrhea, unspecified type HEMOGLOBIN A1C Routine 07/20/2024 2:44 PM EDT Type 2 diabetes mellitus without complication, without long-term current use of insulin ([facility] V24, [facility] V28) CULTURE URINE Routine 07/20/2024 [...] glucose manually resulted (08/18/2024 4:19 PM EDT) [facility] Glucose POC 59(A) 70 - 100 mg/dL Blood Capillary blood specimen / Unknown 08/18/2024 4:19 PM EDT Jennifer Pittman NP POINT OF CARE TEST ENTER/EDIT OR DERABLES Final Result * (ABNORMAL) Urinalysis with reflex microscopic and culture (07/20/2024 2:44 PM EDT) [facility] Specific [place] Urine 1.023 1.003 - 1.030 LAB URINALYSIS - AUTOMATED METHOD 07/21/2024 12:[address] [facility] pH, Urine 5.5 5.0 - 8.0 pH LAB URINALYSIS - AUTOMATED METHOD 07/21/2024 12:[address] [facility] Leukocytes, Urine Trace(A) Negative LAB URINALYSIS - AUTOMATED METHOD 07/21/2024 12:[address] [facility] Nitrite, Urine Negative Negative LAB URINALYSIS - AUTOMATED METHOD 07/21/2024 12:[address] [facility] Protein, Urine 300(A) <=Trace mg/dL LAB URINALYSIS - AUTOMATED METHOD 07/21/2024 12:[address] [facility] Glucose, Urine Negative Negative mg/dL LAB URINALYSIS - AUTOMATED METHOD 07/21/2024 12:[address] [facility] Ketones, Urine Trace(A) Negative mg/dL LAB URINALYSIS - AUTOMATED METHOD 07/21/2024 12:[address] [facility] Urobilinogen , Urine 1.0 0.2 - 1.0 mg/dL LAB URINALYSIS - AUTOMATED METHOD 07/21/2024 12:53 PM EDT [facility] Bilirubin, Urine Negative Negative LAB URINALYSIS - AUTOMATED METHOD 07/21/2024 12:53 PM EDT [facility] Blood, Urine Negative Negative LAB URINALYSIS - AUTOMATED METHOD 07/21/2024 12:[address] [facility] RBC, Urine 2.0 0 - 4 /HPF LAB URINALYSIS - AUTOMATED METHOD 07/21/2024 12:53 PM EDT [facility] WBC, Urine 7.2(H) 0 - 4 /HPF LAB URINALYSIS - AUTOMATED METHOD 07/21/2024 12:[address] [facility] Squamous Epithelial, Urine >100(H) 0 - 60 /LPF LAB URINALYSIS - AUTOMATED METHOD 07/21/2024 12:[address] [facility] Bacteria, Urine Negative Negative /HPF LAB URINALYSIS - AUTOMATED METHOD 07/21/2024 12:[address] [facility] Hyaline Casts, Urine 25.0(H) 0 - 3 /LPF LAB URINALYSIS - AUTOMATED METHOD 07/21/2024 12:[address] [facility] Other Casts, Urine Rare fine granular casts /LPF LAB URINALYSIS - AUTOMATED METHOD 07/21/2024 12:[address] [facility] Yeast, Urine Present(A) None /HPF LAB URINALYSIS - AUTOMATED METHOD 07/21/2024 12:53 PM T [facility] Urine Urine specimen obtained by clean catch procedure / Unknown Non-blood Collection / Unknown 07/20/2024 2:44 PM EDT 07/20/2024 2:44 PM EDT us Darrel Santiago NP LAB URINE ORDERABLES Final Res ult [facility] [address] [place] [address], * Culture urine (07/20/2024 2:44 PM EDT) [facility] Culture, Urine No growth 07/22/2024 12:19 PM EDT [facility] Urine Urine specimen obtained by clean catch procedure / Unknown Non-blood Collection / Unknown 07/20/2024 2:44 PM EDT 07/21/2024 12:53 PM EDT Darrel Santiago INDUCTION FURNACE OPERATOR LAB MICROBIOLOGY - GENERAL ORD ERABLES Final Result Performing Organization Address [facility]/ZIP Co de Phone Number [facility] [address] [place] [address], [place] [phone] * (ABNORMAL) Hemoglobin A1c (07/20/2024 2:44 PM EDT) [facility] Hemoglobin A1C 6.8(H) <6.5 % LAB CHEMISTRY METHOD 07/21/2024 12:20 PM EDT [facility] Mean Bld Glu Estim. 148 mg/dL LAB CHEMISTRY METHOD 07/21/2024 12:20 PM EDT [facility] Blood Venous blood specimen / Unknown Venipuncture / Unknown 07/20/2024 2:44 PM EDT 07/20/2024 2:44 PM EDT Jennifer Pittman INDUCTION FURNACE OPERATOR LAB BLOOD ORDERABLES Final Resul t Performing Organization Address [facility]/ZIP Co de Phone Number [facility] [address] [place] [address], [place] [phone] * (ABNORMAL) Comprehensive metabolic panel (07/20/2024 2:44 PM EDT) [facility] Sodium 138 133 - 145 mmol/L LAB CHEMISTRY METHOD 07/21/2024 10:14 AM EDT [facility] Potassium 5.5 3.5 - 5.5 mmol/L LAB CHEMISTRY METHOD 07/21/2024 10:[address] [facility] Chloride 106 96 - 110 mmol/L LAB CHEMISTRY METHOD 07/21/2024 10:[address] [facility] CO2 27 21 - 32 mmol/L LAB CHEMISTRY METHOD 07/21/2024 10:[address] [facility] Anion Gap 5 3 - 11 LAB CHEMISTRY METHOD 07/21/2024 10:[address] [facility] Glucose 98 70 - 100 mg/dL LAB CHEMISTRY METHOD 07/21/2024 10:[address] [facility] BUN 27(H) 5 - 25 mg/dL LAB CHEMISTRY METHOD 07/21/2024 10:[address] [facility] Creatinine 1.77(H) 0.50 - 1.10 mg/dL LAB CHEMISTRY METHOD 07/21/2024 10:[address] [facility] Comment:Results verified by repeat testing eGFR 33(L) >=60 mL/min/1. 73m2 LAB CHEMISTRY METHOD 07/21/2024 10:[address] [facility] Comment:Calculation based on the Chronic Kidney Disease Epidemiology Collaboration (CKD-EPI) equation refit without adjustment for race. BUN/Creatinine Ratio 15.3 LAB CHEMISTRY METHOD 07/21/2024 10:[address] [facility] Calcium 8.6 8.5 - 10.5 mg/dL LAB CHEMISTRY METHOD 07/21/2024 10:[address] [facility] AST (SGOT) 43(H) 10 - 42 unit/L LAB CHEMISTRY METHOD 07/21/2024 10:[address] [facility] Comment:Results verified by repeat testing ALT (SGPT) 62(H) 10 - 60 unit/L LAB CHEMISTRY METHOD 07/21/2024 10:[address] [facility] Comment:Results verified by repeat testing Alkaline Phosphatase 96 42 - 121 unit/L LAB CHEMISTRY METHOD 07/21/2024 10:[address] [facility] Total Protein 6.5 6.0 - 8.0 g/dL LAB CHEMISTRY METHOD 07/21/2024 10:14 AM EDT [facility] Albumin 3.5 3.2 - 5.0 g/dL LAB CHEMISTRY METHOD 07/21/2024 10:14 AM EDT [facility] Total Bilirubin 0.5 0.0 - 1.4 mg/dL LAB CHEMISTRY METHOD 07/21/2024 10:14 AM EDT [facility] Blood Venous blood specimen / Unknown Venipuncture / Unknown 07/20/2024 2:44 PM EDT 07/20/2024 2:44 PM EDT Darrel Santiago NP LAB BLOOD ORDERABLES Final Res ult Performing Organization Address [facility]/ZIP Co de Phone Number [facility] [address] [place] [address], [place] [phone] * [place] urine culture tube (07/20/2024 2:37 PM EDT) Extra Tube Hold for add-ons. 07/21/2024 8:01 AM EDT [facility] Comment:Auto resulted. Urine Urine specimen obtained by clean catch procedure / Unknown Non-blood Collection / Unknown 07/20/2024 2:37 PM EDT 07/20/2024 2:37 PM EDT us Darrel Santiago NP LAB URINE ORDERABLES Final Res ult [facility] [address] [place] [address], [place] [phone] * HIV 1,2 antibody, p24 antigen with reflex to differentiation (05/25/2024 9:42 AM EDT) HIV Combo AB/AG Negative Negative LAB CHEMISTRY METHOD 05/25/2024 3:54 PM EDT [facility] Blood Venous blood specimen / Unknown Venipuncture / Unknown 05/25/2024 9:42 AM EDT 05/25/2024 9:42 AM EDT Narrative [facility] - 05/25/2024 3:54 PM [...] NP LAB BLOOD ORDERABLES Final Resul t [facility] [address] [place] [address], [place] [phone] * (ABNORMAL) Lipid panel with reflex to direct LDL (05/25/2024 9:42 AM EDT) Cholesterol 174 0 - 200 mg/dL LAB CHEMISTRY METHOD 05/25/2024 3:08 PM EDT [facility] Triglycerides 195(H) 0 - 150 mg/dL LAB CHEMISTRY METHOD 05/25/2024 3:08 PM T [facility] HDL 50 >=40 mg/dL [facility] LDL Calculated 85 0 - 100 mg/dL LAB CHEMISTRY METHOD 05/25/2024 3:08 PM T [facility] VLDL Cholesterol Dilshad 39 mg/dL LAB CHEMISTRY METHOD 05/25/2024 3:08 PM EDT [facility] Non HDL Chol. (LDL+VLDL) 124 <145 mg/dL LAB CHEMISTRY METHOD 05/25/2024 3:08 PM EDT [facility] Chol/HDL Ratio 3.5 0.0 - 4.4 LAB CHEMISTRY METHOD 05/25/2024 3:08 PM EDT [facility] Blood Venous blood specimen / Unknown Venipuncture / Unknown 05/25/2024 9:42 AM EDT 05/25/2024 9:42 AM EDT Jennifer Pittman INDUCTION FURNACE OPERATOR LAB BLOOD ORDERABLES Final Resul t [facility] [address] [place] [address], [place] [phone] * Colonoscopy (11/16/2023) Pathologist [facility] Colonoscopy no interpretation , abstracted Anatomical Region Laterality Modality Other Historical Provider MD HEALTH MAINTENANCE Final Result * Diabetes Foot Exam (10/27/2023) [facility] Diabetes: Annual Foot Exam abstracted Historical [...] Most Recently Relevant to Health Maintenance Insurance [facility] [employer] [facility] Care Teams Correctional Officer Sergeant Relationship Specialty Start Date End Date Lilian Lanier DO [address] [place] [address] PCP - General Internal Medicine 03/17/24
--- OUTSIDE RECORDS SUMMARY | 2024-10-11 16:30 | XMS_ITS | Patient Health Record ---
Author Organization [facility] Address Am[address] [place] [address] Care Team Providers Care Computer Architect Name Role Phone Mcintosh MauraTrent Unavailable Unavailabl e Reason For Referral No Information Medications Medication SIG (Take, Route, Frequency, Duration) Notes Start Date End Date Status Iron 325 (65 Fe) MG Tablet Iron (ferrous sulfate) Dispense: 60 TAB - take 1 tablet (325 mg) by oral route 2 times per day Refill: 3 Oral Use as directed 02/15/2019 Active PX Acid Diet Aide Max St 150 MG Tablet raNITIdine HCl Dispense: 30 TABs - take 1 tablet (150 mg) by oral route once daily at bedtime Refill: 2 Oral Use as directed *Reorder from [employer] for eRx and Interaction Alerts* 10/27/2018 Active [...] as directed 10/27/2018 Active Cyanocobalamin 1000 MCG/ML Solution cyanocobalamin (vitamin B-12) Dispense: 6 vial(s) - 1 Milliliter by Intramuscular route 1 weekly Refill: 2 Injection Use as directed 01/07/2018 Active metFORMIN HCl 500 MG Tablet metFORMIN Dispense: 30 tablet(s) - take 1 tablet by Oral route 1 time per day with meal Refill: 2 Oral Use as directed 01/07/2018 Active Vitamin D3 1.25 MG (20176 UT) Capsule cholecalciferol (vitamin D3) Dispense: 5 TABs - 1 Tablet by Orally route every week Refill: 3 Oral Use as directed 02/15/2019 Active Problems Problem Type SNOMED Code ICD Code Onset Dates Problem Status W/U Status Risk Notes Problem Morbid obesity (166163354) Morbid obesity (278.01) 2013 Active confirmed Type: Diagnosis; Confidentiality Level: 1; Problem Viral infection (22555125) Viral infection, unspecified (B34.9) 2015 Active confirmed Type: Diagnosis; Confidentiality Level: 1; Problem Iron deficiency anemia (14224418) Iron deficiency anemia, unspecified (D50.9) 2017 Active confirmed Type: Diagnosis; Confidentiality Level: 1; Problem Vitamin B12 deficiency anemia due to dietary causes (349159794) Other dietary vitamin B12 deficiency anemia (D51.3) 2017 Active confirmed Type: Diagnosis; Confidentiality Level: 1; Problem Dietary folate deficiency anemia (82320052) Dietary folate deficiency anemia (D52.0) 2018 Active confirmed Type: Diagnosis; Confidentiality Level: 1; Problem Hyperglycemia due to type 2 diabetes mellitus (550844828798170) Type 2 diabetes mellitus with hyperglycemia (E11.65) 2017 Active confirmed Type: Diagnosis; Confidentiality Level: 1; Problem Vitamin D deficiency (99948004) Vitamin D deficiency, unspecified (E55.9) 2017 Active confirmed Type: Diagnosis; Confidentiality Level: 1; Problem Partial loss of teeth due to caries, class II (K08.432) 2018 Active confirmed Type: Diagnosis; Confidentiality Level: 1; Problem Gastro-esophageal reflux disease without esophagitis (055594180) Gastro-esophag eal reflux disease without esophagitis (K21.9) 2018 Active confirmed Type: Diagnosis; Confidentiality Level: 1; Problem Post-surgical malabsorption (disorder) (211437982) Postsurgical malabsorption, not elsewhere classified (K91.2) 2017 Active confirmed Type: Diagnosis; Confidentiality Level: 1; Problem Pain of right shoulder region (finding) (7832716584) Pain in right shoulder (M25.511) 2018 Active confirmed Type: Diagnosis; Confidentiality Level: 1; Problem Impaired fasting glucose (772387134) Impaired fasting glucose (R73.01) 2017 Active confirmed Type: Diagnosis; Confidentiality Level: 1; Problem Abnormal findings on microbiological examination of urine (075197438) Unspecified abnormal findings in urine (R82.90) 2017 Active confirmed Type: Diagnosis; Confidentiality Level: 1; Problem Endocrine finding (378727269) Abnormal results of other endocrine function studies (R94.7) 2018 Active confirmed Type: Diagnosis; Confidentiality Level: 1; Problem Adult health examination (032470216) Encounter for general adult medical examination without abnormal findings (Z00.00) 2017 Active confirmed Type: Diagnosis; Confidentiality Level: 1; Problem Annual wellness visit (965555445657974) Encounter for other general examination (Z00.8) 2016 Active confirmed Type: Diagnosis; Confidentiality Level: 1; Problem Screening for malignant neoplasm of colon (863165887) Encounter for screening for malignant neoplasm of colon (Z12.11) 2017 Active confirmed Type: Diagnosis; Confidentiality Level: 1; Problem Screening for malignant neoplasm of breast (608159034) Encounter for screening mammogram for malignant neoplasm of breast (Z12.31) 2017 Active confirmed Type: Diagnosis; Confidentiality Level: 1; Problem Screening for malignant neoplasm of cervix (991567512) Encounter for screening for malignant neoplasm of cervix (Z12.4) 2017 Active confirmed Type: Diagnosis; Confidentiality Level: 1; Problem Diabetes mellitus screening (063007329) Encounter for screening for diabetes mellitus (Z13.1) 2017 Active confirmed Type: Diagnosis; Confidentiality Level: 1; Problem Lipid screening (238081153) Encounter for screening for lipoid disorders (Z13.220) 2017 Active confirmed Type: Diagnosis; Confidentiality Level: 1; Problem Endocrine/metabol ic screening (043067734) Encounter for screening for other suspected endocrine disorder (Z13.29) 2017 Active confirmed Type: Diagnosis; Confidentiality Level: 1; Problem History of bariatric surgical procedure (140023996) Bariatric surgery status (Z98.84) 2017 Active confirmed Type: Diagnosis; Confidentiality Level: 1; Plan Of Treatment No Information Insurance Providers Payer Name Payer Address Payer Phone Subscriber Number Group Number Insured Name Patient Relationship to Insured Coverage Start Date Coverage End Date International Medical Card [address] [place], [place] [address] [id number] Tres Wu Self - patient is the insured 7
[2024-10-11 17:43] LABS: Appearance Urine Clear; Glucose Urine UA Negative (Negative); PH 5.5 (5.0-9.0); Specific Gravity - Urine 1.015 (1.005-1.025); UMIC TRIGGER UACC YES
[2024-10-11 17:49] LABS: Anion Gap 12 (12-20); Blood Urea Nitrogen 49 mg/dL (9-16); Calcium 8.1 mg/dL (8.4-10.2); Carbon Dioxide 24 mmol/L (22-29); Chloride 107 mmol/L (96-108); Estimated Glomerular Filt Rate 13; Potassium 4.7 mmol/L (3.3-5.1); Sodium 138 mmol/L (135-145)
[2024-10-11 19:56] LABS: Protein/Creatinine Ratio, Ur 5.25 (<0.2); Total Protein Urine Random 403 mg/dL (<12)
== END 2024-10-11 16:15 | disposition home or self-care (01) ==
LOC: HO.LAB 16:14
PROVIDERS: Visit Provider Nurse Practitioner Family
DX: N18.30 Chronic kidney disease, stage 3 unspecified (principal); N17.9 Acute kidney failure, unspecified; R80.9 Proteinuria, unspecified
CPT/HCPCS: 36415; 80048; 81001; 82570; 84156

== ENCOUNTER 2024-10-20 07:39 | Outpatient (REF) | payer SELFPAY ==
--- OUTSIDE RECORDS SUMMARY | 2024-10-20 07:42 | XMS_ITS | Patient Health Record ---
Author Organization [facility] Address Amari foreman [address] [place] [address] Care Team Providers Care Subsea Engineer Name Role Phone Mcintosh MauraTrent Unavailable Unavailabl e Reason For Referral No Information Medications Medication SIG (Take, Route, Frequency, Duration) Notes Start Date End Date Status Iron 325 (65 Fe) MG Tablet Iron (ferrous sulfate) Dispense: 60 TAB - take 1 tablet (325 mg) by oral route 2 times per day Refill: 3 Oral Use as directed 02/15/2019 Active PX Acid Warehouse Consultant Max [address] 150 MG Tablet raNITIdine HCl Dispense: 30 TABs - take 1 tablet (150 mg) by oral route once daily at bedtime Refill: 2 Oral Use as directed *Reorder from [employer] for eRx and Interaction Alerts* 10/27/2018 Active [...] directed 01/07/2018 Active Vitamin D3 1.25 MG (84377 UT) Capsule cholecalciferol (vitamin D3) Dispense: 5 TABs - 1 Tablet by Orally route every week Refill: 3 Oral Use as directed 02/15/2019 Active Problems Problem Type SNOMED Code ICD Code Onset Dates Problem Status W/U Status Risk Notes Problem Morbid obesity (152420748) Morbid obesity (278.01) 2013 Active confirmed Type: Diagnosis; Confidentiality Level: 1; Problem Viral infection (02861427) Viral infection, unspecified (B34.9) 2015 Active confirmed Type: Diagnosis; Confidentiality Level: 1; Problem Iron deficiency anemia (28414295) Iron deficiency anemia, unspecified (D50.9) 2017 Active confirmed Type: Diagnosis; Confidentiality Level: 1; Problem Vitamin B12 deficiency anemia due to dietary causes (937258881) Other dietary vitamin B12 deficiency anemia (D51.3) 2017 Active confirmed Type: Diagnosis; Confidentiality Level: 1; Problem Dietary folate deficiency anemia (20365328) Dietary folate deficiency anemia (D52.0) 2018 Active confirmed Type: Diagnosis; Confidentiality Level: 1; Problem Hyperglycemia due to type 2 diabetes mellitus (702762593234970) Type 2 diabetes mellitus with hyperglycemia (E11.65) 2017 Active confirmed Type: Diagnosis; Confidentiality Level: 1; Problem Vitamin D deficiency (25063785) Vitamin D deficiency, unspecified (E55.9) 2017 Active confirmed Type: Diagnosis; Confidentiality Level: 1; Problem Partial loss of teeth due to caries, class II (K08.432) 2018 Active confirmed Type: Diagnosis; Confidentiality Level: 1; Problem Gastro-esophageal reflux disease without esophagitis (596616295) Gastro-esophag eal reflux disease without esophagitis (K21.9) 2018 Active confirmed Type: Diagnosis; Confidentiality Level: 1; Problem Post-surgical malabsorption (disorder) (277870476) Postsurgical malabsorption, not elsewhere classified (K91.2) 2017 Active confirmed Type: Diagnosis; Confidentiality Level: 1; Problem Pain of right shoulder region (finding) (4935042649) Pain in right shoulder (M25.511) 2018 Active confirmed Type: Diagnosis; Confidentiality Level: 1; Problem Impaired fasting glucose (977943936) Impaired fasting glucose (R73.01) 2017 Active confirmed Type: Diagnosis; Confidentiality Level: 1; Problem Abnormal findings on microbiological examination of urine (465466619) Unspecified abnormal findings in urine (R82.90) 2017 Active confirmed Type: Diagnosis; Confidentiality Level: 1; Problem Endocrine finding (563336400) Abnormal results of other endocrine function studies (R94.7) 2018 Active confirmed Type: Diagnosis; Confidentiality Level: 1; Problem Adult health examination (354682372) Encounter for general adult medical examination without abnormal findings (Z00.00) 2017 Active confirmed Type: Diagnosis; Confidentiality Level: 1; Problem Annual wellness visit (502526306634018) Encounter for other general examination (Z00.8) 2016 Active confirmed Type: Diagnosis; Confidentiality Level: 1; Problem Screening for malignant neoplasm of colon (471547841) Encounter for screening for malignant neoplasm of colon (Z12.11) 2017 Active confirmed Type: Diagnosis; Confidentiality Level: 1; Problem Screening for malignant neoplasm of breast (625091372) Encounter for screening mammogram for malignant neoplasm of breast (Z12.31) 2017 Active confirmed Type: Diagnosis; Confidentiality Level: 1; Problem Screening for malignant neoplasm of cervix (373646398) Encounter for screening for malignant neoplasm of cervix (Z12.4) 2017 Active confirmed Type: Diagnosis; Confidentiality Level: 1; Problem Diabetes mellitus screening (708924007) Encounter for screening for diabetes mellitus (Z13.1) 2017 Active confirmed Type: Diagnosis; Confidentiality Level: 1; Problem Lipid screening (840856406) Encounter for screening for lipoid disorders (Z13.220) 2017 Active confirmed Type: Diagnosis; Confidentiality Level: 1; Problem Endocrine/metabol ic screening (624113768) Encounter for screening for other suspected endocrine disorder (Z13.29) 2017 Active confirmed Type: Diagnosis; Confidentiality Level: 1; Problem History of bariatric surgical procedure (392881192) Bariatric surgery status (Z98.84) 2017 Active confirmed Type: Diagnosis; Confidentiality Level: 1; Plan Of Treatment No Information Insurance Providers Payer Name Payer Address Payer Phone Subscriber Number Group Number Insured Name Patient Relationship to Insured Coverage Start Date Coverage End Date International Medical Card [address] [place], J[place] [address] [id number] Tres Wu Self - patient is the insured 7
--- OUTSIDE RECORDS SUMMARY | 2024-10-20 07:42 | XMS_ITS | Clinical Summary ---
Author Organization [address] [place] [address] Address [address] [place] [address] Phone Care Team Providers Care Table Games Manager Name Role Phone Yannick Lilian Primary Care Provider Allergies Active Allergy Reactions Criticality Noted Date Comments Adhesive Rash 01/20/2022 Latex Rash 01/20/2022 Medications BUPROPION HCL ORAL Take by mouth. Active albuterol sulfate (ProAir RespiClick) 90 mcg/actuation aerosol powdr breath activated Inhale into the lungs. Active cholecalciferol (VITAMIN D-3) 50 mcg (2,000 unit) capsule Take 1 capsule (2,000 Units total) by mouth 1 (one) time each day. 3 Active gabapentin (NEURONTIN) 100 mg capsuleIndication s:Other diabetic neurological complication associated with type 2 diabetes mellitus ([facility] V24, [facility] V28) Take 1 capsule (100 mg total) [...] sugar daily 100 each 12 5 Active glipiZIDE 2.5 mg tablet Take 2.5 mg by mouth 2 (two) times a day. 5 Active amLODIPine (NORVASC) 5 mg tablet Take 1 tablet (5 mg total) by mouth 1 (one) time each day. 5 Active atomoxetine (STRATTERA) 18 mg capsule Take 1 capsule (18 mg total) by mouth 1 (one) time each day. 5 Active tirzepatide (Mounjaro) 10 mg/0.5 mL injectionIndicati ons:Class 1 obesity due to excess calories with serious comorbidity and body mass index (BMI) of 30.0 to 30.9 in adult Inject 0.5 mL (10 mg total) under the skin every 7 (seven) days. 2 mL 5 10/13/19 Active Problems Problem Noted Date Diagnosed Date DM (diabetes mellitus) ([facility] V24, [facility] V28 ) 02/26/2023 Obesity (BMI 30.0-34.9) 02/24/2023 Anxiety 08/19/2021 Depression 08/19/2021 HTN (hypertension) 08/19/2021 Iron deficiency anemia 08/19/2021 Lung nodule 08/19/2021 Encounters Date Type Department Care Team Description 09/10/2024 Telephone Bariatric Surgery - [address] [place] [address] Sherron Holden MD Med Refill 08/18/2024 4:00 PM EDT Office Visit Internal Medicine - [address] [phone] Jennifer Pittman NP Adult general medical examination (Primary Dx); Acute renal failure, unspecified acute renal failure type ([facility] V24); Primary hypertension; Type 2 diabetes mellitus without complication, without long-term current use of insulin ([facility] V24, [facility] V28); Iron deficiency anemia, unspecified iron deficiency anemia type; Class 1 obesity with serious comorbidity and body mass index (BMI) of 31.0 to 31.9 in adult, unspecified obesity type; Myalgia; Encounter for screening mammogram for malignant neoplasm of breast; Encounter for hepatitis C screening test for low risk patient 07/20/2024 2:00 PM EDT Office Visit Internal Medicine - [address] [phone] Darrel Santiago NP Diarrhea, unspecified type (Primary Dx); Abnormal urine; Arthralgia, unspecified joint 07/20/2024 Telephone Internal Medicine - [address] [place] [phone] Lilian Lanier, Foot Swelling; Body Swelling from Last 3 Months Immunizations Name Administration Dates Next Due Moderna SARS-CoV-2 COVID-19, mRNA, LNP-S, preservative free 12/28/2020,05/23/2020,04/22/2020 Pneumococcal conjugate 20 va lent (Prevnar 20, PCV 20) 2mo and older 10/27/2023 Tdap Tetanus diptheria acell ular pertussis (Boostrix; Adacel) 7yo and older 10/27/2023 Surgical History Surgery Date Site/Laterality Comments GASTRIC BYPASS 2010 PROCEDURE: VT GASTRIC RSTCV W/BYP W/SM INT RCNSTJ LIMIT ABSRPJ; COMMENT: in [place] PARTIAL HYSTERECTOMY PROCEDURE: VT SUPRACERVICAL ABDL HYSTER W/WO RMVL TUBE OVARY KNEE ARTHROSCOPY W/ DEBRIDEMENT Right PROCEDURE: VT ARTHRS KNEE DEBRIDEMENT/SHAVING ARTCLR CRTLG HERNIA REPAIR PROCEDURE: VT REPAIR FIRST ABDOMINAL WALL HERNIA; COMMENT: supraumbilical mesh hernia repair OTHER SURGICAL HISTORY PROCEDURE: VT RPR RECRT INCAL/VNT HERNIA REDUCIBLE BLADDER SURGERY [...] PM EDT Office Visit Bariatric Surgery - [place] [address] [phone] Sherron Holden MD [address] [facility] [address] [place] [address] Health Maintenance Due Date Last Done Comments Breast Cancer Screening 1965 Hepatitis B Vaccines (1 of 3 - 19+ 3-dose series) 1984 Cervical Cancer Screening: Pap Smear 1986 COVID-19 Vaccine (2023-2 5 season) 2023 12/28/2020, 05/23/2020, 04/22/2020 Depression [...] complication, without long-term current use of insulin ([facility] V24, [facility] V28) URINALYSIS WITH REFLEX MICROSCOPIC AND CULTURE Routine 07/20/2024 2:44 PM EDT Abnormal urine COMPREHENSIVE METABOLIC PANEL Routine 07/20/2024 2:44 PM EDT Diarrhea, unspecified type HEMOGLOBIN A1C Routine 07/20/2024 2:44 PM EDT Type 2 diabetes mellitus without complication, without long-term current use of insulin ([facility] V24, [facility] V28) CULTURE URINE Routine 07/20/2024 2:44 PM [...] Routine 11/16/2023 DIABETES FOOT EXAM Routine 10/27/2023 HM URINE ALBUMIN CREATININE RATIO Routine 09/30/2023 DEPRESSION SCREENING Routine 07/01/2023 from Last 3 Months or Most Recently Relevant to Health Maintenance Results * (ABNORMAL) POC glucose manually resulted (08/18/2024 4:19 PM EDT) Glucose POC 59(A) 70 - 100 mg/dL Blood Capillary blood specimen / Unknown 08/18/2024 4:19 PM EDT Jennifer Pittman NP POINT OF CARE TEST ENTER/EDIT OR DERABLES Final Result * (ABNORMAL) Urinalysis with reflex microscopic and culture (07/20/2024 2:44 PM EDT) Specific [place] Urine 1.023 1.003 - 1.030 LAB URINALYSIS [...] [facility] RBC, Urine 2.0 0 - 4 /HPF LAB URINALYSIS - AUTOMATED METHOD 07/21/2024 12:53 PM EDT [facility] WBC, Urine 7.2(H) 0 - 4 /HPF LAB URINALYSIS - AUTOMATED METHOD 07/21/2024 12:53 PM EDT [facility] Squamous Epithelial, Urine >100(H) 0 - 60 /LPF LAB URINALYSIS - AUTOMATED METHOD 07/21/2024 12:53 PM EDT [facility] Bacteria, Urine Negative Negative /HPF LAB URINALYSIS - AUTOMATED METHOD 07/21/2024 12:53 PM EDT [facility] Hyaline Casts, Urine 25.0(H) 0 - 3 /LPF LAB URINALYSIS - AUTOMATED METHOD 07/21/2024 12:53 PM EDT [facility] Other Casts, Urine Rare fine granular casts /LPF LAB URINALYSIS - AUTOMATED METHOD 07/21/2024 12:53 PM EDT [facility] Yeast, Urine Present(A) None /HPF LAB URINALYSIS - AUTOMATED METHOD 07/21/2024 12:53 PM EDT [facility] Urine Urine specimen obtained by clean catch procedure / Unknown Non-blood Collection / Unknown 07/20/2024 2:44 PM EDT 07/20/2024 2:44 PM EDT us Darrel Santiago NP LAB URINE ORDERABLES Final Res ult [facility] [address] [place] [address], * Culture urine (07/20/2024 2:44 PM EDT) Culture, Urine No growth 07/22/2024 12:19 PM EDT [facility] Urine Urine specimen obtained by clean catch procedure / Unknown Non-blood Collection / Unknown 07/20/2024 2:44 PM EDT 07/21/2024 12:53 PM EDT Darrel Santiago [employer] LAB MICROBIOLOGY - GENERAL ORD ERABLES Final Result Performing Organization Address [facility]/ZIP Co de Phone Number [facility] [address] [place] [address], [place] [phone] * (ABNORMAL) Hemoglobin A1c (07/20/2024 2:44 PM EDT) Pathologist [facility] Hemoglobin A1C 6.8(H) <6.5 % LAB CHEMISTRY METHOD 07/21/2024 12:20 PM EDT [facility] Mean Bld Glu Estim. 148 mg/dL LAB CHEMISTRY METHOD 07/21/2024 12:20 PM EDT [facility] Blood Venous blood specimen / Unknown Venipuncture / Unknown 07/20/2024 2:44 PM EDT 07/20/2024 2:44 PM EDT Jennifer Pittman NP LAB BLOOD ORDERABLES Final Resul t Performing Organization Address City/[facility]/ZIP Co de Phone Number [facility] [address] [place] [address], [place] [phone] * (ABNORMAL) Comprehensive metabolic panel (07/20/2024 2:44 PM EDT) Pathologist [facility] Sodium 138 133 - 145 mmol/L LAB CHEMISTRY METHOD 07/21/2024 10:14 AM EDT [facility] Potassium 5.5 3.5 - 5.5 mmol/L LAB CHEMISTRY METHOD 07/21/2024 10:14 AM EDT [facility] Chloride 106 96 - 110 mmol/L LAB CHEMISTRY METHOD 07/21/2024 10:14 AM EDT [facility] CO2 27 21 - 32 mmol/L LAB CHEMISTRY METHOD 07/21/2024 10:14 AM EDT [facility] Anion Gap 5 3 [...] [facility] Total Bilirubin 0.5 0.0 - 1.4 mg/dL LAB CHEMISTRY METHOD 07/21/2024 10:14 AM EDT [facility] Blood Venous blood specimen / Unknown Venipuncture / Unknown 07/20/2024 2:44 PM EDT 07/20/2024 2:44 PM EDT Darrel Santiago NP LAB BLOOD ORDERABLES Final Res ult Performing Organization Address City/[facility]/ZIP Co de Phone Number [facility] [address] [place] [address], [place] [phone] * [place] urine culture tube (07/20/2024 2:37 PM EDT) [facility] Extra Tube Hold for add-ons. 07/21/2024 8:01 AM EDT [facility] Comment:Auto resulted. Urine Urine specimen obtained by clean catch procedure / Unknown Non-blood Collection / Unknown 07/20/2024 2:37 PM EDT 07/20/2024 2:37 PM EDT Darrel Santiago NP LAB URINE ORDERABLES Final Res ult Performing Organization Address [facility] de Phone Number [facility] [address] [place] [address], [place] [phone] * HIV 1,2 antibody, p24 antigen with reflex to differentiation (05/25/2024 9:42 AM EDT) [facility] HIV Combo AB/AG Negative Negative LAB CHEMISTRY METHOD 05/25/2024 3:54 PM EDT [facility] Blood Venous blood specimen / Unknown Venipuncture / Unknown 05/25/2024 9:42 AM EDT 05/25/2024 9:42 AM EDT Narrative [facility] - 05/25/2024 3:54 PM [...] ORDERABLES Final Resul t Performing Organization Address City/[facility]/ZIP Co de Phone Number [facility] [address] [place] [address], [place] [phone] * (ABNORMAL) Lipid panel with reflex to direct LDL (05/25/2024 9:42 AM EDT) Cholesterol 174 0 - 200 mg/dL LAB CHEMISTRY METHOD 05/25/2024 3:08 PM EDT [facility] Triglycerides 195(H) 0 - 150 mg/dL LAB CHEMISTRY METHOD 05/25/2024 3:08 PM EDT [facility] HDL 50 >=40 mg/dL LAB CHEMISTRY METHOD 05/25/2024 3:08 PM EDT [facility] LDL Calculated 85 0 - 100 mg/dL LAB CHEMISTRY METHOD 05/25/2024 3:08 PM EDT [facility] VLDL Cholesterol Dilshad 39 mg/dL LAB CHEMISTRY METHOD 05/25/2024 3:08 PM EDT [facility] Non HDL Chol. (LDL+VLDL) 124 <145 mg/dL LAB CHEMISTRY METHOD 05/25/2024 3:08 PM EDT [facility] Chol/HDL Ratio 3.5 0.0 - 4.4 LAB CHEMISTRY METHOD 05/25/2024 3:08 PM T [facility] Blood Venous blood specimen / Unknown Venipuncture / Unknown 05/25/2024 9:42 AM EDT 05/25/2024 9:42 AM EDT us Jennifer Pittman NP LAB BLOOD ORDERABLES Final Resul t Performing Organization Address City/[facility]/ZIP Co de Phone Number [facility] [address] [place] [address], * Colonoscopy (11/16/2023) Colonoscopy no interpretation , abstracted Anatomical Region Laterality Modality Other Historical Provider MD HEALTH MAINTENANCE Final Result * Diabetes Foot Exam (10/27/2023) Diabetes: Annual Foot Exam abstracted Historical Provider MD HEALTH MAINTENANCE Final Result * Urine Albumin Creatinine Ratio (09/30/2023) Urine Albumin Creatinine Ratio abstracted Historical Provider MD HEALTH MAINTENANCE Final Result * Depression Screening (07/01/2023) Pathologist [facility] Depression Screening abstracted Historical Provider HEALTH MAINTENANCE Final Result from Last 3 Months or Most Recently Relevant to Health Maintenance Insurance [facility] Care Teams Table Games Manager Relationship Specialty Start Date End Date Lilian Lanier DO [address] [place] [address] PCP - General Internal Medicine 03/17/24
[2024-10-20 10:19] LABS: Appearance Urine Clear; Glucose Urine UA 100 mg/dL (Negative); PH 5.5 (5.0-9.0); Specific Gravity - Urine 1.015 (1.005-1.025); UMIC TRIGGER UACC YES
[2024-10-20 10:51] LABS: Anion Gap 12 (12-20); Blood Urea Nitrogen 34 mg/dL (9-16); Calcium 8.5 mg/dL (8.4-10.2); Carbon Dioxide 25 mmol/L (22-29); Chloride 109 mmol/L (96-108); Estimated Glomerular Filt Rate 16; Potassium 4.5 mmol/L (3.3-5.1); Sodium 141 mmol/L (135-145)
== END 2024-10-20 07:40 | disposition home or self-care (01) ==
LOC: HO.10HDL 07:39
PROVIDERS: Visit Provider Nurse Practitioner Family
DX: N18.30 Chronic kidney disease, stage 3 unspecified (principal); N17.9 Acute kidney failure, unspecified
CPT/HCPCS: 36415; 80048; 81001

== ENCOUNTER 2024-10-24 12:09 | Outpatient (AMB) | payer OTHER, SELFPAY ==
--- NOTE | 2024-10-24 12:09 | HO.NEPHOV ---
Vital Signs 10/24/24 12:10 Height 5 ft 8 in Weight 225 lb BMI 34.2 BP 196/110 H Blood Pressure Location Lt brachial Position Sitting Pulse 79 Pulse Source Pulse Oximeter Pulse Oximetry (%) 96 Oxygen Delivery Method Room Air Intake Visit Reasons: For Biopsy Results Seismometer Operator Required: No Accompanied by: Son Allergies latex Allergy (Verified 10/24/24 12:12) Unknown Medication List - Last Reconciled 10/24/24 by Moris Mcintosh MD amoxicillin-pot clavulanate 875-125 mg 1 tab PO Q12H bupropion HCl XL 150 mg PO DAILY carvedilol 25 mg (4 x 6.25 mg) PO BID gabapentin (Neurontin) 100 mg PO BEDTIME PRN prednisone 60 mg (3 x 20 mg) PO DAILY 14 days tirzepatide (Mounjaro) 10 mg subcut SA HPI Comments Details: Patient of and [place]. Seen today because is away this week 58-year-old female presented with nephrotic syndrome and associated symptoms and CKD Underwent kidney biopsy Nephrotic syndrome is characterized by significant proteinuria of 5000 mg, leading to leg swelling and cold intolerance. Symptoms began in July, coinciding with initial hospitalization. Hypertension is poorly controlled, with readings of 191/101 mmHg, despite carvedilol Diabetes mellitus- duration- less than few years- , was on metformin discontinued due to renal concerns. Glipizide was prescribed but not taken due to hypoglycemia. Cold intolerance is noted, with frequent cold sensations and cold hands, linked to proteinuria onset. Biopsy shows immunme complex dissease. Sub optimal biopsy Only one Glomeruli. Empirically started on Prednisone on 10/23/24 [facility] Medical History CKD (chronic kidney disease) stage 3, GFR 30-59 ml/min HTN (hypertension) Post hysterectomy menopause Endometrial cancer Anxiety Surgical History S/P gastric sleeve procedure H/O inguinal hernia repair H/O abdominoplasty H/O gastric sleeve Social History Household Members: Children Housing: House Housing Other:: [facility] Do you presently have visiting nurse or other home services: No Alcohol intake: former Patient Tobacco Use Status: Never used Tobacco service: No Review of Systems Const Denies fever(s) and Denies weight loss Card Denies chest pain Resp Denies cough and Denies hemoptysis GI Denies abdominal pain, Denies diarrhea and Denies nausea Musc Denies back pain Neuro Denies focal weakness Physical Exam Vital Signs: Last Vital Signs Pulse 79 10/24/24 12:10 BP 196/110 H 10/24/24 12:10 Pulse Ox 96 10/24/24 12:10 Oxygen Delivery Method Room Air 10/24/24 12:10 BMI result Body Mass Index 34.2 Comfortable Neck supple no JVD. Lungs entry equal no rales. Heart S1-S2 heard no gallop or rub. Abdomen soft nontender. Neuro alert awake oriented. No asterixis. Extremities 2 + edema. Results Reviewed Nephrology Results: Hgb, (12.0-16.0) 10.7 g/dl L 10/07/24 WBC, (4.8-10.8) 10.1 X10*3/uL 10/07/24 Plt Count, (160-400) 281 X10*3/uL 10/07/24 Sodium, (135-145) 141 mmol/L 10/20/24 Potassium, (3.3-5.1) 4.5 mmol/L 10/20/24 Chloride, (96-108) 109 mmol/L H 10/20/24 Carbon Dioxide, (22-29) 25 mmol/L 10/20/24 BUN, (9-16) 34 mg/dL H 10/20/24 Creatinine, (0.5-1.4) 3.01 mg/dL H 10/20/24 Calcium, (8.4-10.2) 8.5 mg/dL 10/20/24 Urine Protein, (Neg-Trace) >=1000 (4+) mg/dL H 10/20/24 Urine Creatinine 76.80 mg/dL 10/11/24 Protein/Creatinin Ratio, (<0.2) 5.25 H 10/11/24 Renal US 07/25/24 Assessment & Plan Assessment & Plan (1) Proteinuria: Code(s): R80.9 - Proteinuria, unspecified Category: Medical Qualifiers: Proteinuria type: unspecified Qualified Code(s): R80.9 - Proteinuria, unspecified (2) Acute kidney injury superimposed on CKD: Code(s): N17.9 - Acute kidney failure, unspecified; N18.9 - Chronic kidney disease, unspecified Category: Medical Plan TANIA on CKD Nephrotic range proteinuria Fluid overload Plan Prednisone Urin studies May need repeat biopsy Add Lasix 40 mg QD Low salt diet Await rheumatology work up Follow up with Orders: Orders UA and rflx microscopic 3 Weeks N17.9 - Acute kidney failure, unspecified, N18.9 - Chronic kidney disease, unspecified, R80.9 - Proteinuria, unspecified Basic Metabolic Panel 3 Weeks N17.9 - Acute kidney failure, unspecified, N18.9 - Chronic kidney disease, unspecified, R80.9 - Proteinuria, unspecified Total Protein Urine Random 3 Weeks N17.9 - Acute kidney failure, unspecified, N18.9 - Chronic kidney disease, unspecified, R80.9 - Proteinuria, unspecified Creatinine Urine 3 Weeks N17.9 - Acute kidney failure, unspecified, N18.9 - Chronic kidney disease, unspecified, R80.9 - Proteinuria, unspecified Medications: New furosemide (Lasix) 40 mg PO DAILY 30 tabs 1RF carvedilol (Coreg) 25 mg PO BID 180 tabs 1RF Discontinued amoxicillin-pot clavulanate 875-125 mg Discontinued Reason: Patient Completed Course 1 tab PO Q12H 18 tabs 0RF carvedilol Discontinued Reason: Doctor's Order 25 mg (4 x 6.25 mg) PO BID 360 tabs 2RF Coding Level of Care Code Est Pt Level 4 (67709) Diagnoses Proteinuria, unspecified type R80.9 Proteinuria type: unspecified Acute kidney injury superimposed on CKD N17.9; N18.9
[2024-10-24 12:10] VITALS: BP 196/110; PULSE 79; O2SAT 96; BMI 34.2
--- OUTSIDE RECORDS SUMMARY | 2024-10-24 13:32 | XMS_ITS | Clinical Summary ---
Author Organization [address] [place] [address] Address [address] [place] [address] Phone Care Team Providers Care Corporate Travel Consultant Name Role Phone Yannick Lilian Primary Care Provider [phone] Allergies Active Allergy Reactions Criticality Noted Date [...] complication associated with type 2 diabetes mellitus ([facility] V24, [facility] V28) Take 1 capsule (100 mg [...] Noted Date Diagnosed Date DM (diabetes mellitus) ([facility] V24, [facility] V28 ) 02/26/2023 Obesity (BMI 30.0-34.9) 02/24/2023 Anxiety 08/19/2021 Depression 08/19/2021 HTN (hypertension) 08/19/2021 Iron deficiency anemia 08/19/2021 Lung nodule 08/19/2021 Encounters Date Type Department Care Team Description 09/10/2024 Telephone Bariatric Surgery [address] [place] [address] Sherron Holden MD Med Refill 08/18/2024 4:00 PM EDT Office Visit Internal Medicine - [address] [phone] Jennifer Pittman NP Adult general medical examination (Primary Dx); Acute renal failure, unspecified acute renal failure type ([facility] V24); Primary hypertension; Type 2 diabetes mellitus without complication, without long-term current use of insulin ([facility] V24, [facility] V28); Iron deficiency anemia, unspecified iron deficiency anemia type; Class 1 obesity with serious comorbidity and body mass index (BMI) of 31.0 to 31.9 in adult, unspecified obesity type; Myalgia; Encounter for screening mammogram for malignant neoplasm of breast; Encounter for hepatitis C screening test for low risk patient from Last 3 Months Immunizations Name Administration Dates Next Due Moderna SARS-CoV-2 COVID-19, mRNA, LNP-S, preservative free 12/28/2020,05/23/2020,04/22/2020 Pneumococcal conjugate 20 va lent (Prevnar 20, PCV 20) 2mo and older 10/27/2023 Tdap Tetanus diptheria acell ular pertussis (Boostrix; Adacel) 7yo and older 10/27/2023 Surgical History Surgery Date Site/Laterality Comments GASTRIC BYPASS 2010 PROCEDURE: OR GASTRIC RSTCV W/BYP W/SM INT RCNSTJ LIMIT ABSRPJ; COMMENT: in [place] PARTIAL HYSTERECTOMY PROCEDURE: OR SUPRACERVICAL ABDL HYSTER W/WO RMVL TUBE OVARY KNEE ARTHROSCOPY W/ DEBRIDEMENT Right PROCEDURE: OR ARTHRS KNEE DEBRIDEMENT/SHAVING ARTCLR CRTLG HERNIA REPAIR PROCEDURE: OR REPAIR FIRST ABDOMINAL WALL HERNIA; COMMENT: supraumbilical mesh hernia repair OTHER SURGICAL HISTORY PROCEDURE: OR RPR RECRT INCAL/VNT HERNIA REDUCIBLE BLADDER SURGERY [...] PM EDT Office Visit Bariatric Surgery - [place] [address] [phone] Sherron Holden MD [address] [address] Health Maintenance Due Date Last Done Comments Breast Cancer Screening 1965 Hepatitis B Vaccines (1 of 3 - 19+ 3-dose series) 1984 Cervical Cancer Screening: Pap Smear 1986 COVID-19 Vaccine ( - 2023-2 5 season) [...] complication, without long-term current use of insulin ([facility] V24, [facility] V28) COMPREHENSIVE METABOLIC PANEL Routine 07/20/2024 2:44 PM EDT Diarrhea, unspecified type HEMOGLOBIN A1C Routine 07/20/2024 2:44 PM EDT Type 2 diabetes mellitus without complication, without long-term current use of insulin ([facility] V24, [facility] V28) HIV 1, 2 ANTIBODY, P24 ANTIGEN WITH REFLEX TO DIFFERENTIATION Routine 05/25/2024 9:42 AM EDT Encounter for screening for HIV LIPID PANEL WITH REFLEX TO DIRECT LDL Routine 05/25/2024 9:42 AM EDT Screening for cholesterol level HM COLONOSCOPY Routine 11/16/2023 DIABETES FOOT EXAM Routine 10/27/2023 HM URINE ALBUMIN CREATININE RATIO Routine 09/30/2023 HM DEPRESSION SCREENING Routine 07/01/2023 from Last 3 Months or Most Recently Relevant to Health Maintenance Results * (ABNORMAL) POC glucose manually resulted (08/18/2024 4:19 PM EDT) Glucose POC 59(A) 70 - 100 mg/dL Blood Capillary blood specimen / Unknown 08/18/2024 4:19 PM EDT us Jennifer Pittman NP POINT OF CARE TEST ENTER/EDIT OR DERABLES Final Result * (ABNORMAL) Hemoglobin A1c (07/20/2024 2:44 PM EDT) Hemoglobin A1C 6.8(H) <6.5 % LAB CHEMISTRY METHOD 07/21/2024 12:20 PM EDT [facility] Mean Bld Glu Estim. 148 mg/dL LAB CHEMISTRY METHOD 07/21/2024 12:20 PM EDT [facility] Blood Venous blood specimen / Unknown Venipuncture / Unknown 07/20/2024 2:44 PM EDT 07/20/2024 2:44 PM EDT us Jennifer Pittman NP LAB BLOOD ORDERABLES Final Resul t [facility] [address] [place] [address], [place] [phone] * (ABNORMAL) Comprehensive metabolic panel (07/20/2024 2:44 PM EDT) Sodium 138 133 - 145 mmol/L LAB CHEMISTRY METHOD 07/21/2024 10:14 AM [facility] Potassium 5.5 3.5 - 5.5 mmol/L LAB CHEMISTRY METHOD 07/21/2024 10:14 AM [facility] Chloride 106 96 - 110 mmol/L LAB CHEMISTRY METHOD 07/21/2024 10:14 AM [facility] CO2 27 21 - 32 mmol/L LAB CHEMISTRY METHOD 07/21/2024 10:14 AM [facility] Anion Gap 5 3 - 11 LAB CHEMISTRY METHOD 07/21/2024 10:14 AM [facility] Glucose 98 70 - 100 mg/dL LAB CHEMISTRY METHOD 07/21/2024 10:14 AM [facility] BUN 27(H) 5 - 25 mg/dL LAB CHEMISTRY METHOD 07/21/2024 10:14 AM [facility] Creatinine 1.77(H) 0.50 - 1.10 mg/dL LAB CHEMISTRY METHOD 07/21/2024 10:14 AM [facility] Comment:Results verified by repeat testing eGFR 33(L) >=60 mL/min/1. 73m2 LAB CHEMISTRY METHOD 07/21/2024 10:14 AM [facility] Comment:Calculation based on the Chronic Kidney Disease Epidemiology Collaboration (CKD-EPI) equation refit without adjustment for race. BUN/Creatinine Ratio 15.3 LAB CHEMISTRY METHOD 07/21/2024 10:14 AM [facility] Calcium 8.6 8.5 - 10.5 mg/dL LAB CHEMISTRY METHOD 07/21/2024 10:14 AM [facility] AST (SGOT) 43(H) 10 - 42 unit/L LAB CHEMISTRY METHOD 07/21/2024 10:14 AM EDT [facility] Comment:Results verified by repeat testing ALT (SGPT) 62(H) 10 - 60 unit/L LAB CHEMISTRY METHOD 07/21/2024 10:14 AM EDT [facility] Comment:Results verified by repeat testing Alkaline Phosphatase 96 42 - 121 unit/L LAB CHEMISTRY METHOD 07/21/2024 10:14 AM EDT [facility] Total Protein 6.5 6.0 - 8.0 g/dL LAB CHEMISTRY METHOD 07/21/2024 10:14 AM EDT [facility] Albumin 3.5 3.2 - 5.0 g/dL LAB CHEMISTRY METHOD 07/21/2024 10:14 AM EDT [facility] Total Bilirubin 0.5 0.0 - 1.4 mg/dL LAB CHEMISTRY METHOD 07/21/2024 10:14 AM EDT [facility] Blood Venous blood specimen / Unknown Venipuncture / Unknown 07/20/2024 2:44 PM EDT 07/20/2024 2:44 PM EDT us Darrel Santiago ROENTGENOLOGY TEACHER LAB BLOOD ORDERABLES Final Res ult [facility] [address] [place] [address], * HIV 1,2 antibody, p24 antigen with reflex to differentiation (05/25/2024 9:42 AM EDT) HIV Combo AB/AG Negative Negative LAB CHEMISTRY METHOD 05/25/2024 3:54 PM EDT [facility] Blood Venous blood specimen / Unknown Venipuncture / Unknown 05/25/2024 9:42 AM EDT 05/25/2024 9:42 AM EDT Narrative [facility] - 05/25/2024 3:54 PM EDT [...] ORDERABLES Final Resul t Performing Organization Address City/[facility]/ZIP Co de Phone Number [facility] [address] [place] [address], [place] [phone] * (ABNORMAL) Lipid panel with reflex to direct LDL (05/25/2024 9:42 AM EDT) Cholesterol 174 0 - 200 mg/dL LAB CHEMISTRY METHOD 05/25/2024 3:08 PM EDT [facility] Triglycerides 195(H) 0 - 150 mg/dL LAB CHEMISTRY METHOD 05/25/2024 3:08 PM EDT [facility] HDL 50 >=40 mg/dL LAB CHEMISTRY METHOD 05/25/2024 3:08 PM EDT [facility] LDL Calculated 85 0 - 100 mg/dL LAB CHEMISTRY METHOD 05/25/2024 3:08 PM EDT [facility] VLDL Cholesterol Dilshad 39 mg/dL LAB CHEMISTRY METHOD 05/25/2024 3:08 PM EDT [facility] Non HDL Chol. (LDL+VLDL) 124 <145 mg/dL LAB CHEMISTRY METHOD 05/25/2024 3:08 PM EDT [facility] Chol/HDL Ratio 3.5 0.0 - 4.4 LAB CHEMISTRY METHOD 05/25/2024 3:08 PM EDT [facility] Blood Venous blood specimen / Unknown Venipuncture / Unknown 05/25/2024 9:42 AM EDT 05/25/2024 9:42 AM EDT us Jennifer Pittman NP LAB BLOOD ORDERABLES Final Resul t Performing Organization Address City/[facility]/ZIP Co de Phone Number [facility] [address] [place] [address], [place] [phone] * Colonoscopy (11/16/2023) Colonoscopy no interpretation , abstracted Anatomical Region Laterality Modality Other Historical Provider MD HEALTH MAINTENANCE Final Result * Diabetes Foot Exam (10/27/2023) Diabetes: Annual Foot Exam abstracted Historical Provider MD HEALTH MAINTENANCE Final Result * Urine Albumin Creatinine Ratio (09/30/2023) Urine Albumin Creatinine Ratio abstracted Historical Provider MD HEALTH MAINTENANCE Final Result * Depression Screening (07/01/2023) Pathologist [facility] Depression Screening abstracted Historical Provider HEALTH MAINTENANCE Final Result from Last 3 Months or Most Recently Relevant to Health Maintenance Insurance [place] [place] [address] [employer] PLAN Care Teams Corporate Travel Consultant Relationship Specialty Start Date End Date Lilian Lanier DO [address] [place] [address] PCP - General Internal Medicine 03/17/24
--- OUTSIDE RECORDS SUMMARY | 2024-10-24 13:32 | XMS_ITS | Encounter Summary ---
Author Organization [facility] Address [address] [place] [address] Care Team Providers Care Senior Scrum Master Name Role Phone Veronique Kelly MD Primary Care Provider Aric peralta Encounter Details Date Type Department Care Team Description 11/01/2021 Seed Cleaner Operator Report Medical Records [address] Orthopedic, Surgeons Social History Tobacco Use Types Packs/Day Years Used Date Smoking Tobacco: Former Cigarettes 0.3 0.5 Smokeless Tobacco: Never Alcohol Use Standard Drinks/Week Comments Never 0 (1 standard drink = 0.6 oz pur e alcohol) Sex Assigned at Date Recorded Not on file Job Start Date Occupation Industry Not on file Not on file Not on file COVID-19 Exposure Response Date Recorded In the last 10 days, have yo u been in contact with someone who was confirmed or suspected to have Coronavirus/COVID-19? No / Unsure 10/07/2021 10:45 AM EDT documented as of this encounter Plan of Treatment Not on file documented as of this encounter Visit Diagnoses Not on filedocumented in this encounter Care Teams Senior Scrum Master Relationship Specialty Start Date End Date Veronique Kelly MD PCP - General Family Practice 08/26/21 documented as of this encounter
--- OUTSIDE RECORDS SUMMARY | 2024-10-24 13:32 | XMS_ITS | Patient Health Record ---
Author Organization [facility] Address Amari foreman [address] [place] [address] Care Team Providers Care Drugless Doctor Name Role Phone Mcintosh MauraTrent Unavailable Unavailabl e Reason For Referral No Information Medications Medication SIG (Take, Route, Frequency, Duration) Notes Start Date End Date Status Iron 325 (65 Fe) MG Tablet Iron (ferrous sulfate) Dispense: 60 TAB - take 1 tablet (325 mg) by oral route 2 times per day Refill: 3 Oral Use as directed 02/15/2019 Active PX Acid Product Ambassador Max St 150 MG Tablet raNITIdine HCl Dispense: 30 TABs - take 1 tablet (150 mg) by oral route once daily at bedtime Refill: 2 Oral Use as directed *Reorder from [email or web address] for eRx and Interaction Alerts* 10/27/2018 Active [...] directed 01/07/2018 Active Vitamin D3 1.25 MG (60204 UT) Capsule cholecalciferol (vitamin D3) Dispense: 5 TABs - 1 Tablet by Orally route every week Refill: 3 Oral Use as directed 02/15/2019 Active Problems Problem Type SNOMED Code ICD Code Onset Dates Problem Status W/U Status Risk Notes Problem Morbid obesity (422737268) Morbid obesity (278.01) 2013 Active confirmed Type: Diagnosis; Confidentiality Level: 1; Problem Viral infection (19401881) Viral infection, unspecified (B34.9) 2015 Active confirmed Type: Diagnosis; Confidentiality Level: 1; Problem Iron deficiency anemia (36244366) Iron deficiency anemia, unspecified (D50.9) 2017 Active confirmed Type: Diagnosis; Confidentiality Level: 1; Problem Vitamin B12 deficiency anemia due to dietary causes (910006780) Other dietary vitamin B12 deficiency anemia (D51.3) 2017 Active confirmed Type: Diagnosis; Confidentiality Level: 1; Problem Dietary folate deficiency anemia (10819115) Dietary folate deficiency anemia (D52.0) 2018 Active confirmed Type: Diagnosis; Confidentiality Level: 1; Problem Hyperglycemia due to type 2 diabetes mellitus (469792774864856) Type 2 diabetes mellitus with hyperglycemia (E11.65) 2017 Active confirmed Type: Diagnosis; Confidentiality Level: 1; Problem Vitamin D deficiency (94592155) Vitamin D deficiency, unspecified (E55.9) 2017 Active confirmed Type: Diagnosis; Confidentiality Level: 1; Problem Partial loss of teeth due to caries, class II (K08.432) 2018 Active confirmed Type: Diagnosis; Confidentiality Level: 1; Problem Gastro-esophageal reflux disease without esophagitis (811818333) Gastro-esophag eal reflux disease without esophagitis (K21.9) 2018 Active confirmed Type: Diagnosis; Confidentiality Level: 1; Problem Post-surgical malabsorption (disorder) (726077516) Postsurgical malabsorption, not elsewhere classified (K91.2) 2017 Active confirmed Type: Diagnosis; Confidentiality Level: 1; Problem Pain of right shoulder region (finding) (9048570685) Pain in right shoulder (M25.511) 2018 Active confirmed Type: Diagnosis; Confidentiality Level: 1; Problem Impaired fasting glucose (686292180) Impaired fasting glucose (R73.01) 2017 Active confirmed Type: Diagnosis; Confidentiality Level: 1; Problem Abnormal findings on microbiological examination of urine (342133824) Unspecified abnormal findings in urine (R82.90) 2017 Active confirmed Type: Diagnosis; Confidentiality Level: 1; Problem Endocrine finding (474075508) Abnormal results of other endocrine function studies (R94.7) 2018 Active confirmed Type: Diagnosis; Confidentiality Level: 1; Problem Adult health examination (239740211) Encounter for general adult medical examination without abnormal findings (Z00.00) 2017 Active confirmed Type: Diagnosis; Confidentiality Level: 1; Problem Annual wellness visit (477132827886744) Encounter for other general examination (Z00.8) 2016 Active confirmed Type: Diagnosis; Confidentiality Level: 1; Problem Screening for malignant neoplasm of colon (588101300) Encounter for screening for malignant neoplasm of colon (Z12.11) 2017 Active confirmed Type: Diagnosis; Confidentiality Level: 1; Problem Screening for malignant neoplasm of breast (546728594) Encounter for screening mammogram for malignant neoplasm of breast (Z12.31) 2017 Active confirmed Type: Diagnosis; Confidentiality Level: 1; Problem Screening for malignant neoplasm of cervix (045926524) Encounter for screening for malignant neoplasm of cervix (Z12.4) 2017 Active confirmed Type: Diagnosis; Confidentiality Level: 1; Problem Diabetes mellitus screening (791061384) Encounter for screening for diabetes mellitus (Z13.1) 2017 Active confirmed Type: Diagnosis; Confidentiality Level: 1; Problem Lipid screening (462832177) Encounter for screening for lipoid disorders (Z13.220) 2017 Active confirmed Type: Diagnosis; Confidentiality Level: 1; Problem Endocrine/metabol ic screening (744153558) Encounter for screening for other suspected endocrine disorder (Z13.29) 2017 Active confirmed Type: Diagnosis; Confidentiality Level: 1; Problem History of bariatric surgical procedure (736386683) Bariatric surgery status (Z98.84) 2017 Active confirmed Type: Diagnosis; Confidentiality Level: 1; Plan Of Treatment No Information Insurance Providers Payer Name Payer Address Payer Phone Subscriber Number Group Number Insured Name Patient Relationship to Insured Coverage Start Date Coverage End Date International Medical Card [address] [place], [place] [address] [id number] Tres Wu Self - patient is the insured 7
== END 2024-10-24 12:29 | disposition home or self-care (01) ==
LOC: HO.HKA 12:11
PROVIDERS: Visit Provider Internal Medicine Hypertension Specialist
DX: R80.9 Proteinuria, unspecified (principal); N17.9 Acute kidney failure, unspecified; N18.9 Chronic kidney disease, unspecified
CPT/HCPCS: 99214

== ENCOUNTER → 2024-10-24 12:09 | Outpatient (BNVA) | payer OTHER, SELFPAY | PROVIDERS: Visit Provider Internal Medicine Hypertension Specialist | DX: N18.9 Chronic kidney disease, unspecified (principal); R80.9 Proteinuria, unspecified; N17.9 Acute kidney failure, unspecified | CPT/HCPCS: 99212 ==

== ENCOUNTER 2024-11-03 08:35 | Outpatient (REF) | payer OTHER, SELFPAY ==
--- OUTSIDE RECORDS SUMMARY | 2023-07-31 05:00 | XMS_ITS ---
Author Organization [facility] Address [address] [place] [address] Care Team Providers Care Cake Icer Name Role Phone Trent Schwartz Unavailable Unavailabl e Migration, Provider Unavailable Unavailable REASON FOR VISIT EMR-Dustin Encounters Encounter Location Date Provider Diagnosis [facility] [address] [place] [address] 07/31/2023 Provider Migration Plan Of Treatment Medication Medication Name Sig Start Date Stop Date Notes Vitamin D3 1.25 MG (80079 UT) Capsule cholecalciferol (vitamin D3) Dispense: 5 TABs - 1 Tablet by Orally route every week Refill: 2 Oral Use as directed 01/07/2018 02/15/2019 Discontinued Notes: Medication Renewed Progress Notes * Tres DREWDOB:1965 (58 yo F)Acc No.[id number]:07/31/2023 Patient: Tres KELLEY :1965 A ge:57 Y S ex:Female Address:[address], [place], [address] * Refills Stop Vitamin D3 Capsule, 1.25 MG (47763 UT), Oral, 5, cholecalciferol (vitamin D3) Dispense: 5 TABs - 1 Tablet by Orally route every week Refill: 2, Use as directed Subjective: * Chief Complaints: * E MR-Dustin * * Date:
--- OUTSIDE RECORDS SUMMARY | 2023-08-01 05:00 | XMS_ITS ---
Author Organization [facility] Address [address] [place] [address] Care Team Providers Care Second Baller Name Role Phone Trent Schwartz Unavailable Unavailabl e Migration, Provider Unavailable Unavailable REASON FOR VISIT E[facility] Medications Medication SIG (Take, Route, Frequency, Duration) Notes Start Date End Date Status Iron 325 (65 Fe) MG Tablet Iron (ferrous sulfate) Dispense: 60 TAB - take 1 tablet (325 mg) by oral route 2 times per day Refill: 3 Oral Use as directed 02/15/2019 Active PX Acid Assistant Office Manager Max St 150 MG Tablet raNITIdine HCl Dispense: 30 TABs - take 1 tablet (150 mg) by oral route once daily at bedtime Refill: 2 Oral Use as directed *Reorder from [employer] for eRx and Interaction Alerts* 10/27/2018 Active [...] directed 01/07/2018 Active Vitamin D3 1.25 MG (66094 UT) Capsule cholecalciferol (vitamin D3) Dispense: 5 TABs - 1 Tablet by Orally route every week Refill: 3 Oral Use as directed 02/15/2019 Active Encounters Encounter Location Date Provider Diagnosis [facility] [address] [place] [address] 08/01/2023 Provider Migration Plan Of Treatment No Information Progress Notes * TROY BECERRATresDOB:1965 (58 yo F)Acc No.[id number]:08/01/2023 Patient: Tres KELLEY :1965 A ge:57 Y S ex:Female Address[address], [place], [address] Subjective: * Chief Complaints: * E MR-Dustin * Medications: T akingPX Acid Assistant Office Manager Max St 150 MG Tablet raNITIdine HCl Dispense: 30 TABs - take 1 tablet (150 mg) by oral route once daily at bedtime Refill: 2 Oral Use as directed , Notes to Pharmacist: *Reorder from [facility] for eRx and Interaction Alerts*Cyanocobalamin 1000 MCG/ML [...] Use as directed Vitamin D3 1.25 MG (62977 UT) Capsule cholecalciferol (vitamin D3) Dispense: 5 TABs - 1 Tablet by Orally route every week Refill: 3 Oral Use as directed Taking PX Acid Assistant Office Manager Max St 150 MG Tablet raNITIdine HCl Dispense: 30 TABs - take 1 tablet (150 mg) by oral route once daily at bedtime Refill: 2 Oral Use as directed , Notes to Pharmacist: *Reorder from [facility] for eRx and Interaction Alerts*Taking Cyanocobalamin 1000 [...] as directed Taking Vitamin D3 1.25 MG (07832 UT) Capsule cholecalciferol (vitamin D3) Dispense: 5 TABs - 1 Tablet by Orally route every week Refill: 3 Oral Use as directed * * Date:
--- OUTSIDE RECORDS SUMMARY | 2024-11-03 09:32 | XMS_ITS | Encounter Summary ---
Author Organization [facility] Address [address] [place] [address] Care Team Providers Care Seafood Fisherman Name Role Phone Veronique Kelly MD Primary Care Provider Aric peralta Encounter Details Date Type Department Care Team Description 02/06/2022 Hospital Medical Records [address] [place] [address] Sherron Holden MD [address] [place] [address] [address] [place] [address] Social History Tobacco Use Types Packs/Day Years [...] suspected to have Coronavirus/COVID-19? No / Unsure 01/19/2022 1:36 PM EST documented as of this encounter Plan of Treatment Not on file documented as of this encounter Visit Diagnoses Not on filedocumented in this encounter Care Teams Seafood Fisherman Relationship Specialty Start Date End Date Veronique Kelly MD PCP - General Family Practice 08/26/21 documented as of this encounter
--- OUTSIDE RECORDS SUMMARY | 2024-11-03 09:32 | XMS_ITS | Patient Health Record ---
Author Organization [facility] Address Amari foreman [address] [place] [address] Care Team Providers Care Sales And Service Technician Name Role Phone Mcintosh MauraTrent Unavailable Unavailabl e Reason For Referral No Information Medications Medication SIG (Take, Route, Frequency, Duration) Notes Start Date End Date Status Iron 325 (65 Fe) MG Tablet Iron (ferrous sulfate) Dispense: 60 TAB - take 1 tablet (325 mg) by oral route 2 times per day Refill: 3 Oral Use as directed 02/15/2019 Active PX Acid Outcomes Specialist Max St 150 MG Tablet raNITIdine HCl Dispense: 30 TABs - take 1 tablet (150 mg) by oral route once daily at bedtime Refill: 2 Oral Use as directed *Reorder from [employer] for eRx and Interaction Alerts* 10/27/2018 Active [...] directed 01/07/2018 Active Vitamin D3 1.25 MG (50223 UT) Capsule cholecalciferol (vitamin D3) Dispense: 5 TABs - 1 Tablet by Orally route every week Refill: 3 Oral Use as directed 02/15/2019 Active Problems Problem Type SNOMED Code ICD Code Onset Dates Problem Status W/U Status Risk Notes Problem Morbid obesity (060426303) Morbid obesity (278.01) 2013 Active confirmed Type: Diagnosis; Confidentiality Level: 1; Problem Viral infection (80937222) Viral infection, unspecified (B34.9) 2015 Active confirmed Type: Diagnosis; Confidentiality Level: 1; Problem Iron deficiency anemia (62608888) Iron deficiency anemia, unspecified (D50.9) 2017 Active confirmed Type: Diagnosis; Confidentiality Level: 1; Problem Vitamin B12 deficiency anemia due to dietary causes (000901812) Other dietary vitamin B12 deficiency anemia (D51.3) 2017 Active confirmed Type: Diagnosis; Confidentiality Level: 1; Problem Dietary folate deficiency anemia (78408180) Dietary folate deficiency anemia (D52.0) 2018 Active confirmed Type: Diagnosis; Confidentiality Level: 1; Problem Hyperglycemia due to type 2 diabetes mellitus (346599522028100) Type 2 diabetes mellitus with hyperglycemia (E11.65) 2017 Active confirmed Type: Diagnosis; Confidentiality Level: 1; Problem Vitamin D deficiency (52983427) Vitamin D deficiency, unspecified (E55.9) 2017 Active confirmed Type: Diagnosis; Confidentiality Level: 1; Problem Partial loss of teeth due to caries, class II (K08.432) 2018 Active confirmed Type: Diagnosis; Confidentiality Level: 1; Problem Gastro-esophageal reflux disease without esophagitis (611972759) Gastro-esophag eal reflux disease without esophagitis (K21.9) 2018 Active confirmed Type: Diagnosis; Confidentiality Level: 1; Problem Post-surgical malabsorption (disorder) (835561692) Postsurgical malabsorption, not elsewhere classified (K91.2) 2017 Active confirmed Type: Diagnosis; Confidentiality Level: 1; Problem Pain of right shoulder region (finding) (9162362670) Pain in right shoulder (M25.511) 2018 Active confirmed Type: Diagnosis; Confidentiality Level: 1; Problem Impaired fasting glucose (009236458) Impaired fasting glucose (R73.01) 2017 Active confirmed Type: Diagnosis; Confidentiality Level: 1; Problem Abnormal findings on microbiological examination of urine (288009709) Unspecified abnormal findings in urine (R82.90) 2017 Active confirmed Type: Diagnosis; Confidentiality Level: 1; Problem Endocrine finding (232294874) Abnormal results of other endocrine function studies (R94.7) 2018 Active confirmed Type: Diagnosis; Confidentiality Level: 1; Problem Adult health examination (998534993) Encounter for general adult medical examination without abnormal findings (Z00.00) 2017 Active confirmed Type: Diagnosis; Confidentiality Level: 1; Problem Annual wellness visit (042915826658804) Encounter for other general examination (Z00.8) 2016 Active confirmed Type: Diagnosis; Confidentiality Level: 1; Problem Screening for malignant neoplasm of colon (350594649) Encounter for screening for malignant neoplasm of colon (Z12.11) 2017 Active confirmed Type: Diagnosis; Confidentiality Level: 1; Problem Screening for malignant neoplasm of breast (990175421) Encounter for screening mammogram for malignant neoplasm of breast (Z12.31) 2017 Active confirmed Type: Diagnosis; Confidentiality Level: 1; Problem Screening for malignant neoplasm of cervix (717979267) Encounter for screening for malignant neoplasm of cervix (Z12.4) 2017 Active confirmed Type: Diagnosis; Confidentiality Level: 1; Problem Diabetes mellitus screening (075044047) Encounter for screening for diabetes mellitus (Z13.1) 2017 Active confirmed Type: Diagnosis; Confidentiality Level: 1; Problem Lipid screening (994535377) Encounter for screening for lipoid disorders (Z13.220) 2017 Active confirmed Type: Diagnosis; Confidentiality Level: 1; Problem Endocrine/metabol ic screening (415905824) Encounter for screening for other suspected endocrine disorder (Z13.29) 2017 Active confirmed Type: Diagnosis; Confidentiality Level: 1; Problem History of bariatric surgical procedure (620222603) Bariatric surgery status (Z98.84) 2017 Active confirmed Type: Diagnosis; Confidentiality Level: 1; Plan Of Treatment No Information Insurance Providers Payer Name Payer Address Payer Phone Subscriber Number Group Number Insured Name Patient Relationship to Insured Coverage Start Date Coverage End Date International Medical Card [address] [place], [place] [address] [id number] Tres Wu Self - patient is the insured 7
--- OUTSIDE RECORDS SUMMARY | 2024-11-03 09:32 | XMS_ITS | Encounter Summary ---
Author Organization [facility] Address [address] [place] [address] Care Team Providers Care Wildlife Ecology Professor Name Role Phone Veronique Kelly MD Primary Care Provider Aric peralta Encounter Details Date Type Department Care Team Description 02/10/2022 Orders Only Medical Records [address] [place] [address] Sherron Holden MD [address] [place] [address] [place] [address] Social History Tobacco Use Types Packs/Day Years [...] on file documented as of this encounter Procedures Procedure Name Priority Date/Time Associated Diagnosis Comments OUTSIDE PATHOLOGY Routine 02/06/2022 documented in this encounter Results * OUTSIDE PATHOLOGY (02/06/2022) Sherron Holden MD OUTSIDE LAB documented in this encounter Visit Diagnoses Not on filedocumented in this encounter Care Teams Wildlife Ecology Professor Relationship Specialty Start Date End Date Veronique Kelly MD PCP - General Family Practice 08/26/21 documented as of this encounter
--- OUTSIDE RECORDS SUMMARY | 2024-11-03 09:32 | XMS_ITS | Encounter Summary ---
Author Organization Formerly [facility] Address [address] [place] [address] Care Team Providers Care Digital Marketing Assistant Name Role Phone Veronique Kelly MD Primary Care Provider Aric peralta Encounter Details Date Type Department Care Team Description 11/25/2021 Material Requirements Planning Manager Report Medical Records [address] [place] [address] Adarsh Gonzales MD Social History Tobacco Use Types Packs/Day Years [...] suspected to have Coronavirus/COVID-19? No / Unsure 11/18/2021 9:51 AM EDT documented as of this encounter Plan of Treatment Not on file documented as of this encounter Visit Diagnoses Not on filedocumented in this encounter Care Teams Digital Marketing Assistant Relationship Specialty Start Date End Date Veronique Kelly MD PCP - General Family Practice 08/26/21 documented as of this encounter
--- OUTSIDE RECORDS SUMMARY | 2024-11-03 09:32 | XMS_ITS | Encounter Summary ---
Author Organization [facility] Address [address] [place] [address] Care Team Providers Care Spray Gun Operator Name Role Phone Veronique Kelly MD Primary Care Provider Aric peralta Reason for Visit * Reason Comments E-prescribe Rx Request Encounter Details Date Type Department Care Team Description 02/07/[facility] [address] [place] [address] Sherron Holden MD [address] [place] [address] [address] [place] [address] E-prescribe Rx Request Social History Tobacco Use Types Packs/Day Years [...] documented as of this encounter Visit Diagnoses Diagnosis 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
--- OUTSIDE RECORDS SUMMARY | 2024-11-03 09:32 | XMS_ITS | Encounter Summary ---
Author Organization [facility] Address [address] [place] [address] Care Team Providers Care Laboratory Aide Name Role Phone Veronique Kelly MD Primary Care Provider Aric peralta Encounter Details Date Type Department Care Team Description 01/15/2023 Orders Only Medicine/Pediatrics - [address] [phone] Jimmy Bello PA-C [address] [place] [address] Impaired fasting glucose (Primary Dx) Social History Tobacco Use Types Packs/Day Years [...] suspected to have Coronavirus/COVID-19? No / Unsure 01/14/2023 9:46 AM EST documented as of this encounter Plan of Treatment Scheduled Orders Name Type Priority Associated Diagnoses Orde r Schedule CHG BASIC METABOLIC PANEL CALCIUM TOTAL Lab Routine Impaired fasting glucose Expected: 01/15/2023, Expires: 01/15/2024 documented as of this encounter Results * (ABNORMAL) HEMOGLOBIN A1C (02/25/2023 4:00 PM EST) GLYCATED HEMOGLOBIN A1C 7.4(H) <6.5 % 02/25/2023 7:25 PM EST [facility] ESTIMATED AVERAGE GLUCOSE 166 mg/dL 02/25/2023 7:25 PM EST [facility] 02/25/2023 4:00 PM EST 02/25/2023 4:00 PM EST Narrative [facility] - 02/25/2023 7:25 PM EST Release to patient->Immediate Jimmy Bello PA-C LAB [facility] documented in this encounter Visit Diagnoses Diagnosis Impaired fasting glucose- Primary Primary hypertension Unspecified essential hypertension Impaired fasting glucose documented in this encounter Care Teams Laboratory Aide Relationship Specialty Start Date End Date Veronique Kelly MD PCP - General Family Practice 08/26/21 documented as of this encounter
--- OUTSIDE RECORDS SUMMARY | 2024-11-03 09:33 | XMS_ITS | Encounter Summary ---
Author Organization [facility] Address [address] [place] [address] Care Team Providers Care Circular Tank Cooper Name Role Phone Veronique Kelly MD Primary Care Provider Aric peralta Reason for Referral * Non MARTI (Routine) - Authorized/Booked Specialty Diagnoses / Procedures Referred By Rukhsana ac Referred To Contact General Surgery Procedures REFERRAL TO GENERAL SURGERY (IN NETWORK) Elle Joseph PA-C [address] [place] [address] Gen Surg/[place] [address] [facility] [address] [place] [phone] Referral ID Status Reason Start Date Expiration Date V isits Requested Visits Authorized [id number] Authorized/B ooked 09/05/2021 1 1 Encounter Details Date Type Department Care Team Description 09/05/2021 Telephone Adult Medicine - [place] [address] [place] [address] Elle Joseph PA-C Social History Tobacco Use Types Packs/Day Years [...] suspected to have Coronavirus/COVID-19? No / Unsure 09/04/2021 12:57 PM EDT documented as of this encounter Miscellaneous Notes * Telephone Encounter - Meagan Navas M.A. - 09/05/2021 9:17 AM EDT Spoke to patient and message was given below. * Telephone Encounter - Elle Joseph PA-C - 09/05/2021 9:06 AM EDT Please let her know I will place a referral to the [facility] surgery department and they will contact you for an appointment. * Telephone Encounter - Ashanti Nicholson M.A. - 09/05/2021 8:59 AM EDT Spoke to pt re: msg below. Pt does want to follow up with a surgeon and is unsure of whether she needs a referral and if you can recommend anyone for her to see due to her being new to this area * Telephone Encounter - Ashanti Nicholson M.A. - 09/05/2021 8:59 AM EDT ----- Message from Elle Joseph PA-C sent at 09/04/2021 7:17 PM EDT ----- Please let the patient know that there was a very tiny area of opening in the abdominal wall on CT which is 0.3 x 0.7 cm. I am not clear that this is significant enough to need repair but does she still prefer to have follow-up to a surgeon to evaluate further? documented in this encounter Plan of Treatment Not on file documented as of this encounter Visit Diagnoses Not on filedocumented in this encounter Care Teams Circular Tank Cooper Relationship Specialty Start Date End Date Veronique Kelly MD PCP - General Family Practice 08/26/21 documented as of this encounter
--- OUTSIDE RECORDS SUMMARY | 2024-11-03 09:33 | XMS_ITS | Encounter Summary ---
Author Organization [facility] Address [address] [place] [address] Care Team Providers Care Undercoat Sprayer Name Role Phone Veronique Kelly MD Primary Care Provider Aric peralta Encounter Details Date Type Department Care Team Description 02/04/2023 Collaborative Care Management Adult Medicine [address] [address] Veronique Kelly MD Social History Tobacco Use Types Packs/Day [...] on filedocumented in this encounter Care Teams Undercoat Sprayer Relationship Specialty Start Date End Date Veronique Kelly MD PCP - General Family Practice 08/26/21 documented as of this encounter
--- OUTSIDE RECORDS SUMMARY | 2024-11-03 09:33 | XMS_ITS | Encounter Summary ---
Author Organization [facility] Address [address] [place] [address] Care Team Providers Care Hotbed Lever Operator Name Role Phone Veronique Kelly MD Primary Care Provider Aric peralta Reason for Visit * Reason Comments E-prescribe Rx Request Encounter Details Date Type Department Care Team Description 11/20/2022 Refill Medicine/Pediatrics - [place] [address] [place] [address] Jimmy Bello PA-C [address] [place] [address] E-prescribe Rx Request Social History Tobacco Use [...] suspected to have Coronavirus/COVID-19? No / Unsure 10/22/2022 10:33 AM EDT documented as of this encounter Miscellaneous Notes * Telephone Encounter - Veronique Kelly MD - 11/23/2022 1:12 PM EDT 3-month supply sent 1 month ago * Telephone Encounter - Pastora Pearce M.A. - 11/23/2022 8:37 AM EDT Consuelo 10/23/22 pended 2/20/24 Lab Results Component Value Date NA 137 10/23/2022 K 4.6 10/23/2022 CO2 24 10/23/2022 CL 108 10/23/2022 BUN 17 10/23/2022 CREAT 0.88 10/23/2022 GLU 134 10/23/2022 CA 9.0 10/23/2022 GFR 77 10/23/2022 * Telephone Encounter - Elle Segal - 11/23/2022 8:32 AM EDT Patient would like script to be: E-PRESCRIBED/FAXED TO PHARMACY WHEN WAS THE PATIENT'S LAST APPOINTMENT IN ADULT MEDICINE? 10/23/22 WHEN WAS THE LAST TIME THE PATIENT SAW THEIR PCP? N/a Does patient have an upcoming appointment? Yes 04/27/23 (THE MEDICATION REQUESTED IS ON THE MED LIST ABOVE) All of the medications requested were on the CURRENT MEDS list Did you check the Pharmacy information above?: YES Patient wants: 90 -day supply Is this a mail order prescription request ? NO If the refill is from a FAXED refill request what is the RX # listed on the fax? N/A Patients current insurance carrier is: Payor: [employer] / Plan: PPO $25 [place] / Product Type: PPO [id number] documented in this encounter Plan of Treatment Not on file documented as of this encounter Visit Diagnoses Not on filedocumented in this encounter Care Teams Hotbed Lever Operator Relationship Specialty Start Date End Date Veronique Kelly MD PCP - General Family Practice 08/26/21 documented as of this encounter
--- OUTSIDE RECORDS SUMMARY | 2024-11-03 09:33 | XMS_ITS | Encounter Summary ---
Author Organization [facility] Address [address] [place] [address] Care Team Providers Care Woolen Tester Name Role Phone Veronique Kelly MD Primary Care Provider Aric peralta Encounter Details Date Type Department Care Team Description 03/03/2022 Hospital Medical Records [address] [place] [address] Yoanna Donohue MD [address] [place] [address] Uro[address] [place], [place] [phone] Social History Tobacco Use Types Packs/Day Years [...] suspected to have Coronavirus/COVID-19? No / Unsure 02/23/2022 11:01 AM EST documented as of this encounter Plan of Treatment Not on file documented as of this encounter Visit Diagnoses Not on filedocumented in this encounter Care Teams Woolen Tester Relationship Specialty Start Date End Date Veronique Kelly MD PCP - General Family Practice 08/26/21 documented as of this encounter
--- OUTSIDE RECORDS SUMMARY | 2024-11-03 09:33 | XMS_ITS | Clinical Summary ---
Author Organization [facility] Address [address] [place] [address] Phone Care Team Providers Care Dry Cleaner Name Role Phone Yannick Lilian Primary Care [...] complication associated with type 2 diabetes mellitus ([facility] V24, CMS/HCC V28) Take 1 capsule (100 [...] (BMI) of 30.0 to 30.9 in adult INJECT 0.5 ML (10 MG TOTAL) UNDER THE SKIN EVERY 7 (SEVEN) DAYS. 2 mL 2 10/26/19 25 025 Active tirzepatide (Mounjaro) 10 mg/0.5 mL injectionIndicat ions:Class 1 obesity due to excess calories with serious comorbidity and body mass index (BMI) of 30.0 to 30.9 in adult Inject 0.5 mL (10 mg total) under the skin every 7 (seven) days. 2 mL 09/13/19 25 025 Discontinued Active Problems Problem Noted Date Diagnosed Date DM (diabetes mellitus) ([facility] V24, [facility] V28 ) 02/26/2023 Obesity (BMI 30.0-34.9) 02/24/2023 Anxiety 08/19/2021 Depression 08/19/2021 HTN (hypertension) 08/19/2021 Iron deficiency anemia 08/19/2021 Lung nodule 08/19/2021 Encounters Date Type Department Care Team Description 09/10/2024 Telephone Bariatric Surgery - [place] [address] [facility] [address] [place] [address] Sherron Holden MD 08/18/2024 4:00 PM EDT Office Visit Internal Medicine - [address] [phone] Jennifer Pittman NP Adult general medical examination (Primary Dx); Acute renal failure, unspecified acute renal failure type ([facility] V24); Primary hypertension; Type 2 diabetes mellitus without complication, without long-term current use of insulin (CMS/HCC V24, CMS/HCC V28); Iron deficiency anemia, unspecified iron deficiency [...] Date Site/Laterality Comments GASTRIC BYPASS 2010 PROCEDURE: [place] GASTRIC RSTCV W/BYP W/SM INT RCNSTJ LIMIT ABSRPJ; COMMENT: in [place] PARTIAL HYSTERECTOMY PROCEDURE: [place] SUPRACERVICAL ABDL HYSTER W/WO RMVL TUBE OVARY KNEE ARTHROSCOPY W/ DEBRIDEMENT Right PROCEDURE: [place] ARTHRS KNEE DEBRIDEMENT/SHAVING ARTCLR CRTLG HERNIA REPAIR PROCEDURE: [place] REPAIR FIRST ABDOMINAL WALL HERNIA; COMMENT: supraumbilical mesh hernia repair OTHER SURGICAL HISTORY PROCEDURE: [place] RPR RECRT INCAL/VNT HERNIA REDUCIBLE BLADDER SURGERY [...] PM EDT Office Visit Bariatric Surgery - [address] [place] [address] Sherron Holden MD [address] [place] [phone] Health Maintenance Due Date Last Done Comments [...] complication, without long-term current use of insulin ([facility] V24, [facility] V28) COMPREHENSIVE METABOLIC PANEL Routine 07/20/2024 2:44 PM EDT Diarrhea, unspecified type HEMOGLOBIN A1C Routine 07/20/2024 2:44 PM EDT Type 2 diabetes mellitus without complication, without long-term current use of insulin ([facility] V24, [facility] V28) HIV 1, 2 ANTIBODY, P24 [...] LAB CHEMISTRY METHOD 07/21/2024 12:20 PM EDT [facility] Mean Bld Glu Estim. 148 mg/dL LAB CHEMISTRY METHOD 07/21/2024 12:20 PM EDT [facility] Blood Venous blood specimen / Unknown Venipuncture / Unknown 07/20/2024 2:44 PM EDT 07/20/2024 2:44 PM EDT us Jennifer Pittman NP LAB BLOOD ORDERABLES Final Resul t [facility] [address] [place] [address], [place] [phone] * (ABNORMAL) Comprehensive metabolic panel (07/20/2024 2:44 PM EDT) Sodium 138 133 - 145 mmol/L LAB CHEMISTRY METHOD 07/21/2024 10:14 AM [facility] Potassium 5.5 3.5 - 5.5 mmol/L LAB CHEMISTRY METHOD 07/21/2024 10:14 AM [facility] Chloride 106 96 - 110 mmol/L LAB CHEMISTRY METHOD 07/21/2024 10:14 AM [facility] CO2 27 21 - 32 mmol/L LAB CHEMISTRY METHOD 07/21/2024 10:14 AM [facility] Anion Gap 5 3 - 11 LAB CHEMISTRY METHOD 07/21/2024 10:14 AM [facility] Glucose 98 70 - 100 mg/dL LAB CHEMISTRY METHOD 07/21/2024 10:14 AM [facility] BUN 27(H) 5 - 25 mg/dL LAB CHEMISTRY METHOD 07/21/2024 10:14 AM [facility] Creatinine 1.77(H) 0.50 - 1.10 mg/dL LAB CHEMISTRY METHOD 07/21/2024 10:14 AM [facility] Comment:Results verified by repeat testing eGFR 33(L) >=60 mL/min/1. 73m2 LAB CHEMISTRY METHOD 07/21/2024 10:14 AM [facility] Comment:Calculation based on the Chronic Kidney Disease Epidemiology Collaboration (CKD-EPI) equation refit without adjustment for race. BUN/Creatinine Ratio 15.3 LAB CHEMISTRY METHOD 07/21/2024 10:14 AM [facility] Calcium 8.6 8.5 - 10.5 mg/dL LAB CHEMISTRY METHOD 07/21/2024 10:14 AM [facility] AST (SGOT) 43(H) 10 - 42 unit/L LAB CHEMISTRY METHOD 07/21/2024 10:14 AM [facility] Comment:Results verified by repeat testing ALT (SGPT) 62(H) 10 - 60 unit/L LAB CHEMISTRY METHOD 07/21/2024 10:14 AM [facility] Comment:Results verified by repeat testing Alkaline Phosphatase 96 42 - 121 unit/L LAB CHEMISTRY METHOD 07/21/2024 10:14 AM [facility] Total Protein 6.5 6.0 - 8.0 g/dL LAB CHEMISTRY METHOD 07/21/2024 10:14 AM [facility] Albumin 3.5 3.2 - 5.0 g/dL LAB CHEMISTRY METHOD 07/21/2024 10:14 AM [facility] Total Bilirubin 0.5 0.0 - 1.4 mg/dL LAB CHEMISTRY METHOD 07/21/2024 10:14 AM [facility] Blood Venous blood specimen / Unknown Venipuncture / Unknown 07/20/2024 2:44 PM EDT 07/20/2024 2:44 PM EDT us Darrel Santiago PULL OUT OPERATOR LAB BLOOD ORDERABLES Final Res ult [facility] [address] [place] [address], * HIV 1,2 antibody, p24 antigen with reflex to differentiation (05/25/2024 9:42 AM EDT) HIV Combo AB/AG Negative Negative LAB CHEMISTRY METHOD 05/25/2024 3:54 PM EDT [facility] Blood Venous blood specimen / Unknown Venipuncture / Unknown 05/25/2024 9:42 AM EDT 05/25/2024 9:42 AM EDT Narrative [facility] - 05/25/2024 3:54 PM EDT [...] NP LAB BLOOD ORDERABLES Final Resul t [facility] [address] [place] [address], [place] [phone] * (ABNORMAL) Lipid panel with reflex to direct LDL (05/25/2024 9:42 AM EDT) Cholesterol 174 0 - 200 mg/dL LAB CHEMISTRY METHOD 05/25/2024 3:08 PM EDT [facility] Triglycerides 195(H) 0 - 150 mg/dL LAB CHEMISTRY METHOD 05/25/2024 3:08 PM T [facility] HDL 50 >=40 mg/dL LAB CHEMISTRY METHOD 05/25/2024 3:08 PM [facility] LDL Calculated 85 0 - 100 mg/dL LAB CHEMISTRY METHOD 05/25/2024 3:08 PM EDT [facility] VLDL Cholesterol Dilshad 39 mg/dL LAB CHEMISTRY METHOD 05/25/2024 3:08 PM EDT [facility] Non HDL Chol. (LDL+VLDL) 124 <145 mg/dL LAB CHEMISTRY METHOD 05/25/2024 3:08 PM EDT [facility] Chol/HDL Ratio 3.5 0.0 - 4.4 LAB CHEMISTRY METHOD 05/25/2024 3:08 PM [facility] Blood Venous blood specimen / Unknown Venipuncture / Unknown 05/25/2024 9:42 AM EDT 05/25/2024 9:42 AM EDT Jennifer Pittman PULL OUT OPERATOR LAB BLOOD ORDERABLES Final Resul t [facility] [address] [place] [address], * Colonoscopy (11/16/2023) Pathologist [facility] Colonoscopy no interpretation , abstracted Anatomical Region Laterality Modality Other Historical Provider MD HEALTH MAINTENANCE Final Result * Diabetes Foot Exam (10/27/2023) Pathologist [facility] Diabetes: Annual Foot Exam abstracted Historical Provider MD HEALTH MAINTENANCE Final Result * Urine Albumin Creatinine Ratio (09/30/2023) Pathologist [facility] Urine Albumin Creatinine Ratio abstracted Historical Provider MD HEALTH MAINTENANCE Final Result * Depression Screening (07/01/2023) Pathologist [facility] Depression Screening abstracted Historical Provider MD HEALTH MAINTENANCE Final Result from Last 3 Months or Most Recently Relevant to Health Maintenance [place] [address] [place] [address] [employer] Care Teams Dry Cleaner Relationship Specialty Start Date End Date Lilian Lanier DO [address] [place] [address] (work) PCP - General Internal Medicine 03/17/24
--- OUTSIDE RECORDS SUMMARY | 2024-11-03 09:33 | XMS_ITS | Encounter Summary ---
Author Organization [facility] Address [address] [place] [address] Care Team Providers Care Tour Guide Name Role Phone Veronique Kelly MD Primary Care Provider Aric peralta Reason for Visit * Reason Onset Date Comments Medication 11/02/2023 Encounter Details Date Type Department Care Team Description 11/02/2023 Refill Gastroenterology - [place] [address] [facility] [address] [place] [address] Dillon Yung DO [address] [facility] [address] [facility] [address] Medication Social History Tobacco Use Types Packs/Day Years Used Date Smoking Tobacco: Former Cigarettes 0.3 0.5 Smokeless Tobacco: Never Alcohol Use Standard Drinks/Week Comments Never 0 (1 standard drink = 0.6 oz pur e alcohol) Sex Assigned at Date Recorded Not on file Job Start Date Occupation Industry Not on file Not on file Not on file documented as of this encounter Plan of Treatment Not on file documented as of this encounter Visit Diagnoses Not on filedocumented in this encounter Care Teams Tour Guide Relationship Specialty Start Date End Date Veronique Kelly MD PCP - General Family Practice 08/26/21 documented as of this encounter
--- OUTSIDE RECORDS SUMMARY | 2024-11-03 09:33 | XMS_ITS | Encounter Summary ---
Author Organization [facility] Address [address] [place] [address] Care Team Providers Care Carbonating Stone Cleaner Name Role Phone Veronique Kelly MD Primary Care Provider Aric peralta Reason for Visit * Reason Onset Date Comments medication problems 07/02/2023 Encounter Details Date Type Department Care Team Description 07/02/2023 Telephone Medicine/Pediatrics - [place] [address] [place] [address] Veronique Kelly MD medication problems Social History Tobacco Use Types Packs/Day Years Used Date Smoking Tobacco: Former Cigarettes 0.3 0.5 Smokeless Tobacco: Never Alcohol Use Standard Drinks/Week Comments Never 0 (1 standard drink = 0.6 oz pur e alcohol) Sex Assigned at Date Recorded Not on file Job Start Date Occupation Industry Not on file Not on file Not on file documented as of this encounter Miscellaneous Notes * Telephone Encounter - Susu Preston M.A. - 07/05/2023 2:49 PM EDT Called pt and advised her to call insurance company to find out which glucometer is covered. Pt will call back when she finds out * Telephone Encounter - Jimmy Bello PA-C - 07/02/2023 11:22 AM EDT Can we see about preferred alternative? * Telephone Encounter - Jojo Kate R.N. - 07/02/2023 11:08 AM EDT See by John yesterday Please resend * Telephone Encounter - Meagan Houston - 07/02/2023 10:21 AM EDT Who is calling? Fax from [facility] Name of the medication Blood Glucose Monitoring Suppl (ONE TOUCH ULTRA SYSTEM KIT) w/Device Kit What is the specific problem or interaction? Alternative Requested: Nonformulary If the patient is having a problem with taking the med - how long has the problem been going on? N/A documented in this encounter Plan of Treatment Not on file documented as of this encounter Visit Diagnoses Not on filedocumented in this encounter Care Teams Carbonating Stone Cleaner Relationship Specialty Start Date End Date Veronique Kelly MD PCP - General Family Practice 08/26/21 documented as of this encounter
--- OUTSIDE RECORDS SUMMARY | 2024-11-03 09:33 | XMS_ITS | Encounter Summary ---
Author Organization [facility] Address [address] [place] [address] Care Team Providers Care In Home Sales Consultant Name Role Phone Veronique Kelly MD Primary Care Provider Aric peralta Reason for Visit * Reason Onset Date Comments refill request 08/23/2023 Encounter Details Date Type Department Care Team Description 08/23/2023 Telephone Bariatric Surgery - [address] [place] [address] Sherron Holden MD [address] [place] [address] [address] [place] [address] refill request Social History Tobacco Use Types Packs/Day Years [...] encounter Miscellaneous Notes * Telephone Encounter - Jaylyn Clements - 08/23/2023 5:59 PM EDT Patient doing well on Trulicity 0.75 mgs - please send new script with titration up to her pharmacy. Her last A1C was 7.4 in February 2023. She has not gone for her follow up labs (A1C) ordered by herP in June. She does have a follow up scheduled with you in November 2023. documented in this encounter Plan of Treatment Not on file documented as of this encounter Visit Diagnoses Not on filedocumented in this encounter Care Teams In Home Sales Consultant Relationship Specialty Start Date End Date Veronique Kelly MD PCP - General Family Practice 08/26/21 documented as of this encounter
--- OUTSIDE RECORDS SUMMARY | 2024-11-03 09:33 | XMS_ITS | Clinical Summary ---
Author Organization Formerly [facility] Address [address] [place] [address] Care Team Providers Care Anesthesia Attending Name Role Phone Veronique Kelly MD Primary Care Provider Kellyvamarcelo lable Allergies No known active allergies Medications Medication Sig Dispensed Refills Start Date End Date Status Ferrous Sulfate (Iron) 325 (65 Fe) MG Tab Take 1 Tablet by mouth daily. Take by mouth daily. 90 Tablet 0 10/23/2022 Active Vitamin D, Cholecalciferol, 50 MCG (2000 UT) Cap Take 1 Capsule by mouth daily. 90 Capsule 1 10/23/2022 Active Albuterol Sulfate 108 (90 Base) MCG/ACT AEROSOL POWDER,BREATH ACTIVATED Inhale into the lungs. 0 Active Blood Glucose Monitoring Suppl (ONE TOUCH ULTRA SYSTEM KIT) w/Device Kit For checking fasting sugar in morning 1 Kit 0 07/01/2023 Active losartan (COZAAR) 100 MG tabletIndications:P rimary hypertension Take 1 Tablet by mouth daily. 90 Tablet 1 07/12/2023 Active metformin (GLUCOPHAGE) 500 MG tablet TOME KELLY TABLETA DOS VECES AL SHMUEL CON ALIMENTO 180 Tablet 1 09/13/2023 Active BUPROPION HCL OR Take by mouth. 0 Acti ve gabapentin (NEURONTIN) 100 MG capsule Take one tablet by mouth nightly. 30 Capsule 2 10/27/2023 Active bisacodyl (Dulcolax) 5 MG EC tablet Take 2 tabs by mouth right before beginning bowel prep. Follow instructions given by office for timing. 2 Tablet 0 11/02/2023 Active polyethylene glycol (GoLYTELY) 236 g suspension Take 240 mL by mouth once for 1 dose. Take 4L by mouth once for one dose. May substitue any PEG. Starting at 6PM the night before your procedure drink 1 8oz glasses at your own pace until rectals run clear. 4000 mL 0 11/02/2023 Active Active Problems Problem Noted Date DM (diabetes mellitus) 02/26/2023 Obesity (BMI 30.0-34.9) 02/24/2023 HTN (hypertension) 08/19/2021 Depression 08/19/2021 History of bariatric surgery 08/19/2021 Anxiety 08/19/2021 Iron deficiency anemia 08/19/2021 Lung nodule 08/19/2021 Immunizations Name Administration Dates Next Due COVID-19 (Moderna) PT Reported 12/28/2020,2020,04/22/2020 PREVNAR 20 10/27/2023 Tdap 10/27/2023 Family History Medical History Relation Name Comments CA Breast Aunt CA Lung Father Dementia Father Diabetes Father Hypertension Father Stroke Father Alzheimers Disease Mother Diabetes Mother Hypertension Mother CA Breast Sister 1 1/2 paternal CA Breast Sister 2 1/2 paternal Relation Name Status Comments Aunt Father Maternal Grandfather Maternal Grandmother Mother Paternal Grandfather Paternal Grandmother Sister 1 1/2 paternal Sister 2 1/2 paternal Alive Sister 3 1/2 paternal Alive Social History Tobacco Use Types Packs/Day Years Used Date Smoking Tobacco: Former Cigarettes 0.3 0.5 Smokeless Tobacco: Never Tobacco Cessation:Counseling Given: Not Answered Alcohol Use Standard Drinks/Week Comments Never 0 (1 standard drink = 0.6 oz pur e alcohol) Sex Assigned at Date Recorded Not on file Job Start Date Occupation Industry Not on file Not on file Not on file Last Filed Vital Signs Vital Sign Reading Time Taken Comments Blood Pressure 151/92 11/09/2023 3:06 PM EDT Pulse 70 11/09/2023 3:06 PM EDT Temperature 37.1 C (98.8 F) 11/09/2023 3:06 PM EDT Respiratory Rate 16 07/01/2023 2:19 PM EDT Oxygen Saturation - - Inhaled Oxygen Concentration - - Weight 94.3 kg (208 lb) 11/09/2023 3:06 PM EDT Height 172.7 cm (5' 8 ) 11/09/2023 3:06 PM EDT Body Mass Index 31.63 11/09/2023 3:06 PM EDT Plan of Treatment Health Maintenance Due Date Last Done Comments DIABETES: ANNUAL EYE EXAM 12/10/1983 HEPATITIS C SCREENING 12/10/1983 CERVICAL CANCER SCREENING 1986 MAMMOGRAM 2005 SHINGLES VACCINE (1 of 2) 12/10/2015 DIABETES/HEART DISEASE: OCTAVIA AL CHOLESTEROL (LDL) 10/24/2023 10/23/2022, 08/19/2021 Covid-19 Vaccine (2022-04 4 season) 2023 12/28/2020, 05/23/2020, 04/22/2020 DIABETES: BLOOD SUGAR CONTRO L TEST (HGBA1C) 12/31/2023 09/30/2023, 02/25/2023 BMI CHECK/ADVISE 03/08/2024 11/09/2023, , 07/01/2023, Additional history exists DEPRESSION SCREENING/FOLLOWUP 03/08/2024, 06/13/2023, 03/16/2023, Additional history exists SOCIAL NEEDS SCREENING 03/08/2024 DIABETES: ANNUAL URINE PROTE IN TEST (MICROALBUMIN) 09/29/2024 09/30/2023 BASELINE HEALTH EXAM 40-64 10/23/2024 10/23/2022, DIABETES: ANNUAL FOOT EXAM 10/26/2024 10/27/2023 INFLUENZA (#1) 2024 PNEUMOCOCCAL VACCINE FOR HIG H RISK PATIENTS (#2) 2030 10/27/2023 DTAP/TDAP/TD (2 - Td or Tdap) 10/26/2033 10/27/2023 COLON CANCER SCREENING 11/15/2033 , 11/16/2023 (External Completion) Care Teams Anesthesia Attending Relationship Specialty Start Date End Date Veronique Kelly MD PCP - General Family Practice 08/26/21
[2024-11-03 11:16] LABS: Appearance Urine Clear; Glucose Urine UA Negative (Negative); PH 7.0 (5.0-9.0); Specific Gravity - Urine 1.010 (1.005-1.025)
[2024-11-03 13:01] LABS: Anion Gap 11 (12-20); Blood Urea Nitrogen 43 mg/dL (9-16); Calcium 8.2 mg/dL (8.4-10.2); Carbon Dioxide 31 mmol/L (22-29); Chloride 105 mmol/L (96-108); Estimated Glomerular Filt Rate 25; Potassium 4.0 mmol/L (3.3-5.1); Sodium 143 mmol/L (135-145)
[2024-11-03 17:28] LABS: Total Protein Urine Random 357 mg/dL (<12)
== END 2024-11-03 08:36 | disposition home or self-care (01) ==
LOC: HO.10HDL 08:35
PROVIDERS: Visit Provider Internal Medicine Hypertension Specialist
DX: N18.30 Chronic kidney disease, stage 3 unspecified (principal); N17.9 Acute kidney failure, unspecified; R76.8 Other specified abnormal immunological findings in serum; R80.9 Proteinuria, unspecified
CPT/HCPCS: 36415; 80048; 81003; 82570; 84156

== ENCOUNTER 2024-11-07 09:20 | Outpatient (AMB) | payer OTHER, SELFPAY ==
--- OUTSIDE RECORDS SUMMARY | 2023-07-31 05:00 | XMS_ITS ---
Author Organization [facility] Address [address] [place] [address] Care Team Providers Care Electrocardiograph Technician Name Role Phone Trent Schwartz Unavailable Unavailabl e Migration, Provider Unavailable Unavailable REASON FOR VISIT EMR-Dustin Encounters Encounter Location Date Provider Diagnosis [facility] [address] [place] [address] 07/31/2023 Provider Migration Plan Of Treatment Medication Medication Name Sig Start Date Stop Date Notes Vitamin D3 1.25 MG (46163 UT) Capsule cholecalciferol (vitamin D3) Dispense: 5 TABs - 1 Tablet by Orally route every week Refill: 2 Oral Use as directed 01/07/2018 02/15/2019 Discontinued Notes: Medication Renewed Progress Notes * Tres DREWDOB:1965 (58 yo F)Acc No.[id number]:07/31/2023 Patient: Tres KELLEY :1965 A ge:57 Y S ex:Female Address:[address], [place], [address] * Refills Stop Vitamin D3 Capsule, 1.25 MG (96446 UT), Oral, 5, cholecalciferol (vitamin D3) Dispense: 5 TABs - 1 Tablet by Orally route every week Refill: 2, Use as directed Subjective: * Chief Complaints: * E MR-Dustin * * Date:
--- OUTSIDE RECORDS SUMMARY | 2023-08-01 05:00 | XMS_ITS ---
Author Organization [facility] Address [address] [place] [address] Care Team Providers Care Cvir Tech Name Role Phone Trent Schwartz Unavailable Unavailabl e Migration, Provider Unavailable Unavailable REASON FOR VISIT EMR-[facility] [place] Medications Medication SIG (Take, Route, Frequency, Duration) Notes Start Date End Date Status Iron 325 (65 Fe) MG Tablet Iron (ferrous sulfate) Dispense: 60 TAB - take 1 tablet (325 mg) by oral route 2 times per day Refill: 3 Oral Use as directed 02/15/2019 Active PX Acid Senior Air Director Max St 150 MG Tablet raNITIdine HCl Dispense: 30 TABs - take 1 tablet (150 mg) by oral route once daily at bedtime Refill: 2 Oral Use as directed *Reorder from [employer] for eRx and Interaction Alerts* 10/27/2018 Active [...] directed 01/07/2018 Active Vitamin D3 1.25 MG (60687 UT) Capsule cholecalciferol (vitamin D3) Dispense: 5 TABs - 1 Tablet by Orally route every week Refill: 3 Oral Use as directed 02/15/2019 Active Encounters Encounter Location Date Provider Diagnosis [facility] [address] [place] [address] 08/01/2023 Provider Migration Plan Of Treatment No Information Progress Notes * TROY BECERRATresDOB:1965 (58 yo F)Acc No.[id number]:08/01/2023 Patient: Tres KELLEY :1965 A ge:57 Y S ex:Female Address[address], [place], [address] Subjective: * Chief Complaints: * E MR-Dustin * Medications: T akingPX Acid Senior Air Director Max St 150 MG Tablet raNITIdine HCl Dispense: 30 TABs - take 1 tablet (150 mg) by oral route once daily at bedtime Refill: 2 Oral Use as directed , Notes to Pharmacist: *Reorder from [facility] for eRx and Interaction Alerts*Cyanocobalamin 1000 [...] Use as directed Vitamin D3 1.25 MG (20106 UT) Capsule cholecalciferol (vitamin D3) Dispense: 5 TABs - 1 Tablet by Orally route every week Refill: 3 Oral Use as directed Taking PX Acid Senior Air Director Max St 150 MG Tablet raNITIdine HCl Dispense: 30 TABs - take 1 tablet (150 mg) by oral route once daily at bedtime Refill: 2 Oral Use as directed , Notes to Pharmacist: *Reorder from [facility] for eRx and Interaction Alerts*Taking Cyanocobalamin [...] as directed Taking Vitamin D3 1.25 MG (07379 UT) Capsule cholecalciferol (vitamin D3) Dispense: 5 TABs - 1 Tablet by Orally route every week Refill: 3 Oral Use as directed * * Date:
[2024-11-07 09:35] VITALS: BP 168/90; PULSE 71; O2SAT 98; BMI 33.9
--- NOTE | 2024-11-07 09:35 | HO.NEPHOV ---
Vital Signs 11/07/24 09:35 Height 5 ft 8 in Weight 223 lb BMI 33.9 BP 168/90 H Blood Pressure Location Lt brachial Position Sitting Pulse 71 Pulse Source Pulse Oximeter Pulse Oximetry (%) 98 Oxygen Delivery Method Room Air Intake Visit Reasons: FU per Dr Mcintosh/ MARYCHUY Extension Educator Required: No Accompanied by: Self / Same As Patient Allergies latex Allergy (Verified 11/07/24 09:37) Unknown HPI Comments Details: 58 years old lady with PMH of hypertension, diabetes mellitus who underwent kidney biopsy for nephrotic syndrome on 10/06/2024, started on prednisone 60 mg daily. 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 Her CECILIA is positive 1:320, nuclear volar However her workup including ANCA, HIV, hepatitis panel, ADRIANNA 2R is negative, serum free light chain, immunofluorescence, complement levels are all normal. She states her hemoglobin was 14 prior to May, currently is trending around 10 and her anemia is new. no recent infection/skin lesions or new medications. She had started a herbal tea which she stopped now. She was empirically started on prednisone on 10/23/2024 following which her creatinine decreased from 3.01 to 2.05 but her proteinuria increased from 5g to 10gm. Patient also complains of abdominal distention, weight gain and significant abdominal discomfort along with hypertension from prednisone Hypertension: She is on carvedilol 25 mg b.i.d. and her blood pressures are poorly controlled [facility] Medical History CKD (chronic kidney disease) stage 3, GFR 30-59 ml/min HTN (hypertension) Post hysterectomy menopause Endometrial cancer Anxiety Surgical History S/P gastric sleeve procedure H/O inguinal hernia repair H/O abdominoplasty H/O gastric sleeve Social History Household Members: Children Housing: House Housing Other:: [facility] Do you presently have visiting nurse or other home services: No Alcohol intake: former Patient Tobacco Use Status: Never used Tobacco service: No Review of Systems Const Details: Const : no body aches, no chills, no excessive sweating and no fatigue Eyes: no blurry vision and no change in vision ENT: no bleeding gums and no change in voice, no dizziness Card: no chest pain, no shortness of breath, no orthopnea, no PND Resp: no cough, no excessive phlegm production, no SOB GI: Abdominal distention present, abdominal pain present, nausea present : no hematuria, no urinary frequency and no difficulty voiding Musc: no abnormal gait, no bone pain Neuro: no abnormal movements, no weakness, no dizziness, no abnormal gait and no behavioral changes Psych: no behavioral changes and no change in appetite Endo: no change in body appearance, no cold intolerance, no excessive sweating and no fatigue Physical Exam Vital Signs: BMI result Body Mass Index 33.9 General: not in any acute distress, comfortable and pleasant Nutritional Appearance: well nourished and weight Eyes: normal position, no icterus Neck: No lymphadenopathy, no thyromegaly Resp: bilateral air entry equal, no added sounds present Cardio: normal S1, S2 heard, no murmur heard, ++ bilateral lower extremity edema GI: soft, nontender, no guarding, no hepatosplenomegaly : bladder normal to inspection, bladder normal to palpation, no renal angle tenderness Skin: no rashes or lesions noted and elasticity normal Neuro: oriented to person, oriented to place, oriented to time and moves all extremities Results Reviewed Nephrology Results: Hgb, (12.0-16.0) 10.7 g/dl L 10/07/24 WBC, (4.8-10.8) 10.1 X10*3/uL 10/07/24 Plt Count, (160-400) 281 X10*3/uL 10/07/24 Sodium, (135-145) 143 mmol/L 11/03/24 Potassium, (3.3-5.1) 4.0 mmol/L 11/03/24 Chloride, (96-108) 105 mmol/L 11/03/24 Carbon Dioxide, (22-29) 31 mmol/L H 11/03/24 BUN, (9-16) 43 mg/dL H 11/03/24 Creatinine, (0.5-1.4) 2.05 mg/dL H 11/03/24 Calcium, (8.4-10.2) 8.2 mg/dL L 11/03/24 Urine Protein, (Neg-Trace) >=1000 (4+) mg/dL H 11/03/24 Urine Creatinine 34.82 mg/dL 11/03/24 Protein/Creatinin Ratio, (<0.2) 5.25 H 10/11/24 Renal US 07/25/24 Assessment & Plan Assessment & Plan (1) Anemia: Code(s): D64.9 - Anemia, unspecified Category: Medical (2) Proteinuria: Code(s): R80.9 - Proteinuria, unspecified Category: Medical Qualifiers: Proteinuria type: unspecified Qualified Code(s): R80.9 - Proteinuria, unspecified (3) Nephrotic range proteinuria: Code(s): R80.9 - Proteinuria, unspecified Category: Medical (4) Acute kidney injury superimposed on CKD: Code(s): N17.9 - Acute kidney failure, unspecified; N18.9 - Chronic kidney disease, unspecified Category: Medical Plan Immune-complex GN: - Biopsy done on 10/06/2024 unfortunately had only 1 glomerulus, 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 - Her CECILIA is positive 1:320, nuclear volar However her workup including ANCA, HIV, hepatitis panel, ADRIANNA 2R is negative, serum free light chain, immunofluorescence, complement levels are all normal. - no source of infection, no rashes, no fever, no chronic cough - possibly this might be a renal limited lupus with seronegative disorder with poor to no response to steroids in terms of proteinuria, however we will rule out other diseases by getting anti scleroderma 70 antibody, anti-Deshawn, anti SS, anti ROBOTICS TECHNICIAN antibodies, anti centromere antibodies. - has developed anemia, states her hemoglobin was around 14 in the past but decrease to 10 since around July which coincides with proteinuria. We will refer her to Heme-Onc for possibly needing a bone marrow biopsy. We will repeat SPEP, UPEP and serum free light chains - patient has intolerance to steroids mostly GI related symptoms, weight gain, hypertension currently on 60 mg of prednisone, we will reduce the dose by 10 mg every week. We will add Myfortic 720 mg b.i.d. Asked her to take omeprazole as long as she is on steroids. - we will repeat labs in a month along with quantify proteinuria, and we will decide if she needs renal biopsy unless proteinuria improves. Hypertension: - target blood pressures less than 130/90 mm Hg - possibly her blood pressure is higher side due to steroids, currently on carvedilol 25 mg b.i.d.. We will add hydrochlorothiazide as she has some lower extremity swelling. - gave her 7 pills of hydralazine p.r.n. for the procedure - compliance: Good Anemia: - will get iron, TIBC, ferritin levels - referred her to Heme-Onc for possibly needing a bone marrow biopsy This note is constructed using voice recognition software. While every effort has been made to ensure accuracy library clerical assistant errors may have been included. Total time spent in the clinic is about 40 minutes, 10 minutes on chart review, review of data, 20 minutes on encounter, physical examination, counseling, answering all the questions, 10 minutes on documentation. Orders: Orders Basic Metabolic Panel 1 Month R80.9 - Proteinuria, unspecified Creatinine Urine 1 Month R80.9 - Proteinuria, unspecified UA and rflx microscopic 1 Month R80.9 - Proteinuria, unspecified Complete Blood Count no Diff 1 Month R80.9 - Proteinuria, unspecified [place]/Lambda Light Chain Serum 1 Month R80.9 - Proteinuria, unspecified Complement C3 1 Month R80.9 - Proteinuria, unspecified ANCA Vasculitides 1 Month R80.9 - Proteinuria, unspecified DESHAWN 1 Antibody 1 Month D64.9 - Anemia, unspecified, N17.9 - Acute kidney failure, unspecified, N18.9 - Chronic kidney disease, unspecified, R80.9 - Proteinuria, unspecified Scleroderma 70 Antibody 1 Month D64.9 - Anemia, unspecified, N17.9 - Acute kidney failure, unspecified, N18.9 - Chronic kidney disease, unspecified, R80.9 - Proteinuria, unspecified Sjogren's Antibodies 1 Month D64.9 - Anemia, unspecified, N17.9 - Acute kidney failure, unspecified, N18.9 - Chronic kidney disease, unspecified, R80.9 - Proteinuria, unspecified Complement Total CH50 1 Month D64.9 - Anemia, unspecified, N17.9 - Acute kidney failure, unspecified, N18.9 - Chronic kidney disease, unspecified, R80.9 - Proteinuria, unspecified Sm Sm/ROBOTICS TECHNICIAN Antibodies 1 Month D64.9 - Anemia, unspecified, N17.9 - Acute kidney failure, unspecified, N18.9 - Chronic kidney disease, unspecified, R80.9 - Proteinuria, unspecified Anti-Centromere B Antibodies 1 Month D64.9 - Anemia, unspecified, N17.9 - Acute kidney failure, unspecified, N18.9 - Chronic kidney disease, unspecified, R80.9 - Proteinuria, unspecified Microalbumin, Random (w Creat) 1 Month R80.9 - Proteinuria, unspecified Total Protein Urine Random 1 Month R80.9 - Proteinuria, unspecified IRON PROFILE 1 Month R80.9 - Proteinuria, unspecified Protein Electrophoresis,Ran Ur 1 Month R80.9 - Proteinuria, unspecified Protein Electrophoresis, Serum 1 Month R80.9 - Proteinuria, unspecified Complement C4 1 Month R80.9 - Proteinuria, unspecified CECILIA Reflex Titer and Pattern 1 Month R80.9 - Proteinuria, unspecified Phospholipase A2 Receptor Pnl 1 Month R80.9 - Proteinuria, unspecified Anti DNA DS Antibody 1 Month D64.9 - Anemia, unspecified, N17.9 - Acute kidney failure, unspecified, N18.9 - Chronic kidney disease, unspecified, R80.9 - Proteinuria, unspecified Referrals Hematology & Oncology Referral D64.9 - Anemia, unspecified, R80.9 - Proteinuria, unspecified Medications: New hydrochlorothiazide 25 mg PO DAILY 30 tabs 3RF 30 days hydralazine 100 mg PO ONCE 7 tabs 0RF mycophenolate sodium (Myfortic) 720 mg (2 x 360 mg) PO BID 60 tabs 2RF Coding Level of Care Code New Pt Level 5 (18029) Diagnoses Anemia D64.9 Proteinuria, unspecified type R80.9 Proteinuria type: unspecified Nephrotic range proteinuria R80.9 Acute kidney injury superimposed on CKD N17.9; N18.9
--- OUTSIDE RECORDS SUMMARY | 2024-11-07 10:15 | XMS_ITS | Clinical Summary ---
Author Organization [address] [facility] Address [address] [place] [address] Phone Care Team Providers Care Hammer Setter Name Role Phone Yannick Lilian Primary Care Provider [phone] Allergies Active Allergy Reactions Criticality Noted Date [...] complication associated with type 2 diabetes mellitus ([facility] V24, CMS/HCC V28) Take 1 capsule [...] Noted Date Diagnosed Date DM (diabetes mellitus) ([facility] V24, [facility] V28 ) 02/26/2023 Obesity (BMI 30.0-34.9) 02/24/2023 Anxiety 08/19/2021 Depression 08/19/2021 HTN (hypertension) 08/19/2021 Iron deficiency anemia 08/19/2021 Lung nodule 08/19/2021 Encounters Date Type Department Care Team Description 09/10/2024 Telephone Bariatric Surgery - [place] [address] [facility] [address] [place] [address] Sherron Holden MD 08/18/2024 4:00 PM EDT Office Visit Internal Medicine - [address] [phone] Jennifer Pittman NP Adult general medical examination (Primary Dx); Acute renal failure, unspecified acute renal failure type (CMS/[facility] V24); Primary hypertension; Type 2 diabetes [...] Date Site/Laterality Comments GASTRIC BYPASS 2010 PROCEDURE: NM GASTRIC RSTCV W/BYP W/SM INT RCNSTJ LIMIT ABSRPJ; COMMENT: in [place] PARTIAL HYSTERECTOMY PROCEDURE: NM SUPRACERVICAL ABDL HYSTER W/WO RMVL TUBE OVARY KNEE ARTHROSCOPY W/ DEBRIDEMENT Right PROCEDURE: NM ARTHRS KNEE DEBRIDEMENT/SHAVING ARTCLR CRTLG HERNIA REPAIR PROCEDURE: NM REPAIR FIRST ABDOMINAL WALL HERNIA; COMMENT: supraumbilical mesh hernia repair OTHER SURGICAL HISTORY PROCEDURE: NM RPR RECRT INCAL/VNT HERNIA REDUCIBLE BLADDER SURGERY [...] PM EDT Office Visit Bariatric Surgery - [address] [place] [address] Sherron Holden MD [address] [place] [phone] Health Maintenance Due Date Last Done Comments [...] complication, without long-term current use of insulin ([facility] V24, [facility] V28) COMPREHENSIVE METABOLIC PANEL Routine 07/20/2024 2:44 PM EDT Diarrhea, unspecified type HEMOGLOBIN A1C Routine 07/20/2024 2:44 PM EDT Type 2 diabetes mellitus without complication, without long-term current use of insulin ([facility] V24, [facility] V28) HIV 1, 2 ANTIBODY, P24 [...] NP LAB BLOOD ORDERABLES Final Resul t [facility] [address] [place] [address], [place] [phone] * (ABNORMAL) Comprehensive metabolic panel (07/20/2024 2:44 PM EDT) Sodium 138 133 - 145 mmol/L LAB CHEMISTRY METHOD 07/21/2024 10:14 AM [facility] Potassium 5.5 3.5 - 5.5 mmol/L LAB CHEMISTRY METHOD 07/21/2024 10:14 AM [facility] Chloride 106 96 - 110 mmol/L LAB CHEMISTRY METHOD 07/21/2024 10:14 AM [facility] CO2 27 21 - 32 mmol/L LAB CHEMISTRY METHOD 07/21/2024 10:14 AM [facility] Anion Gap 5 3 - 11 LAB CHEMISTRY METHOD 07/21/2024 10:14 AM [facility] Glucose 98 70 - 100 mg/dL LAB CHEMISTRY METHOD 07/21/2024 10:14 AM [facility] BUN 27(H) 5 - 25 mg/dL LAB CHEMISTRY METHOD 07/21/2024 10:14 AM [facility] Creatinine 1.77(H) 0.50 - 1.10 mg/dL LAB CHEMISTRY METHOD 07/21/2024 10:14 AM [facility] Comment:Results verified by repeat testing eGFR 33(L) >=60 mL/min/1. 73m2 LAB CHEMISTRY METHOD 07/21/2024 10:14 AM [facility] Comment:Calculation based on the Chronic Kidney Disease Epidemiology Collaboration (CKD-EPI) equation refit without adjustment for race. BUN/Creatinine Ratio 15.3 LAB CHEMISTRY METHOD 07/21/2024 10:14 AM [facility] Calcium 8.6 8.5 - 10.5 mg/dL LAB CHEMISTRY METHOD 07/21/2024 10:14 AM [facility] AST (SGOT) 43(H) 10 - 42 unit/L LAB CHEMISTRY METHOD 07/21/2024 10:14 AM [facility] Comment:Results verified by repeat testing ALT (SGPT) 62(H) 10 - 60 unit/L LAB CHEMISTRY METHOD 07/21/2024 10:14 AM [facility] Comment:Results verified by repeat testing Alkaline Phosphatase 96 42 - 121 unit/L LAB CHEMISTRY METHOD 07/21/2024 10:14 AM [facility] Total Protein 6.5 6.0 - 8.0 g/dL LAB CHEMISTRY METHOD 07/21/2024 10:14 AM [facility] Albumin 3.5 3.2 - 5.0 g/dL LAB CHEMISTRY METHOD 07/21/2024 10:14 AM [facility] Total Bilirubin 0.5 0.0 - 1.4 mg/dL LAB CHEMISTRY METHOD 07/21/2024 10:14 AM [facility] Blood Venous blood specimen / Unknown Venipuncture / Unknown 07/20/2024 2:44 PM EDT 07/20/2024 2:44 PM EDT us Darrel Santiago PROCESS MANUFACTURING ENGINEER LAB BLOOD ORDERABLES Final Res ult [facility] [address] [place] [address], * HIV 1,2 antibody, p24 antigen with [...] NP LAB BLOOD ORDERABLES Final Resul t [facility] [address] [place] [address], [place] [phone] * (ABNORMAL) Lipid panel with reflex to direct LDL (05/25/2024 9:42 AM EDT) Cholesterol 174 0 - 200 mg/dL LAB CHEMISTRY METHOD 05/25/2024 3:08 PM EDT [facility] Triglycerides 195(H) 0 - 150 mg/dL LAB CHEMISTRY METHOD 05/25/2024 3:08 PM T [facility] HDL 50 >=40 mg/dL LAB CHEMISTRY METHOD 05/25/2024 3:08 PM [facility] LDL Calculated 85 [...] 4.4 LAB CHEMISTRY METHOD 05/25/2024 3:08 PM [facility] Blood Venous blood specimen / Unknown Venipuncture / Unknown 05/25/2024 9:42 AM EDT 05/25/2024 9:42 AM EDT Jennifer Pittman PROCESS MANUFACTURING ENGINEER LAB BLOOD ORDERABLES Final Resul t [facility] [address] [place] [address], * Colonoscopy (11/16/2023) Pathologist Count includes the [facility] Colonoscopy no interpretation , abstracted Anatomical Region Laterality Modality Other Historical Provider MD HEALTH MAINTENANCE Final Result * Diabetes Foot Exam (10/27/2023) Pathologist Count includes the [facility] Diabetes: Annual Foot Exam abstracted Historical Provider MD HEALTH MAINTENANCE Final Result * Urine Albumin Creatinine Ratio (09/30/2023) Pathologist Count includes the [facility] Urine Albumin Creatinine Ratio abstracted Historical Provider MD HEALTH MAINTENANCE Final Result * Depression Screening (07/01/2023) Pathologist Count includes the [facility] Depression Screening abstracted Historical Provider MD HEALTH MAINTENANCE Final Result from Last 3 Months or Most Recently Relevant to Health Maintenance [place] [address] [place] [address] [employer]ALTH PLAN Care Teams Hammer Setter Relationship Specialty Start Date End Date Lilian Lanier DO [address] [place] [address] (work) PCP - General Internal Medicine 03/17/24
--- OUTSIDE RECORDS SUMMARY | 2024-11-07 10:15 | XMS_ITS | Patient Health Record ---
Author Organization [facility] Address Amari foreman [address] [place] [address] Care Team Providers Care Deliverer Merchandise Name Role Phone Mcintosh MauraTrent Unavailable Unavailabl e Reason For Referral No Information Medications Medication SIG (Take, Route, Frequency, Duration) Notes Start Date End Date Status Iron 325 (65 Fe) MG Tablet Iron (ferrous sulfate) Dispense: 60 TAB - take 1 tablet (325 mg) by oral route 2 times per day Refill: 3 Oral Use as directed 02/15/2019 Active PX Acid Leather Patcher Max St 150 MG Tablet raNITIdine HCl Dispense: 30 TABs - take 1 tablet (150 mg) by oral route once daily at bedtime Refill: 2 Oral Use as directed *Reorder from [employer] for eRx and Interaction Alerts* 10/27/2018 Active [...] directed 01/07/2018 Active Vitamin D3 1.25 MG (82121 UT) Capsule cholecalciferol (vitamin D3) Dispense: 5 TABs - 1 Tablet by Orally route every week Refill: 3 Oral Use as directed 02/15/2019 Active Problems Problem Type SNOMED Code ICD Code Onset Dates Problem Status W/U Status Risk Notes Problem Morbid obesity (298803513) Morbid obesity (278.01) 2013 Active confirmed Type: Diagnosis; Confidentiality Level: 1; Problem Viral infection (05187444) Viral infection, unspecified (B34.9) 2015 Active confirmed Type: Diagnosis; Confidentiality Level: 1; Problem Iron deficiency anemia (55765228) Iron deficiency anemia, unspecified (D50.9) 2017 Active confirmed Type: Diagnosis; Confidentiality Level: 1; Problem Vitamin B12 deficiency anemia due to dietary causes (783118251) Other dietary vitamin B12 deficiency anemia (D51.3) 2017 Active confirmed Type: Diagnosis; Confidentiality Level: 1; Problem Dietary folate deficiency anemia (39012141) Dietary folate deficiency anemia (D52.0) 2018 Active confirmed Type: Diagnosis; Confidentiality Level: 1; Problem Hyperglycemia due to type 2 diabetes mellitus (090060907357145) Type 2 diabetes mellitus with hyperglycemia (E11.65) 2017 Active confirmed Type: Diagnosis; Confidentiality Level: 1; Problem Vitamin D deficiency (22146889) Vitamin D deficiency, unspecified (E55.9) 2017 Active confirmed Type: Diagnosis; Confidentiality Level: 1; Problem Partial loss of teeth due to caries, class II (K08.432) 2018 Active confirmed Type: Diagnosis; Confidentiality Level: 1; Problem Gastro-esophageal reflux disease without esophagitis (256343771) Gastro-esophag eal reflux disease without esophagitis (K21.9) 2018 Active confirmed Type: Diagnosis; Confidentiality Level: 1; Problem Post-surgical malabsorption (disorder) (865647096) Postsurgical malabsorption, not elsewhere classified (K91.2) 2017 Active confirmed Type: Diagnosis; Confidentiality Level: 1; Problem Pain of right shoulder region (finding) (0977152324) Pain in right shoulder (M25.511) 2018 Active confirmed Type: Diagnosis; Confidentiality Level: 1; Problem Impaired fasting glucose (621016180) Impaired fasting glucose (R73.01) 2017 Active confirmed Type: Diagnosis; Confidentiality Level: 1; Problem Abnormal findings on microbiological examination of urine (774854715) Unspecified abnormal findings in urine (R82.90) 2017 Active confirmed Type: Diagnosis; Confidentiality Level: 1; Problem Endocrine finding (888360172) Abnormal results of other endocrine function studies (R94.7) 2018 Active confirmed Type: Diagnosis; Confidentiality Level: 1; Problem Adult health examination (782460292) Encounter for general adult medical examination without abnormal findings (Z00.00) 2017 Active confirmed Type: Diagnosis; Confidentiality Level: 1; Problem Annual wellness visit (462366170413822) Encounter for other general examination (Z00.8) 2016 Active confirmed Type: Diagnosis; Confidentiality Level: 1; Problem Screening for malignant neoplasm of colon (711478610) Encounter for screening for malignant neoplasm of colon (Z12.11) 2017 Active confirmed Type: Diagnosis; Confidentiality Level: 1; Problem Screening for malignant neoplasm of breast (641784773) Encounter for screening mammogram for malignant neoplasm of breast (Z12.31) 2017 Active confirmed Type: Diagnosis; Confidentiality Level: 1; Problem Screening for malignant neoplasm of cervix (609560034) Encounter for screening for malignant neoplasm of cervix (Z12.4) 2017 Active confirmed Type: Diagnosis; Confidentiality Level: 1; Problem Diabetes mellitus screening (878235240) Encounter for screening for diabetes mellitus (Z13.1) 2017 Active confirmed Type: Diagnosis; Confidentiality Level: 1; Problem Lipid screening (949412410) Encounter for screening for lipoid disorders (Z13.220) 2017 Active confirmed Type: Diagnosis; Confidentiality Level: 1; Problem Endocrine/metabol ic screening (461911345) Encounter for screening for other suspected endocrine disorder (Z13.29) 2017 Active confirmed Type: Diagnosis; Confidentiality Level: 1; Problem History of bariatric surgical procedure (351542061) Bariatric surgery status (Z98.84) 2017 Active confirmed Type: Diagnosis; Confidentiality Level: 1; Plan Of Treatment No Information Insurance Providers Payer Name Payer Address Payer Phone Subscriber Number Group Number Insured Name Patient Relationship to Insured Coverage Start Date Coverage End Date International Medical Card [address] [place], [place] [address] [id number] Tres Wu Self - patient is the insured 7
== END 2024-11-07 10:16 | disposition home or self-care (01) ==
LOC: HO.HKA 09:20
PROVIDERS: Visit Provider Internal Medicine Critical Care Medicine
DX: D64.9 Anemia, unspecified (principal); R80.9 Proteinuria, unspecified; N17.9 Acute kidney failure, unspecified; N18.9 Chronic kidney disease, unspecified
CPT/HCPCS: 99204

== ENCOUNTER → 2024-11-07 09:20 | Outpatient (BNVA) | payer OTHER, SELFPAY | PROVIDERS: Visit Provider Internal Medicine Critical Care Medicine | DX: I10 Essential (primary) hypertension (principal); N17.9 Acute kidney failure, unspecified; R80.9 Proteinuria, unspecified; N18.9 Chronic kidney disease, unspecified; D64.9 Anemia, unspecified | CPT/HCPCS: 99202 ==

== ENCOUNTER → 2024-12-13 09:24 | Outpatient (BNV) | payer OTHER, SELFPAY | PROVIDERS: Visit Provider Internal Medicine | DX: D64.9 Anemia, unspecified (principal); N18.30 Chronic kidney disease, stage 3 unspecified; Z85.42 Personal history of malignant neoplasm of other parts of uterus | CPT/HCPCS: 99204 ==

== ENCOUNTER 2024-12-13 10:37 | Outpatient (REF) | payer OTHER, SELFPAY ==
[2024-12-13 11:43] LABS: Appearance Urine Clear; Glucose Urine UA 250 mg/dL (Negative); PH 6.0 (5.0-9.0); Specific Gravity - Urine 1.020 (1.005-1.025); UMIC TRIGGER UA YES
[2024-12-13 11:46] LABS: Hematocrit 33.9 % (37.0-47.0); Hemoglobin 11.5 g/dl (12.0-16.0); Mean Corpuscular HGB Conc 33.9 g/dl (31.0-35.0); Mean Corpuscular Hemoglobin 29.5 pg (27.0-33.0); Mean Corpuscular Volume 86.9 fL (80.0-98.0); NRBC Abs Auto 0.000 X10*3/uL (0.0-0.012); NRBC Pct Auto 0.0 /100WBC (0.0-0.2); Platelet Count 322 X10*3/uL (160-400); Red Blood Count 3.90 X10*6/uL (4.20-5.50); White Blood Count 11.0 X10*3/uL (4.8-10.8)
[2024-12-13 12:06] LABS: Epith (RTE) Cast Present
[2024-12-13 12:25] LABS: Anion Gap 8 (12-20); Blood Urea Nitrogen 35 mg/dL (9-16); Calcium 8.7 mg/dL (8.4-10.2); Carbon Dioxide 31 mmol/L (22-29); Chloride 104 mmol/L (96-108); Estimated Glomerular Filt Rate 26; Iron 65 mcg/dL (30-160); Percent Iron Saturation 25 % (15-50); Potassium 3.2 mmol/L (3.3-5.1); Sodium 140 mmol/L (135-145); Total Iron Binding Capacity 256 mcg/dL (228-428); Unsaturated Iron Binding 191 ug/dL
[2024-12-13 12:44] LABS: Total Protein Urine Random 1068 mg/dL (<12)
[2024-12-15 17:23] LABS: Antibody to SS-A Antigen <1.0 NEG AI (<1.0 NEG); Antibody to SS-B Antigen <1.0 NEG AI (<1.0 NEG); Proteinase 3 PR3 Antibodies <1.0 AI; SM/Ribonucleoprotein Ab <1.0 NEG AI (<1.0 NEG); Smith Protein <1.0 NEG AI (<1.0 NEG)
[2024-12-15 18:18] LABS: Prot Elec - Albumin 2.9 g/dL (3.8-4.8); Prot Elec - Alpha1 0.3 g/dL (0.2-0.3); Prot Elec - Alpha2 0.9 g/dL (0.5-0.9); Prot Elec - Beta 1 0.4 g/dL (0.4-0.6); Prot Elec - Beta 2 0.4 g/dL (0.2-0.5); Prot Elec - Gamma 0.4 g/dL (0.8-1.7); Prot Elec - Total Protein 5.1 g/dL (6.1-8.1)
[2024-12-19 13:53] LABS: Kappa, Serum 118 mg/dL (176-443); Kappa/Lambda Ratio, Serum 2.19 (1.29-2.55); Lambda, Serum 54 mg/dL (91-240)
[2024-12-20 16:53] LABS: Phospholipase A2 IgG ELISA <4 RU/mL; Phospholipase A2 IgG IFA NEGATIVE (NEGATIVE)
[2024-12-27 14:09] LABS: Anti Nuclear Antibody Screen POSITIVE (NEGATIVE); Anti Nuclear Antibody Titer 1:40 titer
== END 2024-12-13 10:38 | disposition home or self-care (01) ==
LOC: HO.LAB 10:37
PROVIDERS: Visit Provider Internal Medicine Critical Care Medicine
DX: Z01.84 Encounter for antibody response examination (principal); R80.9 Proteinuria, unspecified; N17.9 Acute kidney failure, unspecified; N18.9 Chronic kidney disease, unspecified; D64.9 Anemia, unspecified
CPT/HCPCS: 36415; 80048; 81001; 82043; 82570; 83520; 83540; 83883; 84156; 84165; 85027; 86021; 86038; 86039; 86160; 86162; 86225; 86235; 86255

== ENCOUNTER 2024-12-15 09:02 | Outpatient (REF) | payer OTHER, SELFPAY ==
--- OUTSIDE RECORDS SUMMARY | 2023-07-31 05:00 | XMS_ITS ---
Author Organization [facility] Address [address] [place] [address] Care Team Providers Care Bulb Planter Name Role Phone Trent Schwartz Unavailable Unavailabl e Migration, Provider Unavailable Unavailable REASON FOR VISIT EMR-Dustin Encounters Encounter Location Date Provider Diagnosis [facility] [address] [place] [address] 07/31/2023 Provider Migration Plan Of Treatment Medication Medication Name Sig Start Date Stop Date Notes Vitamin D3 1.25 MG (29112 UT) Capsule cholecalciferol (vitamin D3) Dispense: 5 TABs - 1 Tablet by Orally route every week Refill: 2 Oral Use as directed 01/07/2018 02/15/2019 Discontinued Notes: Medication Renewed Progress Notes * Tres DREWDOB:1965 (59 yo F)Acc No.[id number]:07/31/2023 Patient: Tres KELLEY :1965 A ge:57 Y S ex:Female Address:[address], [place], [address] * Refills Stop Vitamin D3 Capsule, 1.25 MG (60966 UT), Oral, 5, cholecalciferol (vitamin D3) Dispense: 5 TABs - 1 Tablet by Orally route every week Refill: 2, Use as directed Subjective: * Chief Complaints: * E MR-Dustin * * Date:
--- OUTSIDE RECORDS SUMMARY | 2023-08-01 05:00 | XMS_ITS ---
Author Organization [facility] Address [address] [place] [address] Care Team Providers Care Computer Graphic Artist Name Role Phone Trent Schwartz Unavailable Unavailabl e Migration, Provider Unavailable Unavailable REASON FOR VISIT [facility] Medications Medication SIG (Take, Route, Frequency, Duration) Notes Start Date End Date Status Iron 325 (65 Fe) MG Tablet Iron (ferrous sulfate) Dispense: 60 TAB - take 1 tablet (325 mg) by oral route 2 times per day Refill: 3 Oral Use as directed 02/15/2019 Active PX Acid Machine Filler Max St 150 MG Tablet raNITIdine HCl Dispense: 30 TABs - take 1 tablet (150 mg) by oral route once daily at bedtime Refill: 2 Oral Use as directed *Reorder from [employer] for eRx and Interaction Alerts* 10/27/2018 Active [...] directed 01/07/2018 Active Vitamin D3 1.25 MG (11016 UT) Capsule cholecalciferol (vitamin D3) Dispense: 5 TABs - 1 Tablet by Orally route every week Refill: 3 Oral Use as directed 02/15/2019 Active Encounters Encounter Location Date Provider Diagnosis [facility] [address] [place] [address] 08/01/2023 Provider Migration Plan Of Treatment No Information Progress Notes * TROY BECERRATresDOB:1965 (59 yo F)Acc No.[id number]:08/01/2023 Patient: Tres KELLEY :1965 A ge:57 Y S ex:Female Address[address], [place], [address] Subjective: * Chief Complaints: * E MR-Dustin * Medications: T akingPX Acid Machine Filler Max St 150 MG Tablet raNITIdine HCl Dispense: 30 TABs - take 1 tablet (150 mg) by oral route once daily at bedtime Refill: 2 Oral Use as directed , Notes to Pharmacist: *Reorder from [facility] for eRx and Interaction Alerts*Cyanocobalamin 1000 MCG/ML [...] Use as directed Vitamin D3 1.25 MG (74517 UT) Capsule cholecalciferol (vitamin D3) Dispense: 5 TABs - 1 Tablet by Orally route every week Refill: 3 Oral Use as directed Taking PX Acid Machine Filler Max St 150 MG Tablet raNITIdine HCl Dispense: 30 TABs - take 1 tablet (150 mg) by oral route once daily at bedtime Refill: 2 Oral Use as directed , Notes to Pharmacist: *Reorder from [facility] for eRx and Interaction Alerts*Taking Cyanocobalamin 1000 [...] as directed Taking Vitamin D3 1.25 MG (07388 UT) Capsule cholecalciferol (vitamin D3) Dispense: 5 TABs - 1 Tablet by Orally route every week Refill: 3 Oral Use as directed * * Date:
[2024-12-15 09:16] LABS: Appearance Urine Clear; Glucose Urine UA 100 mg/dL (Negative); PH 7.0 (5.0-9.0); Specific Gravity - Urine 1.015 (1.005-1.025)
[2024-12-15 09:22] LABS: UMIC TRIGGER UA YES
--- OUTSIDE RECORDS SUMMARY | 2024-12-15 09:27 | XMS_ITS | Patient Health Record ---
Author Organization [facility] Address Amari foreman [address] [place] [address] Care Team Providers Care Sql Report Developer Name Role Phone Mcintosh MauraTrent Unavailable Unavailabl e Reason For Referral No Information Medications Medication SIG (Take, Route, Frequency, Duration) Notes Start Date End Date Status Iron 325 (65 Fe) MG Tablet Iron (ferrous sulfate) Dispense: 60 TAB - take 1 tablet (325 mg) by oral route 2 times per day Refill: 3 Oral Use as directed 02/15/2019 Active PX Acid Harness And Bag Inspector Max St 150 MG Tablet raNITIdine HCl Dispense: 30 TABs - take 1 tablet (150 mg) by oral route once daily at bedtime Refill: 2 Oral Use as directed *Reorder from [employer] for eRx and Interaction Alerts* 10/27/2018 Active [...] directed 01/07/2018 Active Vitamin D3 1.25 MG (42811 UT) Capsule cholecalciferol (vitamin D3) Dispense: 5 TABs - 1 Tablet by Orally route every week Refill: 3 Oral Use as directed 02/15/2019 Active Problems Problem Type SNOMED Code ICD Code Onset Dates Problem Status W/U Status Risk Notes Problem Morbid obesity (827541811) Morbid obesity (278.01) 2013 Active confirmed Type: Diagnosis; Confidentiality Level: 1; Problem Viral infection (93722322) Viral infection, unspecified (B34.9) 2015 Active confirmed Type: Diagnosis; Confidentiality Level: 1; Problem Iron deficiency anemia (55775650) Iron deficiency anemia, unspecified (D50.9) 2017 Active confirmed Type: Diagnosis; Confidentiality Level: 1; Problem Vitamin B12 deficiency anemia due to dietary causes (970485474) Other dietary vitamin B12 deficiency anemia (D51.3) 2017 Active confirmed Type: Diagnosis; Confidentiality Level: 1; Problem Dietary folate deficiency anemia (50136679) Dietary folate deficiency anemia (D52.0) 2018 Active confirmed Type: Diagnosis; Confidentiality Level: 1; Problem Hyperglycemia due to type 2 diabetes mellitus (313569951984148) Type 2 diabetes mellitus with hyperglycemia (E11.65) 2017 Active confirmed Type: Diagnosis; Confidentiality Level: 1; Problem Vitamin D deficiency (54065124) Vitamin D deficiency, unspecified (E55.9) 2017 Active confirmed Type: Diagnosis; Confidentiality Level: 1; Problem Partial loss of teeth due to caries, class II (K08.432) 2018 Active confirmed Type: Diagnosis; Confidentiality Level: 1; Problem Gastro-esophageal reflux disease without esophagitis (982489903) Gastro-esophag eal reflux disease without esophagitis (K21.9) 2018 Active confirmed Type: Diagnosis; Confidentiality Level: 1; Problem Post-surgical malabsorption (disorder) (058836267) Postsurgical malabsorption, not elsewhere classified (K91.2) 2017 Active confirmed Type: Diagnosis; Confidentiality Level: 1; Problem Pain of right shoulder region (finding) (2482086761) Pain in right shoulder (M25.511) 2018 Active confirmed Type: Diagnosis; Confidentiality Level: 1; Problem Impaired fasting glucose (228557815) Impaired fasting glucose (R73.01) 2017 Active confirmed Type: Diagnosis; Confidentiality Level: 1; Problem Abnormal findings on microbiological examination of urine (819745676) Unspecified abnormal findings in urine (R82.90) 2017 Active confirmed Type: Diagnosis; Confidentiality Level: 1; Problem Endocrine finding (476980443) Abnormal results of other endocrine function studies (R94.7) 2018 Active confirmed Type: Diagnosis; Confidentiality Level: 1; Problem Adult health examination (536408589) Encounter for general adult medical examination without abnormal findings (Z00.00) 2017 Active confirmed Type: Diagnosis; Confidentiality Level: 1; Problem Annual wellness visit (898305713631929) Encounter for other general examination (Z00.8) 2016 Active confirmed Type: Diagnosis; Confidentiality Level: 1; Problem Screening for malignant neoplasm of colon (990120370) Encounter for screening for malignant neoplasm of colon (Z12.11) 2017 Active confirmed Type: Diagnosis; Confidentiality Level: 1; Problem Screening for malignant neoplasm of breast (883548071) Encounter for screening mammogram for malignant neoplasm of breast (Z12.31) 2017 Active confirmed Type: Diagnosis; Confidentiality Level: 1; Problem Screening for malignant neoplasm of cervix (271845194) Encounter for screening for malignant neoplasm of cervix (Z12.4) 2017 Active confirmed Type: Diagnosis; Confidentiality Level: 1; Problem Diabetes mellitus screening (669538418) Encounter for screening for diabetes mellitus (Z13.1) 2017 Active confirmed Type: Diagnosis; Confidentiality Level: 1; Problem Lipid screening (214131060) Encounter for screening for lipoid disorders (Z13.220) 2017 Active confirmed Type: Diagnosis; Confidentiality Level: 1; Problem Endocrine/metabol ic screening (603806376) Encounter for screening for other suspected endocrine disorder (Z13.29) 2017 Active confirmed Type: Diagnosis; Confidentiality Level: 1; Problem History of bariatric surgical procedure (412837441) Bariatric surgery status (Z98.84) 2017 Active confirmed Type: Diagnosis; Confidentiality Level: 1; Plan Of Treatment No Information Insurance Providers Payer Name Payer Address Payer Phone Subscriber Number Group Number Insured Name Patient Relationship to Insured Coverage Start Date Coverage End Date International Medical Card [address] [place], [place] [address] [id number] Tres Wu Self - patient is the insured 7
--- OUTSIDE RECORDS SUMMARY | 2024-12-15 09:28 | XMS_ITS | Clinical Summary ---
Author Organization [facility] Address [address] [place] [address] Phone Care Team Providers Care Bag Sewer Name Role Phone Lilian Lanier DO Primary Care Provider [phone] Allergies Active Allergy Reactions Criticality Noted Date Comments Adhesive Rash 01/20/2022 Latex Rash 01/20/2022 Medications albuterol sulfate (ProAir RespiClick) 90 mcg/actuation aerosol powdr breath activated Inhale into the lungs. Active cholecalciferol (VITAMIN D-3) 50 mcg (2,000 unit) capsule Take 1 capsule (2,000 Units total) by mouth 1 (one) time each day. 3 Active gabapentin (NEURONTIN) 100 mg capsuleIndication s:Other diabetic neurological complication associated with type 2 diabetes mellitus ([facility] V24, [facility] V28) Take 1 capsule (100 mg total) by mouth at bedtime. 90 each 1 5 Active freestyle (FreeStyle Lancets) 28 gauge lancetsIndication [...] EVERY 7 (SEVEN) DAYS. 2 mL 2 5 01/18/20 25 Active carvediloL (COREG) 25 mg tablet Take 1 tablet (25 mg total) by mouth 2 (two) times a day with meals. 5 Active furosemide (LASIX) 40 mg tablet Take 1 tablet (40 mg total) by mouth 1 (one) time each day. 5 Active hydroCHLOROthiazi de (HYDRODIURIL) 25 mg tablet Take 1 tablet (25 mg total) by mouth 1 (one) time each day. 5 Active omeprazole (PriLOSEC) [address] capsule Take 1 capsule (40 mg total) by mouth 1 (one) time each day. 5 Active predniSONE (DELTASONE) 10 mg tablet Take 2 tablets (20 mg total) by mouth 1 (one) time each day. 5 Active mycophenolate (MYFORTIC) 360 mg EC tablet Take 1 tablet (360 mg total) by mouth 2 (two) times a day. 5 Active hydrALAZINE (APRESOLINE) 100 mg tablet Take 0.5 tablets (50 mg total) by mouth 2 (two) times a day. 5 Active buPROPion XL (WELLBUTRIN XL) 150 mg 24 hr tabletIndications :Class 1 obesity due to excess calories with serious comorbidity and body mass index (BMI) of 30.0 to 30.9 in adult Take 1 tablet (150 mg total) by mouth 1 (one) time each day. 30 each 1 5 01/28/20 25 Active BUPROPION HCL ORAL Take by mouth. 11/29/19 25 Discontinu ed(Reorder ) Active Problems Problem Noted Date Diagnosed Date DM (diabetes mellitus) ([facility] V24, [facility] V28 ) 02/26/2023 Obesity (BMI 30.0-34.9) 02/24/2023 Anxiety 08/19/2021 Depression 08/19/2021 HTN (hypertension) 08/19/2021 Iron deficiency anemia 08/19/2021 Lung nodule 08/19/2021 Encounters Date Type Department Care Team Description 11/28/2024 4:15 PM EDT Office Visit Bariatric Surgery - [address] [place] [address] Sherron Holden MD Class 1 obesity due to excess calories with serious comorbidity and body mass index (BMI) of 30.0 to 30.9 in adult (Primary Dx) from Last 3 Months Immunizations Immunization Administration Dates Next Due Moderna SARS-CoV-2 COVID-19, mRNA, LNP-S, preservative free 12/28/2020,05/23/2020,04/22/2020 Pneumococcal conjugate 20 va lent (Prevnar 20, PCV 20) 2mo and older 10/27/2023 Tdap Tetanus diptheria acell ular pertussis (Boostrix; Adacel) 7yo and older 10/27/2023 Surgical History Surgery Date Site/Laterality Comments GASTRIC BYPASS 2010 PROCEDURE: [place] GASTRIC RSTCV W/BYP W/SM INT RCNSTJ LIMIT ABSRPJ; COMMENT: in [place] PARTIAL HYSTERECTOMY PROCEDURE: [place] SUPRACERVICAL ABDL HYSTER [...] Sign Reading Time Taken Comments Blood Pressure 180/102 11/28/2024 4:04 PM EDT Pulse 73 11/28/2024 4:04 PM EDT Temperature 36.6 C (97.8 F) 11/28/2024 4:04 PM EDT Respiratory Rate - - Oxygen Saturation - - Inhaled Oxygen Concentration - - Weight 96.2 kg (212 lb) 11/28/2024 4:04 PM EDT Height 172.7 cm (5' 8 ) 11/28/2024 4:04 PM EDT Body Mass Index 32.23 11/28/2024 4:04 PM EDT Plan of Treatment Upcoming Encounters Date Type Department Care Team (Late st Contact Info) Description 04/17/2025 4:30 PM EST Office Visit Bariatric Surgery - [address] [place] [address] Sherron Holden MD [address] [place] [phone] Health Maintenance Due Date Last Done Comments Breast Cancer Screening 1965 Hepatitis B Vaccines (1 of 3 - 19+ 3-dose series) 1984 Cervical Cancer Screening: Pap Smear 1986 Depression Screening 03/08/2024 07/01/2023 Zoster Vaccines (2 of 2) 04/04/2024 02/08/2024 Diabetes: Annual Urine Albumin-Creatinine Ratio (uACR) 09/29/2024 09/30/2023 COVID-19 Vaccine (4 - 2024-2 6 season) 2024 12/28/2020, 05/23/2020, 04/22/2020 Influenza Vaccine (#1) 2024 02/08/2024 Diabetes: Blood [...] 10/27/2023 Colorectal Cancer Screening: Colonoscopy 11/15/2033 11/16/2023 RSV Immunization Adult Patients (1 - 1-dose 75+ series) 2040 Pneumococcal Vaccine: 50+ Years Completed 10/27/2023 HIV [...] Procedure Name Priority Date/Time Associated Diagnosis Comments COMPREHENSIVE METABOLIC PANEL Routine 07/20/2024 2:44 PM EDT Diarrhea, unspecified type HEMOGLOBIN A1C Routine 07/20/2024 2:44 PM EDT Type 2 diabetes mellitus without complication, without long-term current use of insulin ([facility] V24, [facility] V28) HIV 1, 2 ANTIBODY, P24 ANTIGEN WITH REFLEX TO DIFFERENTIATION Routine 05/25/2024 9:42 AM EDT Encounter for screening for HIV LIPID PANEL WITH REFLEX TO DIRECT LDL Routine 05/25/2024 9:42 AM EDT Screening for cholesterol level COLONOSCOPY Routine 11/16/2023 DIABETES FOOT EXAM Routine 10/27/2023 URINE ALBUMIN CREATININE RATIO Routine 09/30/2023 DEPRESSION SCREENING Routine 07/01/2023 from Last 3 Months or Most Recently Relevant to Health Maintenance Results * (ABNORMAL) Hemoglobin A1c (07/20/2024 2:44 PM EDT) Hemoglobin A1C 6.8(H) <6.5 % LAB CHEMISTRY METHOD 07/21/2024 12:20 PM EDT [facility] Mean Bld Glu Estim. 148 mg/dL LAB CHEMISTRY METHOD 07/21/2024 12:20 PM EDT [facility] Blood Venous blood specimen / Unknown Venipuncture / Unknown 07/20/2024 2:44 PM EDT 07/20/2024 2:44 PM EDT us Jennifer Pittman NP LAB BLOOD ORDERABLES Final Resul t [facility] [address] [place] [address], * (ABNORMAL) Comprehensive metabolic panel (07/20/2024 2:44 PM EDT) Sodium 138 133 - 145 mmol/L LAB CHEMISTRY METHOD 07/21/2024 10:14 AM [facility] Potassium 5.5 3.5 - 5.5 mmol/L LAB CHEMISTRY METHOD 07/21/2024 10:14 AM [facility] Chloride 106 96 - 110 mmol/L LAB CHEMISTRY METHOD 07/21/2024 10:14 AM [facility] CO2 27 21 - 32 mmol/L LAB CHEMISTRY METHOD 07/21/2024 10:14 AM [facility] Anion Gap 5 3 - 11 LAB CHEMISTRY METHOD 07/21/2024 10:14 AM [facility] Glucose 98 70 - 100 mg/dL LAB CHEMISTRY METHOD 07/21/2024 10:14 AM [facility] BUN 27(H) 5 - 25 mg/dL LAB CHEMISTRY METHOD 07/21/2024 10:14 AM [facility] Creatinine 1.77(H) 0.50 - 1.10 mg/dL LAB CHEMISTRY METHOD 07/21/2024 10:14 AM [facility] Comment:Results verified by repeat testing eGFR 33(L) >=60 mL/min/1. 73m2 LAB CHEMISTRY METHOD 07/21/2024 10:14 AM [facility] Comment:Calculation based on the Chronic Kidney Disease Epidemiology Collaboration (CKD-EPI) equation refit without adjustment for race. BUN/Creatinine Ratio 15.3 LAB CHEMISTRY METHOD 07/21/2024 10:14 AM [facility] Calcium 8.6 8.5 - 10.5 mg/dL LAB CHEMISTRY METHOD 07/21/2024 10:14 AM [facility] AST (SGOT) 43(H) 10 - 42 unit/L LAB CHEMISTRY METHOD 07/21/2024 10:14 AM [facility] Comment:Results verified by repeat testing ALT (SGPT) 62(H) 10 - 60 unit/L LAB CHEMISTRY METHOD 07/21/2024 10:14 AM [facility] Comment:Results verified by repeat testing Alkaline Phosphatase 96 42 - 121 unit/L LAB CHEMISTRY METHOD 07/21/2024 10:14 AM [facility] Total Protein 6.5 6.0 - 8.0 g/dL LAB CHEMISTRY METHOD 07/21/2024 10:14 AM [facility] Albumin 3.5 3.2 - 5.0 g/dL LAB CHEMISTRY METHOD 07/21/2024 10:14 AM [facility] Total Bilirubin 0.5 0.0 - 1.4 mg/dL LAB CHEMISTRY METHOD 07/21/2024 10:14 AM [facility] Blood Venous blood specimen / Unknown Venipuncture / Unknown 07/20/2024 2:44 PM EDT 07/20/2024 2:44 PM EDT us Darrel Santiago RN NURSERY LAB BLOOD ORDERABLES Final Res ult [facility] [address] [place] [address], * HIV 1,2 antibody, p24 antigen with reflex to differentiation (05/25/2024 9:42 AM EDT) HIV Combo AB/AG Negative Negative LAB CHEMISTRY METHOD 05/25/2024 3:54 PM EDT [facility] Blood Venous blood specimen / Unknown Venipuncture / Unknown 05/25/2024 9:42 AM EDT 05/25/2024 9:42 AM EDT Narrative [facility] - 05/25/2024 3:54 PM [...] NP LAB BLOOD ORDERABLES Final Resul t [facility] [address] [place] [address], [place] [phone] * (ABNORMAL) Lipid panel with reflex to direct LDL (05/25/2024 9:42 AM EDT) Cholesterol 174 0 - 200 mg/dL LAB CHEMISTRY METHOD 05/25/2024 3:08 PM EDT [facility] Triglycerides 195(H) 0 - 150 mg/dL LAB CHEMISTRY METHOD 05/25/2024 3:08 PM [facility] HDL 50 >=40 mg/dL LAB CHEMISTRY METHOD 05/25/2024 3:08 PM T [facility] LDL Calculated 85 0 - 100 mg/dL LAB CHEMISTRY METHOD 05/25/2024 3:08 PM T [facility] VLDL Cholesterol Dilshad 39 mg/dL LAB CHEMISTRY METHOD 05/25/2024 3:08 PM EDT [facility] Non HDL Chol. (LDL+VLDL) 124 <145 mg/dL LAB CHEMISTRY METHOD 05/25/2024 3:08 PM [facility] Chol/HDL Ratio 3.5 0.0 - 4.4 LAB CHEMISTRY METHOD 05/25/2024 3:08 PM [facility] Blood Venous blood specimen / Unknown Venipuncture / Unknown 05/25/2024 9:42 AM EDT 05/25/2024 9:42 AM EDT Jennifer Pittman RN NURSERY LAB BLOOD ORDERABLES Final Resul t [facility] [address] [place] [address], [place] [phone] * Colonoscopy (11/16/2023) Pathologist [facility] Colonoscopy no interpretation , abstracted Anatomical Region Laterality Modality Other Historical Provider MD HEALTH MAINTENANCE Final Result * Diabetes Foot Exam (10/27/2023) Pathologist [facility] Diabetes: Annual Foot Exam abstracted Historical Provider MD HEALTH MAINTENANCE Final Result * Urine Albumin Creatinine Ratio (09/30/2023) Pathologist [facility] Urine Albumin Creatinine Ratio abstracted Historical Provider MD HEALTH MAINTENANCE Final Result * Depression Screening (07/01/2023) Pathologist [facility] Depression Screening abstracted Historical Provider MD HEALTH MAINTENANCE Final Result from Last 3 Months or Most Recently Relevant to Health Maintenance Insurance [facility] [place] [address] Care Teams Bag Sewer Relationship Specialty Start Date End Date Lilian Lanier DO [address] [place] [address] PCP - General Internal Medicine 03/17/24
[2024-12-20 11:53] LABS: PEU-Protein Creat Ratio Rand 10.236 (0.024-0.184); PEU-Rand. Prot/Creat Ratio 10236 mg/g creat (24-184); PEU-Random Ur. Gamma Globulin 4 %; PEU-Random Urine A1 Globulin 6 %; PEU-Random Urine A2 Globulin 8 %; PEU-Random Urine Albumin 70 %; PEU-Random Urine Beta Globulin 11 %; PEU-Random Urine Creatinine 55 mg/dL (20-275); PEU-Random Urine Protein 563 mg/dL (5-24)
== END 2024-12-15 09:03 | disposition home or self-care (01) ==
LOC: HO.LNP 09:02
PROVIDERS: Visit Provider Internal Medicine Critical Care Medicine
DX: R80.9 Proteinuria, unspecified (principal)
CPT/HCPCS: 81001; 82570; 84156; 84166

== ENCOUNTER 2024-12-19 15:18 | Outpatient (AMB) | payer OTHER, SELFPAY ==
--- OUTSIDE RECORDS SUMMARY | 2023-07-31 05:00 | XMS_ITS ---
Author Organization [facility] Address [address] [place] [address] Care Team Providers Care Forensic Sergeant Name Role Phone Trent Schwartz Unavailable Unavailabl e Migration, Provider Unavailable Unavailable REASON FOR VISIT EMR-Dustin Encounters Encounter Location Date Provider Diagnosis [facility] [address] [place] [address] 07/31/2023 Provider Migration Plan Of Treatment Medication Medication Name Sig Start Date Stop Date Notes Vitamin D3 1.25 MG (49388 UT) Capsule cholecalciferol (vitamin D3) Dispense: 5 TABs - 1 Tablet by Orally route every week Refill: 2 Oral Use as directed 01/07/2018 02/15/2019 Discontinued Notes: Medication Renewed Progress Notes * Tres DREWDOB:1965 (59 yo F)Acc No.[id number]:07/31/2023 Patient: Tres KELLEY :1965 A ge:57 Y S ex:Female Address:[address], [place], [address] * Refills Stop Vitamin D3 Capsule, 1.25 MG (40128 UT), Oral, 5, cholecalciferol (vitamin D3) Dispense: 5 TABs - 1 Tablet by Orally route every week Refill: 2, Use as directed Subjective: * Chief Complaints: * E MR-Dustin * * Date:
--- OUTSIDE RECORDS SUMMARY | 2023-08-01 05:00 | XMS_ITS ---
Author Organization [facility] Address [address] [place] [address] Care Team Providers Care Lead Radiologic Technologist Name Role Phone Trent Schwartz Unavailable Unavailabl e Migration, Provider Unavailable Unavailable REASON FOR VISIT EMR-[facility] [place] Medications Medication SIG (Take, Route, Frequency, Duration) Notes Start Date End Date Status Iron 325 (65 Fe) MG Tablet Iron (ferrous sulfate) Dispense: 60 TAB - take 1 tablet (325 mg) by oral route 2 times per day Refill: 3 Oral Use as directed 02/15/2019 Active PX Acid Microbiology Teacher Max St 150 MG Tablet raNITIdine HCl Dispense: 30 TABs - take 1 tablet (150 mg) by oral route once daily at bedtime Refill: 2 Oral Use as directed *Reorder from [email or web address] for eRx and Interaction Alerts* 10/27/2018 Active [...] directed 01/07/2018 Active Vitamin D3 1.25 MG (31330 UT) Capsule cholecalciferol (vitamin D3) Dispense: 5 TABs - 1 Tablet by Orally route every week Refill: 3 Oral Use as directed 02/15/2019 Active Encounters Encounter Location Date Provider Diagnosis [facility] [address] [place], [place] [address] 08/01/2023 Provider Migration Plan Of Treatment No Information Progress Notes * TROY BECERRATresDOB:1965 (59 yo F)Acc No.[id number]:08/01/2023 Patient: Tres KELLEY :1965 A ge:57 Y S ex:Female Address[address], [place], [address] Subjective: * Chief Complaints: * E MR-Dustin * Medications: T akingPX Acid Microbiology Teacher Max St 150 MG Tablet raNITIdine HCl Dispense: 30 TABs - take 1 tablet (150 mg) by oral route once daily at bedtime Refill: 2 Oral Use as directed , Notes to Pharmacist: *Reorder from [facility] for eRx and Interaction Alerts*Cyanocobalamin 1000 MCG/ML [...] Use as directed Vitamin D3 1.25 MG (67402 UT) Capsule cholecalciferol (vitamin D3) Dispense: 5 TABs - 1 Tablet by Orally route every week Refill: 3 Oral Use as directed Taking PX Acid Microbiology Teacher Max St 150 MG Tablet raNITIdine HCl Dispense: 30 TABs - take 1 tablet (150 mg) by oral route once daily at bedtime Refill: 2 Oral Use as directed , Notes to Pharmacist: *Reorder from [facility] for eRx and Interaction Alerts*Taking Cyanocobalamin 1000 [...] as directed Taking Vitamin D3 1.25 MG (85821 UT) Capsule cholecalciferol (vitamin D3) Dispense: 5 TABs - 1 Tablet by Orally route every week Refill: 3 Oral Use as directed * * Date:
--- NOTE | 2024-12-19 15:23 | HO.NEPHOV ---
Intake Visit Reasons: 1mon f/u confirmed Allergies latex Allergy (Verified 11/07/24 09:37) Unknown Medication List - Last Reconciled 12/19/24 by Jarod Ott MD bupropion HCl XL 150 mg PO DAILY carvedilol (Coreg) 25 mg PO BID furosemide (Lasix) 40 mg PO DAILY gabapentin (Neurontin) 100 mg PO BEDTIME PRN hydralazine 100 mg PO ONCE mycophenolate sodium 720 mg (2 x 360 mg) PO BID omeprazole 40 mg PO DAILY prednisone 10 mg orally; Please take four 10mg tablets daily by mouth for 7 days, then three 10mg tablets daily by mouth for 7 days, then two 10mg tablets daily by mouth for 7 days, then one 10mg tablet daily by mouth for 7 days. Part of a prednisone taper. tirzepatide (Mounjaro) 10 mg subcut SA HPI Comments Details: Patient could not make it to the clinic this morning because of severe headache, so called her on her phone 58 years old lady with PMH of hypertension, diabetes mellitus who underwent kidney biopsy for nephrotic syndrome on 10/06/2024. 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 Her CECILIA is positive 1:320, nucleolar pattern. However her workup including ANCA, HIV, hepatitis panel, ADRIANNA 2R is negative, serum free light chain, immunofluorescence, complement levels are all normal. She states her hemoglobin was 14 prior to May, currently is trending around 10 and her anemia is new. no recent infection/skin lesions or new medications. She had started a herbal tea which she stopped now. She was empirically started on prednisone on 10/23/2024 following which her creatinine decreased from 3.01 to 2.05 but her proteinuria increased from 5g to 10gm. Patient also complains of abdominal distention, weight gain and significant abdominal discomfort along with hypertension from prednisone. She was started on mycophenolate 720 mg b.i.d. since 11/07/2024 and prednisone has been tapered. Hypertension: She is on carvedilol 25 mg b.i.d. and her blood pressures are poorly controlled [facility] Medical History CKD (chronic kidney disease) stage 3, GFR 30-59 ml/min HTN (hypertension) Post hysterectomy menopause Endometrial cancer Anxiety Surgical History S/P gastric sleeve procedure H/O inguinal hernia repair H/O abdominoplasty H/O gastric sleeve Social History (Updated 12/13/24 @ 09:53 by Satnam Leroy) Household Members: Children and None Housing: House [facility] Do you presently have visiting nurse or other home services: No Alcohol intake: former Patient Tobacco Use Status: Never used Tobacco service: No Current occupational status: unemployed Review of Systems Const Details: Const : no body aches, no chills, no excessive sweating and no fatigue Eyes: no blurry vision and no change in vision ENT: no bleeding gums and no change in voice, no dizziness Card: no chest pain, no shortness of breath, no orthopnea, no PND Resp: no cough, no excessive phlegm production, no SOB GI: no abdominal pain and no nausea, no vomiting : no hematuria, no urinary frequency and no difficulty voiding Musc: no abnormal gait, no bone pain Neuro: no abnormal movements, severe headache present Psych: no behavioral changes and no change in appetite Endo: no change in body appearance, no cold intolerance, no excessive sweating and no fatigue Physical Exam Exam Exam: Did not do a physical examination as this is telephonic visit Telehealth Telehealth Telehealth Platform: Telephone Patient Identification confirmed using: Name, : Yes Telehealth method: voice only Results Reviewed Nephrology Results: Hgb, (12.0-16.0) 11.5 g/dl L 12/13/24 WBC, (4.8-10.8) 11.0 X10*3/uL H 12/13/24 Plt Count, (160-400) 322 X10*3/uL 12/13/24 Sodium, (135-145) 140 mmol/L 12/13/24 Potassium, (3.3-5.1) 3.2 mmol/L L 12/13/24 Chloride, (96-108) 104 mmol/L 12/13/24 Carbon Dioxide, (22-29) 31 mmol/L H 12/13/24 BUN, (9-16) 35 mg/dL H 12/13/24 Creatinine, (0.5-1.4) 2.00 mg/dL H 12/13/24 Calcium, (8.4-10.2) 8.7 mg/dL Δ 12/13/24 Urine Protein, (Neg-Trace) >=1000 (4+) mg/dL H 12/15/24 Urine Creatinine 50.92 mg/dL 12/15/24 Protein/Creatinin Ratio, (<0.2) 5.25 H 10/11/24 Renal US 07/25/24 Assessment & Plan Assessment & Plan (1) TANIA (acute kidney injury): Code(s): N17.9 - Acute kidney failure, unspecified Category: Medical (2) Anemia: Code(s): D64.9 - Anemia, unspecified Category: Medical (3) Proteinuria: Code(s): R80.9 - Proteinuria, unspecified Category: Medical Qualifiers: Proteinuria type: unspecified Qualified Code(s): R80.9 - Proteinuria, unspecified (4) Nephrotic range proteinuria: Code(s): R80.9 - Proteinuria, unspecified Category: Medical Plan Immune-complex GN: - Biopsy done on 10/06/2024 unfortunately had only 1 glomerulus, 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 - Her CECILIA is positive 1:320, nuclear volar However her workup including ANCA, HIV, hepatitis panel, ADRIANNA 2R is negative, serum free light chain, immunofluorescence, complement levels are all normal. 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 since 11/07/2024. She is still on 10 mg of prednisone which I asked her to stop today - negative anti scleroderma 70 antibody, anti-Torrie, anti SS, anti LIME SPREADER antibodies, anti centromere antibodies. Low serum kappa and lambda, normal ratio. Repeat Anca negative. Repeat SPEP and UPEP pending - has developed anemia, states her hemoglobin was around 14 in the past but decrease to 10 since around July which coincides with proteinuria. We will refer her to Heme-Onc for possibly needing a bone marrow biopsy. - Steroids has been tapered off, had significant intolerance and side effects from the steroids including hypertension, abdominal symptoms - we will get a repeat renal biopsy as the previous biopsy was inadequate, we will get a date for the biopsy. We will repeat labs in a month along with quantify proteinuria. Hypertension: - target blood pressures less than 130/90 mm Hg - possibly her blood pressure is higher side due to steroids, currently on carvedilol 25 mg b.i.d and we will add losartan hydrochlorothiazide since her blood pressures are still around 170s and still has significant proteinuria - compliance: Good Anemia: - normal iron profile - seen Hematology who advised no further evaluation. Orders: Orders Microalbumin, Random (w Creat) 1 Month D64.9 - Anemia, unspecified, N17.9 - Acute kidney failure, unspecified, R80.9 - Proteinuria, unspecified Total Protein Urine Random 1 Month D64.9 - Anemia, unspecified, N17.9 - Acute kidney failure, unspecified, R80.9 - Proteinuria, unspecified CT biopsy renal LT 1 Day N17.9 - Acute kidney failure, unspecified, N18.9 - Chronic kidney disease, unspecified, R80.9 - Proteinuria, unspecified Basic Metabolic Panel 1 Month D64.9 - Anemia, unspecified, N17.9 - Acute kidney failure, unspecified, R80.9 - Proteinuria, unspecified Complete Blood Count no Diff 1 Month D64.9 - Anemia, unspecified, N17.9 - Acute kidney failure, unspecified, R80.9 - Proteinuria, unspecified Medications: New tthatoq-ftpvowiizwurl-ewvtprig 227-194-33 mg 1 tab PO Q6H PRN 30 tabs 0RF pain losartan-hydrochlorothiazide 50-12.5 mg 1 tab PO DAILY 30 tabs 3RF Coding Level of Care Code Tele New Pt Level 4 (31014) Diagnoses TANIA (acute kidney injury) N17.9 Anemia D64.9 Proteinuria, unspecified type R80.9 Proteinuria type: unspecified Nephrotic range proteinuria R80.9
--- OUTSIDE RECORDS SUMMARY | 2024-12-19 18:09 | XMS_ITS | Patient Health Record ---
Author Organization [facility] Address [address] [place] [address] Care Team Providers Care Transcript Evaluator Name Role Phone Mcintosh MauraTrent Unavailable Unavailabl e Reason For Referral No Information Medications Medication SIG (Take, Route, Frequency, Duration) Notes Start Date End Date Status Iron 325 (65 Fe) MG Tablet Iron (ferrous sulfate) Dispense: 60 TAB - take 1 tablet (325 mg) by oral route 2 times per day Refill: 3 Oral Use as directed 02/15/2019 Active PX Acid Clearing Supervisor Max St 150 MG Tablet raNITIdine HCl Dispense: 30 TABs - take 1 tablet (150 mg) by oral route once daily at bedtime Refill: 2 Oral Use as directed *Reorder from [employer] for eRx and Interaction Alerts* 10/27/2018 Active [...] directed 01/07/2018 Active Vitamin D3 1.25 MG (22273 UT) Capsule cholecalciferol (vitamin D3) Dispense: 5 TABs - 1 Tablet by Orally route every week Refill: 3 Oral Use as directed 02/15/2019 Active Problems Problem Type SNOMED Code ICD Code Onset Dates Problem Status W/U Status Risk Notes Problem Annual wellness visit (562357851994500) Encounter for other general examination (Z00.8) 2016 Active confirmed Type: Diagnosis; Confidentiality Level: 1; Problem Screening for malignant neoplasm of colon (926133537) Encounter for screening for malignant neoplasm of colon (Z12.11) 2017 Active confirmed Type: Diagnosis; Confidentiality Level: 1; Problem Endocrine/metabol ic screening (224078357) Encounter for screening for other suspected endocrine disorder (Z13.29) 2017 Active confirmed Type: Diagnosis; Confidentiality Level: 1; Problem History of bariatric surgical procedure (194111338) Bariatric surgery status (Z98.84) 2017 Active confirmed Type: Diagnosis; Confidentiality Level: 1; Problem Lipid screening (935546984) Encounter for screening for lipoid disorders (Z13.220) 2017 Active confirmed Type: Diagnosis; Confidentiality Level: 1; Problem Screening for malignant neoplasm of cervix (100979760) Encounter for screening for malignant neoplasm of cervix (Z12.4) 2017 Active confirmed Type: Diagnosis; Confidentiality Level: 1; Problem Abnormal findings on microbiological examination of urine (227813898) Unspecified abnormal findings in urine (R82.90) 2017 Active confirmed Type: Diagnosis; Confidentiality Level: 1; Problem Viral infection (79271538) Viral infection, unspecified (B34.9) 2015 Active confirmed Type: Diagnosis; Confidentiality Level: 1; Problem Morbid obesity (899003679) Morbid obesity (278.01) 2013 Active confirmed Type: Diagnosis; Confidentiality Level: 1; Problem Endocrine finding (974262909) Abnormal results of other endocrine function studies (R94.7) 2018 Active confirmed Type: Diagnosis; Confidentiality Level: 1; Problem Post-surgical malabsorption (disorder) (812727803) Postsurgical malabsorption, not elsewhere classified (K91.2) 2017 Active confirmed Type: Diagnosis; Confidentiality Level: 1; Problem Partial loss of teeth due to caries, class II (K08.432) 2018 Active confirmed Type: Diagnosis; Confidentiality Level: 1; Problem Hyperglycemia due to type 2 diabetes mellitus (593919783469386) Type 2 diabetes mellitus with hyperglycemia (E11.65) 2017 Active confirmed Type: Diagnosis; Confidentiality Level: 1; Problem Iron deficiency anemia (72033240) Iron deficiency anemia, unspecified (D50.9) 2017 Active confirmed Type: Diagnosis; Confidentiality Level: 1; Problem Pain of right shoulder region (finding) (8625280626) Pain in right shoulder (M25.511) 2018 Active confirmed Type: Diagnosis; Confidentiality Level: 1; Problem Gastro-esophageal reflux disease without esophagitis (038950594) Gastro-esophag eal reflux disease without esophagitis (K21.9) 2018 Active confirmed Type: Diagnosis; Confidentiality Level: 1; Problem Diabetes mellitus screening (030741522) Encounter for screening for diabetes mellitus (Z13.1) 2017 Active confirmed Type: Diagnosis; Confidentiality Level: 1; Problem Screening for malignant neoplasm of breast (288688398) Encounter for screening mammogram for malignant neoplasm of breast (Z12.31) 2017 Active confirmed Type: Diagnosis; Confidentiality Level: 1; Problem Adult health examination (821950216) Encounter for general adult medical examination without abnormal findings (Z00.00) 2017 Active confirmed Type: Diagnosis; Confidentiality Level: 1; Problem Impaired fasting glucose (568239473) Impaired fasting glucose (R73.01) 2017 Active confirmed Type: Diagnosis; Confidentiality Level: 1; Problem Vitamin D deficiency (37697221) Vitamin D deficiency, unspecified (E55.9) 2017 Active confirmed Type: Diagnosis; Confidentiality Level: 1; Problem Dietary folate deficiency anemia (10006942) Dietary folate deficiency anemia (D52.0) 2018 Active confirmed Type: Diagnosis; Confidentiality Level: 1; Problem Vitamin B12 deficiency anemia due to dietary causes (774025714) Other dietary vitamin B12 deficiency anemia (D51.3) 2017 Active confirmed Type: Diagnosis; Confidentiality Level: 1; Plan Of Treatment No Information Insurance Providers Payer Name Payer Address Payer Phone Subscriber Number Group Number Insured Name Patient Relationship to Insured Coverage Start Date Coverage End Date International Medical Card [address] [place], [place] [address] [id number] Tres Wu Self - patient is the insured 7
--- OUTSIDE RECORDS SUMMARY | 2024-12-19 18:09 | XMS_ITS | Clinical Summary ---
Author Organization [facility] Address [address] [place] [address] Phone Care Team Providers Care Square Cutter Name Role Phone Lilian Lanier DO Primary Care Provider [phone] Allergies Active Allergy Reactions Criticality Noted Date [...] 2 diabetes mellitus ([facility] V24, [facility] V28) Take 1 capsule (100 mg total) [...] DM (diabetes mellitus) ([facility] V24, [facility] V28 ) 02/26/2023 Obesity (BMI 30.0-34.9) 02/24/2023 Anxiety 08/19/2021 Depression 08/19/2021 HTN (hypertension) 08/19/2021 Iron deficiency anemia 08/19/2021 Lung nodule 08/19/2021 Encounters Date Type Department Care Team Description 11/28/2024 4:15 PM EDT Office Visit Bariatric Surgery - [address] [place] [address] Sherron Holden MD Class 1 [...] Date Site/Laterality Comments GASTRIC BYPASS 2010 PROCEDURE: [facility] GASTRIC RSTCV W/BYP W/SM INT RCNSTJ LIMIT ABSRPJ; COMMENT: in [place] PARTIAL HYSTERECTOMY PROCEDURE: [facility] SUPRACERVICAL ABDL HYSTER W/WO RMVL TUBE OVARY KNEE ARTHROSCOPY W/ DEBRIDEMENT Right PROCEDURE: VA ARTHRS KNEE DEBRIDEMENT/SHAVING ARTCLR CRTLG HERNIA REPAIR PROCEDURE: VA REPAIR FIRST ABDOMINAL WALL HERNIA; COMMENT: supraumbilical mesh hernia repair OTHER SURGICAL HISTORY PROCEDURE: [facility] RPR RECRT INCAL/VNT HERNIA REDUCIBLE BLADDER SURGERY [...] PM EST Office Visit Bariatric Surgery - [address] [place] [address] Sherron Holden MD [address] [place] [address] Health Maintenance Due Date Last Done Comments Breast Cancer Screening 1965 Hepatitis B Vaccines (1 of 3 - 19+ 3-dose series) 1984 Cervical Cancer Screening: Pap Smear 1986 RSV Immunization Adult Patients (1 - Risk 50-74 years 1-dose series) 12/10/2015 Depression Screening 03/08/2024 07/01/2023 Zoster Vaccines (2 [...] use of insulin ([facility] V24, [facility] V28) HIV 1, 2 ANTIBODY, P24 ANTIGEN [...] t [facility] [address] [place] [address], * (ABNORMAL) Comprehensive metabolic panel (07/20/2024 2:44 [...] 07/20/2024 2:44 PM EDT us Darrel Santiago FINANCIAL ACCOUNTANT LAB BLOOD ORDERABLES Final Res ult [facility] [address] [place] [address], * HIV 1,2 antibody, p24 antigen with [...] t [facility] [address] [place] [address], [place] [phone] * (ABNORMAL) Lipid panel with reflex to direct LDL (05/25/2024 9:42 AM EDT) Cholesterol 174 0 - 200 mg/dL LAB CHEMISTRY METHOD 05/25/2024 3:08 PM EDT [facility] Triglycerides 195(H) 0 - 150 mg/dL LAB CHEMISTRY METHOD 05/25/2024 3:08 PM EDT [facility] HDL 50 [...] PM T [facility] Chol/HDL Ratio 3.5 0.0 - 4.4 LAB CHEMISTRY METHOD 05/25/2024 3:08 PM [facility] Blood Venous blood specimen / Unknown Venipuncture / Unknown 05/25/2024 9:42 AM EDT 05/25/2024 9:42 AM EDT Jennifer Pittman FINANCIAL ACCOUNTANT LAB BLOOD ORDERABLES Final Resul t [facility] [address] [place] [address], [place] [phone] * Colonoscopy (11/16/2023) Colonoscopy no interpretation , abstracted Anatomical Region Laterality Modality Other Historical Provider MD HEALTH MAINTENANCE Final Result * Diabetes Foot Exam (10/27/2023) Pathologist [facility] Diabetes: Annual Foot Exam abstracted Historical Provider MD HEALTH MAINTENANCE Final Result * Urine Albumin Creatinine Ratio (09/30/2023) Pathologist [facility] Urine Albumin Creatinine Ratio abstracted Historical Provider MD HEALTH MAINTENANCE Final Result * Depression Screening (07/01/2023) Pathologist [facility] Depression Screening abstracted Historical Provider MD HEALTH MAINTENANCE Final Result from Last 3 Months or Most Recently Relevant to Health Maintenance Insurance [facility] Care Teams Square Cutter Relationship Specialty Start Date End Date Lilian Lanier DO [address] [place] [address] PCP - General Internal Medicine 03/17/24
== END 2024-12-19 16:56 | disposition home or self-care (01) ==
PROVIDERS: Visit Provider Internal Medicine Critical Care Medicine
DX: N17.9 Acute kidney failure, unspecified (principal); D64.9 Anemia, unspecified; R80.9 Proteinuria, unspecified
CPT/HCPCS: 98014

== ENCOUNTER 2025-01-08 09:23 | Day surgery (SDC) | payer OTHER, SELFPAY ==
--- OUTSIDE RECORDS SUMMARY | 2023-07-31 05:00 | XMS_ITS ---
Author Organization [facility] Address [address] [place] [address] Care Team Providers Care Clinic Business Manager Name Role Phone Trent Schwartz Unavailable Unavailabl e Migration, Provider Unavailable Unavailable REASON FOR VISIT EMR-Dustin Encounters Encounter Location Date Provider Diagnosis [facility] [address] [place] [address] 07/31/2023 Provider Migration Plan Of Treatment Medication Medication Name Sig Start Date Stop Date Notes Vitamin D3 1.25 MG (37049 UT) Capsule cholecalciferol (vitamin D3) Dispense: 5 TABs - 1 Tablet by Orally route every week Refill: 2 Oral Use as directed 01/07/2018 02/15/2019 Discontinued Notes: Medication Renewed Progress Notes * Tres DREWDOB:1965 (59 yo F)Acc No.[id number]:07/31/2023 Patient: Tres KELLEY :1965 A ge:57 Y S ex:Female Address:[address], [place], [address] * Refills Stop Vitamin D3 Capsule, 1.25 MG (44376 UT), Oral, 5, cholecalciferol (vitamin D3) Dispense: 5 TABs - 1 Tablet by Orally route every week Refill: 2, Use as directed Subjective: * Chief Complaints: * E MR-Dustin * * Date:
--- OUTSIDE RECORDS SUMMARY | 2023-08-01 05:00 | XMS_ITS ---
Author Organization [facility] Address [address] [place] [address] Care Team Providers Care Gis Manager Name Role Phone Trent Schwartz Unavailable Unavailabl e Migration, Provider Unavailable Unavailable REASON FOR VISIT [facility] [place] Medication SIG (Take, Route, Frequency, Duration) Notes Start Date End Date Status Iron 325 (65 Fe) MG Tablet Iron (ferrous sulfate) Dispense: 60 TAB - take 1 tablet (325 mg) by oral route 2 times per day Refill: 3 Oral Use as directed 02/15/2019 Active PX Acid Speeder Frame Tender Max St 150 MG Tablet raNITIdine HCl Dispense: 30 TABs - take 1 tablet (150 mg) by oral route once daily at bedtime Refill: 2 Oral Use as directed *Reorder from [employer] [facility] for eRx and Interaction Alerts* 10/27/2018 [...] directed 01/07/2018 Active Vitamin D3 1.25 MG (59339 UT) Capsule cholecalciferol (vitamin D3) Dispense: 5 TABs - 1 Tablet by Orally route every week Refill: 3 Oral Use as directed 02/15/2019 Active Encounters Encounter Location Date Provider Diagnosis [facility] [address] [place] [address] 08/01/2023 Provider Migration Plan Of Treatment No Information Progress Notes * TROY BECERRATresDOB:1965 (59 yo F)Acc No.[id number]:08/01/2023 Patient: Tres KELLEY :1965 A ge:57 Y S ex:Female Address[address], [place], [address] Subjective: * Chief Complaints: * E MR-Dustin * Medications: T akingPX Acid Speeder Frame Tender Max St 150 MG Tablet raNITIdine HCl Dispense: 30 TABs - take 1 tablet (150 mg) by oral route once daily at bedtime Refill: 2 Oral Use as directed , Notes to Pharmacist: *Reorder from [facility] for eRx and Interaction Alerts*Cyanocobalamin 1000 [...] Use as directed Vitamin D3 1.25 MG (14444 UT) Capsule cholecalciferol (vitamin D3) Dispense: 5 TABs - 1 Tablet by Orally route every week Refill: 3 Oral Use as directed Taking PX Acid Speeder Frame Tender Max St 150 MG Tablet raNITIdine HCl Dispense: 30 TABs - take 1 tablet (150 mg) by oral route once daily at bedtime Refill: 2 Oral Use as directed , Notes to Pharmacist: *Reorder from [facility] for eRx and Interaction Alerts*Taking Cyanocobalamin [...] as directed Taking Vitamin D3 1.25 MG (11052 UT) Capsule cholecalciferol (vitamin D3) Dispense: 5 TABs - 1 Tablet by Orally route every week Refill: 3 Oral Use as directed * * Date:
--- OUTSIDE RECORDS SUMMARY | 2024-12-27 20:31 | XMS_ITS | Patient Health Record ---
Author Organization [facility] Address [address] [place] [address] Care Team Providers Care Salesperson Men'S Furnishings Name Role Phone Mcintosh MauraTrent Unavailable Unavailabl e Reason For Referral No Information Medications Medication SIG (Take, Route, Frequency, Duration) Notes Start Date End Date Status Iron 325 (65 Fe) MG Tablet Iron (ferrous sulfate) Dispense: 60 TAB - take 1 tablet (325 mg) by oral route 2 times per day Refill: 3 Oral Use as directed 02/15/2019 Active PX Acid Manager Ambulatory Max St 150 MG Tablet raNITIdine HCl Dispense: 30 TABs - take 1 tablet (150 mg) by oral route once daily at bedtime Refill: 2 Oral Use as directed *Reorder from [employer] for eRx and Interaction Alerts* 10/27/2018 Active [...] directed 01/07/2018 Active Vitamin D3 1.25 MG (28404 UT) Capsule cholecalciferol (vitamin D3) Dispense: 5 TABs - 1 Tablet by Orally route every week Refill: 3 Oral Use as directed 02/15/2019 Active Problems Problem Type SNOMED Code ICD Code Onset Dates Problem Status W/U Status Risk Notes Problem Morbid obesity (282841694) Morbid obesity (278.01) 2013 Active confirmed Type: Diagnosis; Confidentiality Level: 1; Problem Viral infection (02900370) Viral infection, unspecified (B34.9) 2015 Active confirmed Type: Diagnosis; Confidentiality Level: 1; Problem Iron deficiency anemia (26260125) Iron deficiency anemia, unspecified (D50.9) 2017 Active confirmed Type: Diagnosis; Confidentiality Level: 1; Problem Vitamin B12 deficiency anemia due to dietary causes (545538298) Other dietary vitamin B12 deficiency anemia (D51.3) 2017 Active confirmed Type: Diagnosis; Confidentiality Level: 1; Problem Dietary folate deficiency anemia (97211901) Dietary folate deficiency anemia (D52.0) 2018 Active confirmed Type: Diagnosis; Confidentiality Level: 1; Problem Hyperglycemia due to type 2 diabetes mellitus (965391765133490) Type 2 diabetes mellitus with hyperglycemia (E11.65) 2017 Active confirmed Type: Diagnosis; Confidentiality Level: 1; Problem Vitamin D deficiency (11967336) Vitamin D deficiency, unspecified (E55.9) 2017 Active confirmed Type: Diagnosis; Confidentiality Level: 1; Problem Partial loss of teeth due to caries, class II (K08.432) 2018 Active confirmed Type: Diagnosis; Confidentiality Level: 1; Problem Gastro-esophageal reflux disease without esophagitis (908183995) Gastro-esophag eal reflux disease without esophagitis (K21.9) 2018 Active confirmed Type: Diagnosis; Confidentiality Level: 1; Problem Post-surgical malabsorption (disorder) (133438238) Postsurgical malabsorption, not elsewhere classified (K91.2) 2017 Active confirmed Type: Diagnosis; Confidentiality Level: 1; Problem Pain of right shoulder region (finding) (0072173322) Pain in right shoulder (M25.511) 2018 Active confirmed Type: Diagnosis; Confidentiality Level: 1; Problem Impaired fasting glucose (675225190) Impaired fasting glucose (R73.01) 2017 Active confirmed Type: Diagnosis; Confidentiality Level: 1; Problem Abnormal findings on microbiological examination of urine (916699127) Unspecified abnormal findings in urine (R82.90) 2017 Active confirmed Type: Diagnosis; Confidentiality Level: 1; Problem Endocrine finding (259864058) Abnormal results of other endocrine function studies (R94.7) 2018 Active confirmed Type: Diagnosis; Confidentiality Level: 1; Problem Adult health examination (581737476) Encounter for general adult medical examination without abnormal findings (Z00.00) 2017 Active confirmed Type: Diagnosis; Confidentiality Level: 1; Problem Annual wellness visit (243351959429359) Encounter for other general examination (Z00.8) 2016 Active confirmed Type: Diagnosis; Confidentiality Level: 1; Problem Screening for malignant neoplasm of colon (003744253) Encounter for screening for malignant neoplasm of colon (Z12.11) 2017 Active confirmed Type: Diagnosis; Confidentiality Level: 1; Problem Screening for malignant neoplasm of breast (019447730) Encounter for screening mammogram for malignant neoplasm of breast (Z12.31) 2017 Active confirmed Type: Diagnosis; Confidentiality Level: 1; Problem Screening for malignant neoplasm of cervix (775859219) Encounter for screening for malignant neoplasm of cervix (Z12.4) 2017 Active confirmed Type: Diagnosis; Confidentiality Level: 1; Problem Diabetes mellitus screening (369559044) Encounter for screening for diabetes mellitus (Z13.1) 2017 Active confirmed Type: Diagnosis; Confidentiality Level: 1; Problem Lipid screening (007713926) Encounter for screening for lipoid disorders (Z13.220) 2017 Active confirmed Type: Diagnosis; Confidentiality Level: 1; Problem Endocrine/metabol ic screening (196458906) Encounter for screening for other suspected endocrine disorder (Z13.29) 2017 Active confirmed Type: Diagnosis; Confidentiality Level: 1; Problem History of bariatric surgical procedure (910329044) Bariatric surgery status (Z98.84) 2017 Active confirmed Type: Diagnosis; Confidentiality Level: 1; Plan Of Treatment No Information Insurance Providers Payer Name Payer Address Payer Phone Subscriber Number Group Number Insured Name Patient Relationship to Insured Coverage Start Date Coverage End Date International Medical Card [address] [place], [place] [address] [id number] Tres Wu Self - patient is the insured 7
--- OUTSIDE RECORDS SUMMARY | 2024-12-27 20:31 | XMS_ITS | Clinical Summary ---
Author Organization [address] [place] [address] Address [address] [place] [address] Phone Care Team Providers Care Product Marketing Programs Manager Name Role Phone Lilian Lanier DO Primary Care Provider [phone] Allergies Active Allergy Reactions Criticality Noted Date [...] complication associated with type 2 diabetes mellitus ([facility]/HCC V24, CMS/HCC V28) Take 1 capsule (100 mg total) by mouth at bedtime. 90 each 1 05/26/19 25 Active freestyle (FreeStyle Lancets) 28 gauge lancetsIndicatio [...] 2 mL 2 10/26/19 25 025 Active carvediloL (COREG) 25 mg tablet Take 1 tablet (25 mg total) by mouth 2 (two) times a day with meals. 10/25/19 25 Active furosemide (LASIX) 40 mg tablet Take 1 tablet (40 mg total) by mouth 1 (one) time each day. 10/27/19 25 Active hydroCHLOROthiaz chirag (HYDRODIURIL) 25 mg tablet Take 1 tablet (25 mg total) by mouth 1 (one) time each day. 11/08/19 25 Active omeprazole (PriLOSEC) [address] capsule Take 1 capsule (40 mg total) by mouth 1 (one) time each day. 10/27/19 25 Active predniSONE (DELTASONE) 10 mg tablet Take 2 tablets (20 mg total) by mouth 1 (one) time each day. 11/23/19 25 Active mycophenolate (MYFORTIC) 360 mg EC tablet Take 1 tablet (360 mg total) by mouth 2 (two) times a day. 11/19/19 25 Active hydrALAZINE (APRESOLINE) 100 mg tablet Take 0.5 tablets (50 mg total) by mouth 2 (two) times a day. 11/08/19 25 Active buPROPion XL (WELLBUTRIN XL) 150 mg 24 hr tabletIndication s:Class 1 obesity due to excess calories with serious comorbidity and body mass index (BMI) of 30.0 to 30.9 in adult TAKE 1 TABLET BY MOUTH 1 TIME EACH DAY. 90 tablet 1 12/28/19 25 Active BUPROPION HCL ORAL Take by mouth. 025 Discontinued(Re order) buPROPion XL (WELLBUTRIN XL) 150 mg 24 hr tabletIndication s:Class 1 obesity due to excess calories with serious comorbidity and body mass index (BMI) of 30.0 to 30.9 in adult Take 1 tablet (150 mg total) by mouth 1 (one) time each day. 30 each 1 11/29/19 25 025 Discontinued Active Problems Problem Noted Date Diagnosed Date DM (diabetes mellitus) ([facility] V24, [facility] V28 ) 02/26/2023 Obesity (BMI 30.0-34.9) 02/24/2023 Anxiety 08/19/2021 Depression 08/19/2021 HTN (hypertension) 08/19/2021 Iron deficiency anemia 08/19/2021 Lung nodule 08/19/2021 Encounters Date Type Department Care Team Description 11/28/2024 4:15 PM EDT Office Visit Bariatric Surgery - [address] [address] Sherron Holden MD Class 1 obesity [...] Date Site/Laterality Comments GASTRIC BYPASS 2010 PROCEDURE: OK GASTRIC RSTCV W/BYP W/SM INT RCNSTJ LIMIT ABSRPJ; COMMENT: in [place] PARTIAL HYSTERECTOMY PROCEDURE: OK SUPRACERVICAL ABDL HYSTER W/WO RMVL TUBE OVARY KNEE ARTHROSCOPY W/ DEBRIDEMENT Right PROCEDURE: OK ARTHRS KNEE DEBRIDEMENT/SHAVING ARTCLR CRTLG HERNIA REPAIR PROCEDURE: OK REPAIR FIRST ABDOMINAL WALL HERNIA; COMMENT: supraumbilical mesh hernia repair OTHER SURGICAL HISTORY PROCEDURE: OK RPR RECRT INCAL/VNT HERNIA REDUCIBLE BLADDER SURGERY [...] Mother Paternal Grandfather Paternal Grandmother Sister 1 12 paternal Sister 2 1 paternal Alive Sister [...] PM EST Office Visit Bariatric Surgery - [address] [place] [address] Sherron Holden MD [address] [place] [phone] Health Maintenance Due Date Last Done Comments Breast Cancer Screening 1965 Hepatitis B Vaccines (1 of 3 - 19+ 3-dose series) 1984 Cervical Cancer Screening: Pap Smear 1986 RSV Immunization Adult Patients (1 - Risk 50-74 years 1-dose series) 12/10/2015 Depression Screening 03/08/2024 07/01/2023 Zoster Vaccines (2 of 2) 04/04/2024 02/08/2024 Diabetes: Annual Urine Albumin-Creatinine Ratio (uACR) 09/29/2024 09/30/2023 COVID-19 Vaccine ( - 2024-2 6 season) 2024 12/28/2020, 05/23/2020, [...] complication, without long-term current use of insulin ([facility] V24, [facility] V28) HIV 1, 2 ANTIBODY, [...] LAB CHEMISTRY METHOD 07/21/2024 12:20 PM EDT [facility] Mean Bld Glu Estim. 148 mg/dL LAB CHEMISTRY METHOD 07/21/2024 12:20 PM [facility] Blood Venous blood specimen / Unknown Venipuncture / Unknown 07/20/2024 2:44 PM EDT 07/20/2024 2:44 PM EDT us Jennifer Pittman NP LAB BLOOD ORDERABLES Final Resul t [facility] [address] [place] [address], [place] [phone] * (ABNORMAL) Comprehensive metabolic panel (07/20/2024 2:44 PM EDT) Sodium 138 133 - 145 mmol/L LAB CHEMISTRY METHOD 07/21/2024 10:14 AM [facility] Potassium 5.5 3.5 - 5.5 mmol/L LAB CHEMISTRY METHOD 07/21/2024 10:14 AM [facility] Chloride 106 96 - 110 mmol/L LAB CHEMISTRY METHOD 07/21/2024 10:14 AM [facility] CO2 27 21 - 32 mmol/L LAB CHEMISTRY METHOD 07/21/2024 10:14 AM [facility] Anion Gap 5 3 - 11 LAB CHEMISTRY METHOD 07/21/2024 10:14 AM [facility] Glucose 98 70 - 100 mg/dL LAB CHEMISTRY METHOD 07/21/2024 10:14 AM [facility] BUN 27(H) 5 - 25 mg/dL LAB CHEMISTRY METHOD 07/21/2024 10:14 AM [facility] Creatinine 1.77(H) 0.50 - 1.10 mg/dL LAB CHEMISTRY METHOD 07/21/2024 10:14 AM [facility] Comment:Results verified by repeat testing eGFR 33(L) >=60 mL/min/1. 73m2 LAB CHEMISTRY METHOD 07/21/2024 10:14 AM [facility] Comment:Calculation based on the Chronic Kidney Disease Epidemiology Collaboration (CKD-EPI) equation refit without adjustment for race. BUN/Creatinine Ratio 15.3 LAB CHEMISTRY METHOD 07/21/2024 10:14 AM [facility] Calcium 8.6 8.5 - 10.5 mg/dL LAB CHEMISTRY METHOD 07/21/2024 10:14 AM [facility] AST (SGOT) 43(H) 10 - 42 unit/L LAB CHEMISTRY METHOD 07/21/2024 10:14 AM [facility] Comment:Results verified by repeat testing ALT (SGPT) 62(H) 10 - 60 unit/L LAB CHEMISTRY METHOD 07/21/2024 10:14 AM [facility] Comment:Results verified by repeat testing Alkaline Phosphatase 96 42 - 121 unit/L LAB CHEMISTRY METHOD 07/21/2024 10:14 AM [facility] Total Protein 6.5 6.0 - 8.0 g/dL LAB CHEMISTRY METHOD 07/21/2024 10:14 AM [facility] Albumin 3.5 3.2 - 5.0 g/dL LAB CHEMISTRY METHOD 07/21/2024 10:14 AM [facility] Total Bilirubin 0.5 0.0 - 1.4 mg/dL LAB CHEMISTRY METHOD 07/21/2024 10:14 AM [facility] Blood Venous blood specimen / Unknown Venipuncture / Unknown 07/20/2024 2:44 PM EDT 07/20/2024 2:44 PM EDT us Darrel Santiago NP LAB BLOOD ORDERABLES Final Res ult [facility] [address] [place] [address], * HIV 1,2 antibody, p24 antigen with reflex to differentiation (05/25/2024 9:42 AM EDT) [facility] HIV Combo AB/AG Negative Negative LAB CHEMISTRY METHOD 05/25/2024 3:54 PM EDT [facility] Blood Venous blood specimen / Unknown Venipuncture / Unknown 05/25/2024 9:42 AM EDT 05/25/2024 9:42 AM EDT Narrative [facility] - 05/25/2024 3:54 PM EDT [...] NP LAB BLOOD ORDERABLES Final Resul t [facility] [address] [place] [address], * (ABNORMAL) Lipid panel with reflex to direct LDL (05/25/2024 9:42 AM EDT) [facility] Cholesterol 174 0 - 200 mg/dL LAB CHEMISTRY METHOD 05/25/2024 3:08 PM EDT [facility] Triglycerides 195(H) 0 - 150 mg/dL LAB CHEMISTRY METHOD 05/25/2024 3:08 PM EDT [facility] HDL 50 >=40 mg/dL LAB CHEMISTRY METHOD 05/25/2024 3:08 PM EDT [facility] LDL Calculated 85 0 - 100 mg/dL LAB CHEMISTRY METHOD 05/25/2024 3:08 PM EDT [facility] VLDL Cholesterol Dilshad 39 mg/dL LAB CHEMISTRY METHOD 05/25/2024 3:08 PM EDT [facility] Non HDL Chol. (LDL+VLDL) 124 <145 mg/dL LAB CHEMISTRY METHOD 05/25/2024 3:08 PM EDT [facility] Chol/HDL Ratio 3.5 0.0 - 4.4 LAB CHEMISTRY METHOD 05/25/2024 3:08 PM EDT [facility] Blood Venous blood specimen / Unknown Venipuncture / Unknown 05/25/2024 9:42 AM EDT 05/25/2024 9:42 AM EDT Jennifer Pittman HARNESS MENDER LAB BLOOD ORDERABLES Final Resul t [facility] [address] [place] [address], [place] [phone] * Colonoscopy (11/16/2023) [facility] Colonoscopy no interpretation , abstracted Anatomical Region Laterality Modality Other [facility] Provider MD HEALTH MAINTENANCE Final Result * Diabetes Foot Exam (10/27/2023) [facility] Diabetes: Annual Foot Exam abstracted Result [facility] Provider MD HEALTH MAINTENANCE Final Result * Urine Albumin Creatinine Ratio (09/30/2023) [facility] Urine Albumin Creatinine Ratio abstracted Result [facility] Provider MD HEALTH MAINTENANCE Final Result * Depression Screening (07/01/2023) [facility] Depression Screening abstracted [facility] Provider HEALTH MAINTENANCE Final Result from Last 3 Months or Most Recently Relevant to Health Maintenance Insurance [facility] Care Teams Product Marketing Programs Manager Relationship Specialty Start Date End Date Lilian Lanier DO [address] [place] [address] PCP - General Internal Medicine 03/17/24
[2025-01-08] VITALS (11 sets, daily range): BP systolic 139–165; BP diastolic 84–98; PULSE 67–79; RESP 10–19; TEMP 36.2–37.1; O2SAT 94–100; BMI 30.6
--- NOTE | ~2025-01-08 | CT_ITS ---
PROCEDURE: CT GUIDED BIOPSY, KIDNEY CLINICAL INFORMATION: Kidney failure COMPARISON: Ultrasound kidney 07/24/2024. CT-guided right renal biopsy 10/06/2024. TECHNIQUE: Following explaining CT fluoroscopy guided left renal lower pole cortex biopsy procedure, benefits and risk, a written consent was obtained. Patient was placed prone on fluoroscopy table and pulmonary CT imaging was obtained through the abdomen with attention to kidneys. An optimal slice was selected with left kidney lower pole in view. Markers were placed around the left posterior abdomen and repeat CT imaging was obtained an optimal D marker was selected and the area around the skin was marked. The marked site was cleaned and draped with 2% chlorhexidine solution. 1% lidocaine was injected puncture site. An 18-gauge guide needle was advanced from the skin into the kidney cortex lower pole under CT fluoroscopy guidance. Coaxially a 3 pass core biopsy of cortex was performed. Post biopsy Gelfoam was introduced to achieve hemostasis. Repeat CT imaging was obtained. Sterile dressing applied postprocedure at the puncture site. This CT examination was performed using dose optimization techniques as appropriate, variously including the following: *Automated exposure control *Adjustment of mA and/or kV according to patient size (this includes techniques or standardized protocols for targeted exams where dose is matched to indication/reason for exam; i.e. extremities or head) *Use of iterative reconstruction technique FINDINGS: On preliminary CT imaging both kidneys are normal size, shape and cortical thickness. No radiopaque calculi seen. There is extrarenal left renal pelvis. Partial visualized spleen, adrenal glands, pancreas appears unremarkable. The gallbladder has been surgically removed. The lung bases are clear. CT fluoroscopy guided lower pole left renal cortical core biopsy performed without immediate complications. CT/CT biopsy renal LT IMPRESSION: Successful ultrasound-guided left renal lower pole cortex biopsy performed. DLP: 447 mGy/cm. Sedation time: 19 minutes. Electronically signed by: Rocky Infante MD 01/09/2025 08:11 AM [facility]
[2025-01-08 10:02] LABS: INTERNATIONAL NORM RATIO 0.9 (0.9-1.1); Prothrombin Time 10.7 SEC (10.9-12.4)
[2025-01-08 10:05] LABS: Glucose, Whole Blood 121 mg/dL (60-115)
== END 2025-01-08 14:45 | disposition home or self-care (01) ==
LOC: HO.SSS 09:24
PROVIDERS: Radiology Diagnostic Radiology; Visit Provider Internal Medicine Critical Care Medicine
DX: N17.9 Acute kidney failure, unspecified (principal); I12.9 Hypertensive chronic kidney disease with stage 1 through stage 4 chronic kidney disease, or unspecified chronic kidney disease; N18.30 Chronic kidney disease, stage 3 unspecified; R80.9 Proteinuria, unspecified; Q62.39 Other obstructive defects of renal pelvis and ureter; D64.9 Anemia, unspecified; Z79.85 Long-term (current) use of injectable non-insulin antidiabetic drugs; Z79.899 Other long term (current) drug therapy; Z91.040 Latex allergy status; Z90.49 Acquired absence of other specified parts of digestive tract; Z98.84 Bariatric surgery status; Z98.890 Other specified postprocedural states; Z56.0 Unemployment, unspecified
CPT/HCPCS: 36415; 50200; 77012; 82947; 85610; 86850; 86900; 86901; 88300; 88305; 88313; 88346; 88348; 88350; 99152; J2003; J2250; J3010

== ENCOUNTER → 2025-01-08 11:57 | Outpatient (BNV) | payer OTHER, SELFPAY | PROVIDERS: Visit Provider Radiology Diagnostic Radiology | DX: N17.9 Acute kidney failure, unspecified (principal) | CPT/HCPCS: 50200 ==

== ENCOUNTER 2025-01-25 08:47 | Outpatient (REF) | payer OTHER, SELFPAY ==
[2025-01-25 10:48] LABS: Hematocrit 32.9 % (37.0-47.0); Hemoglobin 10.9 g/dl (12.0-16.0); Mean Corpuscular HGB Conc 33.1 g/dl (31.0-35.0); Mean Corpuscular Hemoglobin 29.9 pg (27.0-33.0); Mean Corpuscular Volume 90.4 fL (80.0-98.0); NRBC Abs Auto 0.000 X10*3/uL (0.0-0.012); NRBC Pct Auto 0.0 /100WBC (0.0-0.2); Platelet Count 278 X10*3/uL (160-400); Red Blood Count 3.64 X10*6/uL (4.20-5.50); White Blood Count 9.2 X10*3/uL (4.8-10.8)
[2025-01-25 11:40] LABS: Anion Gap 11 (12-20); Blood Urea Nitrogen 27 mg/dL (9-16); Calcium 8.8 mg/dL (8.4-10.2); Carbon Dioxide 26 mmol/L (22-29); Chloride 109 mmol/L (96-108); Estimated Glomerular Filt Rate 15; Potassium 4.0 mmol/L (3.3-5.1); Sodium 142 mmol/L (135-145)
[2025-01-25 12:24] LABS: Microalbum/Creatinine Ratio Ur 2292.0 ug/mg cr (<30)
[2025-01-25 12:44] LABS: Total Protein Urine Random 1000 mg/dL (<12)
[2025-01-26 16:54] LABS: CMV DNA Qn PCR NOT DETECTED Log IU/mL (NOT DETECTED)
[2025-01-30 19:18] LABS: EBV DNA PCR Detected (Not Detected)
== END 2025-01-25 08:48 | disposition home or self-care (01) ==
LOC: HO.10HDL 08:47
PROVIDERS: Visit Provider Internal Medicine Critical Care Medicine
DX: N17.9 Acute kidney failure, unspecified (principal); N18.9 Chronic kidney disease, unspecified; D63.1 Anemia in chronic kidney disease; R80.9 Proteinuria, unspecified
CPT/HCPCS: 36415; 80048; 82043; 82570; 84156; 85027; 87497; 87798

== ENCOUNTER 2025-01-26 09:23 | Outpatient (AMB) | payer OTHER, SELFPAY ==
--- OUTSIDE RECORDS SUMMARY | 2023-07-31 04:00 | XMS_ITS ---
Author Organization [facility] Address [address] [place] [address] Care Team Providers Care Laundry Technician Name Role Phone Trent Schwartz Unavailable Unavailabl e Migration, Provider Unavailable Unavailable REASON FOR VISIT EMR-Dustin Encounters Encounter Location Date Provider Diagnosis [facility] [address] [place] [address] 07/31/2023 Provider Migration Plan Of Treatment Medication Medication Name Sig Start Date Stop Date Notes Vitamin D3 1.25 MG (04128 UT) Capsule cholecalciferol (vitamin D3) Dispense: 5 TABs - 1 Tablet by Orally route every week Refill: 2 Oral Use as directed 01/07/2018 02/15/2019 Discontinued Notes: Medication Renewed Progress Notes * Tres DREWDOB:1965 (59 yo F)Acc No.[id number]:07/31/2023 Patient: Tres KELLEY :1965 A ge:57 Y S ex:Female Address:[address], [place], [address] * Refills Stop Vitamin D3 Capsule, 1.25 MG (05948 UT), Oral, 5, cholecalciferol (vitamin D3) Dispense: 5 TABs - 1 Tablet by Orally route every week Refill: 2, Use as directed Subjective: * Chief Complaints: * E MR-Dustin * * Date:
--- OUTSIDE RECORDS SUMMARY | 2023-08-01 04:00 | XMS_ITS ---
Author Organization [facility] Address [address] [place] [address] Care Team Providers Care Human Factors Scientist Name Role Phone Trent Schwartz Unavailable Unavailabl e Migration, Provider Unavailable Unavailable REASON FOR VISIT EMR-[facility] Medications Medication SIG (Take, Route, Frequency, Duration) Notes Start Date End Date Status Iron 325 (65 Fe) MG Tablet Iron (ferrous sulfate) Dispense: 60 TAB - take 1 tablet (325 mg) by oral route 2 times per day Refill: 3 Oral Use as directed 02/15/2019 Active PX Acid Director Operating Room Max St 150 MG Tablet raNITIdine HCl Dispense: 30 TABs - take 1 tablet (150 mg) by oral route once daily at bedtime Refill: 2 Oral Use as directed *Reorder from [employer] for eRx and Interaction Alerts* 10/27/2018 Active Naproxen 500 MG Tablet naproxen Dispense: 2 tab(s) - 1 tablet by Oral route 2 times per day with food x 1 dose Refill: 0 Oral Use as directed 11/24/2018 Active Omeprazole 20 MG Capsule Delayed Release omeprazole Dispense: 30 cap(s) - 1 capsule by Oral route 1 time per day Refill: 2 Oral Use as directed 10/27/2018 Active metFORMIN HCl 500 MG Tablet metFORMIN Dispense: 30 tablet(s) - take 1 tablet by Oral route 1 time per day with meal Refill: 2 Oral Use as directed 01/07/2018 Active Cyanocobalamin 1000 MCG/ML Solution cyanocobalamin (vitamin B-12) Dispense: 6 vial(s) - 1 Milliliter by Intramuscular route 1 weekly Refill: 2 Injection Use as directed 01/07/2018 Active Vitamin D3 1.25 MG (72388 UT) Capsule cholecalciferol (vitamin D3) Dispense: 5 TABs - 1 Tablet by Orally route every week Refill: 3 Oral Use as directed 02/15/2019 Active Encounters Encounter Location Date Provider Diagnosis [facility] [address] [place], [place] [address] 08/01/2023 Provider Migration Plan Of Treatment No Information Progress Notes * TROY BECERRATresDOB:1965 (59 yo F)Acc No.[id number]:08/01/2023 Patient: Tres KELLEY :1965 A ge:57 Y S ex:Female Address[address], [place], [address] Subjective: * Chief Complaints: * E MR-Dustin * Medications: T akingPX Acid Director Operating Room Max St 150 MG Tablet raNITIdine HCl Dispense: 30 TABs - take 1 tablet (150 mg) by oral route once daily at bedtime Refill: 2 Oral Use as directed , Notes to Pharmacist: *Reorder from [facility] for eRx and Interaction Alerts*Cyanocobalamin 1000 MCG/ML Solution cyanocobalamin (vitamin B-12) Dispense: 6 vial(s) - 1 Milliliter by Intramuscular route 1 weekly Refill: 2 Injection Use as directed metFORMIN HCl 500 MG Tablet metFORMIN Dispense: 30 tablet(s) - take 1 tablet by Oral route 1 time per day with meal Refill: 2 Oral Use as directed Iron 325 (65 Fe) MG Tablet Iron (ferrous sulfate) Dispense: 60 TAB - take 1 tablet (325 mg) by oral route 2 times per day Refill: 3 Oral Use as directed Naproxen 500 MG Tablet naproxen Dispense: 2 tab(s) - 1 tablet by Oral route 2 times per day with food x 1 dose Refill: 0 Oral Use as directed Omeprazole 20 MG Capsule Delayed Release omeprazole Dispense: 30 cap(s) - 1 capsule by Oral route 1 time per day Refill: 2 Oral Use as directed Vitamin D3 1.25 MG (85511 UT) Capsule cholecalciferol (vitamin D3) Dispense: 5 TABs - 1 Tablet by Orally route every week Refill: 3 Oral Use as directed Taking PX Acid Director Operating Room Max St 150 MG Tablet raNITIdine HCl Dispense: 30 TABs - take 1 tablet (150 mg) by oral route once daily at bedtime Refill: 2 Oral Use as directed , Notes to Pharmacist: *Reorder from [facility] for eRx and Interaction Alerts*Taking Cyanocobalamin 1000 MCG/ML Solution cyanocobalamin (vitamin B-12) Dispense: 6 vial(s) - 1 Milliliter by Intramuscular route 1 weekly Refill: 2 Injection Use as directed Taking metFORMIN HCl 500 MG Tablet metFORMIN Dispense: 30 tablet(s) - take 1 tablet by Oral route 1 time per day with meal Refill: 2 Oral Use as directed Taking Iron 325 (65 Fe) MG Tablet Iron (ferrous sulfate) Dispense: 60 TAB - take 1 tablet (325 mg) by oral route 2 times per day Refill: 3 Oral Use as directed Taking Naproxen 500 MG Tablet naproxen Dispense: 2 tab(s) - 1 tablet by Oral route 2 times per day with food x 1 dose Refill: 0 Oral Use as directed Taking Omeprazole 20 MG Capsule Delayed Release omeprazole Dispense: 30 cap(s) - 1 capsule by Oral route 1 time per day Refill: 2 Oral Use as directed Taking Vitamin D3 1.25 MG (31167 UT) Capsule cholecalciferol (vitamin D3) Dispense: 5 TABs - 1 Tablet by Orally route every week Refill: 3 Oral Use as directed * * Date:
--- NOTE | 2025-01-26 09:32 | HO.NEPHOV_ITS ---
Vital Signs 01/26/25 09:39 Height 5 ft 8 in Weight 199 lb 4 oz BMI 30.3 BP 140/90 H Blood Pressure Location Rt brachial Position Sitting Pulse 88 Pulse Source Pulse Oximeter Pulse Oximetry (%) 97 Oxygen Delivery Method Room Air Intake Visit Reasons: f/u Pharmaceutical Representative Required: No Accompanied by: Self / Same As Patient Allergies latex Allergy (Verified 01/26/25 09:39) Unknown HPI Comments Details: Patient could not make it to the clinic this morning because of severe headache, so called her on her phone 58 years old lady with PMH of hypertension, diabetes mellitus who underwent kidney biopsy for nephrotic syndrome on 10/06/2024. 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 Her CECILIA is positive 1:320, nucleolar pattern. However her workup including ANCA, HIV, hepatitis panel, ADRIANNA 2R is negative, serum free light chain, immunofluorescence, complement levels are all normal. She states her hemoglobin was 14 prior to May, currently is trending around 10 and her anemia is new. no recent infection/skin lesions or new medications. She had started a herbal tea which she stopped now. She was empirically started on prednisone on 10/23/2024 following which her creatinine decreased from 3.01 to 2.05 but her proteinuria increased from 5g to 10gm. Patient also complains of abdominal distention, weight gain and significant abdominal discomfort along with hypertension from prednisone. She was started on mycophenolate 720 mg b.i.d. since 11/07/2024 and prednisone has been tapered. Hypertension: She is on carvedilol 25 mg b.i.d. and her blood pressures are poorly controlled [facility] Medical History CKD (chronic kidney disease) stage 3, GFR 30-59 ml/min HTN (hypertension) Post hysterectomy menopause Endometrial cancer Anxiety Surgical History S/P gastric sleeve procedure H/O inguinal hernia repair H/O abdominoplasty H/O gastric sleeve Social History Household Members: Children and None Housing: House Housing Other:: townhouse Are you a primary director of career services to a significant other at home: No Do you presently have visiting nurse or other home services: No Alcohol intake: former Patient Tobacco Use Status: Never used Tobacco Second Hand Smoke Exposure: No service: No Current occupational status: unemployed Review of Systems Narrative Const : no body aches, no chills, no excessive sweating and + fatigue Eyes: no blurry vision and no change in vision ENT: no bleeding gums and no change in voice, no dizziness Card: no chest pain, no shortness of breath Resp: no cough, no excessive phlegm production, no SOB GI: no abdominal pain and no nausea, no vomiting : no hematuria, no urinary frequency and no difficulty voiding Musc: no abnormal gait, no bone pain Neuro: no abnormal movements, severe headache present Psych: no behavioral changes and no change in appetite Endo: no change in body appearance,no excessive sweating and no fatigue Physical Exam Vital Signs: Last Vital Signs Pulse 88 01/26/25 09:39 BP 140/90 H 01/26/25 09:39 Pulse Ox 97 01/26/25 09:39 Oxygen Delivery Method Room Air 01/26/25 09:39 BMI result Body Mass Index 30.3 General: not in any acute distress, comfortable, sitting on the chair Nutritional Appearance: well nourished and weight Eyes: normal position, no icterus Neck: No lymphadenopathy, no thyromegaly Resp: bilateral air entry equal, no added sounds present Cardio: normal S1, S2 heard, no murmur heard, no edema GI: soft, nontender, no guarding, no hepatosplenomegaly : bladder normal to inspection, bladder normal to palpation, no renal angle tenderness Skin: no rashes or lesions noted and elasticity normal Neuro: oriented to person, oriented to place, oriented to time and moves all extremities Results Reviewed Nephrology Results: Hgb, (12.0-16.0) 10.9 g/dl L 01/25/25 WBC, (4.8-10.8) 9.2 X10*3/uL 01/25/25 Plt Count, (160-400) 278 X10*3/uL 01/25/25 Sodium, (135-145) 142 mmol/L 01/25/25 Potassium, (3.3-5.1) 4.0 mmol/L Δ 01/25/25 Chloride, (96-108) 109 mmol/L H 01/25/25 Carbon Dioxide, (22-29) 26 mmol/L 01/25/25 BUN, (9-16) 27 mg/dL H 01/25/25 Creatinine, (0.5-1.4) 3.23 mg/dL H 01/25/25 Calcium, (8.4-10.2) 8.8 mg/dL 01/25/25 Urine Protein, (Neg-Trace) >=1000 (4+) mg/dL H 12/15/24 Urine Creatinine 87.26 mg/dL 01/25/25 Protein/Creatinin Ratio, (24-184) 11927 mg/g creat H Renal US 07/25/24 Assessment & Plan Assessment & Plan (1) TANIA (acute kidney injury): Code(s): N17.9 - Acute kidney failure, unspecified Category: Medical (2) Acute kidney injury superimposed on CKD: Code(s): N17.9 - Acute kidney failure, unspecified; N18.9 - Chronic kidney disease, unspecified Category: Medical Plan 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 There is no adequate histories to suggest secondary etiologies including viral infections like hepatitis panel negative. Doesnt have atophy/asthma/allergies. She is obese has metabolic syndrome. Since she had nephrotic range proteinuria poorly responding to steroids she has been placed on mycophenolate, will restart prednisone 20mg daily along with MMF 720mg BID. We will get EBV and CMV levels within next set of labs, advised for weight reduction that for further help reducing proteinuria. 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 - Her CECILIA is positive 1:320, nuclear volar pattern but repeat CECILIA is 1:40 However her further workup with anti SSA, SSB, Mcacin, anti [employer] LIB[employer]OR, anti Scl 70, anti DS DNA, anticentromere antibody all are negative -Her ANCA, HIV, hepatitis panel, ADRIANNA 2R is negative, serum free light chain, immunofluorescence, complement levels are all normal twice. 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 since 11/07/2024. She is still on 10 mg of prednisone which I asked her to stop today - has developed anemia, states her hemoglobin was around 14 in the past but decrease to 10 since around July which coincides with proteinuria. We will refer her to Heme-Onc for possibly needing a bone marrow biopsy. - Steroids has been tapered off, had significant intolerance and side effects from the steroids including hypertension, abdominal symptoms - we will get a repeat renal biopsy as the previous biopsy was inadequate, we will get a date for the biopsy. We will repeat labs in a month along with quantify proteinuria. - will get streptomycin, mycoplasma, TB QuantiFERON, Fungitell with next set of labs; has a dog but no infections. Hypertension: - target blood pressures less than 130/90 mm Hg - possibly her blood pressure is higher side due to steroids, currently on carvedilol 25 mg b.i.d and we will add losartan hydrochlorothiazide since her blood pressures are still around 170s and still has significant proteinuria - compliance: Good Anemia: - normal iron profile - seen Hematology who advised no further evaluation. will repeat labs in 2 weeks and see if she has any response for steroid+ MMF. Orders: Orders UA and rflx microscopic 2 Weeks N17.9 - Acute kidney failure, unspecified, N18.9 - Chronic kidney disease, unspecified Microalbumin, Random (w Creat) 2 Weeks N17.9 - Acute kidney failure, unspecified, N18.9 - Chronic kidney disease, unspecified Quantiferon TB Gold Plus 1 2 Weeks N17.9 - Acute kidney failure, unspecified, N18.9 - Chronic kidney disease, unspecified Fungitell 1,3 B-D-Glucan 2 Weeks N17.9 - Acute kidney failure, unspecified, N18.9 - Chronic kidney disease, unspecified Basic Metabolic Panel 2 Weeks N17.9 - Acute kidney failure, unspecified, N18.9 - Chronic kidney disease, unspecified Complete Blood Count no Diff 2 Weeks N17.9 - Acute kidney failure, unspecified, N18.9 - Chronic kidney disease, unspecified Protein Creatinine Ratio, Ur 2 Weeks N17.9 - Acute kidney failure, unspecified, N18.9 - Chronic kidney disease, unspecified Streptolysin O Antibody 2 Weeks N17.9 - Acute kidney failure, unspecified, N18.9 - Chronic kidney disease, unspecified Medications: New ergocalciferol (vitamin D2) 1,250 mcg PO QWEEK 12 caps 3RF 12 weeks prednisone 20 mg PO DAILY 30 tabs 1RF 30 days losartan 50 mg PO DAILY 30 tabs 5RF 30 days torsemide 20 mg PO DAILY 30 tabs 4RF 30 days Discontinued losartan-hydrochlorothiazide 50-12.5 mg Discontinued Reason: Doctor's Order 1 tab PO DAILY 30 tabs 3RF Coding Level of Care Code Est Pt Level 4 (64897) Diagnoses TANIA (acute kidney injury) N17.9 Acute kidney injury superimposed on CKD N17.9; N18.9
[2025-01-26 09:39] VITALS: BP 140/90; PULSE 88; O2SAT 97; BMI 30.3
--- OUTSIDE RECORDS SUMMARY | 2025-01-26 09:50 | XMS_ITS | Encounter Summary ---
Author Organization [facility] Address [address] [place] [address] Care Team Providers Care Machine Compositor Name Role Phone Veronique Kelly MD Primary Care Provider Aric peralta Encounter Details Date Type Department Care Team Description 11/18/2023 Orders Only Medical Records [address] [place] [address] Dillon Yung DO [address] [facility] [address] [facility] [place] [address] Social History Tobacco Use Types Packs/Day Years [...] Name Priority Date/Time Associated Diagnosis Comments OUTSIDE COLONOSCOPY Routine 11/16/2023 documented in this encounter Results * OUTSIDE COLONOSCOPY (11/16/2023) Dillon Yung DO RADIOLOGY documented in this encounter Visit Diagnoses Not on filedocumented in this encounter Care Teams Machine Compositor Relationship Specialty Start Date End Date Veronique Kelly MD PCP - General Family Practice 08/26/21 documented as of this encounter
--- OUTSIDE RECORDS SUMMARY | 2025-01-26 09:50 | XMS_ITS | Encounter Summary ---
Author Organization [facility] Address [address] [place] [address] Care Team Providers Care Gerentological Physiotherapist Name Role Phone Veronique Kelly MD Primary Care Provider Aric peralta Encounter Details Date Type Department Care Team Description 11/01/2021 Automotive Engineering Technician Report Medical Records [address] Orthopedic, Surgeons Social History Tobacco Use [...] on filedocumented in this encounter Care Teams Gerentological Physiotherapist Relationship Specialty Start Date End Date Veronique Kelly MD PCP - General Family Practice 08/26/21 documented as of this encounter
--- OUTSIDE RECORDS SUMMARY | 2025-01-26 09:50 | XMS_ITS | Encounter Summary ---
Author Organization [facility] Address [address] [place] [address] Care Team Providers Care Mule Developer Name Role Phone Veronique Kelly MD Primary Care Provider Aric peralta Reason for Visit * Reason Comments E-prescribe Rx Request Encounter Details Date Type Department Care Team Description 11/20/2022 Refill Medicine/Pediatrics - [place] [address] [place] [address] Jimmy Bello PA-C [address] [place] [address] E-prescribe Rx Request Social History [...] N/A Patients current insurance carrier is: Payor: [employer] / Plan: PPO $25 [place] / Product Type: PPO [id number] documented in this encounter Plan of Treatment Not on file documented as of this encounter Visit Diagnoses Not on filedocumented in this encounter Care Teams Mule Developer Relationship Specialty Start Date End Date Veronique Kelly MD PCP - General Family Practice 08/26/21 documented as of this encounter
--- OUTSIDE RECORDS SUMMARY | 2025-01-26 09:50 | XMS_ITS | Patient Health Record ---
Author Organization [facility] Address Amari foreman [address] [place] [address] Care Team Providers Care Transport Aide Name Role Phone Mcintosh MauraTrent Unavailable Unavailabl e Reason For Referral No Information Medications Medication SIG (Take, Route, Frequency, Duration) Notes Start Date End Date Status Iron 325 (65 Fe) MG Tablet Iron (ferrous sulfate) Dispense: 60 TAB - take 1 tablet (325 mg) by oral route 2 times per day Refill: 3 Oral Use as directed 02/15/2019 Active PX Acid Silviculture Teacher Max St 150 MG Tablet raNITIdine HCl Dispense: 30 TABs - take 1 tablet (150 mg) by oral route once daily at bedtime Refill: 2 Oral Use as directed *Reorder from S[facility] for eRx and Interaction Alerts* 10/27/2018 Active [...] directed 01/07/2018 Active Vitamin D3 1.25 MG (68894 UT) Capsule cholecalciferol (vitamin D3) Dispense: 5 TABs - 1 Tablet by Orally route every week Refill: 3 Oral Use as directed 02/15/2019 Active Problems Problem Type SNOMED Code ICD Code Onset Dates Problem Status W/U Status Risk Notes Problem History of bariatric surgical procedure (288002003) Bariatric surgery status (Z98.84) 2017 Active confirmed Type: Diagnosis; Confidentiality Level: 1; Problem Endocrine/metabol ic screening (498769413) Encounter for screening for other suspected endocrine disorder (Z13.29) 2017 Active confirmed Type: Diagnosis; Confidentiality Level: 1; Problem Diabetes mellitus screening (434616571) Encounter for screening for diabetes mellitus (Z13.1) 2017 Active confirmed Type: Diagnosis; Confidentiality Level: 1; Problem Screening for malignant neoplasm of breast (783255720) Encounter for screening mammogram for malignant neoplasm of breast (Z12.31) 2017 Active confirmed Type: Diagnosis; Confidentiality Level: 1; Problem Screening for malignant neoplasm of colon (422688575) Encounter for screening for malignant neoplasm of colon (Z12.11) 2017 Active confirmed Type: Diagnosis; Confidentiality Level: 1; Problem Annual wellness visit (263254794434351) Encounter for other general examination (Z00.8) 2016 Active confirmed Type: Diagnosis; Confidentiality Level: 1; Problem Adult health examination (393786950) Encounter for general adult medical examination without abnormal findings (Z00.00) 2017 Active confirmed Type: Diagnosis; Confidentiality Level: 1; Problem Impaired fasting glucose (669078529) Impaired fasting glucose (R73.01) 2017 Active confirmed Type: Diagnosis; Confidentiality Level: 1; Problem Pain of right shoulder region (finding) (8513047187) Pain in right shoulder (M25.511) 2018 Active confirmed Type: Diagnosis; Confidentiality Level: 1; Problem Post-surgical malabsorption (disorder) (624466073) Postsurgical malabsorption, not elsewhere classified (K91.2) 2017 Active confirmed Type: Diagnosis; Confidentiality Level: 1; Problem Gastro-esophageal reflux disease without esophagitis (337546402) Gastro-esophag eal reflux disease without esophagitis (K21.9) 2018 Active confirmed Type: Diagnosis; Confidentiality Level: 1; Problem Partial loss of teeth due to caries, class II (K08.432) 2018 Active confirmed Type: Diagnosis; Confidentiality Level: 1; Problem Vitamin D deficiency (58443294) Vitamin D deficiency, unspecified (E55.9) 2017 Active confirmed Type: Diagnosis; Confidentiality Level: 1; Problem Dietary folate deficiency anemia (43160754) Dietary folate deficiency anemia (D52.0) 2018 Active confirmed Type: Diagnosis; Confidentiality Level: 1; Problem Vitamin B12 deficiency anemia due to dietary causes (265819688) Other dietary vitamin B12 deficiency anemia (D51.3) 2017 Active confirmed Type: Diagnosis; Confidentiality Level: 1; Problem Iron deficiency anemia (41815901) Iron deficiency anemia, unspecified (D50.9) 2017 Active confirmed Type: Diagnosis; Confidentiality Level: 1; Problem Lipid screening (011158459) Encounter for screening for lipoid disorders (Z13.220) 2017 Active confirmed Type: Diagnosis; Confidentiality Level: 1; Problem Screening for malignant neoplasm of cervix (546350472) Encounter for screening for malignant neoplasm of cervix (Z12.4) 2017 Active confirmed Type: Diagnosis; Confidentiality Level: 1; Problem Endocrine finding (143955155) Abnormal results of other endocrine function studies (R94.7) 2018 Active confirmed Type: Diagnosis; Confidentiality Level: 1; Problem Abnormal findings on microbiological examination of urine (352783371) Unspecified abnormal findings in urine (R82.90) 2017 Active confirmed Type: Diagnosis; Confidentiality Level: 1; Problem Hyperglycemia due to type 2 diabetes mellitus (319252301667755) Type 2 diabetes mellitus with hyperglycemia (E11.65) 2017 Active confirmed Type: Diagnosis; Confidentiality Level: 1; Problem Viral infection (85223692) Viral infection, unspecified (B34.9) 2015 Active confirmed Type: Diagnosis; Confidentiality Level: 1; Problem Morbid obesity (577905199) Morbid obesity (278.01) 2013 Active confirmed Type: Diagnosis; Confidentiality Level: 1; Plan Of Treatment No Information Insurance Providers Payer Name Payer Address Payer Phone Subscriber Number Group Number Insured Name Patient Relationship to Insured Coverage Start Date Coverage End Date [employer] Card [address] [place], [place] [address] [id number] Tres Wu Self - patient is the insured 7
--- OUTSIDE RECORDS SUMMARY | 2025-01-26 09:50 | XMS_ITS | Encounter Summary ---
Author Organization [facility] Address [address] [place] [address] Care Team Providers Care Digital Project Manager Name Role Phone Community, Pcp Primary Care Provider Veronique Alegre MD Primary Care Provider Aric peralta Reason for Visit * Reason Onset Date Comments Information Needed 08/25/2021 Encounter Details Date Type Department Care Team Description 08/25/2021 Telephone Radiology - [address] [address] Elle Joseph PA-C Information Needed Social History Tobacco Use Types Packs/Day Years [...] suspected to have Coronavirus/COVID-19? No / Unsure 08/19/2021 1:04 PM EDT documented as of this encounter Miscellaneous Notes * Telephone Encounter - Elle Joseph PA-C - 08/25/2021 2:38 PM EDT All set, thank you. * Telephone Encounter - Shannan C Fredis - 08/25/2021 10:48 AM EDT Good Morning Elle petty is unable to obtain an auth for the Ct of abd, because your notes from that encounter are not finished. As soon as you do that, they will be able to work on it. Thank you Radiology documented in this encounter Plan of Treatment Not on file documented as of this encounter Visit Diagnoses Not on filedocumented in this encounter Care Teams Digital Project Manager Relationship Specialty Start Date End Date Community, Pcp PCP - General Internal Medicine 08/19/21 08/25/21 Veronique Kelly MD PCP - General Family Practice 08/26/21 documented as of this encounter
--- OUTSIDE RECORDS SUMMARY | 2025-01-26 09:50 | XMS_ITS | Encounter Summary ---
Author Organization [facility] Address [address] [place] [address] Care Team Providers Care Housing Court Judge Name Role Phone Veronique Kelly MD Primary Care Provider Aric peralta Encounter Details Date Type Department Care Team Description 02/06/2022 Hospital Medical Records [address] [place] [address] Sherron Holden MD [address] [place] [address] [address] [place] [address] Social History Tobacco Use Types Packs/Day Years [...] on filedocumented in this encounter Care Teams Housing Court Judge Relationship Specialty Start Date End Date Veronique Kelly MD PCP - General Family Practice 08/26/21 documented as of this encounter
--- OUTSIDE RECORDS SUMMARY | 2025-01-26 09:50 | XMS_ITS | Encounter Summary ---
Author Organization [facility] Address [address] [place] [address] Care Team Providers Care Retrieval Specialist Name Role Phone Veronique Kelly MD Primary Care Provider Aric peralta Reason for Visit * Reason Onset Date Comments refill request 08/23/2023 Encounter Details Date Type Department Care Team Description 08/23/2023 Telephone Bariatric Surgery - [address] [place] [address] Sherron Holden MD [address] [place] [address] [address] [place] [address] refill request Social History Tobacco Use Types [...] on filedocumented in this encounter Care Teams Retrieval Specialist Relationship Specialty Start Date End Date Veronique Kelly MD PCP - General Family Practice 08/26/21 documented as of this encounter
--- OUTSIDE RECORDS SUMMARY | 2025-01-26 09:50 | XMS_ITS | Encounter Summary ---
Author Organization [facility] Address [address] [place] [address] Care Team Providers Care Hand Bindery Assembly Worker Name Role Phone Veronique Kelly MD Primary Care Provider Aric peralta Encounter Details Date Type Department Care Team Description 10/26/2022 Orders Only Medicine/Pediatrics - [address] [phone] Jimmy Bello PA-C [address] [place] [address] Elevated glucose (Primary Dx) Social History Tobacco Use [...] on file documented as of this encounter Results * (ABNORMAL) CHG BASIC METABOLIC PANEL CALCIUM TOTAL (01/14/2023 10:32 AM EST) GLOMERULAR FILTRATION RATE 67 >60 01/14/2023 6:41 PM EST [facility] Comment: This eGFR result was calculated using the CKD-EPI 2020 Creatinine Equation GLUCOSE 145(H) 70 - 100 mg/dL 01/14/2023 6:41 PM EST [facility] Comment:Reference range appl icable to fasting specimens only Blood Urea Nitrogen 17 5 - 25 mg/dL 01/14/2023 6:41 PM EST [facility] CREAT 0.98 0.5 - 1.1 mg/dL 01/14/2023 6:41 PM EST [facility] NA 141 135 - 145 mEq/L 01/14/2023 6:41 PM EST [facility] K 4.8 3.5 - 5.5 mmol/L 01/14/2023 6:41 PM EST [facility] CL 108 96 - 110 mmol/L 01/14/2023 6:41 PM EST [facility] CARBON DIOXIDE (CO2) 25 21 - 32 mmol/L 01/14/2023 6:41 PM EST [facility] ANION GAP 8 3 - 11 01/14/2023 6:41 PM EST [facility] CALCIUM 9.6 8.5 - 10.5 mg/dL 01/14/2023 6:41 PM EST [facility] 01/14/2023 10:3 2 AM EST 01/14/2023 10:33 AM EST Narrative [facility] - 01/14/2023 6:41 PM EST Release to patient->Immediate Jimmy Bello PA-C LAB [facility] documented in this encounter Visit Diagnoses Diagnosis Elevated glucose- Primary Other abnormal glucose Class 1 obesity due to excess calories without serious comorbidity with body mass index (BMI) of 33.0 to 33.9 in adult Elevated glucose Other abnormal glucose documented in this encounter Care Teams Hand Bindery Assembly Worker Relationship Specialty Start Date End Date Veronique Kelly MD PCP - General Family Practice 08/26/21 documented as of this encounter
--- OUTSIDE RECORDS SUMMARY | 2025-01-26 09:50 | XMS_ITS | Encounter Summary ---
Author Organization [facility] Address [address] [place] [address] Care Team Providers Care Video Engineer Name Role Phone Veronique Kelly MD Primary Care Provider Aric peralta Encounter Details Date Type Department Care Team Description 02/10/2022 Orders Only Medical Records [address] [place] [address] Sherron Holden MD [address] [place] [address] [place] [address] Social History Tobacco Use Types Packs/Day Years [...] on filedocumented in this encounter Care Teams Video Engineer Relationship Specialty Start Date End Date Veronique Kelly MD PCP - General Family Practice 08/26/21 documented as of this encounter
--- OUTSIDE RECORDS SUMMARY | 2025-01-26 09:50 | XMS_ITS | Encounter Summary ---
Author Organization [facility] Address [address] [place] [address] Care Team Providers Care Production Machinist Name Role Phone Veronique Kelly MD Primary Care Provider Aric peralta Reason for Referral * Non MARTI (Routine) - Authorized/Booked Specialty Diagnoses / Procedures Referred By Rukhsana ac Referred To Contact General Surgery Procedures REFERRAL TO GENERAL SURGERY (IN NETWORK) Elle Joseph PA-C [address] [place] [address] Gen Surg/[place] [address] [facility] [address] [place] [phone] Referral ID Status Reason Start Date Expiration Date V isits Requested Visits Authorized [id number] Authorized/B ooked 09/05/2021 1 1 Encounter Details Date Type Department Care Team Description 09/05/2021 Telephone Adult Medicine - [place] [address] [place] [address] Elle Joseph PA-C Social History Tobacco Use [...] I will place a referral to the [facility] surgery department and they will contact you [...] on filedocumented in this encounter Care Teams Production Machinist Relationship Specialty Start Date End Date Veronique Kelly MD PCP - General Family Practice 08/26/21 documented as of this encounter
--- OUTSIDE RECORDS SUMMARY | 2025-01-26 09:50 | XMS_ITS | Encounter Summary ---
Author Organization [facility] Address [address] [place] [address] Care Team Providers Care Pollution Control Chemist Name Role Phone Veronique Kelly MD Primary Care Provider Aric peralta Reason for Visit * Reason Comments E-prescribe Rx Request Encounter Details Date Type Department Care Team Description 02/07/2022 [facility] [address] [place] [phone] Sherron Holden MD [address] [place] [address] [address] [place] [address] E-prescribe Rx Request Social History Tobacco Use [...] nonabsorption documented in this encounter Care Teams Pollution Control Chemist Relationship Specialty Start Date End Date Veronique Kelly MD PCP - General Family Practice 08/26/21 documented as of this encounter
--- OUTSIDE RECORDS SUMMARY | 2025-01-26 09:50 | XMS_ITS | Clinical Summary ---
Author Organization [facility] Address [address] [place] [address] Phone Care Team Providers Care Wave Guide Assembler Name Role Phone Lilian Laneir DO Primary Care Provider [phone] Allergies Active Allergy Reactions Criticality Noted Date [...] complication associated with type 2 diabetes mellitus ([facility] V24, [facility] V28) Take 1 capsule (100 mg [...] 1 (one) time each day. 5 Active carvediloL (COREG) 25 mg tablet Take [...] 1 TIME EACH DAY. 90 tablet 1 5 Active tirzepatide (Mounjaro) 10 mg/0.5 mL injectionIndicati ons:Class 1 obesity due to excess calories with serious comorbidity and body mass index (BMI) of 30.0 to 30.9 in adult INJECT 0.5 ML (10 MG TOTAL) UNDER THE SKIN EVERY 7 (SEVEN) DAYS. 2 mL 2 5 01/18/20 25 Active Problems Problem Noted Date Diagnosed Date DM (diabetes mellitus) ([facility] V24, [facility] V28 ) 02/26/2023 Obesity (BMI 30.0-34.9) 02/24/2023 Anxiety 08/19/2021 Depression 08/19/2021 HTN (hypertension) 08/19/2021 Iron deficiency anemia 08/19/2021 Lung nodule 08/19/2021 Encounters Date Type Department Care Team Description 11/28/2024 4:15 PM EDT Office Visit Bariatric Surgery - [address] [place] [address] Sherron Holden MD Class 1 [...] Date Site/Laterality Comments GASTRIC BYPASS 2010 PROCEDURE: LA GASTRIC RSTCV W/BYP W/SM INT RCNSTJ LIMIT ABSRPJ; COMMENT: in [place] PARTIAL HYSTERECTOMY PROCEDURE: LA SUPRACERVICAL ABDL HYSTER W/WO RMVL TUBE OVARY KNEE ARTHROSCOPY W/ DEBRIDEMENT Right PROCEDURE: LA ARTHRS KNEE DEBRIDEMENT/SHAVING ARTCLR CRTLG HERNIA REPAIR PROCEDURE: LA REPAIR FIRST ABDOMINAL WALL HERNIA; COMMENT: supraumbilical mesh hernia repair OTHER SURGICAL HISTORY PROCEDURE: LA RPR RECRT INCAL/VNT HERNIA REDUCIBLE BLADDER SURGERY [...] Care Team (Late st Contact Info) Description 02/23/2025 9:30 AM EST Office Visit Internal Medicine - [facility] [address] [place] [address] Darrel Santiago NP [address] [place] [address] 04/17/2025 4:30 PM EST Office Visit Bariatric Surgery - [place] [address] [facility] [address] [place] [phone] Sherron Holden MD [address] [place] [phone] Health Maintenance Due Date Last Done Comments Breast Cancer Screening 1965 Hepatitis B Vaccines (1 of 3 - 19+ 3-dose series) 1984 Cervical Cancer Screening: Pap Smear 1986 RSV Immunization Adult Patients (1 - Risk 50-74 years 1-dose series) 12/10/2015 Depression Screening 03/08/2024 07/01/2023 Zoster Vaccines (2 of 2) 04/04/2024 02/08/2024 Diabetes: Annual Urine Albumin-Creatinine Ratio (uACR) 09/29/2024 09/30/2023 COVID-19 Vaccine (2024-2 6 season) 2024 12/28/2020, 05/23/2020, 04/22/2020 Influenza [...] complication, without long-term current use of insulin ([facility] V24, [facility] V28) HIV 1, 2 ANTIBODY, P24 [...] LAB CHEMISTRY METHOD 07/21/2024 12:20 PM EDT [facility] Mean Bld Glu Estim. 148 mg/dL LAB CHEMISTRY METHOD 07/21/2024 12:20 PM EDT [facility] Blood Venous blood specimen / Unknown Venipuncture / Unknown 07/20/2024 2:44 PM EDT 07/20/2024 2:44 PM EDT us Jennifer Pittman NP LAB BLOOD ORDERABLES Final Resul t [facility] [address] [place] [address], [place] [phone] * (ABNORMAL) Comprehensive metabolic panel (07/20/2024 2:44 PM EDT) Sodium 138 133 - 145 mmol/L LAB CHEMISTRY METHOD 07/21/2024 10:14 AM [facility] Potassium 5.5 3.5 - 5.5 mmol/L LAB CHEMISTRY METHOD 07/21/2024 10:14 AM [facility] Chloride 106 96 - 110 mmol/L LAB CHEMISTRY METHOD 07/21/2024 10:14 AM [facility] CO2 27 21 - 32 mmol/L LAB CHEMISTRY METHOD 07/21/2024 10:14 AM [facility] Anion Gap 5 3 - 11 LAB CHEMISTRY METHOD 07/21/2024 10:14 AM [facility] Glucose 98 70 - 100 mg/dL LAB CHEMISTRY METHOD 07/21/2024 10:14 AM [facility] BUN 27(H) 5 - 25 mg/dL LAB CHEMISTRY METHOD 07/21/2024 10:14 AM [facility] Creatinine 1.77(H) 0.50 - 1.10 mg/dL LAB CHEMISTRY METHOD 07/21/2024 10:14 AM [facility] Comment:Results verified by repeat testing eGFR 33(L) >=60 mL/min/1. 73m2 LAB CHEMISTRY METHOD 07/21/2024 10:14 AM EDT [facility] Comment:Calculation based on the Chronic Kidney Disease Epidemiology Collaboration (CKD-EPI) equation refit without adjustment for race. BUN/Creatinine Ratio 15.3 LAB CHEMISTRY METHOD 07/21/2024 10:14 AM [facility] Calcium 8.6 8.5 - 10.5 mg/dL LAB CHEMISTRY METHOD 07/21/2024 10:14 AM [facility] AST (SGOT) 43(H) 10 - 42 unit/L LAB CHEMISTRY METHOD 07/21/2024 10:14 AM [facility] Comment:Results verified by repeat testing ALT (SGPT) 62(H) 10 - 60 unit/L LAB CHEMISTRY METHOD 07/21/2024 10:14 AM [facility] Comment:Results verified by repeat testing Alkaline Phosphatase 96 42 - 121 unit/L LAB CHEMISTRY METHOD 07/21/2024 10:14 AM [facility] Total Protein 6.5 6.0 - 8.0 g/dL LAB CHEMISTRY METHOD 07/21/2024 10:14 AM [facility] Albumin 3.5 3.2 - 5.0 g/dL LAB CHEMISTRY METHOD 07/21/2024 10:14 AM [facility] Total Bilirubin 0.5 0.0 - 1.4 mg/dL LAB CHEMISTRY METHOD 07/21/2024 10:14 AM [facility] Blood Venous blood specimen / Unknown Venipuncture / Unknown 07/20/2024 2:44 PM EDT 07/20/2024 2:44 PM EDT us Darrel Santiago NP LAB BLOOD ORDERABLES Final Res ult [facility] [address] [place] [address], * HIV 1,2 antibody, p24 antigen with reflex to differentiation (05/25/2024 9:42 AM EDT) HIV Combo AB/AG Negative Negative LAB CHEMISTRY METHOD 05/25/2024 3:54 PM EDT [facility] Blood Venous blood specimen / Unknown Venipuncture / Unknown 05/25/2024 9:42 AM EDT 05/25/2024 9:42 AM EDT Narrative [facility] - 05/25/2024 3:54 [...] NP LAB BLOOD ORDERABLES Final Resul t [facility] [address] [place] [address], * (ABNORMAL) Lipid panel with reflex to direct LDL (05/25/2024 9:42 AM EDT) [facility] Cholesterol 174 0 - 200 mg/dL LAB CHEMISTRY [facility] Triglycerides 195(H) 0 - 150 mg/dL LAB CHEMISTRY METHOD [facility] HDL 50 >=40 mg/dL LAB CHEMISTRY METHOD 05/25/2024 3:08 PM EDT [facility] LDL Calculated 85 0 - 100 mg/dL LAB CHEMISTRY METHOD 05/25/2024 3:08 PM EDT [facility] VLDL Cholesterol Dilshad 39 mg/dL LAB CHEMISTRY METHOD 05/25/2024 3:08 PM EDT [facility] Non HDL Chol. (LDL+VLDL) 124 <145 mg/dL LAB CHEMISTRY METHOD 05/25/2024 3:08 PM EDT [facility] Chol/HDL Ratio 3.5 0.0 - 4.4 LAB CHEMISTRY METHOD 05/25/2024 3:08 PM EDT [facility] Blood Venous blood specimen / Unknown Venipuncture / Unknown 05/25/2024 9:42 AM EDT 05/25/2024 9:42 AM EDT Jennifer Pittman CLIENT REPRESENTATIVE LAB BLOOD ORDERABLES Final Resul t [facility] [address] [place] [address], [place] [phone] * Colonoscopy (11/16/2023) [facility] Colonoscopy no interpretation , abstracted Anatomical Region Laterality Modality Other Historical Provider MD HEALTH MAINTENANCE Final Result * Diabetes Foot Exam (10/27/2023) [facility] Diabetes: Annual Foot Exam abstracted Historical Provider MD HEALTH MAINTENANCE Final Result * Urine Albumin Creatinine Ratio (09/30/2023) [facility] Urine Albumin Creatinine Ratio abstracted [facility] Provider MD HEALTH MAINTENANCE Final Result * Depression Screening (07/01/2023) [facility] Depression Screening abstracted Historical Provider MD HEALTH MAINTENANCE Final Result from Last 3 Months or Most Recently Relevant to Health Maintenance Insurance [facility] Care Teams Wave Guide Assembler Relationship Specialty Start Date End Date Lilian Lanier DO [address] [place] [address], [place] [address] PCP - General Internal Medicine 03/17/24
--- OUTSIDE RECORDS SUMMARY | 2025-01-26 09:51 | XMS_ITS | Encounter Summary ---
Author Organization [employer] [facility] Address [address] [place] [address] Care Team Providers Care Nuclear Equipment Design Engineer Name Role Phone Veronique Kelly MD Primary Care Provider Aric peralta Reason for Visit * Reason Comments E-prescribe Rx Request Encounter Details Date Type Department Care Team Description 01/02/2024 Refill Bariatric Surgery - [address] [place] [address] Sherron Holden MD [address] [place] [address] [address] [place] [address] E-prescribe Rx Request Social History Tobacco Use [...] as of this encounter Visit Diagnoses Diagnosis Class 1 obesity due to excess calories without serious comorbidity with body mass index (BMI) of 31.0 to 31.9 in adult documented in this encounter Care Teams Nuclear Equipment Design Engineer Relationship Specialty Start Date End Date Veronique Kelly MD PCP - General Family Practice 08/26/21 documented as of this encounter
--- OUTSIDE RECORDS SUMMARY | 2025-01-26 09:51 | XMS_ITS | Encounter Summary ---
Author Organization [facility] Address [address] [place] [address] Care Team Providers Care Comic Illustrator Name Role Phone Veronique Kelly MD Primary Care Provider Aric peralta Reason for Visit * Reason Onset Date Comments Medication 11/02/2023 Encounter Details Date Type Department Care Team Description 11/02/2023 Refill Gastroenterology - [place] [address] [facility] [address] [place] [address] Dillon Yung DO [address] [facility] [address] [facility] [address] Medication Social History Tobacco Use Types Packs/Day [...] on filedocumented in this encounter Care Teams Comic Illustrator Relationship Specialty Start Date End Date Veronique Kelly MD PCP - General Family Practice 08/26/21 documented as of this encounter
--- OUTSIDE RECORDS SUMMARY | 2025-01-26 09:51 | XMS_ITS | Encounter Summary ---
Author Organization [facility] Address [address] [place] [address] Care Team Providers Care Scoop Operator Name Role Phone Veronique Kelly MD Primary Care Provider Aric peralta Reason for Referral * Non MARTI (Routine) - Authorized/Booked Specialty Diagnoses / Procedures Referred By Rukhsana ac Referred To Contact Endocrinology / Diabetic Procedures REFERRAL TO DIABETIC TEACHING-EXTERNAL Jimmy Bello PA-C [address] [place] [address] Default, Provider Referral ID Status Reason Start Date Expiration Date V isits Requested Visits Authorized [id number] Authorized/B ooked 02/26/2023 02/26/2024 1 1 Encounter Details Date Type Department Care Team Description 02/26/2023 Orders Only Medicine/Pediatrics - [address] [phone] Jimmy Bello PA-C [address] [place] [address] Social History Tobacco Use Types Packs/Day Years [...] on filedocumented in this encounter Care Teams Scoop Operator Relationship Specialty Start Date End Date Veronique Kelly MD PCP - General Family Practice 08/26/21 documented as of this encounter
--- OUTSIDE RECORDS SUMMARY | 2025-01-26 09:51 | XMS_ITS | Encounter Summary ---
Author Organization [facility] Address [address] [place] [address] Care Team Providers Care Graduate Student Instructor Name Role Phone Veronique Kelly MD Primary Care Provider Aric peralta Reason for Visit * Reason Comments E-prescribe Rx Request Encounter Details Date Type Department Care Team Description 01/19/2023 Refill Medicine/Pediatrics - [address] [phone] Jimmy Bello PA-C [address] [place] [address] E-prescribe Rx Request Social History [...] AM EST documented as of this encounter Miscellaneous Notes * Telephone Encounter - Nicole Trotter M.A. - 01/19/2023 11:33 AM EST Last seen 01/14/23, next appt 02/25/23 Lab Results Component Value Date NA 141 01/14/2023 K 4.8 01/14/2023 CO2 25 01/14/2023 CL 108 01/14/2023 BUN 17 01/14/2023 CREAT 0.98 01/14/2023 GLU 145 01/14/2023 CA 9.6 01/14/2023 GFR 67 01/14/2023 * Telephone Encounter - Neldafrancisco javier Toscanoley - 01/19/2023 9:35 AM EST Patient would like script to be: E-PRESCRIBED/FAXED TO PHARMACY WHEN WAS THE PATIENT'S LAST APPOINTMENT IN ADULT MEDICINE? 01-14-23 WHEN WAS THE LAST TIME THE PATIENT SAW THEIR PCP? Has not seen pcp Does patient have an upcoming appointment? Yes 02-25-23 (THE MEDICATION REQUESTED IS ON THE MED [...] N/A Patients current insurance carrier is: Payor: [facility] [employer] [facility] [employer] / Plan: [facility] / Product Type: MEDICAID RISK documented in this encounter Plan of Treatment Not on file documented as of this encounter Visit Diagnoses Not on filedocumented in this encounter Care Teams Graduate Student Instructor Relationship Specialty Start Date End Date Veronique Kelly MD PCP - General Family Practice 08/26/21 documented as of this encounter
== END 2025-01-26 10:30 | disposition home or self-care (01) ==
LOC: HO.HKA 09:24
PROVIDERS: Visit Provider Internal Medicine Critical Care Medicine
DX: N17.9 Acute kidney failure, unspecified (principal); N18.9 Chronic kidney disease, unspecified
CPT/HCPCS: 99214

== ENCOUNTER → 2025-01-26 09:23 | Outpatient (BNVA) | payer OTHER, SELFPAY | PROVIDERS: Visit Provider Internal Medicine Critical Care Medicine | DX: I10 Essential (primary) hypertension (principal); N17.9 Acute kidney failure, unspecified; D64.9 Anemia, unspecified; N18.9 Chronic kidney disease, unspecified | CPT/HCPCS: 99212 ==

== ENCOUNTER 2025-02-05 12:37 | Outpatient (REF) | payer OTHER, SELFPAY ==
[2025-02-05 13:26] LABS: Appearance Urine Clear; Glucose Urine UA 100 mg/dL (Negative); PH 6.0 (5.0-9.0); Specific Gravity - Urine 1.010 (1.005-1.025); UMIC TRIGGER UA YES
[2025-02-05 13:35] LABS: Hematocrit 31.5 % (37.0-47.0); Hemoglobin 10.3 g/dl (12.0-16.0); Mean Corpuscular HGB Conc 32.7 g/dl (31.0-35.0); Mean Corpuscular Hemoglobin 29.5 pg (27.0-33.0); Mean Corpuscular Volume 90.3 fL (80.0-98.0); NRBC Abs Auto 0.000 X10*3/uL (0.0-0.012); NRBC Pct Auto 0.0 /100WBC (0.0-0.2); Platelet Count 271 X10*3/uL (160-400); Red Blood Count 3.49 X10*6/uL (4.20-5.50); White Blood Count 8.6 X10*3/uL (4.8-10.8)
[2025-02-05 14:23] LABS: Anion Gap 12 (12-20); Blood Urea Nitrogen 38 mg/dL (9-16); Calcium 8.8 mg/dL (8.4-10.2); Carbon Dioxide 25 mmol/L (22-29); Chloride 107 mmol/L (96-108); Estimated Glomerular Filt Rate 13; Potassium 3.9 mmol/L (3.3-5.1); Sodium 140 mmol/L (135-145)
[2025-02-05 15:02] LABS: Microalbum/Creatinine Ratio Ur 4790.4 ug/mg cr (<30); Protein/Creatinine Ratio, Ur 8.86 (<0.2); Total Protein Urine Random 370 mg/dL (<12)
--- OUTSIDE RECORDS SUMMARY | 2025-02-05 16:16 | XMS_ITS | Clinical Summary ---
Author Organization [facility] Address [address] [place] [address] Phone Care Team Providers Care Video Game Developer Name Role Phone Lilian Lanier DO Primary Care Provider Allergies Active Allergy Reactions [...] complication associated with type 2 diabetes mellitus ([facility] V24, [facility] V28) Take [...] Noted Date Diagnosed Date DM (diabetes mellitus) ([facility] V24, [facility] V28 ) 02/26/2023 Obesity (BMI 30.0-34.9) 02/24/2023 Anxiety 08/19/2021 Depression 08/19/2021 HTN (hypertension) 08/19/2021 Iron deficiency anemia 08/19/2021 Lung nodule 08/19/2021 Encounters Date Type Department Care Team Description 11/28/2024 4:15 PM EDT Office Visit Bariatric Surgery - [address] [place] [address] Sherron Holden MD Class 1 [...] Date Site/Laterality Comments GASTRIC BYPASS 2010 PROCEDURE: IA GASTRIC RSTCV W/BYP W/SM INT RCNSTJ LIMIT ABSRPJ; COMMENT: in [place] PARTIAL HYSTERECTOMY PROCEDURE: IA SUPRACERVICAL ABDL HYSTER W/WO RMVL TUBE OVARY KNEE ARTHROSCOPY W/ DEBRIDEMENT Right PROCEDURE: IA ARTHRS KNEE DEBRIDEMENT/SHAVING ARTCLR CRTLG HERNIA REPAIR PROCEDURE: IA REPAIR FIRST ABDOMINAL WALL HERNIA; COMMENT: supraumbilical mesh hernia repair OTHER SURGICAL HISTORY PROCEDURE: IA RPR RECRT INCAL/VNT HERNIA REDUCIBLE BLADDER SURGERY [...] AM EST Office Visit Internal Medicine - [facility] [address] [place] [address] Darrel Santiago NP [address] [place] [address] 04/17/2025 4:30 PM EST Office Visit Bariatric Surgery - [place] [address] [place] [phone] Sherron Holden MD [address] [place] [phone] Health Maintenance Due Date Last Done Comments [...] complication, without long-term current use of insulin ([facility] V24, [facility] V28) HIV [...] LAB CHEMISTRY METHOD 07/21/2024 12:20 PM EDT [facility] Mean Bld Glu Estim. 148 mg/dL LAB CHEMISTRY METHOD 07/21/2024 12:20 PM EDT [facility] Blood Venous blood specimen / Unknown Venipuncture / Unknown 07/20/2024 2:44 PM EDT 07/20/2024 2:44 PM EDT us Jennifer Pittman NP LAB BLOOD ORDERABLES Final Resul t [facility] [address] [place] [address], [place] [phone] * (ABNORMAL) Comprehensive metabolic panel (07/20/2024 2:44 PM EDT) Sodium 138 133 - 145 mmol/L LAB CHEMISTRY METHOD 07/21/2024 10:14 AM [facility] Potassium 5.5 3.5 - 5.5 mmol/L LAB CHEMISTRY METHOD 07/21/2024 10:14 AM [facility] Chloride 106 96 - 110 mmol/L LAB CHEMISTRY METHOD 07/21/2024 10:14 AM [facility] CO2 27 21 - 32 mmol/L LAB CHEMISTRY METHOD 07/21/2024 10:14 AM [facility] Anion Gap 5 3 - 11 LAB CHEMISTRY METHOD 07/21/2024 10:14 AM [facility] Glucose 98 70 - 100 mg/dL LAB CHEMISTRY METHOD 07/21/2024 10:14 AM [facility] BUN 27(H) 5 - 25 mg/dL LAB CHEMISTRY METHOD 07/21/2024 10:14 AM [facility] Creatinine 1.77(H) 0.50 - 1.10 mg/dL LAB CHEMISTRY METHOD 07/21/2024 10:14 AM [facility] Comment:Results verified by repeat testing eGFR 33(L) >=60 mL/min/1. 73m2 LAB CHEMISTRY METHOD 07/21/2024 10:14 AM EDT [facility] Comment:Calculation based on the Chronic Kidney Disease Epidemiology Collaboration (CKD-EPI) equation refit without adjustment for race. BUN/Creatinine Ratio 15.3 LAB CHEMISTRY METHOD 07/21/2024 10:14 AM [facility] Calcium 8.6 8.5 - 10.5 mg/dL LAB CHEMISTRY METHOD 07/21/2024 10:14 AM [facility] AST (SGOT) 43(H) 10 - 42 unit/L LAB CHEMISTRY METHOD 07/21/2024 10:14 AM [facility] Comment:Results verified by repeat testing ALT (SGPT) 62(H) 10 - 60 unit/L LAB CHEMISTRY METHOD 07/21/2024 10:14 AM [facility] Comment:Results verified by repeat testing Alkaline Phosphatase 96 42 - 121 unit/L LAB CHEMISTRY METHOD 07/21/2024 10:14 AM [facility] Total Protein 6.5 6.0 - 8.0 g/dL LAB CHEMISTRY METHOD 07/21/2024 10:14 AM [facility] Albumin 3.5 3.2 - 5.0 g/dL LAB CHEMISTRY METHOD 07/21/2024 10:14 AM [facility] Total Bilirubin 0.5 0.0 - 1.4 mg/dL LAB CHEMISTRY METHOD 07/21/2024 10:14 AM [facility] Blood Venous blood specimen / Unknown Venipuncture / Unknown 07/20/2024 2:44 PM EDT 07/20/2024 2:44 PM EDT us Darrel Santiago NP LAB BLOOD ORDERABLES Final Res ult [facility] [address] [place] [address], * HIV 1,2 antibody, p24 antigen with reflex to differentiation (05/25/2024 9:42 AM EDT) HIV Combo AB/AG Negative Negative LAB CHEMISTRY METHOD 05/25/2024 3:54 PM EDT [facility] Blood Venous blood specimen / Unknown Venipuncture / Unknown 05/25/2024 9:42 AM EDT 05/25/2024 9:42 AM EDT Narrative [facility] - 05/25/2024 3:54 [...] NP LAB BLOOD ORDERABLES Final Resul t [facility] [address] [place] [address], * (ABNORMAL) Lipid panel with reflex to direct LDL (05/25/2024 9:42 AM EDT) [facility] Cholesterol 174 0 - 200 mg/dL LAB CHEMISTRY [facility] Triglycerides 195(H) 0 - 150 mg/dL LAB CHEMISTRY METHOD [facility] HDL 50 >=40 mg/dL LAB CHEMISTRY METHOD 05/25/2024 3:08 PM EDT [facility] LDL Calculated 85 0 - 100 mg/dL LAB CHEMISTRY METHOD 05/25/2024 3:08 PM EDT [facility] VLDL Cholesterol Dilshad 39 mg/dL LAB CHEMISTRY METHOD 05/25/2024 3:08 PM EDT [facility] Non HDL Chol. (LDL+VLDL) 124 <145 mg/dL LAB CHEMISTRY METHOD 05/25/2024 3:08 PM EDT [facility] Chol/HDL Ratio 3.5 0.0 - 4.4 LAB CHEMISTRY METHOD 05/25/2024 3:08 PM EDT [facility] Blood Venous blood specimen / Unknown Venipuncture / Unknown 05/25/2024 9:42 AM EDT 05/25/2024 9:42 AM EDT Jennifer Pittman DEMAND PLANNER LAB BLOOD ORDERABLES Final Resul t [facility] [address] [place] [address], [place] [phone] * Colonoscopy (11/16/2023) [facility] Colonoscopy no interpretation , abstracted Anatomical Region Laterality Modality Other Historical Provider MD HEALTH MAINTENANCE Final Result * Diabetes Foot Exam (10/27/2023) [facility] Diabetes: Annual Foot Exam abstracted Historical Provider MD HEALTH MAINTENANCE Final Result * Urine Albumin Creatinine Ratio (09/30/2023) [facility] Urine Albumin Creatinine Ratio abstracted [facility] Provider MD HEALTH MAINTENANCE Final Result * Depression Screening (07/01/2023) [facility] Depression Screening abstracted Historical Provider MD HEALTH MAINTENANCE Final Result from Last 3 Months or Most Recently Relevant to Health Maintenance Insurance [facility] [address] [employer] Care Teams Video Game Developer Relationship Specialty Start Date End Date Lilian Lanier DO [address] [place] [address], [place] [address] PCP - General Internal Medicine 03/17/24
[2025-02-08 06:58] LABS: Quantiferon TB Gold Plus 1 NEGATIVE (NEGATIVE); TB Test (QFT) Mitogen -Nil 8.21 IU/mL; TB Test (QFT) Nil 0.10 IU/mL; TB Test (QFT) Plus TB1 -Nil <0.00 IU/mL; TB Test (QFT) Plus TB2 -Nil <0.00 IU/mL
[2025-02-08 16:48] LABS: Fungitell 1,3 beta glucan Negative
== END 2025-02-05 12:38 | disposition home or self-care (01) ==
LOC: HO.10HDL 12:37
PROVIDERS: Visit Provider Internal Medicine Critical Care Medicine
DX: Z11.1 Encounter for screening for respiratory tuberculosis (principal); N17.9 Acute kidney failure, unspecified; N18.9 Chronic kidney disease, unspecified
CPT/HCPCS: 36415; 80048; 81001; 82043; 82570; 84156; 85027; 86060; 86480; 87449